=== PATIENT | male | born 1940 | race Caucasian/White ===

== ENCOUNTER → 2018-12-05 09:37 | Outpatient (CLI) | payer MEDICARE, SELFPAY ==
--- NOTE | 2018-12-05 | DI.NM.S_ITS ---
PROCEDURE: NM BONE SCAN WHOLE BODY RADIOPHARMACEUTICAL: 22.3 mCi Tc-99m MDP IV. INDICATIONS: RIGHT HIP PAIN TECHNIQUE: Delayed whole-body scintigrams were obtained approximately 3-4 hours after intravenous injection of radiotracer. Anterior and posterior views were acquired from vertex to feet. Additional left and right oblique views of the pelvis and hips were obtained. COMPARISON: Located Within [facility], CR, CHEST 1 VIEW, 04/09/2015, 21:25. [facility] Outside Film, RG, BILATERAL KNEE 3VW, 12/28/2017, 15:58. CR, SPINE LUMB 2 OR 3VW, 12/25/2015, 11:00. [facility], CR, XR KNEE ARTHRITIC SERIES BI, 08/23/2018, 15:58. [facility], [facility], XR PELVIS WITH BILATERAL LATERAL HIPS, 11/22/2018, 10:35. FINDINGS: There are bilateral hip arthroplasties. Low level increased activity on hip prosthesis is consistent with postsurgical change. There is increased activity in the left. Proximal humeral shaft. A right shoulder prosthesis is noted. No lesions are identified in skull, sternum, clavicles, scapulae, ribs, bony pelvis, and visualized shafts of the long bones. There is low level increased uptake in cervical, thoracic and lumbar spine with distribution indistinguishable from degenerative disc and facet disease. There are foci of increased periarticular activity involving knees, right greater than left, ankles and feet, compatible with degenerative/arthritic changes. IMPRESSION: 1. Bilateral hip arthroplasties. Low level increased uptake is likely secondary to postsurgical change. No scintigraphic findings to suggest prosthesis loosening or infection. 2. Increased activity in the left humeral shaft. Recommend radiographic correlation. 3. Degenerative joint disease in knees, ankles and feet. Dictated by: Servando Sanderson M.D. on 12/05/2018 at 14:49 Approved by: Servando Sanderson M.D. on 12/05/2018 at 18:23
[2018-12-05 10:41] LABS: Add Manual Diff / Slide Review NO; Basophils Absolute Auto 0 /uL (0-100); Basophils Percent Auto 0.6 % (0-2); Eosinophils Absolute Auto 100 /uL (0-450); Eosinophils Percent Auto 1.2 % (2-4); Hematocrit 32.5 % (41-53); Hemoglobin 10.7 g/dL (13.5-17.5); Lymphocytes Absolute Auto 600 /uL (1100-4500); Lymphocytes Percent Auto 12.4 % (25-40); Mean Corpuscular Hemoglobin 30.3 PG (26-34); Mean Corpuscular Volume 91.9 fL (80-100); Monocytes Absolute Auto 500 /uL (0-900); Monocytes Percent Auto 10.5 % (3-14); Neutrophils Absolute Auto 3900 /uL (1500-7000); Neutrophils Percent Auto 75.3 % (50-75); Platelet Count 570 X10^3/uL (150-400); Red Blood Cell Count 3.54 X10^6/uL (4.5-5.9); White Blood Cell Count 5.2 X10^3/uL (4.5-11.0)
[2018-12-05 10:50] LABS: Erythrocyte Sedimentation Rate 78 MM/HR (0-15)
[2018-12-05 11:07] LABS: C-Reactive Protein Quant 3.4 mg/dL (<1.0)
== END ==
PROVIDERS: PCP Family Medicine; Visit Provider Orthopaedic Surgery
DX: M25.551 Pain in right hip (principal); M25.561 Pain in right knee
CPT/HCPCS: 36415; 78306; 85025; 85651; 86140; A9503

== ENCOUNTER → 2018-12-14 11:32 | Outpatient (CLI) | payer MEDICARE, SELFPAY ==
--- NOTE | 2018-12-14 11:49 | DI.CT.S_ITS ---
PROCEDURE: CT LUMBAR SPINE WO CON INDICATIONS: Flatback syndrome, site unspecified TECHNIQUE: Noncontrast 3 mm thick sections acquired from the T12 level to the sacrum. Sagittal and coronal reformats were constructed. In this patient, 3-D reformatted images were also performed. For radiation dose reduction, the following was used: automated exposure control. COMPARISON: [facility], CR, L-SPINE 2-3 VIEWS, 04/08/2015, 9:02. [facility], NM, NM BONE SCAN WHOLE BODY, 12/05/2018, 12:59. [facility], CT, L-SPINE WITHOUT CONTRAST, 04/15/2014, 13:01. FINDINGS: Image quality: Excellent. Bones: No acute vertebral body compression fractures. No suspicious lytic or blastic bony lesions. Central spinal caliber is of normal overall caliber. No pars defects. Mild dextroconvex scoliotic curvature is seen. Minimal retrolisthesis is seen at L1-L2 and L2-L3. There is mild retrolisthesis seen at L3-L4. Mild grade 1 anterolisthesis is seen at L4-L5. Lower thoracic spine degenerative changes are seen. At the T9-T10 level, there is severe loss of disc height seen. Milder degenerative changes are seen elsewhere within the thoracic spine. Bridging endplate osteophytes are seen. Postoperative changes are seen, with bilateral pedicle screws at the L3 and L4 levels. Additional right-sided screws are seen at L2, L4, and L5. There is a transverse screw seen at the superior L4 level. There is an L3-L4 disc space are seen. The screws appear well placed. Vertical fixation rods are seen. No findings of hardware failure or hardware loosening are seen. There has been removal of portions of the posterior elements. T12-L1: Moderate to severe loss of disc height is seen. Partial bridging of the vertebral bodies can be seen. Moderate to prominent disc bulge is seen. Posteriorly projected endplate osteophytes are seen. Moderate neural foraminal narrowing is seen. At least moderate central canal narrowing is seen. When comparison is made with the prior examination, these findings are similar. L1-L2: At least moderate loss of disc height is seen. There is partial bridging of the vertebral bodies. Moderate to prominent disc bulge is seen. Endplate irregularity and sclerosis can be seen. Bridging endplate osteophytes are seen. Mild bilateral neural foraminal narrowing is seen. Mild central canal narrowing is seen. When comparison is made with the prior examination, these findings are similar. L2-L3: At least moderate loss of disc height is seen. Partial bridging of the vertebral bodies can be seen. Bridging endplate osteophytes are seen. Moderate generalized disc bulge is seen. There is at least moderate left-sided and mild right-sided neural foraminal narrowing seen. Rhbw-lr-[id number] central canal narrowing is seen. L3-L4: Vertebral body fusion is seen at this level. Prominent left-sided bridging endplate osteophytes are seen. Thoy-po-lghiqfiz bilateral neural foraminal narrowing is seen. These imaging findings have progressed compared to the prior study. L4-L5: Vertebral body fusion can be seen at this level. Prominent bridging endplate osteophytes can be seen at this level. There is likely mild left-sided neural foraminal narrowing at the right-sided neural foraminal narrowing is seen. No significant central canal can be seen. This level is improved compared to 2015. L5-S1: There is at least moderate loss of disc height is seen. Vacuum disc phenomenon is seen at this level. Bridging endplate osteophytes are seen. Moderate generalized disc bulge is seen. Moderate facet joint hypertrophy is seen. There is at least moderate bilateral neural foraminal narrowing seen. No significant central canal narrowing is seen. Soft tissues: No retroperitoneal masses or hematomas. Visualized aorta is normal in caliber. Within the medial right kidney, there is a rounded 2.7 cm lesion that measures 20 Hounsfield units, which is not significantly changed compared to 2015. IMPRESSION: Extensive postoperative hardware and fusion changes. The degrees of narrowing at L4-L5 are improved compared to 2015. Incidental note is made of: Likely right kidney hyperdense cyst. Dictated by: Logan Preston M.D. on 12/14/2018 at 12:23 Approved by: Logan Preston M.D. on 12/14/2018 at 12:35
== END ==
PROVIDERS: PCP Family Medicine; Visit Provider Orthopaedic Surgery
DX: M40.30 Flatback syndrome, site unspecified (principal); M43.16 Spondylolisthesis, lumbar region; M47.814 Spondylosis without myelopathy or radiculopathy, thoracic region; M51.26 Other intervertebral disc displacement, lumbar region; M51.27 Other intervertebral disc displacement, lumbosacral region; M48.061 Spinal stenosis, lumbar region without neurogenic claudication; M48.07 Spinal stenosis, lumbosacral region; Z98.1 Arthrodesis status
CPT/HCPCS: 72131

== ENCOUNTER 2019-04-12 06:02 | Inpatient (IN) | payer MEDICARE, SELFPAY ==
[2019-04-09 11:46] VITALS: BMI 31.3
[2019-04-12] VITALS (15 sets, daily range): BP systolic 95–126; BP diastolic 50–76; PULSE 73–111; RESP 12–20; TEMP 36.6–37.2; O2SAT 97–100; BMI 30.8
--- NOTE | 2019-04-12 | DI.RAD.S_ITS ---
PROCEDURE: XR LUMBAR SPINE 1V INDICATIONS: LAMINECTOMIES, SCREW REMOVAL TECHNIQUE: Single views of the lumbar spine were acquired. COMPARISON: [facility], , L-SPINE 2-3 VIEWS, 04/08/2015, 9:02. FINDINGS: Spot fluoroscopic image demonstrates surgical probe projecting in the posterior paraspinal soft tissues although the exact spinal level is unclear, without definitive anatomic landmarks in the [id number]. Partially visualized pedicle screws. Dictated by: Nba Pickard M.D. on 04/12/2019 at 16:39 Approved by: Nba Pickard M.D. on 04/12/2019 at 16:42
[2019-04-12] MEDS: CELECOXIB 200 MG CAPSULE 400 MG PO (06:54)
[2019-04-12] MEDS: ACETAMINOPHEN 325 MG TABLET 975 MG PO (06:54)
[2019-04-12] MEDS: GABAPENTIN 300 MG CAPSULE PO ×2 (06:55→20:02)
[2019-04-12] MEDS: LACTATED RINGERS 1,000 ML 42 ML IV (07:00)
--- NOTE | 2019-04-12 07:21 | PM.PREOP ---
Pre-operative Note Interval Note History & Physical reviewed/Exam performed by Physician: Yes Changes to H&P: No
[2019-04-12] MEDS: CEFAZOLIN 2 GM/100 ML FROZ.PIGGY IV ×3 (07:45→23:23)
--- NOTE | 2019-04-12 08:25 | SUR.OPER ---
Prone on spine table, head in foam head support, padded chest and pelvic supports, gel pad at knees, lower legs supported by pillows; nipples, genitalia and toes free of pressure, arms secured on foam padded arm boards at <90 degrees abduction. Tape over blanket at thigh secured to table.
[2019-04-12] MEDS: SODIUM CHLORIDE 0.9% 1,000 ML, GENTAMICIN 80 MG IRR (08:32)
[2019-04-12] MEDS: THROMBIN (RECOMBINANT) 5,000 UNIT VIAL 5000 UNIT TOP (08:33)
[2019-04-12] MEDS: VANCOMYCIN 1,000 MG VIAL 1000 MG TOP (08:33)
[2019-04-12] MEDS: BUPIVACAINE 0.25% (PF) VIAL 8 ML INJ (08:51)
[2019-04-12] MEDS: fentaNYL 100 MCG/2 ML INJ EPIDURAL (08:51)
[2019-04-12] MEDS: LACTATED RINGERS 1,000 ML 120 ML IV (09:19)
--- NOTE | 2019-04-12 11:02 | PM.OP.1 ---
Operative Date/Time/Diagnoses Date of procedure: 04/12/19 Time of procedure: 11:02 Pre-op diagnosis: Thoracic and lumbar stenosis with radiculopathy History of lumbar laminectomy and fusion Post-op diagnosis: same Procedure & Clinicians Procedure: T12-L1 laminectomy Revision bilateral L4-5 foraminotomies Hardware removal of screws from L2 through 5 Use of microscope Placement of epidural catheter Same procedure as scheduled: Yes Indications: [age] year old male with intractable pain from stenosis. They had failed conservative management and requested operative intervention. Risks and benefits of surgery were discussed and appropriate consents were obtained. Surgeon: Gurinder Reid Cable Television Technician: Rebekah Nowak Anesthesia Type: General Operative Notes Findings: None Closure Type: primary Specimen(s): none sent Prosthetic devices, grafts, tissues, transplants, or devices: Removed NuVasive Reline screws Applied: catheter Estimated Blood Loss (mL): 150 Blood products transfused: none Procedure in detail: Patient brought to the operating room and intubated on the stretcher. He was were rolled over to the well-padded prone position on the Keith table. Care was taken to not overstretch his shoulders and they were tucked down to the sides. The back was prepped and draped in the standard sterile fashion. Preoperative antibiotics were given. Time-out was performed. We used fluoroscopy for localization and made a 3 cm midline incision over T12-L1. Bovie was used to dissect the bilateral paraspinals. A marker was placed and x-ray confirmed position. We brought in the microscope. We used a combination of a Leksell rongeur, a bur, Kerrisons, and curettes to perform a complete laminectomy at T12-L1. We undermined part of the L1 lamina. We removed all of the facet overgrowth until the spinal canal was wide open. We could move a nerve hook cephalad, caudally, and out to the sides and everything was well decompressed. The wound was irrigated. We then took an epidural catheter and primed it with 8 mL of 0.25% Marcaine and 100 microscope fentanyl. The catheter was placed underneath the remaining lamina of T12 and slid cephalad. The fascia was closed and the epidural was injected without resistance and removed. We then used fluoroscopy to find the position of our screws at the lower levels. A 10 cm incision was made on the right-hand side. Bovie was used to split down to the fascia and through the muscle down to the screws. They were removed from L2 through 5. We then began dissecting and exposing the pars and the remaining lamina from his previous laminectomy. We came to the medial border at the junction of the previous laminectomy and the remaining bone. The microscope was brought in again. We then used a bur, curette, and Kerrison rongeurs to perform a revision right-sided laminotomy and foraminotomy at L4-5. We dug through the scar tissue until we could completely trace the nerve root off the dura and all the way out laterally past the pedicles and everything was open. The wound was irrigated. The fascia was closed. We then went to the left side. We used a 6 cm longitudinal incision over the screws. Bovie used to split the fascia. We continued dissected with Bovie until we came to the screws and removed the L3-4 screws. We dissected forth to the next level down to expose the L4-5 facet. The soft tissue was cleared to the edge of his previous laminectomy. We then again used microscope and performed a revision left-sided L4-5 laminotomy and foraminotomy with a bur and curette and Kerrison rongeurs.. In the end we could completely traced out the exiting nerve root from the dura out past the pedicles and everything was wide open. The wound was irrigated and the fascia was closed. Vancomycin powder was placed in the wounds. The superficial and skin were closed. Sterile dressing was placed. He was then rolled over, extubated, brought to recovery with no complications. Complications: none Post-operative Condition: stable Disposition: PACU Plan for aftercare: Outpatient with bed status. Anticipate 1-2 days in the hospital. Mobilize as tolerated.
[2019-04-12] MEDS: LACTATED RINGERS 1,000 ML 125 ML IV ×2 (12:41→20:05)
--- NOTE | 2019-04-12 13:56 | PT.IIE ---
Current Diagnoses Spinal stenosis, lumbar region with neurogenic claudication (04/12/19) Arthrodesis status (04/12/19) Surgery Performed Operation Date: 04/12/19 07:45 Actual Procedures p old screw removal, T12-L1 laminectomy, Bilateral revision foraminotomies at L45(Not Applicable) - Gurinder Reid MD Surgical History (Last Updated 04/09/19 @ 11:51 by Candelaria Gallegos RN) History of arthroplasty of right shoulder (Acute) History of bilateral hip arthroplasty (Acute) History of lumbar surgery (Acute 03/25/15) Hx of laminectomy (Acute) Hx of shoulder surgery (Acute) Medical History (Last Updated 04/10/19 @ 07:47 by Candelaria Gallegos RN) Acid reflux (Acute) Afib (Acute) Arthritis (Acute) Cardiomyopathy (Acute) Edema (Acute) HLD (hyperlipidemia) (Acute) HTN (hypertension) (Acute) Osteoarthritis (Acute) Physical Therapy Inpatient Evaluation/Re-Eval M1 PT/OT-IP Prior Functional Status Start: 04/12/19 15:04 Freq: NEEDED Status: Active Protocol: Document 04/12/19 13:56 AB (Rec: 04/12/19 15:25 AB [id number]) Medical Review Prior Functional Status Medical History Reviewed Yes Communication able to make need known Mobility and Gait pt stated that he is inidependent with alll mobilities and ambulation without AD indoors but uses a SPC for outdoor mobility stated that he had h/o falls and has difficulty going up/ down curbs. Last fall was ~ 6 -8 months ago Social History Household Members spouse Living Arrangements House Number of Floors (Floors) Two Floors Number of Stairs To Enter/Railing? pt stays on main level of the house has 2 steps to enter with R rail ascending from the front has 2 platform steps to enter if going from the back of the house pt prefer going from the front of the house Home Environment High Toilet,Walk in Shower Home Equipment Front Wheel Walker,Straight Cane,Hand Held Shower,Grab Bars In Shower M2 PT-IP Current Condition Start: 04/12/19 15:04 Freq: NEEDED Status: Active Protocol: Document 04/12/19 13:56 AB (Rec: 04/12/19 15:25 AB [id number]) Physical Therapy Current Condition Current Condition Evaluation Date 04/12/19 Treatment Diagnosis s/p T12-L1 lami; revision L4-5 foraminotomies; L2-5 instru; diff in walk Onset Date 04/12/2019 Precautions Lumbar Precautions Log Roll,No Twisting,Limit Bending,Lifting Restriction of 10 lbs,Gait Belt above Incisional Area M3 PT-IP Subjective Start: 04/12/19 15:04 Freq: NEEDED Status: Active Protocol: Document 04/12/19 13:56 AB (Rec: 04/12/19 15:25 [id number]) Subjective Physical Therapy Visit Type Type Initial Evaluation Visit Start Time 13:56 Visit Stop Time 14:46 Total Visit Minutes 50 Number of PYTHON ENGINEER Visits 0 Physical Therapy Visit Comments Patient Comments pt agreeable to do PT Therapy Pain Assessment Pain When Pain Assessed At Rest Pain Present Pain Present Pain Reported Location lower back Intensity 5 Scale Used Numeric (1 - 10) Pain Behaviors Guarding Pain Management Techniques Modification of Treatment,Re- positioning M4 PT-IP Mobility and Gait Start: 04/12/19 15:04 Freq: NEEDED Status: Active Protocol: Document 04/12/19 13:56 AB (Rec: 04/12/19 15:25 [id number]) PT-Bed Mobility Assessment Rolling Type of Rolling Log Rolling Level of Assist Moderate Assistance,1 Person Assistance Supine to Sit Supine to Sit Maximum Assistance,1 Person Assistance Sit to Supine Sit to Supine Maximum Assistance,1 Person Assistance PT-Transfer Assessment Sit to and From Stand Sit to and from Stand Contact Guard Assistance,1 Person Assistance,Use of Upper Extremities Equipment Transfer Assistive Device Gait Belt,Front Wheeled Walker Orthotic/Prosthetic Devices or Brace: No Gait Assessment Gait Gait Assistance Required: Minimum Assistance,1 Person Assist Distance (Feet) 40 Able to Maintain Weight Bearing Status Yes During Gait Assistive Devices Assistive Device Gait Belt,Front Wheeled Walker Orthotic/Prosthetic Devices or Brace: No Gait Deviations General Gait Pattern Antalgic,Decreased Stride Length,Decreased Feet Clearance,Flexed Trunk,Step-to Gait Factors Limiting Gait Function Factors Limiting Gait Function Decreased Activity Tolerance, Decreased Sensation,Decreased Strength,Limited Range of Motion,Pain,Poor Balance,Poor Safety Awareness Comments Gait Comments pt presents with antalgic gait with increase bilateral knee flexion during standing and trunk forward flexion, has increase genu varum on RLE, decrearse LE elevation during swing phase. PT-Balance Assessment Sitting Balance and Reactions Static Sitting Balance Ability Good Dynamic Sitting Balance Ability Good Standing Balance and Reactions Static Standing Balance Ability Fair Dynamic Standing Balance Ability Fair Device Used FWW M5 PT-IP Objective Assessments Start: 04/12/19 15:04 Freq: NEEDED Status: Active Protocol: Document 04/12/19 13:56 AB (Rec: 04/12/19 15:25 AB [id number]) Orientation Orientation/Cognition Level of Alertness Alert Orientation Name,Place,Situation Language Function Ability No Deficits Noted Safety Awareness Decreased Safety Awareness Gross Range of Motion Lower Extremity ROM Assessment Within Functional Limits Strength Lower Extremity Strength Assessment Bilaterally Impaired Comments Strength Comments LLE: 3+/5 RLE 4-/5 Coordination Assessment Gross Coordination Gross Coordination WNL Sensation Assessment Comments Sensation Comments c/o chronic decrease sensation on BLE Muscle Tone Muscle Tone WNL Yes M6 PT-IP Treatment Start: 04/12/19 15:04 Freq: NEEDED Status: Active Protocol: Document 04/12/19 13:56 AB (Rec: 04/12/19 15:25 AB [id number]) Physical Therapy Treatment Education Education Provided Precautions,Weight Bearing Status,Post-Op Packet,Safety M7 PT-IP Assessment and Plan Start: 04/12/19 15:04 Freq: NEEDED Status: Active Protocol: Document 04/12/19 13:56 AB (Rec: 04/12/19 15:25 AB [id number]) PT Summary Assessment and Plan Potential Rehabilitation Potential Good Status of Condition at Evaluation Evolving Summary Impairments Pain,ROM,Strength,Balance, Coordination,Sensation,Tone, Cognition,Bed Mobility, Transfers,Gait,Activity Tolerance Assessment Summary pt requiring max A with bed mobility and min A with ambulation. d/c plan depending on progress. will conduct caregiver training when appropriate as well as stair climbing training. If pt goes home, may benefit from homehealth PT to improve LE strength, balance and functional independence considering pt's BLE weakness and h/o falls. Goals Bed Mobility Goal Standby Assistance Transfer Goal Standby Assistance,Front Wheeled Walker Gait Goal Standby Assistance,Front Wheel Walker Gait Distance 150 Other Goals up/down 2 steps R rail SBA Days to Meet Goals 5 Frequency of Treatment Frequency Of Treatment Twice a Day Treatment Plan Physical Therapy Treatment Plan Bed Mobility Training,Transfer Training,Gait Training, Therapeutic Exercise,Balance Retraining,Post Op Education, Discharge Planning,Hot or Cold Pack,Neuromuscular Re-ed, Coordination Retraining,Manual Therapy Other Recommendations and Next Treatment ambulation, bed mobility, Focus caregiver training and stair training when appropriate Recommendations To Nursing Amount of Assist Needed 1 Person Assist Discharge Recommendations PT Discharge Recommendations Home with 24/7 Assist,Home Health Transportation Needs at Discharge Private Vehicle
[2019-04-12] MEDS: HYDROCODONE/ACET 5/325 TABLET 1 TAB PO (16:09)
--- NOTE | 2019-04-12 18:02 | PC.NURSE ---
Mi shift note: Awake, alert, and pleasant. Received on RA, O2 sat 99%, while awake, cont. pulse ox. Calf SCDs in place, IS teaching performed. Made EdgarParviz FERNANDEZ aware regarding increased sanguinous drainage to proximal end of dressing, Dr. Reid aware, ok to reinforce. IVF infusing, bed alarm active. CIWA 0. CMS intact to BLE, Edema noted to BLE from below knee to feet, 2+. Calls appropriately for staff assistance.
[2019-04-12] MEDS: HYDROCODONE/ACET 5/325 TABLET 2 TAB PO (19:55)
[2019-04-12] MEDS: DOCUSATE 100 MG CAPSULE PO (20:01)
[2019-04-12] MEDS: DIGOXIN 0.25 MG TABLET PO (20:01)
[2019-04-12] MEDS: POTASSIUM CHLORIDE 20 MEQ TAB PO (20:02)
[2019-04-12] MEDS: LOSARTAN 25 MG TABLET PO (20:02)
[2019-04-12] MEDS: SENNOSIDES 8.6 MG TABLET 17.2 MG PO (20:03)
[2019-04-13] VITALS (9 sets, daily range): BP systolic 112–123; BP diastolic 57–65; PULSE 80–98; RESP 16–18; TEMP 36.6–37.9; O2SAT 96–100
[2019-04-13] MEDS: PANTOPRAZOLE 20 MG TABLET PO (05:41)
[2019-04-13 05:46] LABS: Hematocrit 26.2 % (41-53); Hemoglobin 8.5 g/dL (13.5-17.5)
--- NOTE | 2019-04-13 08:09 | PM.PNPO.1 ---
Subjective Subjective Date Patient Seen: 04/13/19 Time Patient Seen: 08:09 Interval history: He is doing very well. Pain is about a 3. He did get up with physical therapy yesterday and moved around well with assistance Exam Vital Signs (past 8 hours): - 04/13/19 04:00 Temperature 99.4 F Pulse Rate 91 H Respiratory Rate 16 Blood Pressure 114/58 L Pulse Oximetry 98 Oxygen Delivery Method Room Air Oxygen Flow Rate 0 Const Orientation: alert and oriented x3 Back/Spine/Pelvis Other: Dressing changed yesterday. Quarter-size mild drainage currently. 5/5 motor both lower extremities Objective Labs Result Diagrams: 04/13/19 05:30 Labs: Laboratory Results - last 24 hr 04/13/19 05:30 Hgb 8.5 L Hct 26.2 L Assessment & Plan Post-op Postoperative Procedures: Procedures Operation Date: 04/12/19 07:45 Actual Procedures Side Surgeon p old screw removal, T12-L1 laminectomy, Bilateral revision foraminotomies at L45 Not Applicable Gurinder Reid MD he had some acute blood loss anemia, although he dropped from 10/33 down to a 8.5/26. I think this is going to be more dilutional as he only had about 150 mL blood loss. His vitals are stable and he is asymptomatic from this. Continue to mobilize today with physical therapy. If he is doing well he could discharge home this afternoon, but may require staying till tomorrow for stability. Quality VTE Deep Vein Thrombosis/Pulmonary Embolism Present on Admission: No
[2019-04-13] MEDS: CHOLECALCIFEROL (VITAMIN D3) 1,000 UNIT TABLET 2000 UNIT PO (08:14)
[2019-04-13] MEDS: FUROSEMIDE 40 MG TABLET PO (08:15)
[2019-04-13] MEDS: POTASSIUM CHLORIDE 20 MEQ TAB PO ×2 (08:15→20:35)
[2019-04-13] MEDS: MULTIVIT,CALC,MINS/IRON/FOLIC 1 TABLET 1 TAB PO (08:15)
[2019-04-13] MEDS: DOCUSATE 100 MG CAPSULE PO ×2 (08:15→20:35)
[2019-04-13] MEDS: METOPROLOL ER 50 MG TABLET 25 MG PO (08:15)
[2019-04-13] MEDS: HYDROCODONE/ACET 5/325 TABLET 2 TAB PO ×2 (08:17→12:38)
[2019-04-13] MEDS: SODIUM CHLORIDE 0.9% FLUSH 10 ML IV ×2 (08:58→20:37)
--- NOTE | 2019-04-13 09:35 | PT.IPTN ---
Current Diagnoses Spinal stenosis, lumbar region with neurogenic claudication (04/12/19) Arthrodesis status (04/12/19) Surgery Performed Operation Date: 04/12/19 07:45 Actual Procedures p old screw removal, T12-L1 laminectomy, Bilateral revision foraminotomies at L45(Not Applicable) - Gurinder Reid MD Physical Therapy Treatment Note M2 PT-IP Current Condition Start: 04/12/19 15:04 Freq: NEEDED Status: Active Protocol: Document 04/12/19 13:56 AB (Rec: 04/12/19 15:25 AB [id number]) Physical Therapy Current Condition Current Condition Evaluation Date 04/12/19 Treatment Diagnosis s/p T12-L1 lami; revision L4-5 foraminotomies; L2-5 instru; diff in walk Onset Date 04/12/2019 Precautions Lumbar Precautions Log Roll,No Twisting,Limit Bending,Lifting Restriction of 10 lbs,Gait Belt above Incisional Area M3 PT-IP Subjective Start: 04/12/19 15:04 Freq: NEEDED Status: Active Protocol: Document 04/13/19 09:35 AB (Rec: 04/13/19 11:59 AB [id number]) Subjective Physical Therapy Visit Type Type Treatment Note Visit Start Time 09:35 Visit Stop Time 10:13 Total Visit Minutes 38 Number of ATTRACTION ATTENDANT Visits 0 Physical Therapy Visit Comments Patient Comments pt agreeable to do PT Therapy Pain Assessment Pain When Pain Assessed At Rest Pain Present Pain Present Pain Reported Location Right Lower Leg Intensity 6 Scale Used Numeric (1 - 10) Pain Management Techniques Modification of Treatment, Timing of Activity with Medications M4 PT-IP Mobility and Gait Start: 04/12/19 15:04 Freq: NEEDED Status: Active Protocol: Document 04/13/19 09:35 AB (Rec: 04/13/19 11:59 AB [id number]) PT-Bed Mobility Assessment Rolling Type of Rolling Log Rolling Level of Assist Minimal Assistance Supine to Sit Supine to Sit Minimal Assistance,1 Person Assistance PT-Transfer Assessment Sit to and From Stand Sit to and from Stand Contact Guard Assistance, Minimal Assistance,1 Person Assistance,Use of Upper Extremities Equipment Transfer Assistive Device Gait Belt,Front Wheeled Walker Orthotic/Prosthetic Devices or Brace: No Transfers Transfer Destination Chair Transfer Technique ambulated using FWW Transfer Ability Level of Assist Contact Guard Assistance, Minimal Assistance,1 Person Assistance,Use of Upper Extremities Gait Assessment Gait Gait Assistance Required: Contact Guard Assist,Minimum Assistance,1 Person Assist Distance (Feet) 75 Able to Maintain Weight Bearing Status Yes During Gait Assistive Devices Assistive Device Gait Belt,Front Wheeled Walker Orthotic/Prosthetic Devices or Brace: No Gait Deviations General Gait Pattern Antalgic,Decreased Stride Length,Decreased Feet Clearance,Lateral Trunk Lean, Step-to Gait Factors Limiting Gait Function Factors Limiting Gait Function Decreased Activity Tolerance, Decreased Strength,Limited Range of Motion,Pain,Poor Balance,Poor Safety Awareness Stair Climbing Assessment Evaluation Level of Assist On Stairs Minimal Assistance,1 Person Assistance Devices Stair Climbing Assistive Devices Front Wheel Walker Technique/Endurance Stair Climbing Direction Ascend and Descend Stair Climbing Technique Step to Step Number of Steps Climbed 1 Stair Climbing Set # Repetitions (reps) 2 Comments Stair Climbing Comments up platform steps backwards and down platform steps forward min A and cues for techniques and safety M5 PT-IP Objective Assessments Start: 04/12/19 15:04 Freq: NEEDED Status: Active Protocol: Document 04/12/19 13:56 AB (Rec: 04/12/19 15:25 AB [id number]) Orientation Orientation/Cognition Level of Alertness Alert Orientation Name,Place,Situation Language Function Ability No Deficits Noted Safety Awareness Decreased Safety Awareness Gross Range of Motion Lower Extremity ROM Assessment Within Functional Limits Strength Lower Extremity Strength Assessment Bilaterally Impaired Comments Strength Comments LLE: 3+/5 RLE 4-/5 Coordination Assessment Gross Coordination Gross Coordination WNL Sensation Assessment Comments Sensation Comments c/o chronic decrease sensation on BLE Muscle Tone Muscle Tone WNL Yes M6 PT-IP Treatment Start: 04/12/19 15:04 Freq: NEEDED Status: Active Protocol: Document 04/13/19 09:35 AB (Rec: 04/13/19 11:59 AB [id number]) Physical Therapy Treatment Education Education Provided Precautions,Safety M7 PT-IP Assessment and Plan Start: 04/12/19 15:04 Freq: NEEDED Status: Active Protocol: Document 04/13/19 09:35 AB (Rec: 04/13/19 11:59 AB [id number]) PT Summary Assessment and Plan Potential Rehabilitation Potential Good Summary Impairments Pain,ROM,Strength,Balance, Coordination,Sensation,Tone, Cognition,Bed Mobility, Transfers,Gait,Activity Tolerance Progress Towards Goals Progressing Toward Goals Assessment Summary pt progressing with mobility and caregiver training will be conducted prior to d/c. set up caregiver training in the afternoon at 130 pm. d/c plan depending on caregiver training. pt will benefit from homehealth/outpt PT to improve strength especially on LLE, standing balance and mobility. Goals Bed Mobility Goal Standby Assistance Transfer Goal Standby Assistance,Front Wheeled Walker Gait Goal Standby Assistance,Front Wheel Walker Gait Distance 150 Other Goals up/down 2 steps R rail SBA Days to Meet Goals 5 Frequency of Treatment Frequency Of Treatment Twice a Day Treatment Plan Physical Therapy Treatment Plan Bed Mobility Training,Transfer Training,Gait Training, Therapeutic Exercise,Balance Retraining,Post Op Education, Discharge Planning,Hot or Cold Pack,Neuromuscular Re-ed, Coordination Retraining,Manual Therapy Other Recommendations and Next Treatment ambulation, bed mobility, Focus caregiver training and stair training when appropriate Recommendations To Nursing Amount of Assist Needed 1 Person Assist Discharge Recommendations PT Discharge Recommendations Home with 24/7 Assist,Home Health,Outpatient PT Transportation Needs at Discharge Private Vehicle
--- NOTE | 2019-04-13 10:51 | PC.NURSE ---
Addendum entered by Melissa Jaffe R.N. 04/13/19 14:47: Dr. Reid called via phone at 1440 for pt update. Speaking with pt, does not feel comfortable going home today after working with PT this afternoon, stated PT session went okay. Pt to stay one more night, verbal order to order H&H for Tuesday morning. Addendum entered by Melissa Jaffe R.N. 04/13/19 11:45: At 1145, pt reported he had voided in toilet when up with OT. Aware to measure in urinal with next void, urinal within reach. Pt okay with continuing to sit up in recliner chair. Original Note: Day Shift- Pt A&OX4, able to make needs known using call light. Bed alarm on. Pt is hard of hearing, he left his bilateral hearing aids at home. Pt reports 4/10 aching to lower back and right lower leg slight spasm. Pain management plan discussed. PRN Oxycodone given at 0815 with good effect. RLE spasm non distressing at this time, will monitor. Lower/mid back dressing intact, appears to be coversite overlapping dressings. Sero sang drainage noted to proximal left and distal left side of dressing. No leaking noted. Pt has chronic BLE edema to feet, ankle and lower legs up to his knees. Edema is puffy, shiny, taut in places. CIWA score is 0. Urinary catheter removed at 1035 by [place] practical nursing instructor Arin with her instructor.
--- NOTE | 2019-04-13 11:31 | OT.IP.EVAL ---
Current Diagnoses Spinal stenosis, lumbar region with neurogenic claudication (04/12/19) Arthrodesis status (04/12/19) Surgery Performed Operation Date: 04/12/19 07:45 Actual Procedures p old screw removal, T12-L1 laminectomy, Bilateral revision foraminotomies at L45(Not Applicable) - Gurinder Reid MD Past Medical History (Last Updated 04/10/19 @ 07:47 by Candelaria Gallegos RN) Acid reflux (Acute) Afib (Acute) Arthritis (Acute) Cardiomyopathy (Acute) Edema (Acute) HLD (hyperlipidemia) (Acute) HTN (hypertension) (Acute) Osteoarthritis (Acute) Surgical History (Last Updated 04/09/19 @ 11:51 by Candelaria Gallegos RN) History of arthroplasty of right shoulder (Acute) History of bilateral hip arthroplasty (Acute) History of lumbar surgery (Acute 03/25/15) Hx of laminectomy (Acute) Hx of shoulder surgery (Acute) Occupational Therapy Inpatient Evaluation/Re-Eval M1 PT/OT-IP Prior Functional Status Start: 04/12/19 15:04 Freq: NEEDED Status: Active Protocol: Document 04/13/19 11:41 CGR (Rec: 04/13/19 11:52 CGR [id number]) Medical Review Prior Functional Status Medical History Reviewed Yes Communication able to make need known Mobility and Gait pt stated that he is inidependent with alll mobilities and ambulation without AD indoors but uses a SPC for outdoor mobility stated that he had h/o falls and has difficulty going up/ down curbs. Last fall was ~ 6 -8 months ago Activities of Daily Living and IADL's Pt states he was able to do all of his dressing and bathing but states he no longer wears socks because he can't don them and the sock aide does not work for him. Social History Household Members spouse Living Arrangements House Number of Floors (Floors) Two Floors Number of Stairs To Enter/Railing? 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 M2 OT-IP Current Condition Start: 04/13/19 11:41 Freq: Status: Active Protocol: Document 04/13/19 11:41 CGR (Rec: 04/13/19 11:52 CGR [email or web address]) Occupational Therapy Current Condition Current Condition Evaluation Date 04/13/19 Treatment Diagnosis T12-L1 lami, revision of L4-5 and hardware removal L2-5 Diagnosis Onset Date 04/12/19 Post Operative Precautions Lumbar Precautions Log Roll,No Twisting,Limit Bending,Lifting Restriction of 10 lbs,Gait Belt above Incisional Area M3 OT- IP Subjective and Pain Start: 04/13/19 11:41 Freq: Status: Active Protocol: Document 04/13/19 11:41 CGR (Rec: 04/13/19 11:52 CGR [email or web address]) OT- Subjective Occupational Therapy Visit Type Type Initial Evaluation Visit Start Time 10:38 Visit Stop Time 11:31 Total Visit Minutes 53 Occupational Therapy Visit Comments Patient Comments I have gone through this before so I know a lot of what to do. OT Pain Assessment Pain When Pain Assessed At Rest Pain Present Pain Present Pain Reported Location Right Lower Leg Intensity 5 Scale Used Numeric (1 - 10) Management Techniques Modification of Treatment, Timing of Activity with Medications M4 OT- IP ADL's Start: 04/13/19 11:41 Freq: Status: Active Protocol: Document 04/13/19 11:41 CGR (Rec: 04/13/19 11:52 CGR [email or web address]) OT [id number] Comments OT Self-Feeding Comments Not meal time OT ADL-Grooming General Evaluation Grooming Ability Standby Assistance Areas Needing Assistance Face Washing Comments OT Grooming Comments Standing at sink OT ADL-Oral Care General Eval Oral Care Ability Standby Assistance Areas of Assistance Brushing Teeth,Retrieving/Set- Up of Items Comments Oral Care Comments Standing at sink OT ADL-Dressing General Eval Lower Body Dressing Ability Standby Assistance Areas Needing Assistance Underpants/Brief Assistive Devices Dressing Assistive Devices Handle Maker Comments OT Dressing Comments Pt educated on LB dressing of underwear and pants with a rn operating room. OT ADL-Toileting General Evaluation Toileting Ability Independent Devices Toileting Assistive Devices Grab Bars OT ADL-Bathing Comments OT Bathing Comments Not performed in this session. M5 OT- IP IADL's Start: 04/13/19 11:41 Freq: Status: Active Protocol: Document 04/13/19 11:41 CGR (Rec: 04/13/19 11:52 CGR [email or web address]) OT-Instrumental Activities of Daily Living Deficits IADL Deficits Identified Deficits Home Safety Awareness Awareness of Need for Assistance at Home Good Awareness Ability to Problem Solve Emergency Able to Problem Solve Situations Medication Management Medication Management Caregiver Provides Supervision Money Management Money Management No Deficits Identified Meal Preparation Meal Preparation Caregiver Provides Assist Financial Intern Financial Intern Caregiver Provides Assist Driving Driving Comments Pt understands that he should not drive till cleared by his MD. M6 OT- IP Functional Cognition Start: 04/13/19 11:41 Freq: Status: Active Protocol: Document 04/13/19 11:41 CGR (Rec: 04/13/19 11:52 CGR [email or web address]) Cognitive Factors Limiting Selfcare Function Cognitive Ability Level of Alertness Alert Patient Orientation Name,Age,Birthday,Month,Date, Year,Day of Week,Place, Situation Attention Span Ability Capable of Focused Attention, Capable of Sustained Attention Ability to Follow Commands Able to Follow Multi-Step Commands Memory Description No Deficits Noted Safety Awareness No Deficits Noted Problem Solving Ability No deficits Noted OT- Vision and Hearing OT- Hearing Assessment OT- Hearing Assessment Hearing Impaired,Use of Hearing Aids OT- Vision Assessment Vision History Cataracts Visual Acuity Glasses For Reading Visual Attentiveness WFL Occular Pursuits WFL Visual Convergence WFL Visual Carter WFL Vision Assessment Comments Hx of cateract sx M7 OT- IP Mobility and Balance Start: 04/13/19 11:41 Freq: Status: Active Protocol: Document 04/13/19 11:41 CGR (Rec: 04/13/19 11:52 CGR [email or web address]) OT- Bed Mobility Assessment Rolling Type of Rolling Log Rolling Level of Assistance Standby Assistance Supine to Sit Supine to Sit Assist Standby Assistance Sit to Supine Sit to Supine Assist Minimal Assistance Scooting Scooting to Edge of Bed Standby Assistance OT-Transfer Assessment Sit to and From Stand Sit to and from Stand Standby Assistance Transfers Transfer Ability Standby Assistance Technique Transfer Destination Bed,Chair,Toilet Transfer Technique Stand Step Pivot Devices Transfer Assistive Devices Gait Belt,Front Wheeled Walker Comments Mobility Comments Pt with good use of safety with mobility around room and bathroom. Pt needed min a for getting L foot into bed but states this is his prior level and his is use to helping him with it. OT- Gait Assessment Gait Gait Assistance Required: Standby Assistance Assistive Devices Assistive Device Gait Belt,Front Wheeled Walker OT- Balance Assessment Sitting Balance and Reactions Static Sitting Balance Ability Good Dynamic Sitting Balance Ability Fair M8 OT- IP Objective Assessments Start: 04/13/19 11:41 Freq: Status: Active Protocol: Document 04/13/19 11:41 CGR (Rec: 04/13/19 11:52 CGR [email or web address]) OT Gross Range of Motion Upper Extremity Range of Motion Assessment Within Functional Limits OT Strength Upper Extremity Strength Assessment Within Functional Limits OT- Coordination Assessment Upper Extremity Finger to Nose Test Within Functional Limits Finger Tapping Test Within Functional Limits OT-Muscle Tone Assessment Muscle Tone WNL Yes OT Sensation Assessment Edema Edema Present Edema Comments B feet, but pt states this this is his normal state. M9 OT- IP Assessment and Plan Start: 04/13/19 11:41 Freq: Status: Active Protocol: Document 04/13/19 11:41 CGR (Rec: 04/13/19 11:52 CGR [email or web address]) OT Summary Assessment and Plan Potential Rehabilitation Potential Excellent Analytic Complexity at Evaluation Low Summary OT Impairments Pain,Strength,Balance, Functional Mobility,Dressing, Toileting,Bathing,Toilet Transfers,Shower Transfers, Activity Tolerance Progress Towards Goals Progressing Toward Goals Assessment Summary Pt presents s/p back sx and is progressing well. Pt has all necessary equipment at home and would benefit from 1-2 more sessions to review back precautions and ADLs while maintaining back precautions. Pt has his to assist as needed. Recommend d/c to home with for support. Goals Self-Feeding Goal Independent Grooming Goal Independent Dressing Goal Independent Toileting Goal Independent Bathing Goal Independent Toilet Transfer Goal Independent Shower Transfer Goal Independent Days to Meet Goals 2 Frequency of Treatment Frequency Of Treatment Once a Day Treatment Plan OT Treatment Plan ADL Training,Functional Mobility,Patient/Family Education,Discharge Planning Other Treatment Recommendations and Next Shower, further LB dressing Treatment Focus Discharge Recommendations OT Discharge Recommendations Home with Assistance Home Equipment Needs None at this time. Transportation Needs at Discharge Private Vehicle
--- NOTE | 2019-04-13 12:22 | DIET.PN ---
Dietary Progress Note RD consulted for reported 40# wt loss in past year. Met with pt who had just finished 100% of lunch and reports the weight loss was intentional and done via portion control. No further nutrition f/u needed.
--- NOTE | 2019-04-13 13:56 | PT.IPTN ---
Current Diagnoses Spinal stenosis, lumbar region with neurogenic claudication (04/12/19) Arthrodesis status (04/12/19) Surgery Performed Operation Date: 04/12/19 07:45 Actual Procedures p old screw removal, T12-L1 laminectomy, Bilateral revision foraminotomies at L45(Not Applicable) - Gurinder Reid MD Physical Therapy Treatment Note M2 PT-IP Current Condition Start: 04/12/19 15:04 Freq: NEEDED Status: Active Protocol: Document 04/12/19 13:56 AB (Rec: 04/12/19 15:25 AB [id number]) Physical Therapy Current Condition Current Condition Evaluation Date 04/12/19 Treatment Diagnosis s/p T12-L1 lami; revision L4-5 foraminotomies; L2-5 instru; diff in walk Onset Date 04/12/2019 Precautions Lumbar Precautions Log Roll,No Twisting,Limit Bending,Lifting Restriction of 10 lbs,Gait Belt above Incisional Area M3 PT-IP Subjective Start: 04/12/19 15:04 Freq: NEEDED Status: Active Protocol: Document 04/13/19 13:56 AB (Rec: 04/13/19 16:19 AB [id number]) Subjective Physical Therapy Visit Type Type Treatment Note Visit Start Time 13:56 Visit Stop Time 14:43 Total Visit Minutes 47 Number of POWER HOUSE CONTROL ROOM OPERATOR Visits 0 Physical Therapy Visit Comments Patient Comments pt agreeable to do PT. spouse present for caregiver training Therapy Pain Assessment Pain When Pain Assessed At Rest Pain Present Pain Present Pain Reported Location Right Lower Leg Intensity 4 Scale Used Numeric (1 - 10) M4 PT-IP Mobility and Gait Start: 04/12/19 15:04 Freq: NEEDED Status: Active Protocol: Document 04/13/19 13:56 AB (Rec: 04/13/19 16:19 AB [id number]) PT-Bed Mobility Assessment Rolling Type of Rolling Log Rolling Level of Assist Minimal Assistance Supine to Sit Supine to Sit Minimal Assistance Sit to Supine Sit to Supine Minimal Assistance PT-Transfer Assessment Sit to and From Stand Sit to and from Stand Contact Guard Assistance, Minimal Assistance,1 Person Assistance,Use of Upper Extremities Equipment Transfer Assistive Device Gait Belt,Front Wheeled Walker Orthotic/Prosthetic Devices or Brace: No Transfers Transfer Destination Bed Transfer Technique Stand Step Pivot Transfer Ability Level of Assist Contact Guard Assistance Comments Mobility Comments caregiver training conducted. educated spouse on how to use safety belt and how to assist pt. spouse was able to put safety belt on pt. assisted pt with toilet transfers. pt ambulated using FWW towards the toilet and was able to maintain standing using fWW for support and spouse assisting. pt ambulated out towards the sink using FWW CGA and completed handwashing CGA . ambulated to the bed and completed bed mobility x 3 sets. pt ambulated ~ 100 ft using FWW CGA with spouse assisting. completed up/down platform steps using FWW and spouse was able to assist pt safely. pt requested to go back to bed after stair training. completed sit to supine min A and cues. positioned pt in bed. call light and table placed within reach. Gait Assessment Gait Gait Assistance Required: Contact Guard Assist Distance (Feet) 100 Able to Maintain Weight Bearing Status Yes During Gait Assistive Devices Assistive Device Gait Belt,Front Wheeled Walker Gait Deviations General Gait Pattern Antalgic,Decreased Stride Length,Decreased Feet Clearance,Lateral Trunk Lean, Step-to Gait Factors Limiting Gait Function Factors Limiting Gait Function Decreased Activity Tolerance, Decreased Strength,Limited Range of Motion,Pain,Poor Balance,Poor Safety Awareness Stair Climbing Assessment Evaluation Level of Assist On Stairs Minimal Assistance,1 Person Assistance Devices Stair Climbing Assistive Devices Front Wheel Walker Technique/Endurance Stair Climbing Direction Ascend and Descend Stair Climbing Technique Step to Step Number of Steps Climbed 1 Comments Stair Climbing Comments completed platform steps backwards with spouse assisting using FWW for support min A and cues. spouse was able to assist pt safely. M5 PT-IP Objective Assessments Start: 04/12/19 15:04 Freq: NEEDED Status: Active Protocol: Document 04/12/19 13:56 AB (Rec: 04/12/19 15:25 AB [id number]) Orientation Orientation/Cognition Level of Alertness Alert Orientation Name,Place,Situation Language Function Ability No Deficits Noted Safety Awareness Decreased Safety Awareness Gross Range of Motion Lower Extremity ROM Assessment Within Functional Limits Strength Lower Extremity Strength Assessment Bilaterally Impaired Comments Strength Comments LLE: 3+/5 RLE 4-/5 Coordination Assessment Gross Coordination Gross Coordination WNL Sensation Assessment Comments Sensation Comments c/o chronic decrease sensation on BLE Muscle Tone Muscle Tone WNL Yes M6 PT-IP Treatment Start: 04/12/19 15:04 Freq: NEEDED Status: Active Protocol: Document 04/13/19 13:56 AB (Rec: 04/13/19 16:19 AB [id number]) Physical Therapy Treatment Education Education Provided Precautions,Safety M7 PT-IP Assessment and Plan Start: 04/12/19 15:04 Freq: NEEDED Status: Active Protocol: Document 04/13/19 13:56 (Rec: 04/13/19 16:19 AB [id number]) PT Summary Assessment and Plan Potential Rehabilitation Potential Good Summary Impairments Pain,ROM,Strength,Balance, Coordination,Sensation,Tone, Cognition,Bed Mobility, Transfers,Gait,Activity Tolerance Progress Towards Goals Progressing Toward Goals Assessment Summary caregiver training conducted and spouse was able to assist pt safely. pt and spouse feels comfortable with pt's level of assistance but pt and spouse is still not sure if they want to go home today or not. Goals Bed Mobility Goal Standby Assistance Transfer Goal Standby Assistance,Front Wheeled Walker Gait Goal Standby Assistance,Front Wheel Walker Gait Distance 150 Other Goals up/down platform step using FWW SBA Days to Meet Goals 5 Frequency of Treatment Frequency Of Treatment Twice a Day Treatment Plan Physical Therapy Treatment Plan Bed Mobility Training,Transfer Training,Gait Training, Therapeutic Exercise,Balance Retraining,Post Op Education, Discharge Planning,Hot or Cold Pack,Neuromuscular Re-ed, Coordination Retraining,Manual Therapy Other Recommendations and Next Treatment ambulation, bed mobility, Focus caregiver training and stair training when appropriate Recommendations To Nursing Amount of Assist Needed 1 Person Assist Discharge Recommendations PT Discharge Recommendations Home with 30/08 Assist,Home Health,Outpatient PT Transportation Needs at Discharge Private Vehicle
--- NOTE | 2019-04-13 15:31 | CM.IDA ---
Initial DCP Assessment Note: Pt is a 79 yo male, resident of [place], now POD#1 from spinal surgery w/ Dr Reid PCP: Wilma Alberts Payer: DANYELLE/SUSANNA Reviewed chart, pt discussed in multidisciplinary rounds this morning. Therapy has cleared pt for return home w/family to assist and pt has planned for home, Dr Reid will hold pt in the hospital this evening and plan for return home tomorrow. PT recommending HH to strengthen LE, will need Dr Reid to sign F2F before HH referral can be made. Also need to review w/pt if PT continues to recommend. Attempted to meet w/pt and he was not in his room; likely working w/therapy team. Will attempt assessment tomorrow before pt's DC.. to r/o any needs. LEW [place]
[2019-04-13] MEDS: ACETAMINOPHEN 325 MG TABLET 650 MG PO (16:18)
[2019-04-13] MEDS: GABAPENTIN 300 MG CAPSULE PO (20:35)
[2019-04-13] MEDS: DIGOXIN 0.25 MG TABLET PO (20:36)
[2019-04-13] MEDS: LOSARTAN 25 MG TABLET PO (20:36)
[2019-04-13] MEDS: SENNOSIDES 8.6 MG TABLET 17.2 MG PO (20:36)
[2019-04-14 00:30] VITALS: BP 116/67; PULSE 92; RESP 16; TEMP 37.3; O2SAT 96
[2019-04-14] MEDS: HYDROCODONE/ACET 5/325 TABLET 1 TAB PO ×2 (01:14→08:18)
[2019-04-14 05:10] VITALS: BP 119/69; PULSE 90; RESP 16; TEMP 36.9; O2SAT 96
[2019-04-14] MEDS: PANTOPRAZOLE 20 MG TABLET PO (05:42)
[2019-04-14 06:04] LABS: Hematocrit 25.4 % (41-53); Hemoglobin 8.8 g/dL (13.5-17.5)
--- NOTE | 2019-04-14 07:26 | PM.PNPO.1 ---
Subjective Subjective Date Patient Seen: 04/14/19 Time Patient Seen: 07:26 Interval history: He is doing very well. Was mobilizing well with physical therapy and feels much stronger today. Exam Vital Signs (past 8 hours): - 04/14/19 00:30 04/14/19 05:10 Temperature 99.2 F 98.4 F Pulse Rate 92 H 90 Respiratory Rate 16 16 Blood Pressure 116/67 119/69 Pulse Oximetry 96 96 Oxygen Delivery Method Room Air Oxygen Flow Rate 0 Const Orientation: alert and oriented x3 Back/Spine/Pelvis Other: Moderate drainage on bottom of dressing. 5/5 motor both lower extremities Objective Labs Result Diagrams: 04/14/19 05:17 Labs: Laboratory Results - last 24 hr 04/14/19 05:17 Hgb 8.8 L Hct 25.4 L Assessment & Plan Post-op Postoperative Procedures: Procedures Operation Date: 04/12/19 07:45 Actual Procedures Side Surgeon p old screw removal, T12-L1 laminectomy, Bilateral revision foraminotomies at L45 Not Applicable Gurinder Reid MD his H&H remained stable, although he did have some acute blood loss anemia with this hospitalization. He is asymptomatic from this. He is mobilizing well. He is requesting discharge home today. Quality VTE Deep Vein Thrombosis/Pulmonary Embolism Present on Admission: No
--- NOTE | 2019-04-14 07:27 | P.DS_ITS ---
History of Present Illness History of Present Illness Date Patient Seen: 04/14/19 Time Patient Seen: 07:28 Chief complaint: Lami 3/5 Narrative: 79-year-old male with a history of previous lumbar surgery including a L3-4 osteotomy and fusion several years ago. He has had progressively increasing pain and weakness into both of his legs. He responded well to an epi dural injection but it was only temporary. Progressively weakening even with physical therapy. Discharge Providers Provider Date of admission: 04/12/19 06:02 Discharge Date: 04/14/19 Primary care physician: Wilma Alberts DO Consults: 04/12/19 12:06 Consult to Occupational Therapy Evaluate & Treat Comment: Physician Instructions: Evaluate and treat Consult to Physical Therapy Evaluate & Treat Comment: Physician Instructions: Evaluate and Treat 04/12/19 12:23 Consult to Dietitian, Adult Routine Comment: Reason For Exam: weight loss of 40# over the past year Discharge provider: Gurinder Reid MD Summary Hospital Course Discharge Diagnosis: Lumbar stenosis with radiculopathy Hospital Course: He was brought to the operating room on 04/12/2019 where he underwent a T12-L1 laminectomy as well as revision bilateral foraminotomies and facetectomies at L4-5. Postoperatively he did well. He was up mobilizing with physical therapy and by date of discharge felt strong and independent. He did have some acute blood loss anemia but this was stable on repeat H&H checked the next day and he was asymptomatic. Status at Discharge Cognitive/behavioral status at discharge: oriented Functional status at discharge: uses cane/walker Overall status at discharge: patient is progressing back to baseline Exam Vital Signs (past 8 hours): - 04/14/19 00:30 04/14/19 05:10 Temperature 99.2 F 98.4 F Pulse Rate 92 H 90 Respiratory Rate 16 16 Blood Pressure 116/67 119/69 Pulse Oximetry 96 96 Oxygen Delivery Method Room Air Oxygen Flow Rate 0 Const Orientation: alert and oriented x3 Back/Spine/Pelvis Other: Moderate drainage. 5/5 motor both lower extremities Objective Labs Result Diagrams: 04/14/19 05:17 Labs: Laboratory Results - last 24 hr 04/14/19 05:17 Hgb 8.8 L Hct 25.4 L Discharge Plan Discharge Plan Patient Disposition: Home Discharge comment: f/u 1.5 wks may restart Xarelto on POD#5 () Discharge orders & Medications Prescriptions: New hydrocodone-acetaminophen 5-325 mg Tablet 1 tab PO Q4HR PRN (Reason: Pain, Moderate (4-6)) Qty: 20 RF: 0 docusate sodium [DOK] 100 mg Capsule 100 mg PO BID PRN (Reason: constipation) Qty: 20 RF: 0 Continued furosemide 40 mg Tablet 40 mg PO DAILY RF: 0 metoprolol succinate 50 mg Tablet Extended Release 24 Hr 25 mg PO DAILY RF: 0 digoxin 250 mcg (0.25 mg) Tablet 250 mcg PO BEDTIME RF: 0 losartan 25 mg Tablet 25 mg PO BEDTIME RF: 0 omeprazole 20 mg Capsule,Delayed Release(Dr/Ec) 20 mg PO DAILY RF: 0 Xarelto 20 mg Tablet 20 mg PO QPM RF: 0 potassium chloride 20 mEq Tablet Extended Release 20 meq PO BID RF: 0 Multi-Vitamins with Iron Tablet,Chewable 1 tab PO DAILY RF: 0 Vitamin D3 4,000 unit Capsule 2,000 unit PO DAILY RF: 0 Follow up/Referrals: Wilma Alberts DO [Primary Care Provider] - Discharge Health Status Multidrug resistant organism: No MDRO Diet/Activity/Treatments Diet: Diet as Tolerated Activity: limited BLT 10 lbs max lift Skin/Wound/Dressing Care Report to your healthcare provider any signs of infection, such as:: chills, fever, night sweats, increased pain, unusual drainage and unusual redness Dressing: may shower with waterproof dressing. May change dressing as needed on postoperative day 5 () Visit Report/Discharge Packet Instructions: DI for Prescription Opioid Use Stand Alone Forms: Surgery Discharge Discharge Data Primary Care Provider: Wilma Alberts Quality VTE Deep Vein Thrombosis/Pulmonary Embolism Present on Admission: No
[2019-04-14 07:38] VITALS: BP 134/72; PULSE 92; RESP 16; TEMP 36.8; O2SAT 98
[2019-04-14] MEDS: METOPROLOL ER 50 MG TABLET 25 MG PO (08:18)
[2019-04-14] MEDS: DOCUSATE 100 MG CAPSULE PO (08:19)
[2019-04-14] MEDS: CHOLECALCIFEROL (VITAMIN D3) 1,000 UNIT TABLET 2000 UNIT PO (08:19)
[2019-04-14] MEDS: POTASSIUM CHLORIDE 20 MEQ TAB PO (08:19)
[2019-04-14] MEDS: FUROSEMIDE 40 MG TABLET PO (08:19)
[2019-04-14] MEDS: MULTIVIT,CALC,MINS/IRON/FOLIC 1 TABLET 1 TAB PO (08:19)
[2019-04-14] MEDS: SODIUM CHLORIDE 0.9% FLUSH 10 ML IV (08:20)
--- NOTE | 2019-04-14 10:06 | PT.IPTN ---
Current Diagnoses Spinal stenosis, lumbar region with neurogenic claudication (04/12/19) Arthrodesis status (04/12/19) Surgery Performed Operation Date: 04/12/19 07:45 Actual Procedures p old screw removal, T12-L1 laminectomy, Bilateral revision foraminotomies at L45(Not Applicable) - Gurinder Reid MD Physical Therapy Treatment Note M2 PT-IP Current Condition Start: 04/12/19 15:04 Freq: NEEDED Status: Active Protocol: Document 04/12/19 13:56 AB (Rec: 04/12/19 15:25 AB [id number]) Physical Therapy Current Condition Current Condition Evaluation Date 04/12/19 Treatment Diagnosis s/p T12-L1 lami; revision L4-5 foraminotomies; L2-5 instru; diff in walk Onset Date 04/12/2019 Precautions Lumbar Precautions Log Roll,No Twisting,Limit Bending,Lifting Restriction of 10 lbs,Gait Belt above Incisional Area M3 PT-IP Subjective Start: 04/12/19 15:04 Freq: NEEDED Status: Active Protocol: Document 04/14/19 09:53 KS (Rec: 04/14/19 13:04 KS [id number]) Subjective Physical Therapy Visit Type Type Treatment Note Visit Start Time 09:53 Visit Stop Time 10:06 Total Visit Minutes 13 Number of TOOLMAKER HELPER Visits 1 Physical Therapy Visit Comments Patient Comments Pt agreeable to work w/ therapy. M4 PT-IP Mobility and Gait Start: 04/12/19 15:04 Freq: NEEDED Status: Active Protocol: Document 04/14/19 09:53 KS (Rec: 04/14/19 13:04 KS [id number]) PT-Bed Mobility Assessment Rolling Type of Rolling Log Rolling Level of Assist Minimal Assistance Supine to Sit Supine to Sit Minimal Assistance Scooting Scooting to Edge of Bed Standby Assistance PT-Transfer Assessment Sit to and From Stand Sit to and from Stand Contact Guard Assistance,1 Person Assistance,Use of Upper Extremities Equipment Transfer Assistive Device Gait Belt,Front Wheeled Walker Orthotic/Prosthetic Devices or Brace: No Transfers Transfer Destination Chair,Toilet Transfer Technique pt ambulated w/ FWW. Transfer Ability Level of Assist Contact Guard Assistance Comments Mobility Comments Pt in bed upon arrival from therapy and able to recall 3/3 precautions. Pt able to perform logroll and sidelying to sit Min A w/ min cues. SBA for scooting to EOB. CGA for sit<>stand w/ FWW. Pt then ambulated CGA to toilet and to sink and then around room ~30 ft. Cues for upright posture and quad activation. Pt safely used FWW for ambulation and transfers, but relies on UE for weigh bearing. Pt then walked to chair, CGA for stand <>sit. Pt left in chair w/ all needs in reach. Gait Assessment Gait Gait Assistance Required: Standby Assistance,Contact Guard Assist,1 Person Assist Distance (Feet) 30 Able to Maintain Weight Bearing Status Yes During Gait Assistive Devices Assistive Device Gait Belt,Front Wheeled Walker Gait Deviations General Gait Pattern Antalgic,Decreased Stride Length,Decreased Feet Clearance,Lateral Trunk Lean, Step-to Gait Factors Limiting Gait Function Factors Limiting Gait Function Decreased Activity Tolerance, Decreased Strength,Limited Range of Motion,Pain,Poor Balance,Poor Safety Awareness Comments Gait Comments Please refer to mobility section for details. Stair Climbing Assessment Comments Stair Climbing Comments not asessed at this time. PT-Balance Assessment Sitting Balance and Reactions Static Sitting Balance Ability Good Dynamic Sitting Balance Ability Good Standing Balance and Reactions Static Standing Balance Ability Fair Dynamic Standing Balance Ability Fair Device Used FWW M5 PT-IP Objective Assessments Start: 04/12/19 15:04 Freq: NEEDED Status: Active Protocol: Document 04/12/19 13:56 AB (Rec: 04/12/19 15:25 AB [id number]) Orientation Orientation/Cognition Level of Alertness Alert Orientation Name,Place,Situation Language Function Ability No Deficits Noted Safety Awareness Decreased Safety Awareness Gross Range of Motion Lower Extremity ROM Assessment Within Functional Limits Strength Lower Extremity Strength Assessment Bilaterally Impaired Comments Strength Comments LLE: 3+/5 RLE 4-/5 Coordination Assessment Gross Coordination Gross Coordination WNL Sensation Assessment Comments Sensation Comments c/o chronic decrease sensation on BLE Muscle Tone Muscle Tone WNL Yes M6 PT-IP Treatment Start: 04/12/19 15:04 Freq: NEEDED Status: Active Protocol: Document 04/14/19 09:53 KS (Rec: 04/14/19 13:04 KS [id number]) Physical Therapy Treatment Education Education Provided Precautions,Safety M7 PT-IP Assessment and Plan Start: 04/12/19 15:04 Freq: NEEDED Status: Active Protocol: Document 04/14/19 09:53 KS (Rec: 04/14/19 13:04 KS [id number]) PT Summary Assessment and Plan Potential Rehabilitation Potential Good Summary Impairments Pain,ROM,Strength,Balance, Coordination,Sensation,Tone, Cognition,Bed Mobility, Transfers,Gait,Activity Tolerance Progress Towards Goals Progressing Toward Goals Assessment Summary Pt continues to need Min A for bed mobility, SBA to CGA for transfers and ambulation. Ambulated safely w/ FWW w/ good safety awareness and able to recall all spinal precautions. Goals Bed Mobility Goal Standby Assistance Transfer Goal Standby Assistance,Front Wheeled Walker Gait Goal Standby Assistance,Front Wheel Walker Gait Distance 150 Other Goals up/down platform step using FWW SBA Days to Meet Goals 5 Frequency of Treatment Frequency Of Treatment Twice a Day Treatment Plan Physical Therapy Treatment Plan Bed Mobility Training,Transfer Training,Gait Training, Therapeutic Exercise,Balance Retraining,Post Op Education, Discharge Planning,Hot or Cold Pack,Neuromuscular Re-ed, Coordination Retraining,Manual Therapy Other Recommendations and Next Treatment ambulation, bed mobility, Focus caregiver training and stair training when appropriate Recommendations To Nursing Amount of Assist Needed 1 Person Assist Discharge Recommendations PT Discharge Recommendations Home with 30/08 Assist,Home Health,Outpatient PT Transportation Needs at Discharge Private Vehicle
--- NOTE | 2019-04-14 10:23 | OT.IP.TRT ---
Current Diagnoses Spinal stenosis, lumbar region with neurogenic claudication (04/12/19) Arthrodesis status (04/12/19) Surgery Performed Operation Date: 04/12/19 07:45 Actual Procedures p old screw removal, T12-L1 laminectomy, Bilateral revision foraminotomies at L45(Not Applicable) - Gurinder Reid MD Occupational Therapy Treatment Note M2 OT-IP Current Condition Start: 04/13/19 11:41 Freq: Status: Active Protocol: Document 04/13/19 11:41 CGR (Rec: 04/13/19 11:52 CGR [email or web address]) Occupational Therapy Current Condition Current Condition Evaluation Date 04/13/19 Treatment Diagnosis T12-L1 lami, revision of L4-5 and hardware removal L2-5 Diagnosis Onset Date 04/12/19 Post Operative Precautions Lumbar Precautions Log Roll,No Twisting,Limit Bending,Lifting Restriction of 10 lbs,Gait Belt above Incisional Area M3 OT- IP Subjective and Pain Start: 04/13/19 11:41 Freq: Status: Active Protocol: Document 04/13/19 11:41 CGR (Rec: 04/13/19 11:52 CGR [email or web address]) OT- Subjective Occupational Therapy Visit Type Type Treatment Visit Start Time 10:15 Visit Stop Time 10:23 Total Visit Minutes 8 Occupational Therapy Visit Comments Patient Comments I have gone through this before so I know a lot of what to do. OT Pain Assessment Pain When Pain Assessed At Rest Pain Present Pain Present Pain Reported Location Right Lower Leg Intensity 5 Scale Used Numeric (1 - 10) Management Techniques Modification of Treatment, Timing of Activity with Medications M4 OT- IP ADL's Start: 04/13/19 11:41 Freq: Status: Active Protocol: Document 04/14/19 15:06 CGR (Rec: 04/14/19 15:13 CGR [email or web address]) OT [id number] Comments OT Self-Feeding Comments not meal time OT ADL-Grooming General Evaluation Grooming Ability Standby Assistance Areas Needing Assistance Retrieving/Set-up of Grooming Items,Combing/Brushing Hair, Face Washing Comments OT Grooming Comments standing at sink OT ADL-Oral Care General Eval Areas of Assistance Brushing Teeth,Retrieving/Set- Up of Items Comments Oral Care Comments Standing up M5 OT- IP IADL's Start: 04/13/19 11:41 Freq: Status: Active Protocol: Document 04/13/19 11:41 CGR (Rec: 04/13/19 11:52 CGR [email or web address]) OT-Instrumental Activities of Daily Living Deficits IADL Deficits Identified Deficits Home Safety Awareness Awareness of Need for Assistance at Home Good Awareness Ability to Problem Solve Emergency Able to Problem Solve Situations Medication Management Medication Management Caregiver Provides Supervision Money Management Money Management No Deficits Identified Meal Preparation Meal Preparation Caregiver Provides Assist Hand Bookbinder Hand Bookbinder Caregiver Provides Assist Driving Driving Comments Pt understands that he should not drive till cleared by his MD. M6 OT- IP Functional Cognition Start: 04/13/19 11:41 Freq: Status: Active Protocol: Document 04/13/19 11:41 CGR (Rec: 04/13/19 11:52 CGR [email or web address]) Cognitive Factors Limiting Selfcare Function Cognitive Ability Level of Alertness Alert Patient Orientation Name,Age,Birthday,Month,Date, Year,Day of Week,Place, Situation Attention Span Ability Capable of Focused Attention, Capable of Sustained Attention Ability to Follow Commands Able to Follow Multi-Step Commands Memory Description No Deficits Noted Safety Awareness No Deficits Noted Problem Solving Ability No deficits Noted OT- Vision and Hearing OT- Hearing Assessment OT- Hearing Assessment Hearing Impaired,Use of Hearing Aids OT- Vision Assessment Vision History Cataracts Visual Acuity Glasses For Reading Visual Attentiveness WFL Occular Pursuits WFL Visual Convergence WFL Visual Carter WFL Vision Assessment Comments Hx of cateract sx M7 OT- IP Mobility and Balance Start: 04/13/19 11:41 Freq: Status: Active Protocol: Document 04/14/19 15:06 CGR (Rec: 04/14/19 15:13 CGR [email or web address]) OT-Transfer Assessment Sit to and From Stand Sit to and from Stand Standby Assistance Transfers Transfer Ability Standby Assistance Technique Transfer Destination Chair Transfer Technique Stand Step Pivot Devices Transfer Assistive Devices Gait Belt,Front Wheeled Walker Comments Mobility Comments from chair to sink for ADLs and return to chair. OT- Balance Assessment Sitting Balance and Reactions Static Sitting Balance Ability Good Dynamic Sitting Balance Ability Fair M8 OT- IP Objective Assessments Start: 04/13/19 11:41 Freq: Status: Active Protocol: Document 04/13/19 11:41 CGR (Rec: 04/13/19 11:52 CGR [email or web address]) OT Gross Range of Motion Upper Extremity Range of Motion Assessment Within Functional Limits OT Strength Upper Extremity Strength Assessment Within Functional Limits OT- Coordination Assessment Upper Extremity Finger to Nose Test Within Functional Limits Finger Tapping Test Within Functional Limits OT-Muscle Tone Assessment Muscle Tone WNL Yes OT Sensation Assessment Edema Edema Present Edema Comments B feet, but pt states this this is his normal state. M9 OT- IP Assessment and Plan Start: 04/13/19 11:41 Freq: Status: Active Protocol: Document 04/14/19 15:06 CGR (Rec: 04/14/19 15:13 CGR [email or web address]) OT Summary Assessment and Plan Potential Rehabilitation Potential Excellent Analytic Complexity at Evaluation Low Summary OT Impairments Pain,Strength,Balance, Functional Mobility,Dressing, Toileting,Bathing,Toilet Transfers,Shower Transfers, Activity Tolerance Progress Towards Goals Progressing Toward Goals Assessment Summary Pt planned for d/c home with family support today. Pt agreeable to getting up to sink for ADLs but declined all other activity. Pt left sitting up in chair at end of session. Session from 1015- 1023. Goals Self-Feeding Goal Independent Grooming Goal Independent Dressing Goal Independent Toileting Goal Independent Bathing Goal Independent Toilet Transfer Goal Independent Shower Transfer Goal Independent Days to Meet Goals 2 Frequency of Treatment Frequency Of Treatment Once a Day Treatment Plan OT Treatment Plan ADL Training,Functional Mobility,Patient/Family Education,Discharge Planning Other Treatment Recommendations and Next Shower, further LB dressing Treatment Focus Discharge Recommendations OT Discharge Recommendations Home with Assistance Home Equipment Needs None at this time. Transportation Needs at Discharge Private Vehicle
[2019-04-14 11:39] VITALS: BP 117/57; PULSE 94; RESP 16; TEMP 36.9; O2SAT 96
--- NOTE | 2019-04-14 13:06 | PC.NURSE ---
Day Shift- Pt A&OX4, able to make needs known. States pain aching to mid and lower back is 2/10, slightly increases with movement then settles back to 2/10 with rest. PRn [place] 1 tab given at 0815 per pt request. Pt did not want additional dose prior to discharge. Back dressing removed for saturated amount of sero-sang drainage at 1200. 3 incisions well approximated with sutures intact. No S/S of infection. Area cleansed with NS, pat dry with gauze. Intact blister noted to distal end of incisions where previous dressing was, also non intact blister noted to proximal end of incisions where dressing was previously.Intact blister noted to right side of dressing area. 2 coversite dressings placed with 2 4X4 gauze under each coversite, while overlapping top coversite over bottom coversite. Pt tolerated well. Extra dressing supplies given so pt may have his change dressing on POD#5 per providers instructions. Pt's Mónica present for dressing change and for part of discharge instructions. Discharge summary packet instructions reviewed with pt at 1050 and 1245. Pt stated already having a follow up appointment made. No voiced concerns, pt stated having all belongings. Prescriptions for Docusate and [place] given to pt as they will take to pharmacy on their way home. Pt left unit in no distress via wheelchair at 1225 with [employer] INSURANCE [employer]SULTANT escort and his to drive him home.
--- NOTE | 2019-04-14 14:48 | CM.DPNOTE ---
DC Note: Met w/pt this morning, explained role. Pt has been DC home today by Dr Reid and HH recommended by therapy team- Dr Reid agreeable and has signed F2F Pt and spouse have no agency preference so this PARENT EDUCATOR placed call to Sabrina at [facility]; requested PT/OT. F/u available Tuesday. Brochure given to pt/spouse w/ DC instructions. Faxed signed and completed F2F, HH order, H+P/ DC Summary and therapy notes to [facility] P: DC home today w/spouse via pov and HH f/u through [facility]
== END 2019-04-14 12:25 | disposition home health service (06) | DRG 519 ==
PROVIDERS: Admitting Provider Orthopaedic Surgery; PCP Family Medicine; Referring Provider Orthopaedic Surgery; Visit Provider Orthopaedic Surgery
PROC: 01N80ZZ Release Thoracic Nerve, Open Approach (ICD-10-PCS; principal; 2019-04-12 07:45)
DX: M48.062 Spinal stenosis, lumbar region with neurogenic claudication (principal); I42.9 Cardiomyopathy, unspecified; I48.20 Chronic atrial fibrillation, unspecified; D62 Acute posthemorrhagic anemia; M48.04 Spinal stenosis, thoracic region; M96.1 Postlaminectomy syndrome, not elsewhere classified; Z79.01 Long term (current) use of anticoagulants; Z87.891 Personal history of nicotine dependence; Z98.1 Arthrodesis status
CPT/HCPCS: 36415; 72020; 76000; 85014; 85018; 97116; 97162; 97165; 97530; 97535; J0330; J0690; J1170; J2405; J2704; J3010

== ENCOUNTER → 2019-05-30 13:33 | Outpatient (CLI) | payer MEDICARE, SELFPAY ==
[2019-04-12 12:11] VITALS: BMI 30.8
--- NOTE | 2019-05-30 | DI.CT.S_ITS ---
PROCEDURE: CT LUMBAR SPINE WO CON INDICATIONS: radiculopathy lumbar region TECHNIQUE: Noncontrast 3 mm thick sections acquired from the T12 level to the sacrum. Sagittal and coronal reformats were constructed. For radiation dose reduction, the following was used: automated exposure control. COMPARISON: [facility], CT, L-SPINE WITHOUT CONTRAST, 04/15/2014, 13:01. [facility], CR, L-SPINE 2-3 VIEWS, 04/08/2015, 9:02. [facility], NM, NM BONE SCAN WHOLE BODY, 12/05/2018, 12:59. [facility], CR, XR LUMBAR SPINE 1V, 04/12/2019, 9:26. [facility], CT, CT LUMBAR SPINE WO CON, 12/14/2018, 11:43. FINDINGS: Image quality: Excellent. Bones: No acute vertebral body compression fractures. No suspicious lytic or blastic bony lesions. Central spinal caliber is of normal overall caliber. No pars defects. Postoperative changes are seen, with removal of the previously seen posterior pedicle screws. There remains a screw inserted from the left at the superior L4 level. There is an L3-L4 disc spacer present. There has been removal of portions of the posterior elements, including interval removal of posterior elements at T12-L1. Bone grafting material is noted. There is minimal retrolisthesis at L2-L3 with mild retrolisthesis of L4. Mild grade 1 anterolisthesis is at L4-L5. Pars defects are seen at L4. Mild to moderate dextroconvex scoliotic curvature is seen. T12-L1: Moderate to severe loss of disc height is seen. Partial bony fusion is seen, with bridging endplate osteophytes. Moderate bilateral neural foraminal narrowing is seen. The previously seen central canal narrowing has resolved. L1-L2: Moderate to severe loss of disc height is seen. Partial vertebral body bridging can be seen, with prominent bridging endplate osteophytes. There is mild right-sided and mild to moderate left-sided neural foraminal narrowing seen. Mild to moderate central canal narrowing is seen. When comparison is made with the prior examination, these findings are similar. L2-L3: Postoperative hardware has been removed. Moderate to severe loss of disc height is seen. Bridging endplate osteophytes are seen. Moderate disc bulge is seen, which is eccentric left. There is moderate left-sided and mild right-sided neural foraminal narrowing seen. Mild to moderate central canal narrowing is seen. L3-L4: Postoperative hardware has been removed. Mild loss of disc height is seen. Prominent disc bulge is seen, which is eccentric to the left, with prominent left-sided bridging endplate osteophytes. There is moderate left-sided and mild right-sided neural foraminal narrowing seen. Mild central canal narrowing is seen. L4-L5: Endplate irregularity is seen. Partial vertebral body bridging can be seen. There has been interval removal of postoperative hardware. Moderate bilateral neural foraminal narrowing is seen. The central canal is widely patent. L5-S1: Moderate to severe loss of disc height is seen. Bridging endplate osteophytes are seen. Vacuum disc phenomenon is seen at this level. At least moderate disc bulge is seen. There is moderate to severe bilateral neural foraminal narrowing seen. Mild central canal narrowing is seen. When comparison is made with the prior examination, these findings are similar. Soft tissues: No retroperitoneal masses or hematomas. Visualized aorta is normal in caliber. Atherosclerotic calcification is noted. IMPRESSION: Interval postoperative changes, with removal of the posterior hardware. Interval removal of posterior elements can be seen at T12-L1. There is resolution of the previously seen central canal stenosis at T12-L1. Otherwise, the degrees of degenerative narrowing are similar. Multiple levels of degenerative change are seen, with widespread disc space narrowing and prominent bridging endplate osteophytes. Dictated by: Logan Preston M.D. on 05/30/2019 at 13:48 Approved by: Logan Preston M.D. on 05/30/2019 at 13:59
== END ==
PROVIDERS: PCP Family Medicine; Referring Provider Orthopaedic Surgery; Visit Provider Orthopaedic Surgery
DX: M47.26 Other spondylosis with radiculopathy, lumbar region (principal); M41.86 Other forms of scoliosis, lumbar region; M48.061 Spinal stenosis, lumbar region without neurogenic claudication; M48.07 Spinal stenosis, lumbosacral region
CPT/HCPCS: 72131

== ENCOUNTER → 2020-09-15 12:52 | Outpatient (CLI) | payer MEDICARE, SELFPAY ==
[2020-08-18 11:46] VITALS: BMI 30.8
[2020-09-15 16:17] LABS: COVID19 -Nasal RAPID Negative (Negative)
== END ==
PROVIDERS: PCP Family Medicine; Visit Provider Nurse Practitioner
DX: Z01.812 Encounter for preprocedural laboratory examination (principal); Z20.822 Contact with and (suspected) exposure to COVID-19
CPT/HCPCS: 87635; C9803

== ENCOUNTER 2020-09-17 08:36 | Day surgery (SDC) | payer MEDICARE, SELFPAY ==
[2019-04-12 12:11] VITALS: BMI 30.8
[2020-08-18 11:46] VITALS: BMI 30.8
[2020-09-17] VITALS (7 sets, daily range): BP systolic 128–142; BP diastolic 66–78; PULSE 59–84; RESP 12–22; TEMP 36.4–36.8; O2SAT 92–100; BMI 29.9
--- NOTE | 2020-09-17 | PATH_ITS ---
[facility] Accession Number: [id number] . 01 Material submitted: . PART A: duodenum - DUODENAL PART B: gastrointestinal site - GASTRIC . 01 Clinical history: . A: R/O CELIAC DISEASE . 02 Diagnosis: A. Duodenum, Biopsy: Duodenal mucosa with no diagnostic abnormality. Negative for active inflammation, features of sprue, dysplasia, or malignancy. . B. Stomach, Biopsies: Antral and body-type mucosa with no diagnostic abnormality. Negative for Helicobacter by immunohistochemistry. Negative for intestinal metaplasia. Negative for dysplasia and malignancy. MRV 09/22/2020 1500 Local . 02 Electronically signed: . Delilah Whitney MD, Pathologist NPI- [id number] . 01 Gross description: . Part A: DUODENAL: Received in formalin are 2 fragment(s) of ernandez, soft tissue measuring 0.3 x 0.3 x 0.2 cm to 0.2 x 0.2 x 0.1 cm submitted entirely in 1 cassette(s) Part B: GASTRIC: Received in formalin are 2 fragment(s) of ernandez, soft tissue measuring 0.3 x 0.2 x 0.1 cm to 0.2 x 0.2 x 0.2 cm submitted entirely in 1 cassette(s) /NAOMIE 09/18/2020 0431 Local . 02 Microscopic: . B. An immunohistochemical stain was performed to evaluate for Helicobacter organisms and is negative. The control stain showed appropriate reactivity. . * This test was developed and its performance characteristics determined by [facility]. It has not been cleared or approved by the U.S. Food and Drug Administration. The FDA has determined that such clearance or approval is not necessary. This test is used for clinical purposes. It should not be regarded as investigational or for research. . 02 Pathologist provided ICD-10: R10.9 . 02 CPT . 241299, 124704, D73271 Performed at: 01 [facility] [address] [address], [place], [place] [id number] MD Wesley Briggs MD Phone: [phone] Performed at: [address] [facility] [id number] [place], [place] [id number] MD Delilah Whitney MD Phone: [phone]
[2020-09-17] MEDS: SODIUM CHLORIDE 0.9% 1,000 ML 84 ML IV (09:17)
[2020-09-17] MEDS: fentaNYL 250 MCG/5 ML INJ IV (09:40)
--- NOTE | 2020-09-17 09:40 | PM.HP.1 ---
History of Present Illness History of Present Illness Date Patient Seen: 09/17/20 Chief complaint: SDC Narrative: Anemia on anticoagulation. Currently off Xarelto for 4 days Patient History Medical History (Updated 09/17/20 @ 08:54 by Concha Wilcox RN) Acid reflux Afib Arthritis Cardiomyopathy CHF (congestive heart failure) COPD (chronic obstructive pulmonary disease) Edema HLD (hyperlipidemia) HTN (hypertension) Myelofibrosis Neuropathy Osteoarthritis Surgical History (Updated 09/17/20 @ 08:55 by Concha Wilcox RN) History of arthroplasty of left shoulder History of arthroplasty of right shoulder History of bilateral hip arthroplasty History of lumbar surgery (03/25/15) Hx of laminectomy Hx of shoulder surgery Hx of tonsillectomy Family & Social History Social History: household members spouse Tobacco & Substance use: Tobacco type cigarettes Smoking Status Former smoker alcohol intake current alcohol intake frequency 3 or more drinks per day Substance Use Type does not use Meds Home Medications and Allergies Home Medications Medication Instructions Recorded Confirmed Type digoxin 250 mcg (0.25 mg) tablet 250 mcg PO BEDTIME 04/09/19 09/17/20 History furosemide 40 mg tablet 40 mg PO DAILY 04/09/19 09/17/20 History losartan 25 mg tablet 25 mg PO BEDTIME 04/09/19 09/17/20 History metoprolol succinate 50 mg 25 mg PO DAILY 04/09/19 09/17/20 History tablet,extended release 24 hr omeprazole 20 mg capsule,delayed 20 mg PO DAILY 04/09/19 09/17/20 History release potassium chloride 20 mEq 20 meq PO BID 04/09/19 09/17/20 History tablet,extended release rivaroxaban 20 mg tablet (Xarelto) 20 mg PO QPM 04/09/19 09/17/20 History cholecalciferol (vitamin D3) 100 2,000 unit PO DAILY 04/12/19 09/17/20 History mcg (4,000 unit) capsule (Vitamin D3) pediatric [id number]-[id number] 1 tab PO DAILY 04/12/19 09/17/20 History (Multi-Vitamins with Iron) duloxetine 30 mg capsule,delayed 30 mg PO BEDTIME 09/17/20 09/17/20 History release gabapentin 300 mg capsule 300 mg PO BID 09/17/20 09/17/20 History ruxolitinib 10 mg tablet (Jakafi) 10 mg PO BID 09/17/20 09/17/20 History vitamin B12 0.5 mg-folic acid 1 mg 1 tab PO DAILY 09/17/20 09/17/20 History tablet Allergies Allergy/AdvReac Type Severity Reaction Status Date / Time No Known Drug Allergies Allergy Verified 04/12/19 06:49 Exam Vital Signs (past 8 hours): - 09/17/20 09:02 Temperature 97.6 F Pulse Rate 61 Respiratory Rate 16 Blood Pressure 139/74 Pulse Oximetry 100 Oxygen Delivery Method Room Air Oxygen Flow Rate 0 Narrative Exam Narrative: Oropharynx free of lesions Chest clear to auscultation percussion Cardiac exam reveals no S3 or murmur Assessment & Plan Assessment & Plan narrative: Anemia in a complex patient. Rule out peptic disease or esophagitis or colonic neoplasia. EGD and colonoscopy to be performed. Risks, benefits, alternatives have been explained.
[2020-09-17] MEDS: MIDAZOLAM 5 MG/5 ML VIAL IV (09:41)
--- NOTE | 2020-09-17 09:42 | PM.OP.ENDO ---
Operative Date/Time/Diagnoses Date of procedure: 09/17/20 Pre-op diagnosis: See indication and findings Procedure & Clinicians Study performed: EGD and colonoscopy Indications: Anemia Surgeon: Dayday Miranda Procedure Notes Procedure in detail: After informed consent was obtained the patient was placed in left lateral decubitus position. The video upper scope was placed into the oropharynx and with the patient's help swallowed into the esophagus. The esophagus stomach and duodenum were carefully examined. On withdrawal, retroflexed view the GE junction was performed. The scope was removed. The patient tolerated procedure well. The patient was then turned and the colonoscope substituted which was introduced in the rectum and slowly advanced to the cecum. Preparation was good. On slow withdrawal mucosa was carefully examined. The scope was removed. The patient tolerated procedure well. Blood loss none Complications none Sedation Total sedation time 25 minutes Versed 4 mg fentanyl 100 mg IV titration Findings EGD 1. Normal esophagus 2. Patchy and striped gastric erythema particularly in the antrum biopsies taken to rule out Helicobacter 3. Normal duodenal bulb and sweep biopsies taken to rule out celiac. Colonoscopy 1. Sigmoid diverticulosis 2. Internal hemorrhoids 3. Otherwise negative colonoscopy to cecum I will leave it up to Dr. Peña whether he needs further workup to include a pill camera. At this point I do not think so. He may restart his Xarelto today.
--- NOTE | 2020-09-17 11:17 | SUR.PHASEII ---
Patient drinking coffee. Ready for discharge. Waiting for ride home.
== END 2020-09-17 11:45 | disposition home or self-care (01) ==
PROVIDERS: PCP Family Medicine; Referring Provider Internal Medicine Gastroenterology; Visit Provider Internal Medicine Gastroenterology
PROC: 0DJD8ZZ Inspection of Lower Intestinal Tract, Via Natural or Artificial Opening Endoscopic (ICD-10-PCS; CPT 45378; 2020-09-17 10:00)
PROC: 0DJ08ZZ Inspection of Upper Intestinal Tract, Via Natural or Artificial Opening Endoscopic (ICD-10-PCS; CPT 43235; 2020-09-17 10:00)
DX: D50.9 Iron deficiency anemia, unspecified (principal); D75.81 Myelofibrosis; I48.91 Unspecified atrial fibrillation; I50.9 Heart failure, unspecified; E11.9 Type 2 diabetes mellitus without complications; E78.5 Hyperlipidemia, unspecified; J44.9 Chronic obstructive pulmonary disease, unspecified; Z79.01 Long term (current) use of anticoagulants; K57.30 Diverticulosis of large intestine without perforation or abscess without bleeding; K64.8 Other hemorrhoids; K21.9 Gastro-esophageal reflux disease without esophagitis
CPT/HCPCS: 43239; 45378; J2250; J3010

== ENCOUNTER → 2021-05-06 12:54 | Outpatient (CLI) | payer MEDICARE, SELFPAY ==
[2020-08-18 11:46] VITALS: BMI 30.8
--- NOTE | 2021-05-06 | DI.RAD.S_ITS ---
PROCEDURE: XR CHEST 2V INDICATIONS: Shortness of breath TECHNIQUE: 2 views of the chest were acquired. COMPARISON: [facility], , CHEST 1 VIEW, 04/09/2015, 21:25. FINDINGS: Surgical changes and devices: Bilateral shoulder arthroplasties incompletely visualized. Lungs and pleura: Moderate right basal pleural effusion and right basilar airspace opacity. There is mild scar-like opacity involving the left lung base. No pneumothorax. Mediastinum: Mediastinal contours are normal. Heart size is normal. Bones and chest wall: No suspicious bony abnormalities. Soft tissues appear unremarkable. IMPRESSION: 1. Moderate right basilar pleural effusion and airspace opacity consistent with compressive atelectasis versus consolidation or neoplasm. Continued radiographic surveillance to resolution is recommended. Dictated by: Bola Valerio [facility] Interpreted: Eleni Francis MD on 05/06/2021 at 13:17 Transcribed by: ANTON on 05/06/2021 at 13:18 Approved by: Eleni Francis M.D. on 05/06/2021 at 13:52
== END ==
PROVIDERS: PCP Family Medicine; Referring Provider Nurse Practitioner; Visit Provider Nurse Practitioner
DX: I42.8 Other cardiomyopathies (principal); R06.02 Shortness of breath; J90 Pleural effusion, not elsewhere classified
CPT/HCPCS: 71046

== ENCOUNTER 2021-07-28 14:32 | Emergency (ER) | payer MEDICARE, SELFPAY ==
[2020-08-18 11:46] VITALS: BMI 30.8
--- NOTE | 2021-07-28 14:33 | DI.CT.S_ITS ---
PROCEDURE: CT CERVICAL SPINE WO CON INDICATIONS: mod trauma fall on thinners hit head TECHNIQUE: Noncontrast 3 mm thick sections acquired from the skull base to the T4 level. Sagittal and coronal reformats were then constructed. For radiation dose reduction, the following was used: automated exposure control, adjustment of mA and/or kV according to patient size. COMPARISON: None. FINDINGS: No fracture, dislocation, or subluxation. No asymmetric facet joint widening. Intervertebral disc spaces are congruent. Multilevel disc height loss with degenerative endplate changes. Degenerative anterolisthesis of C3 on C4 measuring 2 millimeters. No significant listhesis otherwise. Vertebral body heights maintained. No suspicious lytic or blastic osseous lesion. Bulky facet and uncovertebral spurring at multiple levels. Prevertebral and paraspinous soft tissues are grossly unremarkable in the absence of IV contrast. IMPRESSION: No CT evidence of acute traumatic cervical spine injury. Dictated by: Les Keane M.D. on 07/28/2021 at 14:53 Approved by: Les Keane M.D. on 07/28/2021 at 14:55
--- NOTE | 2021-07-28 14:40 | DI.CT.S_ITS ---
PROCEDURE: CT HEAD/BRAIN WO CON INDICATIONS: mod trauma fall on thinners hit head TECHNIQUE: Noncontrast 4.5 mm thick angled axial sections acquired from the foramen magnum to the vertex, with coronal and sagittal reformats. For radiation dose reduction, the following was used: automated exposure control, adjustment of mA and/or kV according to patient size. COMPARISON: None. FINDINGS: Image quality: Excellent. CSF spaces: Basal cisterns are patent. No extra-axial fluid collections. The ventricles are symmetric in size and shape. Brain: No intracranial bleeds or masses. There is cerebral volume loss for age, with resultant ventricular and sulcal prominence. There are periventricular and deep white matter chronic small vessel ischemic changes. There is intracranial internal carotid artery atherosclerosis. Skull and face: Calvarium and visualized facial bones appear intact, without suspicious lesions. Sinuses: Visualized sinuses and mastoids are clear. IMPRESSION: No acute intracranial finding. Dictated by: Les Keane M.D. on 07/28/2021 at 14:51 Approved by: Les Keane M.D. on 07/28/2021 at 14:53
[2021-07-28 14:41] VITALS: BP 154/74; PULSE 76; O2SAT 97
[2021-07-28 14:44] VITALS: BP 154/74; PULSE 70; RESP 16; TEMP 36.9; O2SAT 99; BMI 25.7
--- NOTE | 2021-07-28 14:49 | DI.RAD.S_ITS ---
PROCEDURE: XR LUMBAR SPINE 2-3V INDICATIONS: fall, pain TECHNIQUE: 3 views of the lumbar spine were acquired. COMPARISON: [facility], CT, CT LUMBAR SPINE WO CON, 05/30/2019, 13:32. [facility], CR, XR LUMBAR SPINE 2 OR 3 VIEWS, 12/07/2018, 14:53. [facility], CR, XR LUMBAR SPINE 1V, 04/12/2019, 9:26. FINDINGS: This is a markedly limited study. Bones: There is loss of the expected lumbar lordosis. As before, there is anterolisthesis of L4 on L5. Patient is status post L4-5 discectomy and the single vertebral body screw is unchanged when compared with the study dated May 30, 2019. No new compression deformities appreciated. Extensive postoperative change and partial fusion of the lumbar spine is redemonstrated. Visualized portions of the pelvis appear grossly intact. Soft tissues: Overlying bowel gas pattern is normal. No suspicious soft tissue calcifications. IMPRESSION: Markedly limited study and extensive degenerative and postoperative change. No definite acute fracture visualized; however if there is high clinical suspicion for fracture, CT of the lumbar spine is recommended to further characterize findings. Dictated by: Mindy Turcios M.D. on 07/28/2021 at 15:40 Approved by: Mindy Turcios M.D. on 07/28/2021 at 15:42
--- NOTE | 2021-07-28 14:50 | DI.RAD.S_ITS ---
PROCEDURE: XR HAND LT MIN 3V INDICATIONS: fall, pain TECHNIQUE: 3 views of the hand(s) acquired. COMPARISON: None. FINDINGS: Bones: No acute fracture or dislocation. There is osteoarthritis of the interphalangeal joints and the 1st CMC joint. No suspicious bony lesions. Soft tissues: No suspicious soft tissue calcifications. IMPRESSION: Osteoarthritis. No acute radiographic findings. If pain persists, followup imaging in 5-7 days is recommended to exclude occult fracture. Dictated by: Mindy Turcios M.D. on 07/28/2021 at 15:43 Approved by: Mindy Turcios M.D. on 07/28/2021 at 15:43
[2021-07-28 15:00] VITALS: PULSE 75; RESP 21; O2SAT 99
--- NOTE | 2021-07-28 15:26 | ED_ITS ---
HPI - General Adult General Chief complaint: Trauma Stated complaint: fall on thinners Time Seen by Provider: 07/28/21 14:38 History of Present Illness HPI narrative: 81-year-old gentleman with a history of atrial fibrillation, anticoagulated on Xarelto, congestive heart failure, hypertension, hyperlipidemia, myelofibrosis with peripheral neuropathy presents after falling. He had just walked down a couple of stairs stumbled at the base of the stairs and had a ground level fall landing on his forehead. Feels that the majority of his fall was to the left side and complaining of some hand pain on the left side. Notes that he has had multiple back surgeries in his low back is slightly tender. He is able to move all extremities and able to describe the incident without difficulty. He describes no recent fevers, cough, cold, chills, chest pain, dyspnea, exertional dyspnea, orthopnea, lower extremity edema, palpitations, vomiting or diarrhea. Related Data Home Medications Medication Instructions Recorded Confirmed digoxin 250 mcg (0.25 mg) tablet 250 mcg PO BEDTIME 04/09/19 09/17/20 furosemide 40 mg tablet 40 mg PO DAILY 04/09/19 09/17/20 losartan 25 mg tablet 25 mg PO BEDTIME 04/09/19 09/17/20 metoprolol succinate 50 mg 25 mg PO DAILY 04/09/19 09/17/20 tablet,extended release 24 hr omeprazole 20 mg capsule,delayed 20 mg PO DAILY 04/09/19 09/17/20 release potassium chloride 20 mEq 20 meq PO BID 04/09/19 09/17/20 tablet,extended release rivaroxaban 20 mg tablet (Xarelto) 20 mg PO QPM 04/09/19 09/17/20 cholecalciferol (vitamin D3) 100 2,000 unit PO DAILY 04/12/19 09/17/20 mcg (4,000 unit) capsule (Vitamin D3) pediatric [id number]-fjdi-ukn 1 tab PO DAILY 04/12/19 09/17/20 (Multi-Vitamins with Iron chewable tablet) duloxetine 30 mg capsule,delayed 30 mg PO BEDTIME 09/17/20 09/17/20 release gabapentin 300 mg capsule 300 mg PO BID 09/17/20 09/17/20 ruxolitinib 10 mg tablet (Jakafi) 10 mg PO BID 09/17/20 09/17/20 vitamin B12 0.5 mg-folic acid 1 mg 1 tab PO DAILY 09/17/20 09/17/20 tablet Allergies Allergy/AdvReac Type Severity Reaction Status Date / Time No Known Drug Allergies Allergy Verified 04/12/19 06:49 Review of Systems Review of Systems Narrative: Remainder of complete review of systems is otherwise unremarkable except for that included in the HPI. Patient History Medical History Acid reflux Afib Arthritis Cardiomyopathy CHF (congestive heart failure) COPD (chronic obstructive pulmonary disease) Edema HLD (hyperlipidemia) HTN (hypertension) Myelofibrosis Neuropathy Osteoarthritis Surgical History History of arthroplasty of left shoulder History of arthroplasty of right shoulder History of bilateral hip arthroplasty History of lumbar surgery (03/25/15) Hx of laminectomy Hx of shoulder surgery Hx of tonsillectomy Social History household members: spouse Smoking Status: Former smoker alcohol intake: current Smoking Status: Former smoker alcohol intake frequency: 3 or more drinks per day Substance Use Type: does not use Exam Initial Vital Signs Initial Vital Signs: Vital Signs Pulse Rate 76 07/28/21 14:41 Blood Pressure 154/74 H 07/28/21 14:41 Pulse Oximetry 97 07/28/21 14:41 General: Healthy appearing, in no acute distress. C-collar in place. Able to give a complete and coherent history. Well-nourished well-developed HEENT: Moist mucous membranes, normal sclera with reactive pupils, abrasion with partial-thickness laceration to the left upper portion of the forehead with hematoma developing. Neck: No JVD, supple, midline tenderness C2-C5 Respiratory: Lungs are clear to auscultation, no wheezing no rales no rhonchi. Full and symmetrical air movement Cardiac: Regular rate and rhythm no murmurs no bruits Chest: No tenderness to palpation of the ribs, no shoulder or clavicle abnormalities. No subcutaneous air is appreciated Abdomen: Soft, nontender, good bowel tones, no flank pain Spine/pelvis: Mild tenderness to palpation L3-4 5. No thoracic spine abnormalities. No tenderness with manipulation of pelvic ring. Skin: Warm and dry, minor abrasion to the forehead Neurologic: Grossly neurologically intact with no obvious asymmetries or abnormalities Extremities: Left pointer finger is tender with some minor swelling but no gross deformity, well perfused Psych: Cooperative, appropriate insight and affect Procedures Laceration Repair Forehead abrasion: Size (cm): 15 Description: other (Abrasion with partial thickness laceration central) Depth: simple, single layer Skin layer closed with: dermabond Course Orders Ordered: ED Orders 07/28/21 14:33 CT cervical spine wo con Stat 07/28/21 14:40 CT head/brain wo con Stat 07/28/21 14:49 XR lumbar spine 2-3V Stat 07/28/21 14:50 XR hand LT min 3V Stat Vital Signs Vital signs: Vital Signs - 8 hr 07/28/21 14:44 07/28/21 14:41 07/28/21 14:41 Temperature 98.4 F Pulse Rate 70 76 Respiratory Rate 16 Blood Pressure 154/74 H 154/74 H Pulse Oximetry 99 97 Oxygen Delivery Method Room Air Medical Decision Making Imaging Data CT scan - head: Radiologist's Impression: FINDINGS:? Image quality:? Excellent.? ? CSF spaces:? Basal cisterns are patent.? No extra-axial fluid collections.? The ventricles are symmetric in size and shape.? ? Brain:? No intracranial bleeds or masses.? There is cerebral volume loss for age, with resultant ventricular and sulcal prominence.? There are periventricular and deep white matter chronic small vessel ischemic changes.? There is intracranial internal carotid artery atherosclerosis.? ? Skull and face:? Calvarium and visualized facial bones appear intact, without suspicious lesions.? ? Sinuses:? Visualized sinuses and mastoids are clear.? ? IMPRESSION:? No acute intracranial finding. ? ? Dictated by: Les Keane M.D. on 07/28/2021 at 14:51? ?? CT - cervical spine: Radiologist's Impression: FINDINGS:? ? No fracture, dislocation, or subluxation.? No asymmetric facet joint widening.? Intervertebral disc spaces are congruent.? Multilevel disc height loss with degenerative endplate changes.? Degenerative anterolisthesis of C3 on C4 measuring 2 millimeters.? No significant listhesis otherwise.? Vertebral body heights maintained.? No suspicious lytic or blastic osseous lesion.? Bulky facet and uncovertebral spurring at multiple levels.? Prevertebral and paraspinous soft tissues are grossly unremarkable in the absence of IV contrast. ? IMPRESSION:? No CT evidence of acute traumatic cervical spine injury. ? ? Dictated by: Les Keane M.D. on 07/28/2021 at 14:53? ?? X-ray hand: Radiologist's Impression: FINDINGS:? ? Bones:? No acute fracture or dislocation.? There is osteoarthritis of the interphalangeal joints and the 1st CMC joint.? No suspicious bony lesions. ? Soft tissues:? No suspicious soft tissue calcifications.? ? ? IMPRESSION:? Osteoarthritis.? No acute radiographic findings. If pain persists, followup imaging in 5-7 days is recommended to exclude occult fracture. ? Dictated by: Mindy Turcios M.D. on 07/28/2021 at 15:43? ?? X-ray lumbar spine: Radiologist's Impression: FINDINGS:? This is a markedly limited study. ? Bones:? There is loss of the expected lumbar lordosis.? As before, there is anterolisthesis of L4 on L5.? Patient is status post L4-5 discectomy and the single vertebral body screw is unchanged when compared with the study dated May 30, 2019. No new compression deformities appreciated.? Extensive postoperative change and partial fusion of the lumbar spine is redemonstrated.? Visualized portions of the pelvis appear grossly intact.? ? Soft tissues:? Overlying bowel gas pattern is normal.? No suspicious soft tissue calcifications.? ? ? IMPRESSION:? Markedly limited study and extensive degenerative and postoperative change.? No definite acute fracture visualized; however if there is high clinical suspicion for fracture, CT of the lumbar spine is recommended to further characterize findings. ? ? Dictated by: Mindy Turcios M.D. on 07/28/2021 at 15:40? ?? ECG Data Interpretation: Atrial fibrillation at a rate of 64 Incomplete right bundle-branch block No acute ischemic changes MDM Narrative Medical decision making narrative: 81-year-old gentleman with a mechanical fall landing on the left side of his forehead complaining of neck pain and low back pain and anticoagulated. CT scans of the head and neck are unremarkable. X-ray of the left hand shows no acute injury to the point her finger. Some minor swelling and sprain only. X- ray of the lumbar spine have not show any acute fractures or specific depression fractures. He is able to ambulate. He has minimal pain is not even requested Tylenol. The partial-thickness laceration in the middle of his forehead bruise in is reapproximated with Dermabond and he tolerated this nicely. At this point there is no evidence of medical reason for fall and no further medical workup is indicated. Reassurance is given and he is safe for home discharge Discharge Plan Departure Patient Disposition: Home Clinical Impression: Fall from ground level, Acute neck pain Abrasion of forehead Qualifiers: Encounter type: initial encounter Qualified Code(s): S00.81XA - Abrasion of other part of head, initial encounter Finger sprain Qualifiers: Encounter type: initial encounter Finger: index finger Sprain of finger site: metacarpophalangeal joint Laterality: left Qualified Code(s): S63.651A - Sprain of metacarpophalangeal joint of left index finger, initial encounter Low back pain Qualifiers: Chronicity: acute Back pain laterality: unspecified Sciatica presence: without sciatica Qualified Code(s): M54.50 - Low back pain, unspecified Instructions: DI for Laceration Repair-Skin Glue Activity Restrictions/Additional Instructions: Thank you for coming in today I am sorry that you stumbled and fell. You have an abrasion to your forehead and I did use some glue to hold the skin edges together centrally. The glue should peel off in 4-5 days and this should heal nicely. With CT scans of your head neck there is no evidence of bleeding into your head or acute injury to your neck. With x-rays of your left hand in your lower back there is no indication of broken bones or compression fractures in your spine. You got very valdemar with your fall today It is okay to use Tylenol with your having increasing pain and I would not be surprised at all if you find parts and pieces that are more tender tomorrow after a fall such as this. If you find that you are getting worse or develop any new symptoms, please feel free to return to the emergency department for further evaluation. Prescriptions: No Action furosemide 40 mg Tablet 40 mg PO DAILY metoprolol succinate 50 mg Tablet Extended Release 24 Hr 25 mg PO DAILY digoxin 250 mcg (0.25 mg) Tablet 250 mcg PO BEDTIME losartan 25 mg Tablet 25 mg PO BEDTIME omeprazole 20 mg Capsule,Delayed Release(Dr/Ec) 20 mg PO DAILY Xarelto 20 mg Tablet 20 mg PO QPM potassium chloride 20 mEq Tablet Extended Release 20 meq PO BID Multi-Vitamins with Iron Tablet,Chewable 1 tab PO DAILY Vitamin D3 4,000 unit Capsule 2,000 unit PO DAILY gabapentin 300 mg capsule 300 mg PO BID duloxetine 30 mg capsule,delayed release(DR/EC) 30 mg PO BEDTIME Jakafi 10 mg tablet 10 mg PO BID Label Comments: TAKE 1 TABLET BY MOUTH TWICE A DAY vitamin R21-fbrah acid 0.5-1 mg Tablet 1 tab PO DAILY Referrals: Wilma Alberts DO [Primary Care Provider] -
[2021-07-28 16:30] VITALS: PULSE 84
== END 2021-07-28 17:54 | disposition home or self-care (01) ==
PROVIDERS: Emergency Provider Emergency Medicine; PCP Family Medicine
DX: S00.81XA Abrasion of other part of head, initial encounter (principal); S63.651A Sprain of metacarpophalangeal joint of left index finger, initial encounter; M54.2 Cervicalgia; M54.50 Low back pain, unspecified; M79.642 Pain in left hand; W18.30XA Fall on same level, unspecified, initial encounter; Z79.01 Long term (current) use of anticoagulants
CPT/HCPCS: 70450; 72100; 72125; 73130; 93005; 99284

== ENCOUNTER 2023-01-18 14:41 | Inpatient (IN) | payer MEDICARE, SELFPAY ==
[2020-08-18 11:46] VITALS: BMI 30.8
[2023-01-18] VITALS (19 sets, daily range): BP systolic 109–131; BP diastolic 56–78; PULSE 79–95; RESP 16–29; TEMP 36.4–36.8; O2SAT 93–99; BMI 32.7
--- NOTE | 2023-01-18 14:56 | DI.RAD.S_ITS ---
PROCEDURE: XR TOE LT MIN 2V INDICATIONS: wound on left big toe TECHNIQUE: 3 views of the left 1st toe(s) acquired. COMPARISON: None. FINDINGS: Bones: There is a healing fracture of the 2nd metacarpal neck. Suboptimal evaluation of the 1st digit secondary to overlying digits. Soft tissues: No suspicious soft tissue densities. IMPRESSION: 1. Limited examination . 2. Healing 2nd metatarsal neck fracture. 3. Limited evaluation of the 1st digit. Dictated by: Hillary Love M.D. on 01/18/2023 at 16:16 Approved by: Hillary Love M.D. on 01/18/2023 at 16:17
[2023-01-18 16:05] LABS: Add Manual Diff / Slide Review NO; Basophils Absolute Auto 100 /uL (0-100); Basophils Percent Auto 1.1 % (0-2); Eosinophils Absolute Auto 100 /uL (0-450); Eosinophils Percent Auto 1.2 % (2-4); Hematocrit 24.3 % (41-53); Hemoglobin 7.8 g/dL (13.5-17.5); Lymphocytes Absolute Auto 500 /uL (1100-4500); Lymphocytes Percent Auto 6.6 % (25-40); Mean Corpuscular HGB Conc 32.1 % (30-36); Mean Corpuscular Hemoglobin 32.9 PG (26-34); Mean Corpuscular Volume 102.7 fL (80-100); Monocytes Absolute Auto 900 /uL (0-900); Neutrophils Absolute Auto 6200 /uL (1500-7000); Neutrophils Percent Auto 79.1 % (50-75); Platelet Count 356 X10^3/uL (150-400); Red Blood Cell Count 2.37 X10^6/uL (4.5-5.9); Red Cell Distribution Width 22.5 % (11.6-14.8); White Blood Cell Count 7.9 X10^3/uL (4.5-11.0)
[2023-01-18 16:15] LABS: Anisocytosis 2+; Poikilocytosis 1+
[2023-01-18 16:23] LABS: Alanine Aminotransferase 12 IU/L (<50); Albumin 3.6 g/dL (3.5-5.0); Albumin Globulin Ratio 1.2 (1.0-2.8); Alkaline Phosphatase 122 U/L (38-126); Aspartate Aminotransferase 28 IU/L (17-59); BUN Creatinine Ratio 31.5 (6-22); Blood Urea Nitrogen 35 mg/dL (9-20); C-Reactive Protein Quant 3.8 mg/dL (<1.0); Calcium 9.1 mg/dL (8.4-10.2); Carbon Dioxide 33 mmol/L (22-32); Chloride 92 mmol/L (98-107); Estimated Glomerular Filt Rate > 60 mL/min (>60); Glucose 93 mg/dL (80-110); HEMOLYSIS < 15 (0-50); Potassium 3.7 mmol/L (3.4-5.1); Sodium 132 mmol/L (137-145); Total Protein 6.6 g/dL (6.3-8.2)
--- NOTE | 2023-01-18 16:38 | ED.WOUNDLAC ---
HPI - Wound/Laceration <Ivelisse Zaman DO - Last Filed: 01/28/23 07:32> General Chief Complaint: Wound/Laceration Stated Complaint: per pt needs operation L big toe, sent by provider Time Seen by Provider: 01/18/23 14:59 Source: patient Mode of arrival: Wheelchair Limitations: no limitations History of Present Illness HPI narrative: 82-year-old male history of atrial fibrillation on Xarelto, CHF, hypertension, hyperlipidemia, myelofibrosis with peripheral neuropathy who presents with a wound on his great toe on his left foot. Patient states it started as a black spot 3 weeks ago. He states still gotten quite large. They went to an urgent care who started him on doxycycline today and told him to come be evaluated. Patient denies fevers. He states he has no sensation in his feet. He states he checks his feet every day but his states that they do not. He denies any chest pain or shortness of breath. No nausea or vomiting. No GI or urinary symptoms. There is some redness over the foot and tracking up the leg. There has been increasing swelling of the toe and foot. Patient states no known drug allergies. Has had prior blood transfusions secondary to his myelofibrosis. Patient denies any tobacco, alcohol or illicit. Dr. Cabello is his primary care. Related Data Home Medications Medication Instructions Recorded Confirmed digoxin 250 mcg (0.25 mg) tablet 250 mcg PO BEDTIME 04/09/19 01/18/23 rivaroxaban 20 mg tablet (Xarelto) 20 mg PO QPM 04/09/19 01/18/23 cholecalciferol (vitamin D3) 100 2,000 unit PO DAILY 04/12/19 01/18/23 mcg (4,000 unit) capsule (Vitamin D3) pediatric [id number] 1 tab PO DAILY 04/12/19 01/18/23 (Multi-Vitamins with Iron chewable tablet) duloxetine 30 mg capsule,delayed 30 mg PO BEDTIME 09/17/20 01/18/23 release gabapentin 300 mg capsule 300 mg PO BID 09/17/20 01/18/23 vitamin B12 0.5 mg-folic acid 1 mg 1 tab PO DAILY 09/17/20 01/18/23 tablet Previous Rx's Medication Instructions Recorded carvedilol 6.25 mg tablet 6.25 mg PO BID 30 days #60 tabs 01/25/23 levofloxacin 750 mg tablet 750 mg PO 0700 7 days #7 tabs 01/25/23 metolazone 2.5 mg tablet 2.5 mg PO 3XW 30 days #13 tabs 01/25/23 torsemide 20 mg tablet 40 mg (2 x 20 mg) PO DAILY 30 days 01/25/23 #60 tabs Allergies Allergy/AdvReac Type Severity Reaction Status Date / Time No Known Drug Allergies Allergy Verified 01/26/23 19:37 Review of Systems <Ivelisse Zaman DO - Last Filed: 01/28/23 07:32> Review of Systems ROS Unobtainable: All systems reviewed & are unremarkable except as noted in HPI and below Patient History <DO Wilda Mcmillan Last Filed: 01/28/23 07:32> Medical History Neuropathy COPD (chronic obstructive pulmonary disease) Myelofibrosis CHF (congestive heart failure) Edema Acid reflux HTN (hypertension) Osteoarthritis Arthritis HLD (hyperlipidemia) Cardiomyopathy Afib Surgical History Hx of tonsillectomy History of arthroplasty of left shoulder History of bilateral hip arthroplasty History of arthroplasty of right shoulder Hx of shoulder surgery Hx of laminectomy History of lumbar surgery (03/25/15) Social History household members: spouse Smoking Status: Former smoker alcohol intake: current Smoking Status: Former smoker alcohol intake frequency: 3 or more drinks per day Substance Use Type: does not use Exam <DO Wilda Mcmillan Last Filed: 01/28/23 07:32> Narrative Exam Narrative: GENERAL: Alert and oriented x three, obese male in mild distress. HEENT: Head normocephalic, atraumatic, EOMI, pupils reactive, face symmetric, moist mucous membranes NECK: Supple, full range of motion CARDIOVASCULAR: Regular rate and rhythm without murmurs, rubs or gallops. RESPIRATORY: Breath sounds equal bilaterally, no wheezes rales or rhonchi. No tachypnea accessory muscle use. ABDOMEN: Soft, nontender. Normoactive bowel sounds all 4 quadrants. No guarding or rebound, rigidity, no mass : No CVA tenderness EXTREMITIES: Normal range of motion, patient does not have sensation to touch. 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 There is purulent drainage some foul odor. Patient has some swelling and redness of the toe and swelling of the foot of the leg with some mild redness. Patient's left leg is warmer than the right. As well as over the dorsum of the foot in the toe. Patient does have 2+ edema bilateral lower extremities. Left leg appears more swollen than the right. Neurovascularly intact NEUROLOGICAL: Cranial nerves II through XII grossly intact. Moving all extremities SKIN: Warm, dry, no petechiae. Initial Vital Signs Initial Vital Signs: Vital Signs Temperature 98.3 F 01/18/23 14:50 Pulse Rate 91 H 01/18/23 14:50 Respiratory Rate 18 01/18/23 14:50 Blood Pressure 116/65 01/18/23 14:50 Pulse Oximetry 96 01/18/23 14:50 Oxygen Delivery Method Room Air 01/18/23 14:50 <Juan Alberto Francois, DO - Last Filed: 01/18/23 20:14> Initial Vital Signs Initial Vital Signs: Vital Signs Temperature 98.3 F 01/18/23 14:50 Pulse Rate 91 H 01/18/23 14:50 Respiratory Rate 18 01/18/23 14:50 Blood Pressure 116/65 01/18/23 14:50 Pulse Oximetry 96 01/18/23 14:50 Oxygen Delivery Method Room Air 01/18/23 14:50 Course <Ivelisse Zaman, DO - Last Filed: 01/28/23 07:32> Orders Ordered: Discontinued Medications Acetaminophen (Acetaminophen 325 Mg Tablet) 650 mg PO Q6H PRN PRN Reason: Fever/Mild Pain (1-3) Last Admin: 01/20/23 10:51 Dose: 650 mg Documented By: Admin: 01/19/23 21:29 Dose: 650 mg Documented By: Admin: 01/19/23 07:46 Dose: 650 mg Documented By: KRISTEN Acetaminophen (Acetaminophen 325 Mg Tablet) 650 mg PO Q6H [facility] Last Admin: 01/25/23 07:53 Dose: Not Given Documented By: Admin: 01/25/23 02:39 Dose: Not Given Documented By: JANY(2) Admin: 01/24/23 18:44 Dose: 650 mg Documented By: Admin: 01/24/23 15:33 Dose: Not Given Documented By: Admin: 01/24/23 09:45 Dose: Not Given Documented By: Admin: 01/24/23 02:59 Dose: Not Given Documented By: CM(2) Admin: 01/23/23 20:51 Dose: Not Given Documented By: CM(2) Admin: 01/23/23 15:40 Dose: 650 mg Documented By: Admin: 01/23/23 10:00 Dose: Not Given Documented By: Admin: 01/23/23 03:47 Dose: 650 mg Documented By: Admin: 01/22/23 18:06 Dose: 650 mg Documented By: Admin: 01/22/23 16:09 Dose: Not Given Documented By: Admin: 01/22/23 09:15 Dose: Not Given Documented By: Admin: 01/22/23 03:57 Dose: 650 mg Documented By: Admin: 01/22/23 03:29 Dose: Not Given Documented By: Admin: 01/21/23 22:09 Dose: 650 mg Documented By: Admin: 01/21/23 17:15 Dose: 650 mg Documented By: Admin: 01/21/23 10:08 Dose: 650 mg Documented By: Admin: 01/21/23 03:06 Dose: 650 mg Documented By: CM(2) Admin: 01/20/23 19:34 Dose: 650 mg Documented By: CM(2) Admin: 01/20/23 16:21 Dose: Not Given Documented By: NESSA Hydrocodone Bitart/Acetaminophen (Hydrocodone/Acet 5/325 Tablet) 1 tab PO PACUNOW PRN PRN Reason: Mild or moderate pain Albuterol (Albuterol 2.5 Mg/3 Ml Neb (Adult)) 2.5 mg INH [id number] PRN PRN Reason: Dyspnea Benzocaine (Benzocaine/Menthol 1 Paz Pkt) 1 each PO PRN PRN PRN Reason: Sore Throat Stop: 01/21/23 00:00 Bisacodyl (Bisacodyl 10 Mg Supp) 10 mg [place] PRN PRN PRN Reason: Constipation Bupivacaine HCl (Bupivacaine 0.5% (Pf) 30 Ml Vial) 30 ml INJ NOW ONE Stop: 01/20/23 13:38 Last Admin: 01/20/23 13:39 Dose: 10 ml Documented By: CRORY Calcium Carbonate (Calcium Carbonate 500 Mg Tab) 1,000 mg PO Q4HR PRN PRN Reason: Dyspepsia Carvedilol (Carvedilol 12.5 Mg Tablet) 12.5 mg PO BID [facility] Last Admin: 01/19/23 09:19 Dose: 12.5 mg Documented By: KRISTEN Carvedilol (Carvedilol 3.125 Mg Tablet) 6.25 mg PO BID [facility] Last Admin: 01/25/23 08:42 Dose: 6.25 mg Documented By: Admin: 01/24/23 20:24 Dose: 6.25 mg Documented By: JANY(2) Admin: 01/24/23 08:17 Dose: 6.25 mg Documented By: Admin: 01/23/23 20:47 Dose: 6.25 mg Documented By: JANY(2) Admin: 01/23/23 10:00 Dose: 6.25 mg Documented By: Admin: 01/22/23 20:24 Dose: 6.25 mg Documented By: Admin: 01/22/23 10:47 Dose: 6.25 mg Documented By: Admin: 01/21/23 20:32 Dose: 6.25 mg Documented By: Admin: 01/21/23 12:26 Dose: 6.25 mg Documented By: NESSA Digoxin (Digoxin 0.125 Mg Tablet) 0.25 mg PO BEDTIME [facility] Last Admin: 01/24/23 20:23 Dose: 0.25 mg Documented By: JANY(2) Admin: 01/23/23 20:46 Dose: 0.25 mg Documented By: JANY(2) Admin: 01/22/23 20:25 Dose: 0.25 mg Documented By: Admin: 01/21/23 20:31 Dose: 0.25 mg Documented By: Admin: 01/20/23 21:01 Dose: 0.25 mg Documented By: JANY(2) Admin: 01/19/23 21:30 Dose: 0.25 mg Documented By: Diphenhydramine HCl (Diphenhydramine 25 Mg Tablet) 50 mg PO Q6H PRN PRN Reason: mod to severe erythema, urticaria, or pruritis Diphenhydramine HCl (Diphenhydramine 50 Mg/Ml Vial) 50 mg IV Q6HR PRN PRN Reason: mild to moderate erythema, urticaria, or pruritis Docusate Sodium (Docusate 100 Mg Capsule) 100 mg PO BID [facility] Last Admin: 01/25/23 08:41 Dose: 100 mg Documented By: Admin: 01/24/23 20:25 Dose: 100 mg Documented By: CM(2) Admin: 01/24/23 08:16 Dose: 100 mg Documented By: Admin: 01/23/23 20:47 Dose: 100 mg Documented By: CM(2) Admin: 01/23/23 10:00 Dose: 100 mg Documented By: Admin: 01/22/23 20:25 Dose: 100 mg Documented By: Admin: 01/22/23 10:46 Dose: 100 mg Documented By: Admin: 01/21/23 20:32 Dose: Not Given Documented By: Admin: 01/21/23 10:07 Dose: Not Given Documented By: Admin: 01/20/23 21:03 Dose: 100 mg Documented By: CM(2) Duloxetine HCl (Duloxetine 30 Mg Capsule) 30 mg PO BEDTIME [facility] Last Admin: 01/24/23 20:24 Dose: 30 mg Documented By: JANY(2) Admin: 01/23/23 20:47 Dose: 30 mg Documented By: CM(2) Admin: 01/22/23 20:25 Dose: 30 mg Documented By: Admin: 01/21/23 20:32 Dose: 30 mg Documented By: Admin: 01/20/23 21:03 Dose: 30 mg Documented By: JANY(2) Admin: 01/19/23 21:30 Dose: 30 mg Documented By: Epoetin Matthew (Epoetin Matthew-Epbx 20,000 Unit/2 Ml Vial) 40,000 unit SUBCUT NOW ONE Stop: 01/21/23 09:01 Last Admin: 01/21/23 11:49 Dose: Not Given Documented By: NSESA Fentanyl (Fentanyl 100 Mcg/2 Ml Inj) 0 mcg IV Q5MIN PRN PRN Reason: Pain, Severe (7-10) Fentanyl (Fentanyl 100 Mcg/2 Ml Inj) 0 mcg IV Q5M PRN PRN Reason: Pain, Moderate (4-6) Gabapentin (Gabapentin 300 Mg Capsule) 300 mg PO BID [facility] Last Admin: 01/25/23 08:42 Dose: 300 mg Documented By: Admin: 01/24/23 20:25 Dose: 300 mg Documented By: JANY(2) Admin: 01/24/23 08:16 Dose: 300 mg Documented By: Admin: 01/23/23 20:47 Dose: 300 mg Documented By: JANY(2) Admin: 01/23/23 10:00 Dose: 300 mg Documented By: Admin: 01/22/23 20:25 Dose: 300 mg Documented By: Admin: 01/22/23 10:47 Dose: 300 mg Documented By: Admin: 01/21/23 20:32 Dose: 300 mg Documented By: Admin: 01/21/23 10:08 Dose: 300 mg Documented By: Admin: 01/20/23 21:02 Dose: 300 mg Documented By: JANY(2) Admin: 01/20/23 09:15 Dose: 300 mg Documented By: Admin: 01/19/23 21:30 Dose: 300 mg Documented By: Admin: 01/19/23 07:46 Dose: 300 mg Documented By: Admin: 01/18/23 22:17 Dose: 300 mg Documented By: Hydromorphone HCl (Hydromorphone 0.5 Mg Inj) 0.5 mg IV Q2H PRN PRN Reason: Pain, Severe (7-10) Hydromorphone HCl (Hydromorphone 1 Mg Inj) 0 mg IV Q5MIN PRN PRN Reason: Pain, Mild (1-3) Hydromorphone HCl (Hydromorphone 1 Mg Inj) 0 mg IV Q5MIN PRN PRN Reason: Pain, Moderate (4-6) Vancomycin HCl (Vancomycin) 1,250 mg in 250 mls @ 250 mls/hr IV NOW ONE Stop: 01/18/23 18:17 Last Infusion: 01/18/23 19:34 Dose: Infused Documented By: Admin: 01/18/23 18:34 Dose: 250 mls/hr Documented By: AMRIT Cefepime HCl 2 gm/ Sodium (Chloride) 100 mls @ 200 mls/hr IV NOW ONE Stop: 01/18/23 17:18 Last Infusion: 01/18/23 18:29 Dose: Infused Documented By: Admin: 01/18/23 17:55 Dose: 200 mls/hr Documented By: GAYLE Sodium Chloride (Normal Saline 0.9%) 1,000 mls @ 125 mls/hr IV CONT [facility] Last Admin: 01/18/23 21:03 Dose: 100 mls/hr Documented By: MICHELLE Piperacillin Sod/Tazobactam (Sod 3.375 gm/ Sodium Chloride) 100 mls @ 25 mls/hr IV Q8H [facility] Last Admin: 01/20/23 12:45 Dose: Not Given Documented By: Infusion: 01/20/23 08:45 Dose: Infused Documented By: Admin: 01/20/23 04:45 Dose: 25 mls/hr Documented By: Infusion: 01/20/23 01:28 Dose: Infused Documented By: Admin: 01/19/23 21:28 Dose: 25 mls/hr Documented By: Infusion: 01/19/23 16:26 Dose: Infused Documented By: Admin: 01/19/23 12:26 Dose: 25 mls/hr Documented By: Infusion: 01/19/23 08:49 Dose: Infused Documented By: Admin: 01/19/23 04:49 Dose: 25 mls/hr Documented By: Infusion: 01/19/23 01:04 Dose: Infused Documented By: Admin: 01/18/23 21:04 Dose: 25 mls/hr Documented By: MICHELLE Vancomycin HCl 2,000 mg/ (Sodium Chloride) 500 mls @ 250 mls/hr IV Q24H [facility] Vancomycin HCl/Dextrose (Vancomycin) 1,500 mg in 300 mls @ 200 mls/hr IV Q24H [facility] Last Infusion: 01/19/23 18:18 Dose: Infused Documented By: Admin: 01/19/23 16:48 Dose: 200 mls/hr Documented By: KRISTEN Sodium Chloride (Normal Saline 0.9%) 500 mls @ 500 mls/hr IV BOLUS ONE Stop: 01/19/23 10:38 Last Admin: 01/19/23 11:15 Dose: 500 mls/hr Documented By: KRISTEN Lactated Ringer's (Lactated Ringers) 1,000 mls @ 42 mls/hr IV CONT [facility] Last Admin: 01/20/23 12:38 Dose: 42 mls/hr Documented By: ERIC Lactated Ringer's (Lactated Ringers) 1,000 mls @ 120 mls/hr IV CONT [facility] Last Admin: 01/20/23 16:16 Dose: 120 mls/hr Documented By: NESSA Iron Dextran 1,000 mg/ Sodium (Chloride) 270 mls @ 270 mls/hr IV NOW ONE Stop: 01/21/23 09:59 Last Admin: 01/21/23 11:50 Dose: Not Given Documented By: NESSA Piperacillin Sod/Tazobactam (Sod 3.375 gm/ Sodium Chloride) 100 mls @ 25 mls/hr IV Q8H [facility] Last Admin: 01/23/23 11:43 Dose: Not Given Documented By: Infusion: 01/23/23 03:30 Dose: Infused Documented By: Admin: 01/22/23 23:30 Dose: 25 mls/hr Documented By: Infusion: 01/22/23 20:30 Dose: Infused Documented By: Admin: 01/22/23 16:30 Dose: 25 mls/hr Documented By: Infusion: 01/22/23 12:30 Dose: Infused Documented By: Admin: 01/22/23 08:20 Dose: 25 mls/hr Documented By: Infusion: 01/22/23 03:59 Dose: Infused Documented By: Admin: 01/21/23 23:52 Dose: 25 mls/hr Documented By: Infusion: 01/21/23 21:16 Dose: Infused Documented By: Admin: 01/21/23 17:16 Dose: 25 mls/hr Documented By: Infusion: 01/21/23 12:03 Dose: Infused Documented By: Admin: 01/21/23 08:03 Dose: 25 mls/hr Documented By: Infusion: 01/21/23 03:01 Dose: Infused Documented By: CM(2) Admin: 01/20/23 23:01 Dose: 25 mls/hr Documented By: CM(2) Infusion: 01/20/23 20:33 Dose: Infused Documented By: JANY(2) Admin: 01/20/23 16:33 Dose: 25 mls/hr Documented By: NESSA Sodium Chloride (Normal Saline 0.9%) 250 mls @ 21 mls/hr IV Q24H PRN PRN Reason: Flush Furosemide 60 mg/ Sodium (Chloride) 56 mls @ 112 mls/hr IV NOW ONE Stop: 01/22/23 15:48 Last Admin: 01/22/23 16:08 Dose: 112 mls/hr Documented By: JUAREZ Furosemide 60 mg/ Sodium (Chloride) 56 mls @ 112 mls/hr IV NOW ONE Stop: 01/23/23 09:35 Last Admin: 01/23/23 11:02 Dose: 112 mls/hr Documented By: JERRY Furosemide 60 mg/ Sodium (Chloride) 56 mls @ 112 mls/hr IV Q12H [facility] Last Admin: 01/25/23 08:42 Dose: 112 mls/hr Documented By: Infusion: 01/24/23 20:53 Dose: Infused Documented By: CM(2) Admin: 01/24/23 20:23 Dose: 112 mls/hr Documented By: CM(2) Infusion: 01/24/23 09:48 Dose: Infused Documented By: Admin: 01/24/23 08:20 Dose: 112 mls/hr Documented By: Infusion: 01/23/23 21:11 Dose: Infused Documented By: CM(2) Admin: 01/23/23 20:41 Dose: 112 mls/hr Documented By: CM(2) Levofloxacin (Levofloxacin 250 Mg Tablet) 750 mg PO 0700 [facility] Stop: 02/01/23 07:01 Last Admin: 01/25/23 06:01 Dose: 750 mg Documented By: CM(2) Admin: 01/24/23 06:02 Dose: 750 mg Documented By: CM(2) Admin: 01/23/23 11:03 Dose: 750 mg Documented By: JERRY Losartan Potassium (Losartan 25 Mg Tablet) 25 mg PO BEDTIME [facility] Last Admin: 01/18/23 22:07 Dose: Not Given Documented By: Metolazone (Metolazone 2.5 Mg Tablet) 2.5 mg PO Mo@0800 [facility] Last Admin: 01/24/23 08:21 Dose: 2.5 mg Documented By: BRAYDON Metolazone (Metolazone 2.5 Mg Tablet) 2.5 mg PO NOW ONE Stop: 01/21/23 12:03 Last Admin: 01/21/23 12:27 Dose: 2.5 mg Documented By: KL Metoprolol Succinate (Metoprolol Er 50 Mg Tablet) 25 mg PO DAILY [facility] Last Admin: 01/19/23 09:20 Dose: 25 mg Documented By: KRISTEN Multivitamins (Multivitamin 1 Tablet) 1 tab PO DAILY [facility] Last Admin: 01/25/23 08:42 Dose: 1 tab Documented By: Admin: 01/24/23 08:18 Dose: 1 tab Documented By: Admin: 01/23/23 10:00 Dose: 1 tab Documented By: Admin: 01/22/23 10:47 Dose: 1 tab Documented By: Admin: 01/21/23 10:07 Dose: 1 tab Documented By: NESSA Naloxone HCl (Naloxone 0.4 Mg/Ml Vial) 0.2 mg IV Q2MIN PRN PRN Reason: Opiate Reversal Non-Formulary Medication (Ruxolitinib [Jakafi]) 10 mg PO BID [facility] Last Admin: 01/18/23 22:18 Dose: Not Given Documented By: Non-Formulary Medication (Vitamin H05-Tvdeb Acid) 1 tab PO DAILY [facility] Ondansetron HCl (Ondansetron 4 Mg/2 Ml Inj) 4 mg IV NOW PRN PRN Reason: Nausea And Vomiting Ondansetron HCl (Ondansetron 4 Mg Odt) 4 mg PO Q4HR PRN PRN Reason: Nausea And Vomiting Ondansetron HCl (Ondansetron 4 Mg/2 Ml Inj) 4 mg IV Q4HR PRN PRN Reason: Nausea And Vomiting Oxycodone HCl (Oxycodone Ir 5 Mg Tablet) 5 mg PO Q3H PRN PRN Reason: Pain, Moderate (4-6) Oxycodone HCl (Oxycodone Ir 5 Mg Tablet) 5 mg PO PACUNOW PRN PRN Reason: Mild or moderate pain Oxycodone HCl (Oxycodone Ir 5 Mg Tablet) 5 mg PO Q3H PRN PRN Reason: Pain, Moderate (4-6) Pantoprazole Sodium (Pantoprazole Dr 20 Mg Tablet) 20 mg PO 0600 [facility] Last Admin: 01/25/23 06:01 Dose: 20 mg Documented By: JANY(2) Admin: 01/24/23 06:02 Dose: 20 mg Documented By: JANY(2) Admin: 01/23/23 05:19 Dose: 20 mg Documented By: Admin: 01/22/23 05:55 Dose: 20 mg Documented By: Admin: 01/21/23 06:16 Dose: 20 mg Documented By: JANY(2) Admin: 01/20/23 06:12 Dose: 20 mg Documented By: Admin: 01/19/23 06:22 Dose: 20 mg Documented By: Polyethylene Glycol (Polyethylene Glycol 3350 17 Gm Powd.Pack) 17 gm PO DAILY [facility] Last Admin: 01/25/23 07:52 Dose: Not Given Documented By: Admin: 01/24/23 08:18 Dose: Not Given Documented By: Admin: 01/23/23 10:00 Dose: 17 gm Documented By: Admin: 01/22/23 09:33 Dose: Not Given Documented By: Admin: 01/21/23 10:07 Dose: Not Given Documented By: NESSA Potassium Chloride (Potassium Chloride 20 Meq Tab) 40 meq PO NOW ONE Stop: 01/19/23 11:31 Last Admin: 01/19/23 12:05 Dose: 40 meq Documented By: KRISTEN Potassium Chloride (Potassium Chloride 20 Meq/15 Ml Udc) 40 meq PO NOW ONE Stop: 01/23/23 06:50 Last Admin: 01/23/23 07:06 Dose: 40 meq Documented By: EDUARDO Potassium Chloride (Potassium Chloride 20 Meq/15 Ml Udc) 40 meq PO 1300 ONE Stop: 01/23/23 13:01 Last Admin: 01/23/23 14:10 Dose: 40 meq Documented By: JERRY Potassium Chloride (Potassium Chloride 20 Meq Tab) 40 meq PO Q6H [facility] Stop: 01/24/23 16:46 Last Admin: 01/24/23 16:25 Dose: 40 meq Documented By: Admin: 01/24/23 10:56 Dose: 40 meq Documented By: BRAYDON Potassium Chloride (Potassium Chloride 20 Meq Tab) 40 meq PO NOW ONE Stop: 01/25/23 09:25 Last Admin: 01/25/23 10:12 Dose: 40 meq Documented By: JANY Rivaroxaban (Rivaroxaban 10 Mg Tablet) 20 mg PO QPM [facility] Last Admin: 01/23/23 18:01 Dose: 20 mg Documented By: Admin: 01/23/23 17:59 Dose: 20 mg Documented By: Admin: 01/22/23 16:00 Dose: 20 mg Documented By: Admin: 01/21/23 17:15 Dose: 20 mg Documented By: NESSA Rivaroxaban (Rivaroxaban 10 Mg Tablet) 20 mg PO QPM [facility] Last Admin: 01/24/23 18:13 Dose: 20 mg Documented By: BRAYDON Sennosides (Sennosides 8.6 Mg Tablet) 17.2 mg PO BEDTIME [facility] Last Admin: 01/24/23 20:24 Dose: 17.2 mg Documented By: JANY(2) Admin: 01/23/23 20:47 Dose: 17.2 mg Documented By: CM(2) Admin: 01/22/23 20:25 Dose: 17.2 mg Documented By: Admin: 01/21/23 20:32 Dose: Not Given Documented By: Admin: 01/20/23 21:02 Dose: 17.2 mg Documented By: JANY(2) Sodium Biphosphate/Sodium Phosphate (Fleets Enema) 1 each [place] PRN PRN PRN Reason: Constipation Sodium Chloride (Sodium Chloride 0.9% Flush) 10 ml IV PRN PRN PRN Reason: Flush Last Admin: 01/22/23 03:58 Dose: 10 ml Documented By: Admin: 01/21/23 22:53 Dose: 10 ml Documented By: LUIS Sodium Chloride (Sodium Chloride 0.9% Flush) 10 ml IV BID [facility] Last Admin: 01/25/23 08:43 Dose: 10 ml Documented By: Admin: 01/24/23 20:26 Dose: 10 ml Documented By: CM(2) Admin: 01/24/23 08:21 Dose: 10 ml Documented By: Admin: 01/23/23 20:52 Dose: 10 ml Documented By: CM(2) Admin: 01/23/23 10:00 Dose: 10 ml Documented By: Admin: 01/22/23 20:25 Dose: 10 ml Documented By: Admin: 01/22/23 12:33 Dose: Not Given Documented By: JUAREZ Torsemide (Torsemide 10 Mg Tablet) 20 mg PO DAILY [facility] Last Admin: 01/22/23 12:38 Dose: 20 mg Documented By: Admin: 01/21/23 10:07 Dose: 20 mg Documented By: NESSA Vitamin D (Cholecalciferol (Vitamin D3) 1,000 Unit Tablet) 2,000 unit PO DAILY [facility] Last Admin: 01/25/23 08:42 Dose: 2,000 unit Documented By: Admin: 01/24/23 08:17 Dose: 2,000 unit Documented By: Admin: 01/23/23 10:00 Dose: 2,000 unit Documented By: Admin: 01/22/23 10:46 Dose: 2,000 unit Documented By: Admin: 01/21/23 10:07 Dose: 2,000 unit Documented By: NESSA Vital Signs Vital signs: Vital Signs - 8 hr 01/18/23 14:50 01/18/23 15:23 01/18/23 15:30 Temperature 98.3 F Pulse Rate 91 H 83 Pulse Rate [Left Dorsalis Pedis] 80 Respiratory Rate 18 25 H Blood Pressure 116/65 123/58 L Pulse Oximetry 96 96 Oxygen Delivery Method Room Air Room Air 01/18/23 15:50 01/18/23 16:10 01/18/23 16:15 Temperature Pulse Rate 88 86 83 Pulse Rate [Left Dorsalis Pedis] Respiratory Rate 18 18 24 Blood Pressure 122/78 118/59 L 113/56 L Pulse Oximetry 98 98 99 Oxygen Delivery Method Room Air Room Air 01/18/23 16:15 01/18/23 16:16 01/18/23 16:16 Temperature Pulse Rate 83 80 Pulse Rate [Left Dorsalis Pedis] Respiratory Rate 24 28 H Blood Pressure 122/59 L 122/59 L Pulse Oximetry 99 99 Oxygen Delivery Method Room Air 01/18/23 16:30 01/18/23 16:30 01/18/23 16:30 Temperature Pulse Rate 85 85 Pulse Rate [Left Dorsalis Pedis] Respiratory Rate 29 H 29 H Blood Pressure 131/61 131/61 Pulse Oximetry 95 95 Oxygen Delivery Method Room Air 01/18/23 16:45 01/18/23 17:00 01/18/23 17:15 Temperature Pulse Rate 81 83 86 Pulse Rate [Left Dorsalis Pedis] Respiratory Rate 26 H 25 H 23 Blood Pressure 120/59 L 115/58 L 120/58 L Pulse Oximetry 96 95 94 Oxygen Delivery Method Room Air Room Air Room Air 01/18/23 17:30 01/18/23 17:45 01/18/23 17:56 Temperature Pulse Rate 83 82 95 H Pulse Rate [Left Dorsalis Pedis] Respiratory Rate 25 H 27 H 18 Blood Pressure 112/56 L 109/58 L 112/59 L Pulse Oximetry 94 94 98 Oxygen Delivery Method Room Air Room Air Room Air 01/18/23 18:38 01/18/23 19:02 01/18/23 19:27 Temperature Pulse Rate 88 79 Pulse Rate [Left Dorsalis Pedis] 80 Respiratory Rate 18 23 Blood Pressure 116/57 L 119/57 L Pulse Oximetry 97 93 Oxygen Delivery Method Room Air Room Air 01/18/23 20:02 Temperature Pulse Rate 83 Pulse Rate [Left Dorsalis Pedis] Respiratory Rate 23 Blood Pressure 115/57 L Pulse Oximetry 94 Oxygen Delivery Method <Juan Alberto Francois, DO - Last Filed: 01/18/23 20:14> Orders Ordered: Discontinued Medications Acetaminophen (Acetaminophen 325 Mg Tablet) 650 mg PO Q6H PRN PRN Reason: Fever/Mild Pain (1-3) Last Admin: 01/20/23 10:51 Dose: 650 mg Documented By: Admin: 01/19/23 21:29 Dose: 650 mg Documented By: Admin: 01/19/23 07:46 Dose: 650 mg Documented By: KRISTEN Acetaminophen (Acetaminophen 325 Mg Tablet) 650 mg PO Q6H [facility] Last Admin: 01/25/23 07:53 Dose: Not Given Documented By: Admin: 01/25/23 02:39 Dose: Not Given Documented By: JANY(2) Admin: 01/24/23 18:44 Dose: 650 mg Documented By: Admin: 01/24/23 15:33 Dose: Not Given Documented By: Admin: 01/24/23 09:45 Dose: Not Given Documented By: Admin: 01/24/23 02:59 Dose: Not Given Documented By: CM(2) Admin: 01/23/23 20:51 Dose: Not Given Documented By: CM(2) Admin: 01/23/23 15:40 Dose: 650 mg Documented By: Admin: 01/23/23 10:00 Dose: Not Given Documented By: Admin: 01/23/23 03:47 Dose: 650 mg Documented By: Admin: 01/22/23 18:06 Dose: 650 mg Documented By: Admin: 01/22/23 16:09 Dose: Not Given Documented By: Admin: 01/22/23 09:15 Dose: Not Given Documented By: Admin: 01/22/23 03:57 Dose: 650 mg Documented By: Admin: 01/22/23 03:29 Dose: Not Given Documented By: Admin: 01/21/23 22:09 Dose: 650 mg Documented By: Admin: 01/21/23 17:15 Dose: 650 mg Documented By: Admin: 01/21/23 10:08 Dose: 650 mg Documented By: Admin: 01/21/23 03:06 Dose: 650 mg Documented By: JANY(2) Admin: 01/20/23 19:34 Dose: 650 mg Documented By: JANY(2) Admin: 01/20/23 16:21 Dose: Not Given Documented By: NESSA Hydrocodone Bitart/Acetaminophen (Hydrocodone/Acet 5/325 Tablet) 1 tab PO PACUNOW PRN PRN Reason: Mild or moderate pain Albuterol (Albuterol 2.5 Mg/3 Ml Neb (Adult)) 2.5 mg INH [id number] PRN PRN Reason: Dyspnea Benzocaine (Benzocaine/Menthol 1 Paz Pkt) 1 each PO PRN PRN PRN Reason: Sore Throat Stop: 01/21/23 00:00 Bisacodyl (Bisacodyl 10 Mg Supp) 10 mg [place] PRN PRN PRN Reason: Constipation Bupivacaine HCl (Bupivacaine 0.5% (Pf) 30 Ml Vial) 30 ml INJ NOW ONE Stop: 01/20/23 13:38 Last Admin: 01/20/23 13:39 Dose: 10 ml Documented By: CORRY Calcium Carbonate (Calcium Carbonate 500 Mg Tab) 1,000 mg PO Q4HR PRN PRN Reason: Dyspepsia Carvedilol (Carvedilol 12.5 Mg Tablet) 12.5 mg PO BID [facility] Last Admin: 01/19/23 09:19 Dose: 12.5 mg Documented By: KRISTEN Carvedilol (Carvedilol 3.125 Mg Tablet) 6.25 mg PO BID [facility] Last Admin: 01/25/23 08:42 Dose: 6.25 mg Documented By: Admin: 01/24/23 20:24 Dose: 6.25 mg Documented By: JANY(2) Admin: 01/24/23 08:17 Dose: 6.25 mg Documented By: Admin: 01/23/23 20:47 Dose: 6.25 mg Documented By: JANY(2) Admin: 01/23/23 10:00 Dose: 6.25 mg Documented By: Admin: 01/22/23 20:24 Dose: 6.25 mg Documented By: Admin: 01/22/23 10:47 Dose: 6.25 mg Documented By: Admin: 01/21/23 20:32 Dose: 6.25 mg Documented By: Admin: 01/21/23 12:26 Dose: 6.25 mg Documented By: NESSA Digoxin (Digoxin 0.125 Mg Tablet) 0.25 mg PO BEDTIME [facility] Last Admin: 01/24/23 20:23 Dose: 0.25 mg Documented By: JANY(2) Admin: 01/23/23 20:46 Dose: 0.25 mg Documented By: JANY(2) Admin: 01/22/23 20:25 Dose: 0.25 mg Documented By: Admin: 01/21/23 20:31 Dose: 0.25 mg Documented By: Admin: 01/20/23 21:01 Dose: 0.25 mg Documented By: JANY(2) Admin: 01/19/23 21:30 Dose: 0.25 mg Documented By: Diphenhydramine HCl (Diphenhydramine 25 Mg Tablet) 50 mg PO Q6H PRN PRN Reason: mod to severe erythema, urticaria, or pruritis Diphenhydramine HCl (Diphenhydramine 50 Mg/Ml Vial) 50 mg IV Q6HR PRN PRN Reason: mild to moderate erythema, urticaria, or pruritis Docusate Sodium (Docusate 100 Mg Capsule) 100 mg PO BID [facility] Last Admin: 01/25/23 08:41 Dose: 100 mg Documented By: Admin: 01/24/23 20:25 Dose: 100 mg Documented By: JANY(2) Admin: 01/24/23 08:16 Dose: 100 mg Documented By: Admin: 01/23/23 20:47 Dose: 100 mg Documented By: JANY(2) Admin: 01/23/23 10:00 Dose: 100 mg Documented By: Admin: 01/22/23 20:25 Dose: 100 mg Documented By: Admin: 01/22/23 10:46 Dose: 100 mg Documented By: Admin: 01/21/23 20:32 Dose: Not Given Documented By: Admin: 01/21/23 10:07 Dose: Not Given Documented By: Admin: 01/20/23 21:03 Dose: 100 mg Documented By: JANY(2) Duloxetine HCl (Duloxetine 30 Mg Capsule) 30 mg PO BEDTIME [facility] Last Admin: 01/24/23 20:24 Dose: 30 mg Documented By: JANY(2) Admin: 01/23/23 20:47 Dose: 30 mg Documented By: JANY(2) Admin: 01/22/23 20:25 Dose: 30 mg Documented By: Admin: 01/21/23 20:32 Dose: 30 mg Documented By: Admin: 01/20/23 21:03 Dose: 30 mg Documented By: JANY(2) Admin: 01/19/23 21:30 Dose: 30 mg Documented By: Epoetin Matthew (Epoetin Matthew-Epbx 20,000 Unit/2 Ml Vial) 40,000 unit SUBCUT NOW ONE Stop: 01/21/23 09:01 Last Admin: 01/21/23 11:49 Dose: Not Given Documented By: NESSA Fentanyl (Fentanyl 100 Mcg/2 Ml Inj) 0 mcg IV Q5MIN PRN PRN Reason: Pain, Severe (7-10) Fentanyl (Fentanyl 100 Mcg/2 Ml Inj) 0 mcg IV Q5M PRN PRN Reason: Pain, Moderate (4-6) Gabapentin (Gabapentin 300 Mg Capsule) 300 mg PO BID [facility] Last Admin: 01/25/23 08:42 Dose: 300 mg Documented By: Admin: 01/24/23 20:25 Dose: 300 mg Documented By: JANY(2) Admin: 01/24/23 08:16 Dose: 300 mg Documented By: Admin: 01/23/23 20:47 Dose: 300 mg Documented By: JANY(2) Admin: 01/23/23 10:00 Dose: 300 mg Documented By: Admin: 01/22/23 20:25 Dose: 300 mg Documented By: Admin: 01/22/23 10:47 Dose: 300 mg Documented By: Admin: 01/21/23 20:32 Dose: 300 mg Documented By: Admin: 01/21/23 10:08 Dose: 300 mg Documented By: Admin: 01/20/23 21:02 Dose: 300 mg Documented By: JANY(2) Admin: 01/20/23 09:15 Dose: 300 mg Documented By: Admin: 01/19/23 21:30 Dose: 300 mg Documented By: Admin: 01/19/23 07:46 Dose: 300 mg Documented By: Admin: 01/18/23 22:17 Dose: 300 mg Documented By: Hydromorphone HCl (Hydromorphone 0.5 Mg Inj) 0.5 mg IV Q2H PRN PRN Reason: Pain, Severe (7-10) Hydromorphone HCl (Hydromorphone 1 Mg Inj) 0 mg IV Q5MIN PRN PRN Reason: Pain, Mild (1-3) Hydromorphone HCl (Hydromorphone 1 Mg Inj) 0 mg IV Q5MIN PRN PRN Reason: Pain, Moderate (4-6) Vancomycin HCl (Vancomycin) 1,250 mg in 250 mls @ 250 mls/hr IV NOW ONE Stop: 01/18/23 18:17 Last Infusion: 01/18/23 19:34 Dose: Infused Documented By: Admin: 01/18/23 18:34 Dose: 250 mls/hr Documented By: AMRIT Cefepime HCl 2 gm/ Sodium (Chloride) 100 mls @ 200 mls/hr IV NOW ONE Stop: 01/18/23 17:18 Last Infusion: 01/18/23 18:29 Dose: Infused Documented By: Admin: 01/18/23 17:55 Dose: 200 mls/hr Documented By: GAYLE Sodium Chloride (Normal Saline 0.9%) 1,000 mls @ 125 mls/hr IV CONT AMANDA Last Admin: 01/18/23 21:03 Dose: 100 mls/hr Documented By: MICHELLE Piperacillin Sod/Tazobactam (Sod 3.375 gm/ Sodium Chloride) 100 mls @ 25 mls/hr IV Q8H AMANDA Last Admin: 01/20/23 12:45 Dose: Not Given Documented By: Infusion: 01/20/23 08:45 Dose: Infused Documented By: Admin: 01/20/23 04:45 Dose: 25 mls/hr Documented By: Infusion: 01/20/23 01:28 Dose: Infused Documented By: Admin: 01/19/23 21:28 Dose: 25 mls/hr Documented By: Infusion: 01/19/23 16:26 Dose: Infused Documented By: Admin: 01/19/23 12:26 Dose: 25 mls/hr Documented By: Infusion: 01/19/23 08:49 Dose: Infused Documented By: Admin: 01/19/23 04:49 Dose: 25 mls/hr Documented By: Infusion: 01/19/23 01:04 Dose: Infused Documented By: Admin: 01/18/23 21:04 Dose: 25 mls/hr Documented By: MICHELLE Vancomycin HCl 2,000 mg/ (Sodium Chloride) 500 mls @ 250 mls/hr IV Q24H AMANDA Vancomycin HCl/Dextrose (Vancomycin) 1,500 mg in 300 mls @ 200 mls/hr IV Q24H AMANDA Last Infusion: 01/19/23 18:18 Dose: Infused Documented By: Admin: 01/19/23 16:48 Dose: 200 mls/hr Documented By: KRISTEN Sodium Chloride (Normal Saline 0.9%) 500 mls @ 500 mls/hr IV BOLUS ONE Stop: 01/19/23 10:38 Last Admin: 01/19/23 11:15 Dose: 500 mls/hr Documented By: KRISTEN Lactated Ringer's (Lactated Ringers) 1,000 mls @ 42 mls/hr IV CONT AMANDA Last Admin: 01/20/23 12:38 Dose: 42 mls/hr Documented By: ERIC Lactated Ringer's (Lactated Ringers) 1,000 mls @ 120 mls/hr IV CONT AMANDA Last Admin: 01/20/23 16:16 Dose: 120 mls/hr Documented By: NESSA Iron Dextran 1,000 mg/ Sodium (Chloride) 270 mls @ 270 mls/hr IV NOW ONE Stop: 01/21/23 09:59 Last Admin: 01/21/23 11:50 Dose: Not Given Documented By: NESSA Piperacillin Sod/Tazobactam (Sod 3.375 gm/ Sodium Chloride) 100 mls @ 25 mls/hr IV Q8H AMANDA Last Admin: 01/23/23 11:43 Dose: Not Given Documented By: Infusion: 01/23/23 03:30 Dose: Infused Documented By: Admin: 01/22/23 23:30 Dose: 25 mls/hr Documented By: Infusion: 01/22/23 20:30 Dose: Infused Documented By: Admin: 01/22/23 16:30 Dose: 25 mls/hr Documented By: Infusion: 01/22/23 12:30 Dose: Infused Documented By: Admin: 01/22/23 08:20 Dose: 25 mls/hr Documented By: Infusion: 01/22/23 03:59 Dose: Infused Documented By: Admin: 01/21/23 23:52 Dose: 25 mls/hr Documented By: Infusion: 01/21/23 21:16 Dose: Infused Documented By: Admin: 01/21/23 17:16 Dose: 25 mls/hr Documented By: Infusion: 01/21/23 12:03 Dose: Infused Documented By: Admin: 01/21/23 08:03 Dose: 25 mls/hr Documented By: Infusion: 01/21/23 03:01 Dose: Infused Documented By: JANY(2) Admin: 01/20/23 23:01 Dose: 25 mls/hr Documented By: JANY(2) Infusion: 01/20/23 20:33 Dose: Infused Documented By: JANY(2) Admin: 01/20/23 16:33 Dose: 25 mls/hr Documented By: NESSA Sodium Chloride (Normal Saline 0.9%) 250 mls @ 21 mls/hr IV Q24H PRN PRN Reason: Flush Furosemide 60 mg/ Sodium (Chloride) 56 mls @ 112 mls/hr IV NOW ONE Stop: 01/22/23 15:48 Last Admin: 01/22/23 16:08 Dose: 112 mls/hr Documented By: JUAREZ Furosemide 60 mg/ Sodium (Chloride) 56 mls @ 112 mls/hr IV NOW ONE Stop: 01/23/23 09:35 Last Admin: 01/23/23 11:02 Dose: 112 mls/hr Documented By: CLL Furosemide 60 mg/ Sodium (Chloride) 56 mls @ 112 mls/hr IV Q12H [facility] Last Admin: 01/25/23 08:42 Dose: 112 mls/hr Documented By: Infusion: 01/24/23 20:53 Dose: Infused Documented By: JANY(2) Admin: 01/24/23 20:23 Dose: 112 mls/hr Documented By: JANY(2) Infusion: 01/24/23 09:48 Dose: Infused Documented By: Admin: 01/24/23 08:20 Dose: 112 mls/hr Documented By: Infusion: 01/23/23 21:11 Dose: Infused Documented By: JANY(2) Admin: 01/23/23 20:41 Dose: 112 mls/hr Documented By: JANY(2) Levofloxacin (Levofloxacin 250 Mg Tablet) 750 mg PO 0700 [facility] Stop: 02/01/23 07:01 Last Admin: 01/25/23 06:01 Dose: 750 mg Documented By: JANY(2) Admin: 01/24/23 06:02 Dose: 750 mg Documented By: JANY(2) Admin: 01/23/23 11:03 Dose: 750 mg Documented By: JERRY Losartan Potassium (Losartan 25 Mg Tablet) 25 mg PO BEDTIME [facility] Last Admin: 01/18/23 22:07 Dose: Not Given Documented By: Metolazone (Metolazone 2.5 Mg Tablet) 2.5 mg PO Mo@0800 [facility] Last Admin: 01/24/23 08:21 Dose: 2.5 mg Documented By: BRAYDON Metolazone (Metolazone 2.5 Mg Tablet) 2.5 mg PO NOW ONE Stop: 01/21/23 12:03 Last Admin: 01/21/23 12:27 Dose: 2.5 mg Documented By: NESSA Metoprolol Succinate (Metoprolol Er 50 Mg Tablet) 25 mg PO DAILY [facility] Last Admin: 01/19/23 09:20 Dose: 25 mg Documented By: KRISTEN Multivitamins (Multivitamin 1 Tablet) 1 tab PO DAILY [facility] Last Admin: 01/25/23 08:42 Dose: 1 tab Documented By: Admin: 01/24/23 08:18 Dose: 1 tab Documented By: Admin: 01/23/23 10:00 Dose: 1 tab Documented By: Admin: 01/22/23 10:47 Dose: 1 tab Documented By: Admin: 01/21/23 10:07 Dose: 1 tab Documented By: NESSA Naloxone HCl (Naloxone 0.4 Mg/Ml Vial) 0.2 mg IV Q2MIN PRN PRN Reason: Opiate Reversal Non-Formulary Medication (Ruxolitinib [Jakafi]) 10 mg PO BID [facility] Last Admin: 01/18/23 22:18 Dose: Not Given Documented By: Non-Formulary Medication (Vitamin X51-Rohiz Acid) 1 tab PO DAILY [facility] Ondansetron HCl (Ondansetron 4 Mg/2 Ml Inj) 4 mg IV NOW PRN PRN Reason: Nausea And Vomiting Ondansetron HCl (Ondansetron 4 Mg Odt) 4 mg PO Q4HR PRN PRN Reason: Nausea And Vomiting Ondansetron HCl (Ondansetron 4 Mg/2 Ml Inj) 4 mg IV Q4HR PRN PRN Reason: Nausea And Vomiting Oxycodone HCl (Oxycodone Ir 5 Mg Tablet) 5 mg PO Q3H PRN PRN Reason: Pain, Moderate (4-6) Oxycodone HCl (Oxycodone Ir 5 Mg Tablet) 5 mg PO PACUNOW PRN PRN Reason: Mild or moderate pain Oxycodone HCl (Oxycodone Ir 5 Mg Tablet) 5 mg PO Q3H PRN PRN Reason: Pain, Moderate (4-6) Pantoprazole Sodium (Pantoprazole Dr 20 Mg Tablet) 20 mg PO 0600 [facility] Last Admin: 01/25/23 06:01 Dose: 20 mg Documented By: JANY(2) Admin: 01/24/23 06:02 Dose: 20 mg Documented By: JANY(2) Admin: 01/23/23 05:19 Dose: 20 mg Documented By: Admin: 01/22/23 05:55 Dose: 20 mg Documented By: Admin: 01/21/23 06:16 Dose: 20 mg Documented By: JANY(2) Admin: 01/20/23 06:12 Dose: 20 mg Documented By: Admin: 01/19/23 06:22 Dose: 20 mg Documented By: Polyethylene Glycol (Polyethylene Glycol 3350 17 Gm Powd.Pack) 17 gm PO DAILY [facility] Last Admin: 01/25/23 07:52 Dose: Not Given Documented By: Admin: 01/24/23 08:18 Dose: Not Given Documented By: Admin: 01/23/23 10:00 Dose: 17 gm Documented By: Admin: 01/22/23 09:33 Dose: Not Given Documented By: Admin: 01/21/23 10:07 Dose: Not Given Documented By: NESSA Potassium Chloride (Potassium Chloride 20 Meq Tab) 40 meq PO NOW ONE Stop: 01/19/23 11:31 Last Admin: 01/19/23 12:05 Dose: 40 meq Documented By: KRISTEN Potassium Chloride (Potassium Chloride 20 Meq/15 Ml Udc) 40 meq PO NOW ONE Stop: 01/23/23 06:50 Last Admin: 01/23/23 07:06 Dose: 40 meq Documented By: EDUARDO Potassium Chloride (Potassium Chloride 20 Meq/15 Ml Udc) 40 meq PO 1300 ONE Stop: 01/23/23 13:01 Last Admin: 01/23/23 14:10 Dose: 40 meq Documented By: JERRY Potassium Chloride (Potassium Chloride 20 Meq Tab) 40 meq PO Q6H [facility]ANDA Stop: 01/24/23 16:46 Last Admin: 01/24/23 16:25 Dose: 40 meq Documented By: Admin: 01/24/23 10:56 Dose: 40 meq Documented By: BRAYDON Potassium Chloride (Potassium Chloride 20 Meq Tab) 40 meq PO NOW ONE Stop: 01/25/23 09:25 Last Admin: 01/25/23 10:12 Dose: 40 meq Documented By: JANY Rivaroxaban (Rivaroxaban 10 Mg Tablet) 20 mg PO QPM [facility] Last Admin: 01/23/23 18:01 Dose: 20 mg Documented By: Admin: 01/23/23 17:59 Dose: 20 mg Documented By: Admin: 01/22/23 16:00 Dose: 20 mg Documented By: Admin: 01/21/23 17:15 Dose: 20 mg Documented By: NESSA Rivaroxaban (Rivaroxaban 10 Mg Tablet) 20 mg PO QPM [facility] Last Admin: 01/24/23 18:13 Dose: 20 mg Documented By: BRAYDON Sennosides (Sennosides 8.6 Mg Tablet) 17.2 mg PO BEDTIME [facility] Last Admin: 01/24/23 20:24 Dose: 17.2 mg Documented By: JANY(2) Admin: 01/23/23 20:47 Dose: 17.2 mg Documented By: JANY(2) Admin: 01/22/23 20:25 Dose: 17.2 mg Documented By: Admin: 01/21/23 20:32 Dose: Not Given Documented By: Admin: 01/20/23 21:02 Dose: 17.2 mg Documented By: JANY(2) Sodium Biphosphate/Sodium Phosphate (Fleets Enema) 1 each [place] PRN PRN PRN Reason: Constipation Sodium Chloride (Sodium Chloride 0.9% Flush) 10 ml IV PRN PRN PRN Reason: Flush Last Admin: 01/22/23 03:58 Dose: 10 ml Documented By: Admin: 01/21/23 22:53 Dose: 10 ml Documented By: LUIS Sodium Chloride (Sodium Chloride 0.9% Flush) 10 ml IV BID [facility] Last Admin: 01/25/23 08:43 Dose: 10 ml Documented By: Admin: 01/24/23 20:26 Dose: 10 ml Documented By: JANY(2) Admin: 01/24/23 08:21 Dose: 10 ml Documented By: Admin: 01/23/23 20:52 Dose: 10 ml Documented By: JANY(2) Admin: 01/23/23 10:00 Dose: 10 ml Documented By: Admin: 01/22/23 20:25 Dose: 10 ml Documented By: Admin: 01/22/23 12:33 Dose: Not Given Documented By: JUAREZ Torsemide (Torsemide 10 Mg Tablet) 20 mg PO DAILY [facility] Last Admin: 01/22/23 12:38 Dose: 20 mg Documented By: Admin: 01/21/23 10:07 Dose: 20 mg Documented By: NESSA Vitamin D (Cholecalciferol (Vitamin D3) 1,000 Unit Tablet) 2,000 unit PO DAILY [facility] Last Admin: 01/25/23 08:42 Dose: 2,000 unit Documented By: Admin: 01/24/23 08:17 Dose: 2,000 unit Documented By: Admin: 01/23/23 10:00 Dose: 2,000 unit Documented By: Admin: 01/22/23 10:46 Dose: 2,000 unit Documented By: Admin: 01/21/23 10:07 Dose: 2,000 unit Documented By: NESSA Vital Signs Vital signs: Vital Signs - 8 hr 01/18/23 14:50 01/18/23 15:23 01/18/23 15:30 Temperature 98.3 F Pulse Rate 91 H 83 Pulse Rate [Left Dorsalis Pedis] 80 Respiratory Rate 18 25 H Blood Pressure 116/65 123/58 L Pulse Oximetry 96 96 Oxygen Delivery Method Room Air Room Air 01/18/23 15:50 01/18/23 16:10 01/18/23 16:15 Temperature Pulse Rate 88 86 83 Pulse Rate [Left Dorsalis Pedis] Respiratory Rate 18 18 24 Blood Pressure 122/78 118/59 L 113/56 L Pulse Oximetry 98 98 99 Oxygen Delivery Method Room Air Room Air 01/18/23 16:15 01/18/23 16:16 01/18/23 16:16 Temperature Pulse Rate 83 80 Pulse Rate [Left Dorsalis Pedis] Respiratory Rate 24 28 H Blood Pressure 122/59 L 122/59 L Pulse Oximetry 99 99 Oxygen Delivery Method Room Air 01/18/23 16:30 01/18/23 16:30 01/18/23 16:30 Temperature Pulse Rate 85 85 Pulse Rate [Left Dorsalis Pedis] Respiratory Rate 29 H 29 H Blood Pressure 131/61 131/61 Pulse Oximetry 95 95 Oxygen Delivery Method Room Air 01/18/23 16:45 01/18/23 17:00 01/18/23 17:15 Temperature Pulse Rate 81 83 86 Pulse Rate [Left Dorsalis Pedis] Respiratory Rate 26 H 25 H 23 Blood Pressure 120/59 L 115/58 L 120/58 L Pulse Oximetry 96 95 94 Oxygen Delivery Method Room Air Room Air Room Air 01/18/23 17:30 01/18/23 17:45 01/18/23 17:56 Temperature Pulse Rate 83 82 95 H Pulse Rate [Left Dorsalis Pedis] Respiratory Rate 25 H 27 H 18 Blood Pressure 112/56 L 109/58 L 112/59 L Pulse Oximetry 94 94 98 Oxygen Delivery Method Room Air Room Air Room Air 01/18/23 18:38 01/18/23 19:02 01/18/23 19:27 Temperature Pulse Rate 88 79 Pulse Rate [Left Dorsalis Pedis] 80 Respiratory Rate 18 23 Blood Pressure 116/57 L 119/57 L Pulse Oximetry 97 93 Oxygen Delivery Method Room Air Room Air 01/18/23 20:02 Temperature Pulse Rate 83 Pulse Rate [Left Dorsalis Pedis] Respiratory Rate 23 Blood Pressure 115/57 L Pulse Oximetry 94 Oxygen Delivery Method MDM - Wound/Laceration <Ivelisse Zaman, - Last Filed: 01/28/23 07:32> Lab Data 01/25/23 05:25 01/25/23 05:25 Labs: Lab Results 01/18/23 Range/Units 15:18 WBC 7.9 (4.5-11.0) X10^3/uL RBC 2.37 L (4.5-5.9) X10^6/uL Hgb 7.8 L (13.5-17.5) g/dL Hct 24.3 L (41-53) % MCV 102.7 H (80-100) fL MCH 32.9 (26-34) PG MCHC 32.1 (30-36) % RDW 22.5 H (11.6-14.8) % Plt Count 356 (150-400) X10^3/uL Neut % (Auto) 79.1 H (50-75) % Lymph % (Auto) 6.6 L (25-40) % [place] % (Auto) 12.0 (3-14) % Eos % (Auto) 1.2 L (2-4) % Baso % (Auto) 1.1 (0-2) % Neut # (Auto) 6200 (1297-3187) /uL Lymph # (Auto) 500 L (5222-6016) /uL [place] # (Auto) 900 (0-900) /uL Eos # (Auto) 100 (0-450) /uL Baso # (Auto) 100 (0-100) /uL RBC Morphology Not Reportable Poikilocytosis 1+ H Anisocytosis 2+ H ESR 68 H (0-15) MM/HR Sodium 132 L (137-145) mmol/L Potassium 3.7 (3.4-5.1) mmol/L Chloride 92 L (98-107) mmol/L Carbon Dioxide 33 H (22-32) mmol/L BUN 35 H (9-20) mg/dL Creatinine 1.11 (0.66-1.25) mg/dL Estimated GFR > 60 (>60) mL/min BUN/Creatinine Ratio 31.5 H (6-22) Glucose 93 (80-110) mg/dL Calcium 9.1 (8.4-10.2) mg/dL Total Bilirubin 1.0 (0.2-1.3) mg/dL AST 28 (17-59) IU/L ALT 12 (<50) IU/L Alkaline Phosphatase 122 (38-126) U/L C-Reactive Protein 3.8 H (<1.0) mg/dL Total Protein 6.6 (6.3-8.2) g/dL Albumin 3.6 (3.5-5.0) g/dL Globulin 3.0 (1.7-4.1) g/dL Albumin/Globulin Ratio 1.2 (1.0-2.8) Imaging Data Extremity x-ray #1: Radiologist's Impression: [address] [address] XRay Report Signed Patient: Octavio Hess MR#: [id number] : 1940 Acct:[id number] Age/Sex: 82 / M Date of Service: 01/18/23 Loc: ED Accession Number: [id number] Procedure: XR toe LT min 2V Ordering Provider: Ivelisse Zaman D.O. PROCEDURE: XR TOE LT MIN 2V INDICATIONS: wound on left big toe TECHNIQUE: 3 views of the left 1st toe(s) acquired. COMPARISON: None. FINDINGS: Bones: There is a healing fracture of the 2nd metacarpal neck. Suboptimal evaluation of the 1st digit secondary to overlying digits. Soft tissues: No suspicious soft tissue densities. IMPRESSION: 1. Limited examination . 2. Healing 2nd metatarsal neck fracture. 3. Limited evaluation of the 1st digit. Dictated by: Hillary Love M.D. on 01/18/2023 at 16:16 Approved by: Hillary Love M.D. on 01/18/2023 at 16:17 MDM Narrative Medical decision making narrative: 82-year-old male with known atrial fibrillation anticoagulated on Xarelto, myelodysplastic syndrome who has neuropathy in his feet and no sensation noted a black spot 3 weeks ago and now has necrosis of the distal end of his toe. It is draining purulent fluid there is foul odor there is warmth of the foot up the calf with some mild redness. Patient does not appear to be septic by vitals. White count 7.9, hemoglobin 7.8 he was 8.8 in April of 2019. Platelets are 356. He does have a leftward shift. ESR is 68 although elevated on prior visits as well. Sodium is 132 potassium 3 7 with a chloride 92 CO2 of 33 and a BUN of 35 with a creatinine of 1.11. Glucose is 93 with a CRP of 3.8 and otherwise normal LFTs. Blood cultures were obtained. Patient also has a wound culture obtained which is pending. X-ray of the toe is inconclusive for change. Patient was covered with a dose of vancomycin and cefepime for broad-spectrum coverage. Spoke with Dr. Medina Ireland, she will see patient in the department. Currently in the OR. Discussed patient does not appear to be septic currently. Patient signed out to Dr. Francois while awaiting evaluation by Orthopedic surgery for final decision versus inpatient versus outpatient treatment. <Juan Alberto Francois, DO - Last Filed: 01/18/23 20:14> Lab Data Labs: Lab Results 01/18/23 Range/Units 15:18 WBC 7.9 (4.5-11.0) X10^3/uL RBC 2.37 L (4.5-5.9) X10^6/uL Hgb 7.8 L (13.5-17.5) g/dL Hct 24.3 L (41-53) % MCV 102.7 H (80-100) fL MCH 32.9 (26-34) PG MCHC 32.1 (30-36) % RDW 22.5 H (11.6-14.8) % Plt Count 356 (150-400) X10^3/uL Neut % (Auto) 79.1 H (50-75) % Lymph % (Auto) 6.6 L (25-40) % [place] % (Auto) 12.0 (3-14) % Eos % (Auto) 1.2 L (2-4) % Baso % (Auto) 1.1 (0-2) % Neut # (Auto) 6200 (7407-6595) /uL Lymph # (Auto) 500 L (6003-7282) /uL [place] # (Auto) 900 (0-900) /uL Eos # (Auto) 100 (0-450) /uL Baso # (Auto) 100 (0-100) /uL RBC Morphology Not Reportable Poikilocytosis 1+ H Anisocytosis 2+ H ESR 68 H (0-15) MM/HR Sodium 132 L (137-145) mmol/L Potassium 3.7 (3.4-5.1) mmol/L Chloride 92 L (98-107) mmol/L Carbon Dioxide 33 H (22-32) mmol/L BUN 35 H (9-20) mg/dL Creatinine 1.11 (0.66-1.25) mg/dL Estimated GFR > 60 (>60) mL/min BUN/Creatinine Ratio 31.5 H (6-22) Glucose 93 (80-110) mg/dL Calcium 9.1 (8.4-10.2) mg/dL Total Bilirubin 1.0 (0.2-1.3) mg/dL AST 28 (17-59) IU/L ALT 12 (<50) IU/L Alkaline Phosphatase 122 (38-126) U/L C-Reactive Protein 3.8 H (<1.0) mg/dL Total Protein 6.6 (6.3-8.2) g/dL Albumin 3.6 (3.5-5.0) g/dL Globulin 3.0 (1.7-4.1) g/dL Albumin/Globulin Ratio 1.2 (1.0-2.8) MDM Narrative Medical decision making narrative: 82-year-old male with known atrial fibrillation anticoagulated on Xarelto, myelodysplastic syndrome who has neuropathy in his feet and no sensation noted a black spot 3 weeks ago and now has necrosis of the distal end of his toe. It is draining purulent fluid there is foul odor there is warmth of the foot up the calf with some mild redness. Patient does not appear to be septic by vitals. White count 7.9, hemoglobin 7.8 he was 8.8 in April of 2019. Platelets are 356. He does have a leftward shift. ESR is 68 although elevated on prior visits as well. Sodium is 132 potassium 3 7 with a chloride 92 CO2 of 33 and a BUN of 35 with a creatinine of 1.11. Glucose is 93 with a CRP of 3.8 and otherwise normal LFTs. Blood cultures were obtained. Patient also has a wound culture obtained which is pending. X-ray of the toe is inconclusive for change. Patient was covered with a dose of vancomycin and cefepime for broad-spectrum coverage. Spoke with Dr. Medina Ireland, she will see patient in the department. Currently in the OR. Discussed patient does not appear to be septic currently. Patient signed out to Dr. Francois while awaiting evaluation by Orthopedic surgery for final decision versus inpatient versus outpatient treatment. Dr francois: Received turned over. Review patient's history and physical and labs. Has received antibiotics. Was evaluated by Dr. Ireland (orthopedic surgery) here in the emergency department. Patient was debrided at bedside. Plan will be is to admit to the hospital for further evaluation. She stated most likely will not go to the operating room tomorrow but his Xarelto should be held for potential surgery in the next couple days. Patient is aware of the need for admission to the hospital. Discussed the case with Dr. Landa hospitalist on-call who will admit for further evaluation and treatment. Discharge Plan Departure Patient Disposition: Admitted As Inpatient Clinical Impression: Osteomyelitis Admit Date/Time: 01/18/23 20:10 Admit Provider: Toñito Landa
[2023-01-18 16:54] LABS: Erythrocyte Sedimentation Rate 68 MM/HR (0-15)
[2023-01-18] MEDS: CEFEPIME 2 GM in SODIUM CHLORIDE 0.9% 100 ML IV (17:55)
[2023-01-18] MEDS: VANCOMYCIN 1,250 MG/250 ML PIGGYBACK 250 MG IV (18:34)
--- NOTE | 2023-01-18 20:26 | PM.HP.1 ---
History of Present Illness History of Present Illness Date Patient Seen: 01/18/23 Time Patient Seen: 16:30 Date of Onset of Symptoms: 01/15/23 Chief complaint: per pt needs operation L big toe, sent by provider Narrative: He comes to the emergency room for evaluation. He has multiple medical problems. He is followed by a sewage disposal engineer oncologist for very low red blood cell counts. He reportedly does not have leukemia at this point but they are giving him Procrit on a every 2 week basis. He has a known longstanding history of peripheral neuropathy. He lives with a supportive . He has been recently referred from a palliative nurse to wound care because of a new black spot at the tip of his left foot. He has an appointment upcoming with the wound clinic. His brought him to the emergency room because they were concerned that his toe was getting progressively david and he had some slight increased swelling in his legs. He notes he is got chronic problems with swelling in his legs. He is not a diabetic. He does have chronic cardiac problems and has an upcoming appointment scheduled with his coordinator cardiopulmonary services. He is not had fever or chills and does not have good sensation in his foot but has noted some increased discomfort into his foot as well as a black tip of his great toe on the left. [facility] Medical History Neuropathy COPD (chronic obstructive pulmonary disease) Myelofibrosis CHF (congestive heart failure) Edema Acid reflux HTN (hypertension) Osteoarthritis Arthritis HLD (hyperlipidemia) Cardiomyopathy Afib Surgical History Hx of tonsillectomy History of arthroplasty of left shoulder History of bilateral hip arthroplasty History of arthroplasty of right shoulder Hx of shoulder surgery Hx of laminectomy History of lumbar surgery (03/25/15) Social History household members: spouse Smoking Status: Former smoker alcohol intake: current Meds Home Medications and Allergies Home Medications Medication Instructions Recorded Confirmed Type digoxin 250 mcg (0.25 mg) tablet 250 mcg PO BEDTIME 04/09/19 09/17/20 History furosemide 40 mg tablet 40 mg PO DAILY 04/09/19 09/17/20 History losartan 25 mg tablet 25 mg PO BEDTIME 04/09/19 09/17/20 History metoprolol succinate 50 mg 25 mg PO DAILY 04/09/19 09/17/20 History tablet,extended release 24 hr omeprazole 20 mg capsule,delayed 20 mg PO DAILY 04/09/19 09/17/20 History release potassium chloride 20 mEq 20 meq PO BID 04/09/19 09/17/20 History tablet,extended release rivaroxaban 20 mg tablet (Xarelto) 20 mg PO QPM 04/09/19 09/17/20 History cholecalciferol (vitamin D3) 100 2,000 unit PO DAILY 04/12/19 09/17/20 History mcg (4,000 unit) capsule (Vitamin D3) pediatric ubocxhfb-bsvf-vaq 1 tab PO DAILY 04/12/19 09/17/20 History (Multi-Vitamins with Iron chewable tablet) duloxetine 30 mg capsule,delayed 30 mg PO BEDTIME 09/17/20 09/17/20 History release gabapentin 300 mg capsule 300 mg PO BID 09/17/20 09/17/20 History ruxolitinib 10 mg tablet (Jakafi) 10 mg PO BID 09/17/20 09/17/20 History vitamin B12 0.5 mg-folic acid 1 mg 1 tab PO DAILY 09/17/20 09/17/20 History tablet Allergies Allergy/AdvReac Type Severity Reaction Status Date / Time No Known Drug Allergies Allergy Verified 04/12/19 06:49 Review of Systems Review of Systems Narrative: No recent new fever chills, chronic lower extremity swelling bilaterally, chronic AFib, no recent change in his cardiac symptoms Exam Vital Signs (past 8 hours): - 01/18/23 14:50 01/18/23 15:23 01/18/23 15:30 Temperature 98.3 F Pulse Rate 91 H 83 Pulse Rate [Left Dorsalis Pedis] 80 Respiratory Rate 18 25 H Blood Pressure 116/65 123/58 L Pulse Oximetry 96 96 Oxygen Delivery Method Room Air Room Air 01/18/23 15:50 01/18/23 16:10 01/18/23 16:15 Temperature Pulse Rate 88 86 83 Pulse Rate [Left Dorsalis Pedis] Respiratory Rate 18 18 24 Blood Pressure 122/78 118/59 L 113/56 L Pulse Oximetry 98 98 99 Oxygen Delivery Method Room Air Room Air 01/18/23 16:15 01/18/23 16:16 01/18/23 16:16 Temperature Pulse Rate 83 80 Pulse Rate [Left Dorsalis Pedis] Respiratory Rate 24 28 H Blood Pressure 122/59 L 122/59 L Pulse Oximetry 99 99 Oxygen Delivery Method Room Air 01/18/23 16:30 01/18/23 16:30 01/18/23 16:30 Temperature Pulse Rate 85 85 Pulse Rate [Left Dorsalis Pedis] Respiratory Rate 29 H 29 H Blood Pressure 131/61 131/61 Pulse Oximetry 95 95 Oxygen Delivery Method Room Air 01/18/23 16:45 01/18/23 17:00 01/18/23 17:15 Temperature Pulse Rate 81 83 86 Pulse Rate [Left Dorsalis Pedis] Respiratory Rate 26 H 25 H 23 Blood Pressure 120/59 L 115/58 L 120/58 L Pulse Oximetry 96 95 94 Oxygen Delivery Method Room Air Room Air Room Air 01/18/23 17:30 01/18/23 17:45 01/18/23 17:56 Temperature Pulse Rate 83 82 95 H Pulse Rate [Left Dorsalis Pedis] Respiratory Rate 25 H 27 H 18 Blood Pressure 112/56 L 109/58 L 112/59 L Pulse Oximetry 94 94 98 Oxygen Delivery Method Room Air Room Air Room Air 01/18/23 18:38 01/18/23 19:02 01/18/23 19:27 Temperature Pulse Rate 88 79 Pulse Rate [Left Dorsalis Pedis] 80 Respiratory Rate 18 23 Blood Pressure 116/57 L 119/57 L Pulse Oximetry 97 93 Oxygen Delivery Method Room Air Room Air 01/18/23 20:02 Temperature Pulse Rate 83 Pulse Rate [Left Dorsalis Pedis] Respiratory Rate 23 Blood Pressure 115/57 L Pulse Oximetry 94 Oxygen Delivery Method Oxygen Delivery Method Room Air Narrative Exam Narrative: Resting comfortably in bed, slight decreased breath sounds bilaterally, cor regular, abdomen obese, left lower extremity necrotic tip of the distal phalanx of the great toe black with active purulent drainage, slight erythema in the foot both on the plantar and dorsal aspect, bilateral lower extremity lymphedema but no specific focal calf tenderness, no significant erythema in the leg, decreased sensation substantial in bilateral lower extremities, no significant pain with range of motion in the left great toe or other toes Objective Labs 01/18/23 15:18 01/18/23 15:18 Labs: Laboratory Results - last 24 hr 01/18/23 15:18 WBC 7.9 RBC 2.37 L Hgb 7.8 L Hct 24.3 L MCV 102.7 H MCH 32.9 MCHC 32.1 RDW 22.5 H Plt Count 356 Neut % (Auto) 79.1 H Lymph % (Auto) 6.6 L [place] % (Auto) 12.0 Eos % (Auto) 1.2 L Baso % (Auto) 1.1 Neut # (Auto) 6200 Lymph # (Auto) 500 L [place] # (Auto) 900 Eos # (Auto) 100 Baso # (Auto) 100 RBC Morphology Not Reportable Poikilocytosis 1+ H Anisocytosis 2+ H ESR 68 H Sodium 132 L Potassium 3.7 Chloride 92 L Carbon Dioxide 33 H BUN 35 H Creatinine 1.11 Estimated GFR > 60 BUN/Creatinine Ratio 31.5 H Glucose 93 Calcium 9.1 Total Bilirubin 1.0 AST 28 ALT 12 Alkaline Phosphatase 122 C-Reactive Protein 3.8 H Total Protein 6.6 Albumin 3.6 Globulin 3.0 Albumin/Globulin Ratio 1.2 x-rays show soft tissue defect at the tip of the great toe on the left, there is also findings consisted of a metatarsal stress fracture on the 2nd toe with callus formation, some generalized osteoarthritic change in the foot, no specific gas her severe soft tissue swelling Assessment & Plan Assessment and plan (1) Osteomyelitis: Status: Acute (2) CHF (congestive heart failure): Status: Acute (3) Chronic atrial fibrillation: Status: Acute (4) Hypertension: Status: Acute (5) 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 There is some active purulent drainage with odor. He has fairly significant neuropathy. I have recommended unroofing his ulcer in the emergency room and local opening of the wound in order to allow drainage. He needs IV antibiotics. He is on Xarelto chronically. I have recommended that we hold his Xarelto. Think he will require a more formal debridement of his left great toe in the operating room which we likely will do on as he took his Xarelto today. He has chronic anemia in his scheduled for a Procrit shot on the this week with his sewage disposal engineer. He also has scheduled follow-up with his coordinator cardiopulmonary services. He requires IV antibiotics. I did a local procedure in the emergency room using a scalpel for sharp dissection and unroofed and gently debrided skin and some subcutaneous tissue down to the distal phalanx of his great toe where there was obvious necrotic exposed bone. I told him that that likely will slightly improve his drainage while he is getting wet-to-dry dressing changes and antibiotics.
[2023-01-18] MEDS: SODIUM CHLORIDE 0.9% 1,000 ML 100 ML IV (21:03)
[2023-01-18] MEDS: PIPERACILLIN/TAZO 3.375 GM in SODIUM CHLORIDE 0.9% 100 ML IV (21:04)
[2023-01-18] MEDS: GABAPENTIN 300 MG CAPSULE PO (22:17)
--- NOTE | 2023-01-18 22:57 | PM.HP.1 ---
History of Present Illness History of Present Illness Chief complaint: per pt needs operation L big toe, sent by provider Narrative: 82 years old male with history of COPD, CHF, hypertension, hyperlipidemia, atrial fibrillation on Eliquis, GERD, peripheral neuropathy, cardiomyopathy presented to the ER with wound infection on the left great toe. The infection started as black spots at the tip of the left foot and progressed to his toe with increased swelling up to his leg. The patient has not had any sensation of his legs due to peripheral neuropathy. Denies any fever, chills, shortness of breath, cough, nausea, vomiting, abdominal pain, diarrhea or dysuria. He has been recently referred from a palliative nurse to wound care. Recently seen by his PCP and started on doxycycline for the toe infection and he took only 1 dose of the antibiotic. In the ER he was evaluated by orthopedic surgeon and was decided to be admitted for antibiotic and possible surgical intervention. He was given vancomycin 1.25 g and cefepime 2 g in the ED. Initial vital signs shows temperature 97.5, pulse 66, blood pressure 128/58, oxygen saturation 90% on room air. Laboratory shows WBC 7.9, H&H 7.8?24.3, platelets 356, sodium 132, potassium 3.7, creatinine 1.1, glucose 93, C-reactive protein 3.8,. X-ray of the left big toe shows healed second metatarsal neck fracture, limited evaluation of the first digit. [facility] Medical History (Updated 01/19/23 @ 00:01 by Toñito Landa MD) Neuropathy COPD (chronic obstructive pulmonary disease) Myelofibrosis CHF (congestive heart failure) Edema Acid reflux HTN (hypertension) Osteoarthritis Arthritis HLD (hyperlipidemia) Cardiomyopathy Afib Surgical History Hx of tonsillectomy History of arthroplasty of left shoulder History of bilateral hip arthroplasty History of arthroplasty of right shoulder Hx of shoulder surgery Hx of laminectomy History of lumbar surgery (03/25/15) Social History household members: spouse Smoking Status: Former smoker alcohol intake: current Meds Home Medications and Allergies Home Medications Medication Instructions Recorded Confirmed Type digoxin 250 mcg (0.25 mg) tablet 250 mcg PO BEDTIME 04/09/19 01/18/23 History rivaroxaban 20 mg tablet (Xarelto) 20 mg PO QPM 04/09/19 01/18/23 History cholecalciferol (vitamin D3) 100 2,000 unit PO DAILY 04/12/19 01/18/23 History mcg (4,000 unit) capsule (Vitamin D3) pediatric omapowvj-sxvz-usy 1 tab PO DAILY 04/12/19 01/18/23 History (Multi-Vitamins with Iron chewable tablet) duloxetine 30 mg capsule,delayed 30 mg PO BEDTIME 09/17/20 01/18/23 History release gabapentin 300 mg capsule 300 mg PO BID 09/17/20 01/18/23 History vitamin B12 0.5 mg-folic acid 1 mg 1 tab PO DAILY 09/17/20 01/18/23 History tablet carvedilol 12.5 mg tablet 12.5 mg PO BID 01/18/23 01/18/23 History metolazone 2.5 mg tablet 2.5 mg PO QWEEK 01/18/23 01/18/23 History torsemide 20 mg tablet 20 mg PO DAILY 01/18/23 01/18/23 History Allergies Allergy/AdvReac Type Severity Reaction Status Date / Time No Known Drug Allergies Allergy Verified 04/12/19 06:49 Review of Systems Review of Systems ROS: Yes All systems reviewed with the patient and are negative except as otherwise documented Constitutional Constitutional: Reports as per HPI and Reports system reviewed and no additional complaints, except as documented Eyes Eyes: Reports as per HPI and Reports system reviewed and no additional complaints, except as documented ENT Ears, Nose, Mouth, and Throat: Yes as per HPI and Yes system reviewed and no additional complaints, except as documented Cardiovascular Cardiovascular: Reports system reviewed and no additional complaints, except as documented Respiratory Respiratory: Reports system reviewed and no additional complaints, except as documented Gastrointestinal Gastrointestinal: Reports system reviewed and no additional complaints, except as documented Genitourinary Genitourinary: Reports system reviewed and no additional complaints, except as documented Musculoskeletal Musculoskeletal: Reports system reviewed and no additional complaints, except as documented, Reports abnormal gait and Reports numbness Neurologic Neurologic: Reports system reviewed and no additional complaints, except as documented, Reports abnormal gait, Reports confusion and Reports numbness Psychiatric Psychiatric: Reports system reviewed and no additional complaints, except as documented and Reports confusion Exam Vital Signs (past 8 hours): - 01/18/23 15:23 01/18/23 15:30 01/18/23 15:50 Temperature Pulse Rate 83 88 Pulse Rate [Left Dorsalis Pedis] 80 Respiratory Rate 25 H 18 Blood Pressure 123/58 L 122/78 Pulse Oximetry 96 98 Oxygen Delivery Method Room Air Room Air Oxygen Flow Rate 01/18/23 16:10 01/18/23 16:15 01/18/23 16:15 Temperature Pulse Rate 86 83 83 Pulse Rate [Left Dorsalis Pedis] Respiratory Rate 18 24 24 Blood Pressure 118/59 L 113/56 L 122/59 L Pulse Oximetry 98 99 99 Oxygen Delivery Method Room Air Room Air Oxygen Flow Rate 01/18/23 16:16 01/18/23 16:16 01/18/23 16:30 Temperature Pulse Rate 80 85 Pulse Rate [Left Dorsalis Pedis] Respiratory Rate 28 H 29 H Blood Pressure 122/59 L Pulse Oximetry 99 95 Oxygen Delivery Method Oxygen Flow Rate 01/18/23 16:30 01/18/23 16:30 01/18/23 16:45 Temperature Pulse Rate 85 81 Pulse Rate [Left Dorsalis Pedis] Respiratory Rate 29 H 26 H Blood Pressure 131/61 131/61 120/59 L Pulse Oximetry 95 96 Oxygen Delivery Method Room Air Room Air Oxygen Flow Rate 01/18/23 17:00 01/18/23 17:15 01/18/23 17:30 Temperature Pulse Rate 83 86 83 Pulse Rate [Left Dorsalis Pedis] Respiratory Rate 25 H 23 25 H Blood Pressure 115/58 L 120/58 L 112/56 L Pulse Oximetry 95 94 94 Oxygen Delivery Method Room Air Room Air Room Air Oxygen Flow Rate 01/18/23 17:45 01/18/23 17:56 01/18/23 18:38 Temperature Pulse Rate 82 95 H 88 Pulse Rate [Left Dorsalis Pedis] Respiratory Rate 27 H 18 18 Blood Pressure 109/58 L 112/59 L 116/57 L Pulse Oximetry 94 98 97 Oxygen Delivery Method Room Air Room Air Room Air Oxygen Flow Rate 01/18/23 19:02 01/18/23 19:27 01/18/23 20:02 Temperature Pulse Rate 79 83 Pulse Rate [Left Dorsalis Pedis] 80 Respiratory Rate 23 23 Blood Pressure 119/57 L 115/57 L Pulse Oximetry 93 94 Oxygen Delivery Method Room Air Oxygen Flow Rate 01/18/23 20:35 Temperature 97.5 F L Pulse Rate 88 Pulse Rate [Left Dorsalis Pedis] Respiratory Rate 16 Blood Pressure 128/58 L Pulse Oximetry 98 Oxygen Delivery Method Oxygen Flow Rate 0 Oxygen Delivery Method Room Air Oxygen Flow Rate 0 Const General: cooperative, comfortable and well developed Orientation: alert and oriented x3 HENMT Head: normal to inspection, normocephalic and atraumatic Face and sinus: normal facial exam Mouth: oral mucosae normal and moist mucous membranes Throat: posterior oropharynx normal Eyes General: appearance normal, both eyes and all related structures Pupils: PERRL EOM: EOM intact bilaterally Neck Neck: normal visual inspection and full ROM Chest Chest: normal inspection of the chest Resp Effort & Inspection: normal respiratory effort and able to speak in complete sentences Auscultation: clear to auscultation bilaterally Cardio Palpation: normal PMI Rate: regular rate Rhythm: regular rhythm Heart Sounds: S1 normal and S2 normal GI Inspection: normal to inspection Palpation: soft and no hepatosplenomegaly Auscultation: normal bowel sounds Skin General: no rashes or lesions noted Lesions: no lesions Rashes: no rashes Trauma: no lacerations or abrasions Neuro General: patient alert, patient awake, patient oriented x3 and no focal motor deficits Cranial Nerves: CN's II-XI intact bilaterally Cognition: normal cognition Speech: speech normal Gait: normal gait Motor: muscle tone normal throughout Sensory Exam: no sensory deficits noted Extrem General: full ROM and no calf tenderness Psych Appearance: grossly normal Mental Status: mental status grossly normal Speech and Movement: speech and movement normal Objective Labs 01/18/23 15:18 01/18/23 15:18 Labs: Laboratory Results - last 24 hr 01/18/23 15:18 WBC 7.9 RBC 2.37 L Hgb 7.8 L Hct 24.3 L MCV 102.7 H MCH 32.9 MCHC 32.1 RDW 22.5 H Plt Count 356 Neut % (Auto) 79.1 H Lymph % (Auto) 6.6 L [place] % (Auto) 12.0 Eos % (Auto) 1.2 L Baso % (Auto) 1.1 Neut # (Auto) 6200 Lymph # (Auto) 500 L [place] # (Auto) 900 Eos # (Auto) 100 Baso # (Auto) 100 RBC Morphology Not Reportable Poikilocytosis 1+ H Anisocytosis 2+ H ESR 68 H Sodium 132 L Potassium 3.7 Chloride 92 L Carbon Dioxide 33 H BUN 35 H Creatinine 1.11 Estimated GFR > 60 BUN/Creatinine Ratio 31.5 H Glucose 93 Calcium 9.1 Total Bilirubin 1.0 AST 28 ALT 12 Alkaline Phosphatase 122 C-Reactive Protein 3.8 H Total Protein 6.6 Albumin 3.6 Globulin 3.0 Albumin/Globulin Ratio 1.2 Assessment & Plan Assessment and plan (1) 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: Status: Acute Plan: Continue vancomycin and Zosyn Wound care nurse consult Orthopedic surgery follow-up Pain medications as needed IV fluids Hold Xarelto for now (2) Hypertension: Status: Acute Plan: Restart carvedilol (3) Chronic atrial fibrillation: Status: Acute Plan: Restart carvedilol and hold Xarelto for now (4) CHF (congestive heart failure): Status: Acute Plan: Restart carvedilol and hold diuretics for now (5) HLD (hyperlipidemia): Status: Acute Plan: Defer to PCP (6) Acid reflux: Status: Acute Plan: PPI prn (7) COPD (chronic obstructive pulmonary disease): Problem details: stable Status: Acute Plan: Albuterol as needed Time Spent With Patient Time with patient: 50 to 69 minutes with 50% spent counseling/coordinating care Quality VTE Deep Vein Thrombosis/Pulmonary Embolism Present on Admission: No MIPS - Admit I confirm the patient?s Advance Care Plan is present, Code status is documented, Surrogate decision maker is in patient?s record [If Yes, STOP here]: Yes MIPS - Meds 'Current medications' to include all prescriptions, [id number] products, herbals, cannabis/cannabidiol products, and vitamin/mineral/dietary (nutritional) supplements. I have utilized all available resources to obtain, update, or review the patient?s current medications. [If Yes, STOP here]: Yes
[2023-01-19 03:00] VITALS: BP 133/70; PULSE 86; RESP 16; TEMP 36.4; O2SAT 97
[2023-01-19] MEDS: PIPERACILLIN/TAZO 3.375 GM in SODIUM CHLORIDE 0.9% 100 ML IV ×3 (04:49→21:28)
[2023-01-19] MEDS: PANTOPRAZOLE DR 20 MG TABLET PO (06:22)
[2023-01-19] MEDS: GABAPENTIN 300 MG CAPSULE PO ×2 (07:46→21:30)
[2023-01-19] MEDS: ACETAMINOPHEN 325 MG TABLET 650 MG PO ×2 (07:46→21:29)
[2023-01-19 08:47] LABS: Hematocrit 22.7 % (41-53); Hemoglobin 7.5 g/dL (13.5-17.5); Mean Corpuscular HGB Conc 33.1 % (30-36); Mean Corpuscular Hemoglobin 34.3 PG (26-34); Mean Corpuscular Volume 103.5 fL (80-100); Platelet Count 342 X10^3/uL (150-400); Red Blood Cell Count 2.19 X10^6/uL (4.5-5.9); Red Cell Distribution Width 22.3 % (11.6-14.8); White Blood Cell Count 7.7 X10^3/uL (4.5-11.0)
[2023-01-19 08:52] LABS: Add Manual Diff / Slide Review YES
[2023-01-19 08:58] LABS: Alanine Aminotransferase 11 IU/L (<50); Albumin 3.4 g/dL (3.5-5.0); Albumin Globulin Ratio 1.3 (1.0-2.8); Alkaline Phosphatase 109 U/L (38-126); Aspartate Aminotransferase 24 IU/L (17-59); BUN Creatinine Ratio 28.7 (6-22); Bilirubin Total 1.1 mg/dL (0.2-1.3); Blood Urea Nitrogen 31 mg/dL (9-20); Calcium 8.8 mg/dL (8.4-10.2); Carbon Dioxide 30 mmol/L (22-32); Chloride 94 mmol/L (98-107); Estimated Glomerular Filt Rate > 60 mL/min (>60); Globulin 2.7 g/dL (1.7-4.1); Glucose 103 mg/dL (80-110); HEMOLYSIS < 15 (0-50); Magnesium 2.2 mg/dL (1.6-2.3); Potassium 3.5 mmol/L (3.4-5.1); Sodium 132 mmol/L (137-145); Total Protein 6.1 g/dL (6.3-8.2)
[2023-01-19] MEDS: carvediloL 12.5 MG TABLET PO (09:19)
[2023-01-19] MEDS: METOPROLOL ER 50 MG TABLET 25 MG PO (09:20)
[2023-01-19 09:25] LABS: Neutrophils Absolute Manual 6314 /uL (3000-5900); Total Cells Counted 100
[2023-01-19 09:26] LABS: Platelet Estimate Adequate on smear
--- NOTE | 2023-01-19 09:26 | DI.MRI.S_ITS ---
PROCEDURE: MR FOOT LT WO/W CON INDICATIONS: great toe wound, r/o osteo TECHNIQUE: Noncontrast sagittal T1 spin echo and T2 fast spin echo with fat saturation, long-axis T1 spin echo and T2 fast spin echo with fat saturation; short-axis T1 spin echo, proton density fast spin echo, and T2 fast spin echo with fat saturation through the forefoot. Post-contrast short axis, long axis, and sagittal T1 spin echo with fat saturation through the forefoot. COMPARISON: [facility], CR, XR TOE LT MIN 2V, 01/18/2023, 14:52. FINDINGS: Image quality: Degraded by motion artifact. Bones and joints: There is a mildly displaced fracture of the 2nd metatarsal neck, as before. There is moderate ill-defined T2 signal elevation and enhancement, as well as low precontrast T1 signal intensity within the distal phalanx of the 1st digit. Soft tissues: There is moderate ill-defined T2 signal elevation within the soft tissues surrounding the distal phalanx of the 1st digit. No focal fluid collection to indicate abscess. Moderate diffuse subcutaneous ill-defined T2 signal elevation is present dorsally within the midfoot and forefoot, consistent with edema versus cellulitis. IMPRESSION: 1. 1st digit osteomyelitis. 2. Subcutaneous edema versus cellulitis. 3. 2nd metatarsal neck fracture. Dictated by: Hillary Love M.D. on 01/19/2023 at 11:03 Approved by: Hillary Love M.D. on 01/19/2023 at 11:06
[2023-01-19 09:27] LABS: Anisocytosis 1+; Basophilic Stippling 2+; Microcytosis 1+
[2023-01-19 09:28] VITALS: BP 97/47; PULSE 90; RESP 18; TEMP 37.6; O2SAT 98
[2023-01-19 09:28] LABS: Stomatocytes 1+
[2023-01-19] MEDS: SODIUM CHLORIDE 0.9% 500 ML IV (11:15)
[2023-01-19] MEDS: POTASSIUM CHLORIDE 20 MEQ TAB 40 MEQ PO (12:05)
[2023-01-19 14:08] VITALS: BP 105/51; PULSE 95; RESP 18; TEMP 37.2; O2SAT 92
--- NOTE | 2023-01-19 15:31 | CM.DANOTE ---
Initial DCP Assessment Note Reviewed EMR and team rounds for pt's medical status. Pt found to be sleeping at time of this assessment, further assessment will be needed following his surgery and evolving d/c needs. Payor: Medicare PCP: Dr. Cabello Attending: Dr. Medina Ireland Pt is a 82 year-old M who presented to the ED on 01/18/23 with a non-healing wound on his left-sided great toe. He states it started as a small black dot 3-weeks ago, and now the whole foot is swollen, red, and redness is creeping up his leg. His toe is reportedly black. Ortho was consulted and Dr. Ireland evaluated pt in the ED, followed by an initial lancing and draining of the wound. He was then admitted for further IV ABO's and tx. Plan is for him to return to the ED on 01/20 for further debridement in the OR w/Dr. Ireland. DCP will follow and assist with any d/c resources/SNF vs. HH or home with OP woundcare recommendations. Discharge Planning/Care Management CM Discharge Assessment Start: 01/19/23 14:56 Freq: Status: Active Protocol: Document 01/19/23 15:27 DPL (Rec: 01/19/23 15:30 DPL [id number]) Discharge Planning Assessment Assigned Crank [employer] [employer] Advance Directives? Yes: At home - requested from spouse Advance Directives on File No History Provided By Medical Record Expected Length of Stay 4 Has Patient been admitted in last 30 No days? Prior Living Arrangements House Household Members spouse Type of transporation used prior to Drives own vehicle admit Independent with ADL's Yes Is patient alert and oriented? Yes Needs Assistance With Home Chores / Shopping Community Services used prior to Wound Care admission: Comment Pending PT/OT eval and recommendations, as well as plan for ABO's. Barriers to Discharge No Transportation Arrangement Referrals Initiated None needed Additional Comment None needed at time of this assessment. If patient plan is home with home health No : Has signed face to face form been completed? If patient plan is SNF: Has PASSR been No completed? Whiteboard Updated in Patient Room with No name and ext. # of Cr[employer] Comment Pt was sleeping, did not want to disturb him. Review Status In Process Please Provide Date Initial DC 01/19/23 Assessment Was Performed Next Review Type Continued Stay Review
[2023-01-19] MEDS: VANCOMYCIN 1,500 MG/300 ML PIGGYBACK 200 MG IV (16:48)
--- NOTE | 2023-01-19 17:32 | P.PN_ITS ---
Subjective Subjective Interval history: Patient has no real complaints. Left toe wrapped in gauze. MRI ordered and shows L 1st toe osteomyelitis, no abscess. Ortho aware and waiting until xafranto out of his system. He last took it on Tuesday. He is asking if we can give him Procrit and iron infusion that he is due for on tuesday. Exam Vital Signs (past 8 hours): - 01/19/23 14:08 Temperature 98.9 F Pulse Rate 95 H Respiratory Rate 18 Blood Pressure 105/51 L Pulse Oximetry 92 Oxygen Delivery Method Room Air Oxygen Flow Rate 0 Narrative Exam Narrative: GEN: no acute distress, pleasant male HEENT: moist mucous membranes, PERRL NECK: trachea midline, no JVD CV: regular rate and rhythm, no murmurs PULM: clear bilaterally ABD: soft, nontender, nondistended, no organomegaly EXT: L great toe wrapped in guaze, 2+ edema to knees bilaterally NEURO: awake, alert, oriented, no focal deficits Objective Labs 01/19/23 08:34 01/19/23 08:03 Labs: Laboratory Results - last 24 hr 01/19/23 01/19/23 08:03 08:34 WBC 7.7 RBC 2.19 L Hgb 7.5 L Hct 22.7 L MCV 103.5 H MCH 34.3 H MCHC 33.1 RDW 22.3 H Plt Count 342 Neut % (Auto) Not Reportable Lymph % (Auto) Not Reportable [place] % (Auto) Not Reportable Eos % (Auto) Not Reportable Baso % (Auto) Not Reportable Lymph # (Auto) Not Reportable [place] # (Auto) Not Reportable Baso # (Auto) Not Reportable Total Counted 100 Seg Neutrophils % 49.0 Band Neutrophils % 33.0 H Lymphocytes % (Manual) 7.0 L Monocytes % (Manual) 9.0 Basophils % (Manual) 2.0 H Neutrophils # (Manual) 6314 H Platelet Estimate Adequate on smear RBC Morphology See below Basophilic Stippling 2+ H Anisocytosis 1+ H Microcytosis 1+ H Stomatocytes 1+ H Sodium 132 L Potassium 3.5 Chloride 94 L Carbon Dioxide 30 BUN 31 H Creatinine 1.08 Estimated GFR > 60 BUN/Creatinine Ratio 28.7 H Glucose 103 Calcium 8.8 Magnesium 2.2 Total Bilirubin 1.1 AST 24 ALT 11 Alkaline Phosphatase 109 Total Protein 6.1 L Albumin 3.4 L Globulin 2.7 Albumin/Globulin Ratio 1.3 [facility] Medical History (Updated 01/19/23 @ 00:01 by Toñito Landa MD) Neuropathy COPD (chronic obstructive pulmonary disease) Myelofibrosis CHF (congestive heart failure) Edema Acid reflux HTN (hypertension) Osteoarthritis Arthritis HLD (hyperlipidemia) Cardiomyopathy Afib Surgical History Hx of tonsillectomy History of arthroplasty of left shoulder History of bilateral hip arthroplasty History of arthroplasty of right shoulder Hx of shoulder surgery Hx of laminectomy History of lumbar surgery (03/25/15) Social History household members: spouse Smoking Status: Former smoker alcohol intake: current Assessment & Plan Assessment and plan (1) 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: Status: Acute Plan: Continue vancomycin and Zosyn Wound care nurse consult MRI L foot with 1st toe osteo Orthopedic surgery follow-up, will take to OR on 01/20 likely Pain medications as needed IV fluids Will need PICC for IV abx once blood cultures neg at 48 hours Hold Xarelto for now (2) Hypertension: Status: Acute Plan: holding carvedilol due to soft BP (3) Chronic atrial fibrillation: Status: Acute Plan: Restart carvedilol and hold Xarelto for now (4) CHF (congestive heart failure): Status: Acute Plan: 2+ edema in LE's, BP too soft for lasix currently No prior echo available (5) HLD (hyperlipidemia): Status: Acute Plan: Defer to PCP (6) Acid reflux: Status: Acute Plan: PPI prn (7) COPD (chronic obstructive pulmonary disease): Problem details: stable Status: Acute Plan: Albuterol as needed Plan Dispo: Pending OR debridement and wound culture margin results. Will need up to 6 weeks IV abx for osteo. Time Spent With Patient Time with patient: 50 to 69 minutes with 50% spent counseling/coordinating care Quality VTE Deep Vein Thrombosis/Pulmonary Embolism Present on Admission: No
[2023-01-19 18:00] VITALS: BP 108/55; PULSE 92; RESP 18; TEMP 37.2; O2SAT 96
[2023-01-19 21:30] VITALS: BP 114/57; PULSE 92
[2023-01-19] MEDS: DULOXETINE 30 MG CAPSULE PO (21:30)
[2023-01-19] MEDS: DIGOXIN 0.125 MG TABLET 0.25 MG PO (21:30)
[2023-01-19 22:00] VITALS: BP 144/86; PULSE 72; RESP 17; TEMP 36.7; O2SAT 99
[2023-01-20] VITALS (12 sets, daily range): BP systolic 94–123; BP diastolic 52–74; PULSE 81–92; RESP 13–20; TEMP 36.2–36.7; O2SAT 92–100; BMI 32.7
--- NOTE | 2023-01-20 | PATH_ITS ---
[facility] Accession Number: [id number] No. of containers..01 Tissue . 01 Material submitted: . toe - LEFT GREAT TOE TIP . 01 Diagnosis: Left Great Toe Tip, Amputation: Necrosis and suppurative inflammation (abscess formation) of skin and soft tissue, focally identified at margin of resection. Acute osteomyelitis. MRV 01/28/2023 1843 Local . 01 Electronically signed: . Mónica Ledesma MD, Pathologist NPI- [id number] . 01 Gross description: . The specimen is received in formalin labeled with the patient's name, , and L great toe tip, consists of a disarticulated digit measuring 4.0 cm in length by 2.7 cm in diameter. The cutaneous surface is significant for a langford-black ulcerated lesion on the distal tip measuring 2.3 x 1.5 cm, and grossly approaches the soft tissue margin. No skin is present on the dorsal aspect of the digit. The ulcerated area has a full-thickness defect located centrally. The nail bed is ernandez, thickened, and deformed by the ulceration. The articular surface is inked orange while the soft tissue margin is inked blue. Sectioning reveals langford-ernandez soft tissue and ernandez to brown trabecular osseous tissue that is relatively easy to section with a scalpel. Driver Supervisor sections are submitted as follows: . A1: Soft tissue margin. A2: Articular surface. A3: Longitudinal section with lesion and underlying bone. Submitted for decalcification. ([id number]) /MRV 01/21/2023 1834 Local . 01 Pathologist provided ICD-10: I96 . 01 CPT . 298885, [id number], [id number] Specimen Comment: A courtesy copy of this report has been sent to [phone] Performed at: 01 [facility] [address] [facility], [place], [place] [id number] MD Wesley Briggs MD Phone: [phone]
[2023-01-20] MEDS: PIPERACILLIN/TAZO 3.375 GM in SODIUM CHLORIDE 0.9% 100 ML IV ×3 (04:45→23:01)
[2023-01-20] MEDS: PANTOPRAZOLE DR 20 MG TABLET PO (06:12)
[2023-01-20 06:20] LABS: BUN Creatinine Ratio 25.9 (6-22); Blood Urea Nitrogen 30 mg/dL (9-20); Calcium 8.6 mg/dL (8.4-10.2); Carbon Dioxide 30 mmol/L (22-32); Chloride 96 mmol/L (98-107); Estimated Glomerular Filt Rate > 60 mL/min (>60); Glucose 102 mg/dL (80-110); HEMOLYSIS < 15 (0-50); Sodium 134 mmol/L (137-145)
[2023-01-20 06:21] LABS: Add Manual Diff / Slide Review NO; Basophils Absolute Auto 100 /uL (0-100); Eosinophils Absolute Auto 100 /uL (0-450); Eosinophils Percent Auto 1.5 % (2-4); Hematocrit 23.5 % (41-53); Hemoglobin 7.8 g/dL (13.5-17.5); Lymphocytes Absolute Auto 800 /uL (1100-4500); Lymphocytes Percent Auto 11.1 % (25-40); Mean Corpuscular HGB Conc 32.9 % (30-36); Mean Corpuscular Volume 103.3 fL (80-100); Monocytes Absolute Auto 700 /uL (0-900); Monocytes Percent Auto 10.4 % (3-14); Neutrophils Absolute Auto 5200 /uL (1500-7000); Platelet Count 348 X10^3/uL (150-400); Red Blood Cell Count 2.28 X10^6/uL (4.5-5.9); Red Cell Distribution Width 22.3 % (11.6-14.8); White Blood Cell Count 6.9 X10^3/uL (4.5-11.0)
--- NOTE | 2023-01-20 06:28 | PC.NURSE ---
Patient A&Ox4, forgetful, denies any pain, Drsg to left foot C/D/I. Patient NPO except meds since midnight for surgery today.
[2023-01-20 08:39] LABS: Magnesium 2.2 mg/dL (1.6-2.3)
[2023-01-20 08:56] LABS: Anisocytosis 1+; Macrocytosis 1+; Microcytosis 1+; Platelet Estimate Adequate on smear
[2023-01-20] MEDS: GABAPENTIN 300 MG CAPSULE PO ×2 (09:15→21:02)
[2023-01-20] MEDS: ACETAMINOPHEN 325 MG TABLET 650 MG PO ×2 (10:51→19:34)
[2023-01-20] MEDS: LACTATED RINGERS 1,000 ML 42 ML IV (12:38)
--- NOTE | 2023-01-20 13:07 | P.OP_ITS ---
Operative Date/Time/Diagnoses Date of procedure: 01/20/23 Time of procedure: 13:20 Pre-op diagnosis: left great toe infection with a necrotic toe and osteomyelitis of the distal phalanx Post-op diagnosis: same Procedure & Clinicians Procedure: Left great toe distal phalanx amputation and loose closure Same procedure as scheduled: Yes Indications: This is an 82-year-old gentleman with a necrotic infected left great toe with evidence of osteomyelitis on his exam and MRI scan of his distal phalanx of his great toe and necrotic tip. He is brought to the operating room for amputation with a plan for loose closure. 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 He is not a diabetic. The infection does not appear to extend proximally and he has obvious gross osteomyelitis with pus draining from the tip of his toe and exposed distal phalanx with no coverage. It is felt that this treatment is amputation. Procedure options risks benefits and complications discussed. Surgeon: Medina Ireland Microsoft Architect: Lissa Francis Anesthesia Type: General Operative Notes Findings: Necrotic distal phalanx with obvious gross softening an infected bone, adequate blood supply at the amputation level, IP joint disarticulated Closure Type: non-primary (Loose closure, drain) Specimen(s): other (Bone culture) Applied: drain(s) (Vessel loop) Estimated Blood Loss (mL): 10 Tourniquet time (min): 0 Procedure in detail: Brought the operating room and underwent induction of general anesthesia. Left lower extremities prepped draped standard sterile fashion. A tourniquet was placed but not elevated. A time-out was performed. He was on preoperative antibiotics with a plan to continue his preoperative antibiotics. A time-out was performed. His left leg was prepped and draped sterilely. A fishmouth style incision was made along the distal phalanx. Sharp incision was made resecting the necrotic skin from the distal tip. Amputation through the IP joint. The neurovascular bundles were coagulated and shortened. The wound was meticulously irrigated with normal saline. The skin and subcutaneous tissues were shortened slightly leaving adequate dog-ears for good coverage and adequate circulation. The distal skin and subcutaneous tissue appeared viable. The skin was reapproximated with interrupted nylon. The entire nail at base was meticulo usly removed. A vessel loop drain was placed into the wound in order to allow continued drainage. A dense digital block was performed. The wound was dressed sterilely. Complications: none Post-operative Condition: stable Disposition: Acute Care Plan for aftercare: Okay to transition to oral antibiotics. Infected bone has been surgically amputated. Does need oral antibiotics for at least 10 days. Wound check in approximately a week. Leave stitches in for several weeks. Postop shoe.
--- NOTE | 2023-01-20 13:07 | PM.PREOP ---
Pre-operative Note Interval Note History & Physical reviewed/Exam performed by Physician: Yes Changes to H&P: No
--- NOTE | 2023-01-20 13:31 | SUR.OPER ---
Supine on padded OR bed, head on pillow, arms secured on padded arm boards at <90 degrees abduction, legs uncrossed, safety belt at thigh, tape over blanket over right lower leg. left leg under control of surgeon.
[2023-01-20] MEDS: BUPIVACAINE 0.5% (PF) 30 ML VIAL INJ (13:39)
--- NOTE | 2023-01-20 14:57 | CM.DPC ---
DCP Cont: Per MD, pt to go to the OR today for I&D vs amputation and pt might need IV-Abx 4-6 weeks pending Ortho recommendations after surgery today. Pt off floor in surg and SW met bedside with spouse and explained role. She confirms they live in [place] and spouse has been his caregiver for the past 3 years and pt has long hx of two shoulder surgeries, two hip surgeries, cardiac issues, etc... Pt has been to SNF a few years ago to [facility] when it was a SNF still and pt hated it, pt has no other hx of SNF. Spouse states they used HH after one hospitalization and they felt HH was very helpful. SW discussed potential for IV-Abx at d/c pending Ortho recommendations post surgery today and she confirms pt has a hx of outpt infusion for IV-Abx for a week at [facility] once a day infusion. SW explained that pt's straight Medicare would not cover home infusion and therefore if IV-Abx needed it would be outpt infusion clinic if only needed once a day or if more than once a day the other option would be SNF. Spouse strongly wants pt to go home at d/c if at all possible. SW explained that with some amputations then IV-Abx not needed and PT would work with pt to confirm his mobility and that he would be safe for home. Pt uses a FWW at home for ambulation at baseline. Spouse states they have one adult son in [place], [place] and one Dtr in [place] who plans to visit in a few months. Spouse states family comes over on some weekends to assist and they have local friends who help as well but spouse states she is beginning to feel some CG burnout. SW strongly encouraged her to call/go to [employer] to see if they qualify for any other in-home assist etc.. Spouse states they also have a hired real estate consultant once every two weeks. Plan: SW follow closely for Ortho recommendations to determine IV-Abx vs PO at discharge and then eventual PT eval to determine if home with spouse and HH a safe option. LEW Lewis
--- NOTE | 2023-01-20 15:08 | PC.NURSE ---
Pt returned from PACU at 1450, VSS on 1L NC. A&Ox4, no c/o pain or nausea. Dressing to LLE intact with small amount of red drainage. Border marked. Pt requesting water and a snack. Resting comfortably in bed with spouse at bedside. Bed in low position, call light within reach, SCD to RLE.
--- NOTE | 2023-01-20 15:38 | PT-IP ANOTE ---
PT order received and pt undergoing toe amputation today and will initiate PT assessment next date.
[2023-01-20] MEDS: LACTATED RINGERS 1,000 ML 120 ML IV (16:16)
--- NOTE | 2023-01-20 18:17 | P.PN_ITS ---
Subjective Subjective Interval history: Patient has no complaints. Left toe wrapped in gauze. He went to surgery today with orthopedics, though awaiting if full extent of infection was removed and if he will need oral antibiotics or IV antibiotics for 6 weeks. Exam Vital Signs (past 8 hours): - 01/20/23 12:43 01/20/23 14:04 01/20/23 14:09 Temperature 97.2 F L 97.7 F Pulse Rate 89 92 H 92 H Respiratory Rate 16 13 16 Blood Pressure 123/74 94/55 L 101/56 L Pulse Oximetry 95 97 98 Oxygen Delivery Method Room Air Nasal Cannula Nasal Cannula Oxygen Flow Rate 6 6 01/20/23 14:12 01/20/23 14:17 01/20/23 14:27 Temperature Pulse Rate 88 90 90 Respiratory Rate 16 16 16 Blood Pressure 102/52 L 102/60 102/60 Pulse Oximetry 99 98 98 Oxygen Delivery Method Room Air Nasal Cannula Nasal Cannula Oxygen Flow Rate 6 6 01/20/23 14:37 01/20/23 15:04 Temperature 97.2 F L 97.2 F L Pulse Rate 92 H 81 Respiratory Rate 16 16 Blood Pressure 99/59 L 116/65 Pulse Oximetry 100 98 Oxygen Delivery Method Room Air Oxygen Flow Rate 1 Oxygen Delivery Method Room Air Oxygen Flow Rate 1 Narrative Exam Narrative: GEN: no acute distress, pleasant male HEENT: moist mucous membranes, PERRL NECK: trachea midline, no JVD CV: regular rate and rhythm, no murmurs PULM: clear bilaterally ABD: soft, nontender, nondistended, no organomegaly EXT: L great toe wrapped in guaze, 2+ edema to knees bilaterally NEURO: awake, alert, oriented, no focal deficits Objective Labs 01/20/23 05:05 01/20/23 05:05 Labs: Laboratory Results - last 24 hr 01/20/23 05:05 WBC 6.9 RBC 2.28 L Hgb 7.8 L Hct 23.5 L MCV 103.3 H MCH 34.0 MCHC 32.9 RDW 22.3 H Plt Count 348 Neut % (Auto) 75.0 Lymph % (Auto) 11.1 L [place] % (Auto) 10.4 Eos % (Auto) 1.5 L Baso % (Auto) 2.0 Neut # (Auto) 5200 Lymph # (Auto) 800 L [place] # (Auto) 700 Eos # (Auto) 100 Baso # (Auto) 100 Platelet Estimate Adequate on smear RBC Morphology See below Anisocytosis 1+ H Microcytosis 1+ H Macrocytosis 1+ H Sodium 134 L Potassium 4.0 Chloride 96 L Carbon Dioxide 30 BUN 30 H Creatinine 1.16 Estimated GFR > 60 BUN/Creatinine Ratio 25.9 H Glucose 102 Calcium 8.6 Magnesium 2.2 PFSH Medical History (Updated 01/19/23 @ 00:01 by Toñito Landa MD) Neuropathy COPD (chronic obstructive pulmonary disease) Myelofibrosis CHF (congestive heart failure) Edema Acid reflux HTN (hypertension) Osteoarthritis Arthritis HLD (hyperlipidemia) Cardiomyopathy Afib Surgical History Hx of tonsillectomy History of arthroplasty of left shoulder History of bilateral hip arthroplasty History of arthroplasty of right shoulder Hx of shoulder surgery Hx of laminectomy History of lumbar surgery (03/25/15) Social History household members: spouse Smoking Status: Former smoker alcohol intake: current Assessment & Plan Assessment and plan (1) 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 Pain medications as needed IV fluids Will need PICC for IV abx once blood cultures neg at 48 hours if bone not fully resected, will need to decide depending on operative findings. Hold Xarelto for now, can resume after surgery. (2) Hypertension: Status: Acute Plan: holding carvedilol due to soft BP (3) Chronic atrial fibrillation: Status: Acute Plan: Restart carvedilol and hold Xarelto for now (4) CHF (congestive heart failure): Status: Acute Plan: 2+ edema in LE's, BP too soft for lasix currently No prior echo available (5) HLD (hyperlipidemia): Status: Acute Plan: Defer to PCP, not currently on statin medications (6) Acid reflux: Status: Acute Plan: continue ppi (7) COPD (chronic obstructive pulmonary disease): Problem details: stable Status: Acute Plan: Albuterol as needed Plan Dispo: Pending OR debridement and wound culture margin results. Will need up to 6 weeks IV abx for osteo. Assessment & Plan narrative: Dispo: likely home, pending PT/OT evaluations after surgery. If 6 weeks of therapy patient refusing SNF so will go home with infusions but hopeful for oral antibiotics only. Discussed with case management, spouse, bedside staff to formulate above assessment and plan. Time Spent With Patient Time with patient: 50 to 69 minutes with 50% spent counseling/coordinating care Quality VTE Deep Vein Thrombosis/Pulmonary Embolism Present on Admission: No
[2023-01-20] MEDS: DIGOXIN 0.125 MG TABLET 0.25 MG PO (21:01)
[2023-01-20] MEDS: SENNOSIDES 8.6 MG TABLET 17.2 MG PO (21:02)
[2023-01-20] MEDS: DOCUSATE 100 MG CAPSULE PO (21:03)
[2023-01-20] MEDS: DULOXETINE 30 MG CAPSULE PO (21:03)
[2023-01-21] VITALS (7 sets, daily range): BP systolic 108–123; BP diastolic 60–63; PULSE 68–98; RESP 20; TEMP 36.3–36.8; O2SAT 91–97
[2023-01-21] MEDS: ACETAMINOPHEN 325 MG TABLET 650 MG PO ×4 (03:06→22:09)
[2023-01-21 06:07] LABS: Basophils Absolute Auto 100 /uL (0-100); Basophils Percent Auto 1.6 % (0-2); Eosinophils Absolute Auto 100 /uL (0-450); Eosinophils Percent Auto 1.6 % (2-4); Hematocrit 22.4 % (41-53); Hemoglobin 7.3 g/dL (13.5-17.5); Lymphocytes Absolute Auto 500 /uL (1100-4500); Lymphocytes Percent Auto 7.8 % (25-40); Mean Corpuscular HGB Conc 32.8 % (30-36); Mean Corpuscular Volume 103.5 fL (80-100); Monocytes Absolute Auto 700 /uL (0-900); Monocytes Percent Auto 10.7 % (3-14); Neutrophils Absolute Auto 5300 /uL (1500-7000); Neutrophils Percent Auto 78.3 % (50-75); Platelet Count 343 X10^3/uL (150-400); Red Blood Cell Count 2.16 X10^6/uL (4.5-5.9); Red Cell Distribution Width 22.4 % (11.6-14.8); White Blood Cell Count 6.8 X10^3/uL (4.5-11.0)
[2023-01-21 06:08] LABS: BUN Creatinine Ratio 20.4 (6-22); Blood Urea Nitrogen 30 mg/dL (9-20); Calcium 8.5 mg/dL (8.4-10.2); Carbon Dioxide 29 mmol/L (22-32); Chloride 96 mmol/L (98-107); Estimated Glomerular Filt Rate 47 mL/min (>60); Glucose 104 mg/dL (80-110); HEMOLYSIS < 15 (0-50); Potassium 4.2 mmol/L (3.4-5.1); Sodium 132 mmol/L (137-145)
[2023-01-21 06:09] LABS: Add Manual Diff / Slide Review SLIDE REVIEW
[2023-01-21] MEDS: PANTOPRAZOLE DR 20 MG TABLET PO (06:16)
[2023-01-21 06:26] LABS: Anisocytosis 2+; Microcytosis 1+; Platelet Estimate Adequate on smear
[2023-01-21 06:27] LABS: Basophilic Stippling 1+; Hypochromasia 1+; Macrocytosis 2+; Ovalocytes 2+; Polychromasia 1+
--- NOTE | 2023-01-21 06:51 | P.PN_ITS ---
Subjective Subjective Date Patient Seen: 01/21/23 Time Patient Seen: 06:51 Interval history: Patient is found awake. He is not having any pain at the surgical site, just some lower back pain. He is hoping to go home today. Exam Vital Signs (past 8 hours): Oxygen Delivery Method Nasal Cannula Oxygen Flow Rate 1 Narrative Exam Narrative: Dressing has been bled through. Wound site is well maintained with no signs of acute discharge. Able to flex and extend at the MTP joint of the 1st digit. Decrease sensation over the reminant toe, gross sensation over 1st MTP joint space. Resp Effort & Inspection: normal respiratory effort and able to speak in complete sentences Objective Labs 01/21/23 05:21 01/21/23 05:21 Labs: Laboratory Results - last 24 hr 01/20/23 01/21/23 05:05 05:21 WBC 6.8 RBC 2.16 L Hgb 7.3 L Hct 22.4 L MCV 103.5 H MCH 34.0 MCHC 32.8 RDW 22.4 H Plt Count 343 Neut % (Auto) 78.3 H Lymph % (Auto) 7.8 L [place] % (Auto) 10.7 Eos % (Auto) 1.6 L Baso % (Auto) 1.6 Neut # (Auto) 5300 Lymph # (Auto) 500 L [place] # (Auto) 700 Eos # (Auto) 100 Baso # (Auto) 100 Platelet Estimate Adequate on smear Adequate on smear RBC Morphology See below See below Polychromasia 1+ H Hypochromasia 1+ H Basophilic Stippling 1+ H Anisocytosis 1+ H 2+ H Microcytosis 1+ H 1+ H Macrocytosis 1+ H 2+ H Ovalocytes 2+ H Sodium 132 L Potassium 4.2 Chloride 96 L Carbon Dioxide 29 BUN 30 H Creatinine 1.47 H Estimated GFR 47 L BUN/Creatinine Ratio 20.4 Glucose 104 Calcium 8.5 Magnesium 2.2 PFSH Medical History (Updated 01/19/23 @ 00:01 by Toñito Landa MD) Neuropathy COPD (chronic obstructive pulmonary disease) Myelofibrosis CHF (congestive heart failure) Edema Acid reflux HTN (hypertension) Osteoarthritis Arthritis HLD (hyperlipidemia) Cardiomyopathy Afib Surgical History Hx of tonsillectomy History of arthroplasty of left shoulder History of bilateral hip arthroplasty History of arthroplasty of right shoulder Hx of shoulder surgery Hx of laminectomy History of lumbar surgery (03/25/15) Social History household members: spouse Smoking Status: Former smoker alcohol intake: current Assessment & Plan Post-op Postoperative Procedures: Procedures Operation Date: 01/20/23 13:45 Actual Procedure Side Surgeon p Great Toe Amputation Left Medina Ireland MD Postoperative day: 1 Postoperative status narrative: Status post great toe amputation. Postoperative plan narrative: Change dressing today. Continue with IV antibiotics. Plan to discharge with oral antibiotics. Time Spent With Patient Time with patient: less than 15 minutes Quality VTE Deep Vein Thrombosis/Pulmonary Embolism Present on Admission: No
[2023-01-21] MEDS: PIPERACILLIN/TAZO 3.375 GM in SODIUM CHLORIDE 0.9% 100 ML IV ×3 (08:03→23:52)
[2023-01-21] MEDS: MULTIVITAMIN 1 TABLET 1 TAB PO (10:07)
[2023-01-21] MEDS: TORSEMIDE 10 MG TABLET 20 MG PO (10:07)
[2023-01-21] MEDS: CHOLECALCIFEROL (VITAMIN D3) 1,000 UNIT TABLET 2000 UNIT PO (10:07)
[2023-01-21] MEDS: GABAPENTIN 300 MG CAPSULE PO ×2 (10:08→20:32)
--- NOTE | 2023-01-21 10:26 | PT.IIE ---
Current Diagnoses Hyperlipidemia, unspecified (01/18/23) Essential (primary) hypertension (01/18/23) Chronic atrial fibrillation (01/18/23) Chronic obstructive pulmonary disease, unspecified (01/18/23) Gastro-esophageal reflux disease without esophagitis (01/18/23) Non-pressure chronic ulcer of other part of left foot with necrosis of bone (01/18/23) Osteomyelitis, unspecified (01/18/23) Surgery Performed Operation Date: 01/20/23 13:45 Actual Procedures p Great Toe Amputation(Left) - Medina Santos MD Surgical History (Last Reviewed 01/18/23 @ 20:32 by Medina Santos MD) History of arthroplasty of left shoulder History of arthroplasty of right shoulder History of bilateral hip arthroplasty History of lumbar surgery (03/25/15) Hx of laminectomy Hx of shoulder surgery Hx of tonsillectomy Medical History (Last Updated 01/18/23 @ 23:57 by Toñito Landa MD) Acid reflux Afib Arthritis Cardiomyopathy CHF (congestive heart failure) COPD (chronic obstructive pulmonary disease) Edema HLD (hyperlipidemia) HTN (hypertension) Myelofibrosis Neuropathy Osteoarthritis Physical Therapy Inpatient Evaluation/Re-Eval M1 PT/OT-IP Prior Functional Status Start: 01/21/23 12:20 Freq: NEEDED Status: Active Protocol: Document 01/21/23 10:26 AB (Rec: 01/21/23 12:46 AB [id number]) Medical Review Prior Functional Status Medical History Reviewed Yes Communication able to make needs known; WASHOE Mobility and Gait pt stated that he was modified independent with all mobilities and ambulation using 4WW. pt stated that he does not walk much prior to admission but able to walk around the house mod I. pt has h/o falls. Social History Household Members spouse Living Arrangements House Number of Floors (Floors) Two Floors Number of Stairs To Enter/Railing? pt stays on main level of the house has 2 platform steps to enter the house Home Environment Standard Height Toilet,Walk in Shower Home Equipment Four Wheel Walker,Raised Toilet Seat w/Armrests,Shower Seat without Backrest,Hand Held Shower,Lift Recliner,Grab Bars Near Toilet,Grab Bars In Shower Additional Social History Comment pt has an adjustable bed M2 PT-IP Current Condition Start: 01/21/23 12:20 Freq: NEEDED Status: Active Protocol: Document 01/21/23 10:26 AB (Rec: 01/21/23 12:46 AB [id number]) Physical Therapy Current Condition Current Condition Evaluation Date 01/21/23 Treatment Diagnosis s/p L great toe amputation; difficulty in walking Onset Date 01/18/23 M3 PT-IP Subjective Start: 01/21/23 12:20 Freq: NEEDED Status: Active Protocol: Document 01/21/23 10:26 AB (Rec: 01/21/23 12:46 AB [id number]) Subjective Physical Therapy Visit Type Type Initial Evaluation Visit Start Time 10:26 Visit Stop Time 11:15 Total Visit Minutes 49 Number of PROFESSOR OF PUBLIC ADMINISTRATION Visits 0 Physical Therapy Visit Comments Patient Comments agreeable to do PT Therapy Pain Assessment Pain Present Pain Present Denied Pain M4 PT-IP Mobility and Gait Start: 01/21/23 12:20 Freq: NEEDED Status: Active Protocol: Document 01/21/23 10:26 AB (Rec: 01/21/23 12:46 AB [id number]) PT-Bed Mobility Assessment Supine to Sit Supine to Sit Maximum Assistance,Head of Bed Elevated,Bedrails Scooting Scooting to Edge of Bed Maximum Assistance PT-Transfer Assessment Sit to and From Stand Sit to and from Stand Maximum Assistance,1 Person Assistance,2 Person Assistance ,Use of Upper Extremities Equipment Transfer Assistive Device Gait Belt,Front Wheeled Walker Orthotic/Prosthetic Devices or Brace: No Transfers Transfer Destination Chair Transfer Technique ambulated Transfer Ability Level of Assist Maximum Assistance,1 Person Assistance,2 Person Assistance ,Use of Upper Extremities Comments Mobility Comments received PT eval order. Called orthom MD santos for clarifications with weight bearing and post-op shoe. verbal order received for WBAT on LLE and post-op front offloading on LLE. Fitted and provided pt with L front offloading post-op shoe. pt signed papers for post-op shoe . obtained PLOF and home setup. educated pt on how to ambulate with offloadiing post -op shoe. BP: 112/66. O2 sat with 1L/ min O2: 95%. assessed O2 sat without O2 and dropped to 88% at RA. pt provided with O2 again at 1L/min and o2 sat increased to 95-96%. pt completed supine to sit max a and max cues with HOB elevated to ~ 45 deg. pt required max A x 1-2 for scooting ot EOB. no c/o dizziness/lightheadedness. pt needing to be cleaned up and brief change. completed sit to stand max Ax 1-2 and max cues and able to maintain standing max A using FWW for support while nurse assisted pt with hygiene care and brief management. pt ambulated ~ 3 ft to chair using FWW max A x 1-2 and max cues. presents with very unsteady shuffling gait with heavy UE use on fWW and pt presents with increase forward trunk flexed posture. max A 1-2 for controlled descent to the chair. informed pt regarding SNF recommendation but pt refuse. informed rn case management regarding recommendation. vocational rehabilitation technician came in to do chest x-ray. Left pt with nurse and tech. Gait Assessment Gait Gait Assistance Required: Maximum Assistance,1 Person Assist,2 Person Assist Distance (Feet) 3 Able to Maintain Weight Bearing Status Yes During Gait Assistive Devices Assistive Device Gait Belt,Front Wheeled Walker Gait Deviations General Gait Pattern Antalgic,Ataxic,Decreased Stride Length,Decreased Feet Clearance,Flexed Trunk,Step-to Gait Factors Limiting Gait Function Factors Limiting Gait Function Decreased Activity Tolerance, Decreased Strength,Limited Range of Motion,Poor Balance, Poor Safety Awareness PT-Balance Assessment Sitting Balance and Reactions Static Sitting Balance Ability Fair Dynamic Sitting Balance Ability Fair Standing Balance and Reactions Static Standing Balance Ability Poor Dynamic Standing Balance Ability Poor Device Used FWW M5 PT-IP Objective Assessments Start: 01/21/23 12:20 Freq: NEEDED Status: Active Protocol: Document 01/21/23 10:26 AB (Rec: 01/21/23 12:46 AB [id number]) Orientation Orientation/Cognition Level of Alertness Alert Orientation Name,Place,Situation Language Function Ability Hard of Hearing Safety Awareness Decreased Safety Awareness Memory Description No Deficits Noted Gross Range of Motion Lower Extremity ROM Assessment Within Functional Limits Strength Lower Extremity Strength Assessment Bilaterally Impaired Comments Strength Comments RLE: 3+/5 LLE 4-/5 Sensation Assessment Sensation Gross Sensation Right LE Impaired,Left LE Impaired Sensation Description Numbness Comments Sensation Comments pt has bilateral LE neuropathies Muscle Tone Muscle Tone WNL Yes M6 PT-IP Treatment Start: 01/21/23 12:20 Freq: NEEDED Status: Active Protocol: Document 01/21/23 10:26 AB (Rec: 01/21/23 12:46 AB [email or web address]) Physical Therapy Treatment Education Education Provided Precautions,Weight Bearing Status,Post-Op Packet,Safety Equipment Issued Equipment Type and Company front off loading post op shoe : [employer] M7 PT-IP Assessment and Plan Start: 01/21/23 12:20 Freq: NEEDED Status: Active Protocol: Document 01/21/23 10:26 AB (Rec: 01/21/23 12:46 AB [email or web address]) PT Summary Assessment and Plan Potential Rehabilitation Potential Fair Status of Condition at Evaluation Evolving Summary Impairments Pain,ROM,Strength,Balance, Coordination,Sensation,Tone, Cognition,Bed Mobility, Transfers,Gait,Activity Tolerance Assessment Summary pt is an 82 y/o male who presented to the ED due to L great toe wound. pt s/p L great toe amputation and is WBAT with front off loading post-op shoe on LLE. pt requiring max A for bed mobility, transfers using FWW and was only able to do 3 ft of ambulation using FWW max A x1-2 and max cues. pt was very unsteady standing and walking and recommending 2 person assist transfers only with nursing staff. Recommending SNF rehab but pt is refusing SNF at this time. will continue to assess for safe d/c plan. will conduct caregiver training when appropriate. Goals Bed Mobility Goal Minimal Assistance Transfer Goal Minimal Assistance,Front Wheeled Walker Gait Goal Minimal Assistance,Front Wheel Walker Gait Distance 25 Other Goals improve bed mobility, transfers and ambulation using LRAD ~ 100 ft SBA up/down 2 platform steps using FWW SBA Days to Meet Goals 10 Frequency of Treatment Frequency Of Treatment Once a Day Treatment Plan Physical Therapy Treatment Plan Bed Mobility Training,Transfer Training,Gait Training, Therapeutic Exercise,Balance Retraining,Post Op Education, Discharge Planning,Hot or Cold Pack,Neuromuscular Re-ed, Coordination Retraining,Manual Therapy Precautions Brace LLE: front off loading post-op shoe Other Precautions falls Weight Bearing Status Weight Bearing Status Weight Bear as Tolerated Allowed Weight Bearing Amount (enter % WBAT on LLE with post-op shoe or #) (%) Recommendations To Nursing Amount of Assist Needed 2 Person Assist Discharge Recommendations PT Discharge Recommendations SNF Rehab Equipment Needed for Home Before FWW Discharge Transportation Needs at Discharge Wheelchair/Cabulance
--- NOTE | 2023-01-21 10:40 | DI.RAD.S_ITS ---
PROCEDURE: XR CHEST 1V INDICATIONS: hypoxia TECHNIQUE: One view of the chest was acquired. COMPARISON: [facility], , XR CHEST 2V, 05/06/2021, 12:50. [facility], , CHEST 1 VIEW, 04/09/2015, 21:25. FINDINGS: Surgical changes and devices: Bilateral shoulder arthroplasties. Lungs and pleura: Mild opacity at the left lower lobe. Possible small left pleural effusion. No pneumothorax. Mediastinum: Mediastinal contours appear unchanged. Heart size is enlarged. Bones and chest wall: No suspicious bony lesions. Overlying soft tissues appear unremarkable. IMPRESSION: Cardiomegaly. Mild opacity at the left lower lobe. This could represent atelectasis, pneumonia, or pulmonary edema. Possible small left pleural effusion. Dictated by: Riley Solano M.D. on 01/21/2023 at 11:43 Approved by: Riley Solano M.D. on 01/21/2023 at 11:46
[2023-01-21] MEDS: carvediloL 3.125 MG TABLET 6.25 MG PO ×2 (12:26→20:32)
[2023-01-21] MEDS: metOLazone 2.5 MG TABLET PO (12:27)
--- NOTE | 2023-01-21 12:44 | PM.PN.1 ---
Subjective Subjective Interval history: Patient has no complaints. Left toe wrapped in gauze. He did have complete resection of infected bone per orthopedic provider yesterday. Okay for oral antibiotics on discharge for 10-14 days after surgery. Hg a bit lower at 7.3 but he is asymptomatic. He was still on 2L O2 this morning, I turned off oxygen and he dropped to the mid 70s, he improved with only 1L to low 90s. Cr also slightly bumped up today. CXR shows mild congestion. Ordered for an extra dose of metolazone today for diuresis. Exam Vital Signs (past 8 hours): - 01/21/23 06:52 01/21/23 08:15 01/21/23 09:07 Temperature 97.7 F Pulse Rate 98 H 96 H Respiratory Rate 20 Blood Pressure 121/60 123/63 Pulse Oximetry 95 97 Oxygen Delivery Method Nasal Cannula Oxygen Flow Rate 2 2 01/21/23 12:26 01/21/23 12:26 Temperature 97.6 F Pulse Rate 94 H 94 H Respiratory Rate 20 Blood Pressure 123/60 123/60 Pulse Oximetry 92 Oxygen Delivery Method Oxygen Flow Rate 2 Oxygen Delivery Method Nasal Cannula Oxygen Flow Rate 2 Narrative Exam Narrative: GEN: no acute distress, pleasant male HEENT: moist mucous membranes, PERRL NECK: trachea midline, no JVD CV: regular rate and rhythm, no murmurs PULM: clear bilaterally ABD: soft, nontender, nondistended, no organomegaly EXT: L great toe wrapped in guaze, 1-2+ edema to knees bilaterally NEURO: awake, alert, oriented, no focal deficits Objective Labs 01/21/23 05:21 01/21/23 05:21 Labs: Laboratory Results - last 24 hr 01/21/23 05:21 WBC 6.8 RBC 2.16 L Hgb 7.3 L Hct 22.4 L MCV 103.5 H MCH 34.0 MCHC 32.8 RDW 22.4 H Plt Count 343 Neut % (Auto) 78.3 H Lymph % (Auto) 7.8 L [place] % (Auto) 10.7 Eos % (Auto) 1.6 L Baso % (Auto) 1.6 Neut # (Auto) 5300 Lymph # (Auto) 500 L [place] # (Auto) 700 Eos # (Auto) 100 Baso # (Auto) 100 Platelet Estimate Adequate on smear RBC Morphology See below Polychromasia 1+ H Hypochromasia 1+ H Basophilic Stippling 1+ H Anisocytosis 2+ H Microcytosis 1+ H Macrocytosis 2+ H Ovalocytes 2+ H Sodium 132 L Potassium 4.2 Chloride 96 L Carbon Dioxide 29 BUN 30 H Creatinine 1.47 H Estimated GFR 47 L BUN/Creatinine Ratio 20.4 Glucose 104 Calcium 8.5 PFSH Medical History (Updated 01/19/23 @ 00:01 by Toñito Landa MD) Neuropathy COPD (chronic obstructive pulmonary disease) Myelofibrosis CHF (congestive heart failure) Edema Acid reflux HTN (hypertension) Osteoarthritis Arthritis HLD (hyperlipidemia) Cardiomyopathy Afib Surgical History Hx of tonsillectomy History of arthroplasty of left shoulder History of bilateral hip arthroplasty History of arthroplasty of right shoulder Hx of shoulder surgery Hx of laminectomy History of lumbar surgery (03/25/15) Social History household members: spouse Smoking Status: Former smoker alcohol intake: current Assessment & Plan Assessment & Plan narrative: (1) 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 Can discharge on ciprofloxacin or levofloxacin at discharge, continue zosyn until discharge. (2) Hypertension: held corge initially but now resumed. (3) Chronic atrial fibrillation: - now restarted on corge and xarelto. (4) Acute on chronic HF (congestive heart failure), not present on admission with acute respiratory failure with hypoxia. - unknown EF, but echo not likely to exchange trouble shooter at this time - gave 1 extra dose of metolazone as patient hypoxic after surgery today, CXR with some vascular congestion and pleural effusion. will assess response in hopes of improvement in oxygenation so that he may discharge home. (5) HLD (hyperlipidemia): not currently on medication (6) Acid reflux: continue ppi (7) COPD (chronic obstructive pulmonary disease): Albuterol as needed Plan Dispo: Discharge home, probably tomorrow if resolution of hypoxia with diuresis, on oral antibiotics. pending PT/OT evaluations after surgery. Discussed with case management, bedside staff to formulate above assessment and plan Quality VTE Deep Vein Thrombosis/Pulmonary Embolism Present on Admission: No
--- NOTE | 2023-01-21 17:05 | PC.NURSE ---
Dressing changed this am: stitches to top of toe intact with red rubber drainage tube to medial side of great toe. Xeroform placed over stitches, covered with gauze 4x4s, conforming gauze wrap, gauze bandage wrap and goreg wrap to hold it all in place. Small amount of sanguineous drainage noted during the dressing change. Patient tolerated well, no pain d/t neuropathy.
[2023-01-21] MEDS: RIVAROXABAN 10 MG TABLET 20 MG PO (17:15)
[2023-01-21] MEDS: DIGOXIN 0.125 MG TABLET 0.25 MG PO (20:31)
[2023-01-21] MEDS: DULOXETINE 30 MG CAPSULE PO (20:32)
[2023-01-21] MEDS: SODIUM CHLORIDE 0.9% FLUSH 10 ML IV (22:53)
[2023-01-22] MEDS: ACETAMINOPHEN 325 MG TABLET 650 MG PO ×2 (03:57→18:06)
[2023-01-22] MEDS: SODIUM CHLORIDE 0.9% FLUSH 10 ML IV ×2 (03:58→20:25)
[2023-01-22] MEDS: PANTOPRAZOLE DR 20 MG TABLET PO (05:55)
[2023-01-22 06:15] LABS: Add Manual Diff / Slide Review NO; Basophils Absolute Auto 0 /uL (0-100); Basophils Percent Auto 0.5 % (0-2); Eosinophils Absolute Auto 100 /uL (0-450); Eosinophils Percent Auto 1.2 % (2-4); Hemoglobin 7.4 g/dL (13.5-17.5); Lymphocytes Absolute Auto 700 /uL (1100-4500); Mean Corpuscular HGB Conc 32.4 % (30-36); Mean Corpuscular Hemoglobin 33.4 PG (26-34); Mean Corpuscular Volume 103.3 fL (80-100); Monocytes Absolute Auto 800 /uL (0-900); Neutrophils Absolute Auto 5800 /uL (1500-7000); Neutrophils Percent Auto 77.3 % (50-75); Platelet Count 351 X10^3/uL (150-400); Red Blood Cell Count 2.22 X10^6/uL (4.5-5.9); Red Cell Distribution Width 22.5 % (11.6-14.8); White Blood Cell Count 7.5 X10^3/uL (4.5-11.0)
[2023-01-22 06:19] LABS: BUN Creatinine Ratio 22.9 (6-22); Blood Urea Nitrogen 32 mg/dL (9-20); Calcium 8.4 mg/dL (8.4-10.2); Carbon Dioxide 30 mmol/L (22-32); Chloride 96 mmol/L (98-107); Estimated Glomerular Filt Rate 50 mL/min (>60); Glucose 137 mg/dL (80-110); HEMOLYSIS < 15 (0-50); Potassium 3.9 mmol/L (3.4-5.1); Sodium 133 mmol/L (137-145)
[2023-01-22 06:33] LABS: Platelet Estimate Adequate on smear
[2023-01-22 06:34] LABS: Anisocytosis 2+; Macrocytosis 2+; Microcytosis 1+; Ovalocytes 1+; Tear Drop Cells 1+
[2023-01-22] MEDS: PIPERACILLIN/TAZO 3.375 GM in SODIUM CHLORIDE 0.9% 100 ML IV ×3 (08:20→23:30)
[2023-01-22 09:21] VITALS: BP 112/57; PULSE 68; TEMP 36.4; O2SAT 94
--- NOTE | 2023-01-22 09:26 | PM.PNPO.1 ---
Subjective Subjective Date Patient Seen: 01/22/23 Time Patient Seen: 09:26 Interval history: Patient denies pain. No fever or chills. No nausea or vomiting. Exam Vital Signs (past 8 hours): - 01/22/23 09:21 Temperature 97.5 F L Pulse Rate 68 Blood Pressure 112/57 L Pulse Oximetry 94 Oxygen Flow Rate 0 Oxygen Delivery Method Nasal Cannula Oxygen Flow Rate 0 Narrative Exam Narrative: 82-year-old male resting comfortably in bed in no apparent distress. Dressing is clean, dry and intact. Const General: cooperative and comfortable Nutritional Appearance: obese (32.7) Orientation: alert Resp Effort & Inspection: normal respiratory effort and able to speak in complete sentences Objective Labs 01/22/23 05:48 01/22/23 05:48 Labs: Laboratory Results - last 24 hr 01/22/23 05:48 WBC 7.5 RBC 2.22 L Hgb 7.4 L Hct 23.0 L MCV 103.3 H MCH 33.4 MCHC 32.4 RDW 22.5 H Plt Count 351 Neut % (Auto) 77.3 H Lymph % (Auto) 10.0 L [place] % (Auto) 11.0 Eos % (Auto) 1.2 L Baso % (Auto) 0.5 Neut # (Auto) 5800 Lymph # (Auto) 700 L [place] # (Auto) 800 Eos # (Auto) 100 Baso # (Auto) 0 Platelet Estimate Adequate on smear RBC Morphology See below Anisocytosis 2+ H Microcytosis 1+ H Macrocytosis 2+ H Tear Drop Cells 1+ H Ovalocytes 1+ H Sodium 133 L Potassium 3.9 Chloride 96 L Carbon Dioxide 30 BUN 32 H Creatinine 1.40 H Estimated GFR 50 L BUN/Creatinine Ratio 22.9 H Glucose 137 H Calcium 8.4 SPEC #: [id number] EMILY: 01/18/23 STATUS: COMP REQ #: [id number] SPDESC: Wound RECD: 01/18/[address]: Medina Ireland MD SOURCE: TOE ENTR: 01/18/[address]: Wilma Alberts D.O. FAX TO: ORDERED: WOUND Cx and GS COMMENTS: Comment deep wound culture Procedure Result Verified Site Gram Stain Final 01/18/23 White blood cells Few WBCs Gram Negative Rods 2+ Aerobic Culture for wounds Final 01/22/23 Group F Strep pos Skin Gee Scant growth - Mixed skin gee Organism 1 Streptococcus Group F Growth MODERATE Action to follow No Further Workup Organism 2 Pseudomonas aeruginosa Growth SCANT Action to follow No Further Workup Organism 3 Staphylococcus aureus Growth SCANT Action to follow No Further Workup GROUP F STREPTOCOCCUS: All Beta-hemolytic Streptococcus organisms are considered sensitive to penicillins and cephalosporins. STAPHYLOCOCCUS AUREUS: Based on resistance to penicillin and susceptibility to oxacillin this isolate would be susceptible to penicillin-stable penicillins, such as dicloxacillin and nafcillin; beta-lactamase inhibitor combinations, such as amoxicillin-clavulanate, ampicillin-sulbactam, and piperacillin-tazobactam; anti-staphylococcal cephalosporins, such as cefazolin, cephalexin, cefdinir, and cefuroxime; and anti-staphylococcal carbapenems, such as ertapenem and meropenem. 2. Pseudomonas aeruginosa M.I.C. RX --------- --- * Amikacin 4 S * Cefepime <=1 S * Ceftazidime 2 S * Ciprofloxacin <=0.25 S * Imipenem 2 S * Levofloxacin 0.5 S * Meropenem 1 S * Piperacillin <=4 S * Tobramycin <=1 S * Piperacillin/Tazobactam 8 S 3. Staphylococcus aureus M.I.C. RX --------- --- * Daptomycin 0.5 S * Vancomycin <=0.5 S * Ciprofloxacin <=0.5 S * Clindamycin 0.25 S * Doxycycline <=0.5 S * Erythromycin <=0.25 S * Gentamicin <=0.5 S * Levofloxacin 0.25 S * Linezolid 2 S * Moxifloxacin <=0.25 S * Oxacillin Philipp <=0.25 S * Rifampin <=0.5 S * Tetracycline <=1 S * Trimethoprim/Sulfamethoxazole <=10 S Pseudomonas aeruginosa Staphylococcus aureus M.I.C. RX M.I.C. RX --------- --- --------- --- * Amikacin 4 S * Daptomycin 0.5 S * Cefepime <=1 S * Vancomycin <=0.5 S * Ceftazidime 2 S * Ciprofloxacin <=0.25 S <=0.5 S * Clindamycin 0.25 S * Doxycycline <=0.5 S * Erythromycin <=0.25 S * Gentamicin <=0.5 S * Imipenem 2 S * Levofloxacin 0.5 S 0.25 S * Linezolid 2 S * Meropenem 1 S * Moxifloxacin <=0.25 S * Oxacillin Philipp <=0.25 S * Piperacillin <=4 S * Rifampin <=0.5 S * Tetracycline <=1 S * Tobramycin <=1 S * Trimethoprim/Sulfamethoxazole <=10 S * Piperacillin/Tazobactam 8 S Anaerobic Culture Final 01/19/23-0751 Test not performed [facility] Medical History Neuropathy COPD (chronic obstructive pulmonary disease) Myelofibrosis CHF (congestive heart failure) Edema Acid reflux HTN (hypertension) Osteoarthritis Arthritis HLD (hyperlipidemia) Cardiomyopathy Afib Surgical History Hx of tonsillectomy History of arthroplasty of left shoulder History of bilateral hip arthroplasty History of arthroplasty of right shoulder Hx of shoulder surgery Hx of laminectomy History of lumbar surgery (03/25/15) Social History household members: spouse Smoking Status: Former smoker alcohol intake: current Assessment & Plan Post-op Postoperative Procedures: Procedures Operation Date: 01/20/23 13:45 Actual Procedure Side Surgeon p Great Toe Amputation Left Medina Jacqueline Ireland MD Postoperative day: 2 Postoperative status narrative: Stable Postoperative plan narrative: Okay to transition to oral antibiotics. Infected bone has been surgically amputated. Does need oral antibiotics for at least 10 days. Wound check in approximately a week. Leave stitches in for several weeks. Postop shoe. Quality VTE Deep Vein Thrombosis/Pulmonary Embolism Present on Admission: No
[2023-01-22] MEDS: DOCUSATE 100 MG CAPSULE PO ×2 (10:46→20:25)
[2023-01-22] MEDS: CHOLECALCIFEROL (VITAMIN D3) 1,000 UNIT TABLET 2000 UNIT PO (10:46)
[2023-01-22] MEDS: GABAPENTIN 300 MG CAPSULE PO ×2 (10:47→20:25)
[2023-01-22] MEDS: MULTIVITAMIN 1 TABLET 1 TAB PO (10:47)
[2023-01-22] MEDS: carvediloL 3.125 MG TABLET 6.25 MG PO ×2 (10:47→20:24)
--- NOTE | 2023-01-22 11:25 | PT.IPTN ---
Current Diagnoses Hyperlipidemia, unspecified (01/18/23) Essential (primary) hypertension (01/18/23) Chronic atrial fibrillation (01/18/23) Chronic obstructive pulmonary disease, unspecified (01/18/23) Gastro-esophageal reflux disease without esophagitis (01/18/23) Non-pressure chronic ulcer of other part of left foot with necrosis of bone (01/18/23) Osteomyelitis, unspecified (01/18/23) Surgery Performed Operation Date: 01/20/23 13:45 Actual Procedures p Great Toe Amputation(Left) - Medina Ireland MD Physical Therapy Treatment Note M2 PT-IP Current Condition Start: 01/21/23 12:20 Freq: NEEDED Status: Active Protocol: Document 01/21/23 10:26 AB (Rec: 01/21/23 12:46 AB [id number]) Physical Therapy Current Condition Current Condition Evaluation Date 01/21/23 Treatment Diagnosis s/p L great toe amputation; difficulty in walking Onset Date 01/18/23 M3 PT-IP Subjective Start: 01/21/23 12:20 Freq: NEEDED Status: Active Protocol: Document 01/22/23 12:05 TS (Rec: 01/22/23 12:16 TS [id number]) Subjective Physical Therapy Visit Type Type Treatment Note Visit Start Time 11:25 Visit Stop Time 11:48 Total Visit Minutes 23 Number of [employer] Visits 1 Physical Therapy Visit Comments Patient Comments Pt found resting in bed, reports he has been in be too much the last 4 days and feels weak, is agreeable to PT. M4 PT-IP Mobility and Gait Start: 01/21/23 12:20 Freq: NEEDED Status: Active Protocol: Document 01/22/23 12:05 TS (Rec: 01/22/23 12:16 TS [id number]) PT-Bed Mobility Assessment Supine to Sit Supine to Sit Moderate Assistance,Head of Bed Elevated,Bedrails Sit to Supine Sit to Supine Moderate Assistance Scooting Scooting to Edge of Bed Contact Guard Assistance PT-Transfer Assessment Sit to and From Stand Sit to and from Stand Moderate Assistance,Maximum Assistance,1 Person Assistance ,Use of Upper Extremities Equipment Transfer Assistive Device Gait Belt,Front Wheeled Walker Orthotic/Prosthetic Devices or Brace: No Comments Mobility Comments Supine to sit ModA with handheld assist to upright trunk and HOB elevated. He scooted to EOB CGA with use of BUE support and handrails. Pt sat EOB, post-op shoe donned prior to standing. Sit to stand x1 MaxA with use of FWW, Pt had buckling on RLE, could not come into full ext. Pt ambulated ~5' ModA with use of FWW, pt has poor posture and soft knees with gait. Pt attempted to try steps on platform step but is not safe to do so at this time. Pt sat back EOB, performed sit to stand ModA with sidesteps to HOB. Sit to supine ModA for LEs into bed. Pt was left in bed, all needs met. Gait Assessment Gait Gait Assistance Required: Moderate Assistance,1 Person Assist Distance (Feet) 5 Able to Maintain Weight Bearing Status Yes During Gait Assistive Devices Assistive Device Gait Belt,Front Wheeled Walker Orthotic/Prosthetic Devices or Brace: No Gait Deviations General Gait Pattern Antalgic,Ataxic,Decreased Stride Length,Decreased Feet Clearance,Flexed Trunk,Step-to Gait Factors Limiting Gait Function Factors Limiting Gait Function Decreased Activity Tolerance, Decreased Strength,Limited Range of Motion,Poor Balance, Poor Safety Awareness Comments Gait Comments See mobility comments Stair Climbing Assessment Comments Stair Climbing Comments Unsafe at this time PT-Balance Assessment Sitting Balance and Reactions Static Sitting Balance Ability Fair Dynamic Sitting Balance Ability Fair Standing Balance and Reactions Static Standing Balance Ability Poor Dynamic Standing Balance Ability Poor Device Used FWW M5 PT-IP Objective Assessments Start: 01/21/23 12:20 Freq: NEEDED Status: Active Protocol: Document 01/21/23 10:26 AB (Rec: 01/21/23 12:46 AB [id number]) Orientation Orientation/Cognition Level of Alertness Alert Orientation Name,Place,Situation Language Function Ability Hard of Hearing Safety Awareness Decreased Safety Awareness Memory Description No Deficits Noted Gross Range of Motion Lower Extremity ROM Assessment Within Functional Limits Strength Lower Extremity Strength Assessment Bilaterally Impaired Comments Strength Comments RLE: 3+/5 LLE 4-/5 Sensation Assessment Sensation Gross Sensation Right LE Impaired,Left LE Impaired Sensation Description Numbness Comments Sensation Comments pt has bilateral LE neuropathies Muscle Tone Muscle Tone WNL Yes M6 PT-IP Treatment Start: 01/21/23 12:20 Freq: NEEDED Status: Active Protocol: Document 01/22/23 12:05 TS (Rec: 01/22/23 12:16 TS [id number]) Physical Therapy Treatment Education Education Provided Precautions,Weight Bearing Status,Post-Op Packet,Safety Equipment Issued Equipment Type and Company front off loading post op shoe : jennifer Buck PT-IP Assessment and Plan Start: 01/21/23 12:20 Freq: NEEDED Status: Active Protocol: Document 01/22/23 12:05 TS (Rec: 01/22/23 12:16 TS [id number]) PT Summary Assessment and Plan Potential Rehabilitation Potential Fair Summary Impairments Pain,ROM,Strength,Balance, Coordination,Sensation,Tone, Cognition,Bed Mobility, Transfers,Gait,Activity Tolerance Progress Towards Goals Slow Progress due to Medical Issues,Slow Progress due to Activity Tolerance Assessment Summary Octavio is making slow progress with his mobility. He performed bed mobility with ModA and cues for use of handrails. He performed sit to stand x1 MaxA, x1 ModA with FWW from bed. Pt has poor standing balance and gait with a buckling RLE. Pt attempted to perform stairs but is unsafe to do so at this time. PT is recommending SNF rehab at this time. Pt reports he wants to go home and will have help to get into house. Goals Bed Mobility Goal Minimal Assistance Transfer Goal Minimal Assistance,Front Wheeled Walker Gait Goal Minimal Assistance,Front Wheel Walker Gait Distance 25 Other Goals improve bed mobility, transfers and ambulation using LRAD ~ 100 ft SBA up/down 2 platform steps using FWW SBA Days to Meet Goals 10 Frequency of Treatment Frequency Of Treatment Once a Day Treatment Plan Physical Therapy Treatment Plan Bed Mobility Training,Transfer Training,Gait Training, Therapeutic Exercise,Balance Retraining,Post Op Education, Discharge Planning,Hot or Cold Pack,Neuromuscular Re-ed, Coordination Retraining,Manual Therapy Other Recommendations and Next Treatment ambulation, bed mobility, Focus caregiver training and stair training when appropriate Precautions Brace LLE: front off loading post-op shoe Other Precautions falls Weight Bearing Status Weight Bearing Status Weight Bear as Tolerated Allowed Weight Bearing Amount (enter % WBAT on LLE with post-op shoe or #) (%) Recommendations To Nursing Amount of Assist Needed 2 Person Assist Discharge Recommendations PT Discharge Recommendations SNF Rehab Equipment Needed for Home Before FWW Discharge Transportation Needs at Discharge Wheelchair/Cabulance
[2023-01-22] MEDS: TORSEMIDE 10 MG TABLET 20 MG PO (12:38)
--- NOTE | 2023-01-22 15:46 | CM.DPC ---
DCP Cont: Called Myla Porsha at [facility], for a referral was placed. Completed face to face and orders. Received a message from Myla indicated, they can't accept patient until they know what the actual dressing changes entail. Spoke to nurse, Cyndi, was unable to see any wound orders, she indicated that they are doing daily dressing changes with gauze. Spoke to JIM Daigle in ortho, indicated that dressing changes can be every other day, or three times a week with telfa and Kerlix. Asked if they could place this in the DC Summar, patient could DC tomorrow. P: DCP to continue to follow. Referral placed at [facility], pending referral upon dressing change orders, will need to be placed in the DC Summary, have face to face and orders completed. Lavonne Adams RN/Canvas Cutter
[2023-01-22] MEDS: RIVAROXABAN 10 MG TABLET 20 MG PO (16:00)
--- NOTE | 2023-01-22 16:04 | PC.NURSE ---
Pt A/O, denies discomfoprt/ Right foot dsg CDI. Pt states he has no feeling in foot. SL intact/patent. Recieved IV Lasix as per orders. for 1-2+ edema on feet. Condom cath intact/patent. Resting at intervals. Call light w/in reach, bed alarm on for pt safety. Continue w/plan of care.
[2023-01-22] MEDS: FUROSEMIDE 60 MG in SODIUM CHLORIDE 0.9% 50 ML 112 MG IV (16:08)
--- NOTE | 2023-01-22 17:47 | PM.PN.1 ---
Subjective Subjective Date Patient Seen: 01/22/23 Time Patient Seen: 08:00 Interval history: He denies any shortness of breath. However when watching him he does have increased work of breathing and has difficulty completing full sentences. Exam Vital Signs (past 8 hours): Oxygen Delivery Method Nasal Cannula Oxygen Flow Rate 0 Narrative Exam Narrative: GEN: no acute distress, pleasant male CV: regular rate and rhythm, no murmurs PULM: decreased breath sounds ABD: soft, nontender, nondistended, no organomegaly EXT: L great toe wrapped in guaze, 2+ edema to knees bilaterally NEURO: awake, alert, oriented, no focal deficits Objective Labs 01/22/23 05:48 01/22/23 05:48 Labs: Laboratory Results - last 24 hr 01/22/23 05:48 WBC 7.5 RBC 2.22 L Hgb 7.4 L Hct 23.0 L MCV 103.3 H MCH 33.4 MCHC 32.4 RDW 22.5 H Plt Count 351 Neut % (Auto) 77.3 H Lymph % (Auto) 10.0 L [place] % (Auto) 11.0 Eos % (Auto) 1.2 L Baso % (Auto) 0.5 Neut # (Auto) 5800 Lymph # (Auto) 700 L [place] # (Auto) 800 Eos # (Auto) 100 Baso # (Auto) 0 Platelet Estimate Adequate on smear RBC Morphology See below Anisocytosis 2+ H Microcytosis 1+ H Macrocytosis 2+ H Tear Drop Cells 1+ H Ovalocytes 1+ H Sodium 133 L Potassium 3.9 Chloride 96 L Carbon Dioxide 30 BUN 32 H Creatinine 1.40 H Estimated GFR 50 L BUN/Creatinine Ratio 22.9 H Glucose 137 H Calcium 8.4 PFSH Medical History Neuropathy COPD (chronic obstructive pulmonary disease) Myelofibrosis CHF (congestive heart failure) Edema Acid reflux HTN (hypertension) Osteoarthritis Arthritis HLD (hyperlipidemia) Cardiomyopathy Afib Surgical History Hx of tonsillectomy History of arthroplasty of left shoulder History of bilateral hip arthroplasty History of arthroplasty of right shoulder Hx of shoulder surgery Hx of laminectomy History of lumbar surgery (03/25/15) Social History household members: spouse Smoking Status: Former smoker alcohol intake: current Assessment & Plan Assessment & Plan narrative: (1) 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 Can discharge on ciprofloxacin or levofloxacin at discharge, continue zosyn until discharge. (2) Hypertension: held coreg initially but now resumed. (3) Chronic atrial fibrillation: - now restarted on corge and xarelto. (4) Acute on chronic HF (congestive heart failure), with acute respiratory failure with hypoxia. - unknown EF, ordered echo - has continued on torsemide at home dose - on 01/21 got extra dose of metolazone which did not improve his oxygen requirement -ordered 60 IV lasix on 01/22 remove more fluid - CXR with some vascular congestion and pleural effusion. will assess response in hopes of improvement in oxygenation so that he may discharge home. (5) HLD (hyperlipidemia): (6) Acid reflux: continue ppi (7) COPD (chronic obstructive pulmonary disease): Albuterol as needed Quality VTE Deep Vein Thrombosis/Pulmonary Embolism Present on Admission: No
--- NOTE | 2023-01-22 17:49 | DI.ECHO.S_ITS ---
[place] [facility]---------+ [facility] +---------+ : : [address] : : : : [id number] : : : : Phone: [phone] Echocardiogram Report + + :Name: SAMIR SAL Study Date: 01/23/2023 Height: 70 in : :[facility] ReadingLocation: Weight: 228 lb : : Gender: Male BSA: 2.2 m2 : :: 1940 Age: 82 yrs BP: 126/63 mmHg: :Reason For Study: CONGESTIVE HEART FAILURE : :Ordering Physician: ZACHARY, : :ARTHUR Performed By: Debbie Adamson : :Referring: ARTHUR SHARMA : + + Interpretation Summary There is mild concentric left ventricular hypertrophy. The ejection fraction is estimated to be 55-60%. The interventricular septum is flattened, consistent with a right ventricular pressure/volume condition. Diastolic function could not be accurately assessed due to atrial fibrillation. The right ventricle is severely dilated. Right ventricular systolic function is moderately reduced. The left atrium is severely dilated. There is moderate mitral regurgitation. There is trace aortic regurgitation. There is severe tricuspid regurgitation. The right ventricular systolic pressure is estimated to be at least 63 mmHg based on an estimated right atrial pressure of 15 mm Hg. Procedure: A two-dimensional transthoracic echocardiogram with color flow and Doppler was performed. The study quality was technically adequate. There is no prior echocardiogram noted for this patient. The patient was in atrial fibrillation with heart rates between 72-92 bpm during the exam. Left Ventricle: The left ventricle is normal in size. There is mild concentric left ventricular hypertrophy. The ejection fraction is estimated to be 55-60%. The interventricular septum is flattened, consistent with a right ventricular pressure/volume condition. Diastolic function could not be accurately assessed due to atrial fibrillation. Right Ventricle: The right ventricle is severely dilated. Right ventricular systolic function is moderately reduced. Atria: The left atrium is severely dilated. There is no Doppler evidence for an interatrial shunt. Mitral Valve: The mitral valve leaflets appear mildly thickened, but open well. There is mild mitral annular calcification. There is moderate mitral regurgitation. Aortic Valve: The aortic valve opens well. There is no aortic valve stenosis. There is trace aortic regurgitation. Tricuspid Valve: The tricuspid valve leaflets are thin and pliable. There is severe tricuspid regurgitation. The right ventricular systolic pressure is estimated to be at least 63 mmHg based on an estimated right atrial pressure of 15 mm Hg. Pulmonic Valve: The pulmonic valve leaflets are thin and pliable; valve motion is normal. There is mild pulmonic regurgitation. Great Vessels: The aortic root is normal size. The ascending aorta is at the upper limits of normal in size. The IVC is dilated (diameter is greater than 2.1 cm) and it collapses less than 50% with a sniff. This suggests a high right atrial pressure of 15 mm Hg. There is hepatic vein flow reversal. Pericardium/ Pleura There is no pericardial effusion. There is no pleural effusion. MMode/2D Measurements & Calculations LVIDd: 5.2 cm LVOT diam: 2.2 cm LVIDs: 3.8 cm Ao root diam: 3.7 cm FS: 26.7 % asc Aorta Diam: 3.9 cm EPSS: 0.92 cm IVSd: 1.2 cm LVPWd: 1.1 cm LV mayes. diameter/BSA (cm/m^2): 2.4 LV sys. diameter/BSA (cm/m^2): 1.7 LA A2 area: 33.7 cm2 RA long axis: 8.5 cm LA A4 area: 36.9 cm2 RA area: 37.8 cm2 LA length (vol): 8.6 cm RA vol: 142.7 ml LA vol: 122.2 ml RA : 64.7 ml/m2 LA vol index: 55.4 ml/m2 IVC diam: 2.6 cm RVD1 (basal): 5.5 cm RV Mid_phl: 5.0 cm TAPSE: 1.7 cm Doppler Measurements & Calculations Ao V2 max: 129.5 cm/sec LVOT Max Willi: 85.0 cm/sec Ao V2 mean: 86.2 cm/sec LV V1 max P.9 mmHg Ao max P.7 mmHg LV V1 VTI: 15.3 cm Ao mean P.4 mmHg NAOMIE(I,D): 2.5 cm2 Ao V2 VTI: 23.1 cm NAOMIE(V,D): 2.5 cm2 sev ratio: 0.66 NAOMIE indexed to BSA (cm^2/m^2): 1.1 MV E max willi: 142.1 cm/sec TR max willi: 344.5 cm/sec MV A max willi: 1.8 cm/sec TR max P.5 mmHg MV E/A: 77.5 PA V2 max: 87.0 cm/sec Med Peak E' Willi: 10.0 cm/sec PA V2 mean: 59.6 cm/sec E/E' med: 14.2 PA mean P.6 mmHg Lat Peak E' Willi: 14.9 cm/sec PA pr(Accel): 43.0 mmHg E/E' lat: 9.6 E/e' average: 11.9 MV dec time: 0.21 sec SV(LVOT): 57.3 ml Reading Physician:12:08 PM
[2023-01-22 20:09] VITALS: BP 118/64; PULSE 97; RESP 18; TEMP 36.7; O2SAT 92
[2023-01-22] MEDS: DIGOXIN 0.125 MG TABLET 0.25 MG PO (20:25)
[2023-01-22] MEDS: SENNOSIDES 8.6 MG TABLET 17.2 MG PO (20:25)
[2023-01-22] MEDS: DULOXETINE 30 MG CAPSULE PO (20:25)
[2023-01-23] MEDS: ACETAMINOPHEN 325 MG TABLET 650 MG PO ×2 (03:47→15:40)
[2023-01-23] MEDS: PANTOPRAZOLE DR 20 MG TABLET PO (05:19)
[2023-01-23 06:35] LABS: BUN Creatinine Ratio 26.9 (6-22); Blood Urea Nitrogen 32 mg/dL (9-20); Calcium 8.7 mg/dL (8.4-10.2); Carbon Dioxide 33 mmol/L (22-32); Chloride 96 mmol/L (98-107); Estimated Glomerular Filt Rate > 60 mL/min (>60); Glucose 114 mg/dL (80-110); HEMOLYSIS < 15 (0-50); Potassium 3.1 mmol/L (3.4-5.1); Sodium 133 mmol/L (137-145)
[2023-01-23 06:45] LABS: Add Manual Diff / Slide Review NO; Basophils Absolute Auto 100 /uL (0-100); Basophils Percent Auto 0.9 % (0-2); Eosinophils Absolute Auto 100 /uL (0-450); Eosinophils Percent Auto 1.8 % (2-4); Hematocrit 22.1 % (41-53); Hemoglobin 7.2 g/dL (13.5-17.5); Lymphocytes Absolute Auto 600 /uL (1100-4500); Lymphocytes Percent Auto 8.1 % (25-40); Mean Corpuscular HGB Conc 32.7 % (30-36); Mean Corpuscular Volume 104.1 fL (80-100); Monocytes Absolute Auto 800 /uL (0-900); Neutrophils Absolute Auto 5700 /uL (1500-7000); Neutrophils Percent Auto 78.2 % (50-75); Platelet Count 357 X10^3/uL (150-400); Red Blood Cell Count 2.13 X10^6/uL (4.5-5.9); Red Cell Distribution Width 21.8 % (11.6-14.8); White Blood Cell Count 7.4 X10^3/uL (4.5-11.0)
[2023-01-23 07:00] LABS: Anisocytosis 2+; Macrocytosis 2+; Microcytosis 1+; Ovalocytes 1+; Polychromasia 1+
[2023-01-23] MEDS: POTASSIUM CHLORIDE 20 MEQ/15 ML UDC 40 MEQ PO ×2 (07:06→14:10)
[2023-01-23 08:15] VITALS: BP 126/63; PULSE 77; RESP 20; TEMP 36.3; O2SAT 96
[2023-01-23 08:47] VITALS: O2SAT 96
[2023-01-23] MEDS: SODIUM CHLORIDE 0.9% FLUSH 10 ML IV ×2 (10:00→20:52)
[2023-01-23] MEDS: polyethylene glycoL 3350 17 GM POWD.PACK PO (10:00)
[2023-01-23] MEDS: CHOLECALCIFEROL (VITAMIN D3) 1,000 UNIT TABLET 2000 UNIT PO (10:00)
[2023-01-23] MEDS: DOCUSATE 100 MG CAPSULE PO ×2 (10:00→20:47)
[2023-01-23] MEDS: carvediloL 3.125 MG TABLET 6.25 MG PO ×2 (10:00→20:47)
[2023-01-23] MEDS: MULTIVITAMIN 1 TABLET 1 TAB PO (10:00)
[2023-01-23] MEDS: GABAPENTIN 300 MG CAPSULE PO ×2 (10:00→20:47)
--- NOTE | 2023-01-23 10:28 | PM.PN.1 ---
Exam Vital Signs (past 8 hours): - 01/23/23 08:15 01/23/23 08:47 Temperature 97.3 F L Pulse Rate 77 Respiratory Rate 20 Blood Pressure 126/63 Pulse Oximetry 96 96 Oxygen Delivery Method Nasal Cannula Oxygen Flow Rate 3 3 Oxygen Delivery Method Nasal Cannula Oxygen Flow Rate 3 Objective Labs 01/23/23 05:56 01/23/23 05:56 Labs: Laboratory Results - last 24 hr 01/23/23 05:56 WBC 7.4 RBC 2.13 L Hgb 7.2 L Hct 22.1 L MCV 104.1 H MCH 34.0 MCHC 32.7 RDW 21.8 H Plt Count 357 Neut % (Auto) 78.2 H Lymph % (Auto) 8.1 L [place] % (Auto) 11.0 Eos % (Auto) 1.8 L Baso % (Auto) 0.9 Neut # (Auto) 5700 Lymph # (Auto) 600 L [place] # (Auto) 800 Eos # (Auto) 100 Baso # (Auto) 100 RBC Morphology See below Polychromasia 1+ H Anisocytosis 2+ H Microcytosis 1+ H Macrocytosis 2+ H Ovalocytes 1+ H Sodium 133 L Potassium 3.1 L Chloride 96 L Carbon Dioxide 33 H BUN 32 H Creatinine 1.19 Estimated GFR > 60 BUN/Creatinine Ratio 26.9 H Glucose 114 H Calcium 8.7 PFSH Medical History Neuropathy COPD (chronic obstructive pulmonary disease) Myelofibrosis CHF (congestive heart failure) Edema Acid reflux HTN (hypertension) Osteoarthritis Arthritis HLD (hyperlipidemia) Cardiomyopathy Afib Surgical History Hx of tonsillectomy History of arthroplasty of left shoulder History of bilateral hip arthroplasty History of arthroplasty of right shoulder Hx of shoulder surgery Hx of laminectomy History of lumbar surgery (03/25/15) Social History household members: spouse Smoking Status: Former smoker alcohol intake: current Assessment & Plan Assessment & Plan narrative: Patient is admitted after surgery. Patient has been stable and progressing with physical therapy. POD#3 s/p left great toe amputation. Patient is neurovascularly intact on exam. Patient has no signs or symptoms of DVT. Patient's dressing is clean dry and intact. May discharge when medically optimized per medicine team. Post op shoe to LLE when ambulating. Quality VTE Deep Vein Thrombosis/Pulmonary Embolism Present on Admission: No
[2023-01-23] MEDS: FUROSEMIDE 60 MG in SODIUM CHLORIDE 0.9% 50 ML 112 MG IV ×2 (11:02→20:41)
[2023-01-23] MEDS: levoFLOXacin 250 MG TABLET 750 MG PO (11:03)
--- NOTE | 2023-01-23 12:03 | PT.IPTN ---
Current Diagnoses Hyperlipidemia, unspecified (01/18/23) Essential (primary) hypertension (01/18/23) Chronic atrial fibrillation (01/18/23) Chronic obstructive pulmonary disease, unspecified (01/18/23) Gastro-esophageal reflux disease without esophagitis (01/18/23) Non-pressure chronic ulcer of other part of left foot with necrosis of bone (01/18/23) Osteomyelitis, unspecified (01/18/23) Surgery Performed Operation Date: 01/20/23 13:45 Actual Procedures p Great Toe Amputation(Left) - Medina Ireland MD Physical Therapy Treatment Note M2 PT-IP Current Condition Start: 01/21/23 12:20 Freq: NEEDED Status: Active Protocol: Document 01/21/23 10:26 AB (Rec: 01/21/23 12:46 AB [id number]) Physical Therapy Current Condition Current Condition Evaluation Date 01/21/23 Treatment Diagnosis s/p L great toe amputation; difficulty in walking Onset Date 01/18/23 M3 PT-IP Subjective Start: 01/21/23 12:20 Freq: NEEDED Status: Active Protocol: Document 01/23/23 11:35 KS (Rec: 01/23/23 12:35 KS [id number]) Subjective Physical Therapy Visit Type Type Treatment Note Visit Start Time 11:35 Visit Stop Time 12:03 Total Visit Minutes 28 Number of SLATE WORKER Visits 2 Physical Therapy Visit Comments Patient Comments Pt found resting in bed, is agreeable to PT. M4 PT-IP Mobility and Gait Start: 01/21/23 12:20 Freq: NEEDED Status: Active Protocol: Document 01/23/23 11:35 KS (Rec: 01/23/23 12:35 KS [id number]) PT-Bed Mobility Assessment Supine to Sit Supine to Sit Maximum Assistance,1 Person Assistance Sit to Supine Sit to Supine Maximum Assistance,1 Person Assistance Scooting Scooting to Edge of Bed Contact Guard Assistance PT-Transfer Assessment Sit to and From Stand Sit to and from Stand Moderate Assistance,Maximum Assistance,1 Person Assistance ,Use of Upper Extremities Equipment Transfer Assistive Device Gait Belt,Front Wheeled Walker Orthotic/Prosthetic Devices or Brace: No Transfers Transfer Destination Bed Transfer Technique side steps Transfer Ability Level of Assist Moderate Assistance,Maximum Assistance,1 Person Assistance ,Use of Upper Extremities Comments Mobility Comments Pt in bed upon arrival, agreeable to work w/ PT. Max A for sup<>Sit w/ HOB slightly elevated. Pt able to use bed rail to scoot EOB CGA. Mod to Max A for sit<>stand using FWW . Pt stood a total of three times and required the same level of assistance each time. On first stand he practiced upright posture and quad activation. On the second stand, he was able to take 4 small side steps towards the HOB w/ Min A and on the last stand he practiced marching in place. He was unable to elevate his RLE high enough to clear a step and with each stance pt had very quick approach to fatigue and required a few minutes rest sitting EOB before standing again. Max A for LE elevation into bed. Pt left in bed w/ all needs in reach. Gait Assessment Gait Gait Assistance Required: Minimum Assistance,Moderate Assistance,1 Person Assist Distance (Feet) 4 Able to Maintain Weight Bearing Status Yes During Gait Assistive Devices Assistive Device Gait Belt,Front Wheeled Walker Orthotic/Prosthetic Devices or Brace: No Gait Deviations General Gait Pattern Antalgic,Ataxic,Decreased Stride Length,Decreased Feet Clearance,Flexed Trunk,Step-to Gait Factors Limiting Gait Function Factors Limiting Gait Function Decreased Activity Tolerance, Decreased Strength,Limited Range of Motion,Poor Balance, Poor Safety Awareness Comments Gait Comments See mobility comments, difficulty w/ knee extension and quick approach to fatigue. Stair Climbing Assessment Comments Stair Climbing Comments Unsafe at this time PT-Balance Assessment Sitting Balance and Reactions Static Sitting Balance Ability Fair Dynamic Sitting Balance Ability Fair Standing Balance and Reactions Static Standing Balance Ability Poor Dynamic Standing Balance Ability Poor Device Used FWW M5 PT-IP Objective Assessments Start: 01/21/23 12:20 Freq: NEEDED Status: Active Protocol: Document 01/21/23 10:26 AB (Rec: 01/21/23 12:46 AB [id number]) Orientation Orientation/Cognition Level of Alertness Alert Orientation Name,Place,Situation Language Function Ability Hard of Hearing Safety Awareness Decreased Safety Awareness Memory Description No Deficits Noted Gross Range of Motion Lower Extremity ROM Assessment Within Functional Limits Strength Lower Extremity Strength Assessment Bilaterally Impaired Comments Strength Comments RLE: 3+/5 LLE 4-/5 Sensation Assessment Sensation Gross Sensation Right LE Impaired,Left LE Impaired Sensation Description Numbness Comments Sensation Comments pt has bilateral LE neuropathies Muscle Tone Muscle Tone WNL Yes M6 PT-IP Treatment Start: 01/21/23 12:20 Freq: NEEDED Status: Active Protocol: Document 01/23/23 11:35 KS (Rec: 01/23/23 12:35 KS [id number]) Physical Therapy Treatment Education Education Provided Precautions,Weight Bearing Status,Safety Equipment Issued Equipment Type and Company front off loading post op shoe : [employer] - [employer] M7 PT-IP Assessment and Plan Start: 01/21/23 12:20 Freq: NEEDED Status: Active Protocol: Document 01/23/23 11:35 KS (Rec: 01/23/23 12:35 KS [id number]) PT Summary Assessment and Plan Potential Rehabilitation Potential Fair Summary Impairments Pain,ROM,Strength,Balance, Coordination,Sensation,Tone, Cognition,Bed Mobility, Transfers,Gait,Activity Tolerance Progress Towards Goals Slow Progress due to Medical Issues,Slow Progress due to Activity Tolerance Assessment Summary Pt remains limited by weakness , poor balance, and low tolerance for activity. He performed sit<>Stand x3 with Mod to Max A for each, and short bout of marching in place and side steps however requires seated rest breaks in between, had poor balance, and was unable to elevate LE high enough for step. Recommend SNF but pt and refusing at this time. Pt is high fall risk and uses a SPC. Goals Bed Mobility Goal Minimal Assistance Transfer Goal Minimal Assistance,Front Wheeled Walker Gait Goal Minimal Assistance,Front Wheel Walker Gait Distance 25 Other Goals improve bed mobility, transfers and ambulation using LRAD ~ 100 ft SBA up/down 2 platform steps using FWW SBA Days to Meet Goals 10 Frequency of Treatment Frequency Of Treatment Once a Day Treatment Plan Physical Therapy Treatment Plan Bed Mobility Training,Transfer Training,Gait Training, Therapeutic Exercise,Balance Retraining,Post Op Education, Discharge Planning,Hot or Cold Pack,Neuromuscular Re-ed, Coordination Retraining,Manual Therapy Other Recommendations and Next Treatment ambulation, bed mobility, Focus caregiver training and stair training when appropriate Precautions Brace LLE: front off loading post-op shoe Other Precautions falls Weight Bearing Status Weight Bearing Status Weight Bear as Tolerated Allowed Weight Bearing Amount (enter % WBAT on LLE with post-op shoe or #) (%) Recommendations To Nursing Amount of Assist Needed 2 Person Assist Discharge Recommendations PT Discharge Recommendations SNF Rehab Equipment Needed for Home Before FWW Discharge Transportation Needs at Discharge Wheelchair/Cabulance
--- NOTE | 2023-01-23 13:35 | CM.DPC ---
DCP Home with HH planning Per Ortho, pt doing well post toe amputation and can d/c when Hospitalists determines pt medically stable to d/c. Per MD, pt still fluid overload and getting further diuresis today and not yet medically stable to d/c but able to switch to PO abx today, likely d/c tomorrow Mon. Per PT and RN, pt has improved some today with requiring less assist with sit to stand and able to use FWW for mobility and most assist needed with transfers and bed mobility. SW met bedside with pt and spouse and explained role and updated that [facility] left msg confirming they can accept pt's referral and pt and spouse very appreciative. SW confirmed that they still refuse SNF and want to discharge tomorrow 01/24/23 around 1215 in order to make it to pt's scheduled [facility] in [place] for his regular iron infusion and shot at 1330. Spouse states she has placed calls to their local supportive neighbors to set up assist to get pt into the home after his Infusion appointment tomorrow and spouse plans to contact [facility] and [facility] CG agencies after pt discharges to set up more consistent in-home assist so that she can get to her own outpt appointments and have breaks as she is nearing some CG burnout. Plan: SW to follow closely in AM that pt medically stable to d/c and that discharge orders are placed with Ortho PA putting in d/c summary the wound care dressing needs to send to [facility] towards plan of d/c via spouse POV around 1215 to get to pt's outpt infusion appointment. LEW eLwis
--- NOTE | 2023-01-23 14:25 | P.PN_ITS ---
Subjective Subjective Date Patient Seen: 01/23/23 Interval history: Pt was admitted with lt great toe ulceration and osteo (polymicrobial), s/p amputation. He has 4+ LE edema. Denies dyspnea. getting diuresed. Currently on 3 L O2. Exam Vital Signs (past 8 hours): - 01/23/23 08:15 01/23/23 08:47 Temperature 97.3 F L Pulse Rate 77 Respiratory Rate 20 Blood Pressure 126/63 Pulse Oximetry 96 96 Oxygen Delivery Method Nasal Cannula Oxygen Flow Rate 3 3 Oxygen Delivery Method Nasal Cannula Oxygen Flow Rate 3 Narrative Exam Narrative: Gen: alert, NAD Lungs: clear Ext: 4+ edema LEs Objective Labs 01/23/23 05:56 01/23/23 05:56 Labs: Laboratory Results - last 24 hr 01/23/23 05:56 WBC 7.4 RBC 2.13 L Hgb 7.2 L Hct 22.1 L MCV 104.1 H MCH 34.0 MCHC 32.7 RDW 21.8 H Plt Count 357 Neut % (Auto) 78.2 H Lymph % (Auto) 8.1 L [place] % (Auto) 11.0 Eos % (Auto) 1.8 L Baso % (Auto) 0.9 Neut # (Auto) 5700 Lymph # (Auto) 600 L [place] # (Auto) 800 Eos # (Auto) 100 Baso # (Auto) 100 RBC Morphology See below Polychromasia 1+ H Anisocytosis 2+ H Microcytosis 1+ H Macrocytosis 2+ H Ovalocytes 1+ H Sodium 133 L Potassium 3.1 L Chloride 96 L Carbon Dioxide 33 H BUN 32 H Creatinine 1.19 Estimated GFR > 60 BUN/Creatinine Ratio 26.9 H Glucose 114 H Calcium 8.7 PFSH Medical History Neuropathy COPD (chronic obstructive pulmonary disease) Myelofibrosis CHF (congestive heart failure) Edema Acid reflux HTN (hypertension) Osteoarthritis Arthritis HLD (hyperlipidemia) Cardiomyopathy Afib Surgical History Hx of tonsillectomy History of arthroplasty of left shoulder History of bilateral hip arthroplasty History of arthroplasty of right shoulder Hx of shoulder surgery Hx of laminectomy History of lumbar surgery (03/25/15) Social History household members: spouse Smoking Status: Former smoker alcohol intake: current Assessment & Plan Assessment & Plan narrative: (1) 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 Can discharge on ciprofloxacin or levofloxacin at discharge, continue zosyn until discharge. Stopped Zosyn on 01/23 and started Levaquin 750 mg po daily (10 - 14 day course) (2) Hypertension: held coreg initially but now resumed with good control (3) Chronic atrial fibrillation: - now restarted on corge and xarelto. (4) Acute on chronic diastolic HF (congestive heart failure), with acute respiratory failure with hypoxia. - ECHO: EF 55-60%, flattened interventricular septum c/w volume overload - has continued on torsemide at home dose - on 01/21 got extra dose of metolazone which did not improve his oxygen requirement -ordered 60 IV lasix on 01/22 remove more fluid - CXR with some vascular congestion and pleural effusion. will assess response in hopes of improvement in oxygenation so that he may discharge home. - cont Lasix 60 mg IV bid + metolazone 2.5 mg qd (5) HLD (hyperlipidemia): (6) Acid reflux: continue ppi (7) COPD (chronic obstructive pulmonary disease): Albuterol as needed DISP: PT is recommending SNF rehab but pt has been insistent on going home. Poss disch Tuesday depending on leg edema and resp status. Quality VTE Deep Vein Thrombosis/Pulmonary Embolism Present on Admission: No
[2023-01-23] MEDS: RIVAROXABAN 10 MG TABLET 20 MG PO ×2 (17:59→18:01)
[2023-01-23 20:46] VITALS: BP 131/59; PULSE 83
[2023-01-23] MEDS: DIGOXIN 0.125 MG TABLET 0.25 MG PO (20:46)
[2023-01-23 20:47] VITALS: BP 131/59; PULSE 83
[2023-01-23] MEDS: DULOXETINE 30 MG CAPSULE PO (20:47)
[2023-01-23] MEDS: SENNOSIDES 8.6 MG TABLET 17.2 MG PO (20:47)
[2023-01-23 20:48] VITALS: BP 131/59; PULSE 84; RESP 18; TEMP 36.6; O2SAT 95
[2023-01-24] VITALS (11 sets, daily range): BP systolic 109–133; BP diastolic 46–68; PULSE 68–90; RESP 16–19; TEMP 36.1–36.8; O2SAT 95–98
[2023-01-24 05:11] LABS: Add Manual Diff / Slide Review NO; BUN Creatinine Ratio 30.1 (6-22); Basophils Absolute Auto 100 /uL (0-100); Basophils Percent Auto 1.8 % (0-2); Blood Urea Nitrogen 31 mg/dL (9-20); Calcium 8.8 mg/dL (8.4-10.2); Carbon Dioxide 36 mmol/L (22-32); Chloride 95 mmol/L (98-107); Eosinophils Absolute Auto 100 /uL (0-450); Eosinophils Percent Auto 1.8 % (2-4); Estimated Glomerular Filt Rate > 60 mL/min (>60); Glucose 121 mg/dL (80-110); HEMOLYSIS < 15 (0-50); Hematocrit 21.8 % (41-53); Lymphocytes Absolute Auto 400 /uL (1100-4500); Lymphocytes Percent Auto 7.1 % (25-40); Mean Corpuscular HGB Conc 32.2 % (30-36); Mean Corpuscular Hemoglobin 33.6 PG (26-34); Mean Corpuscular Volume 104.1 fL (80-100); Monocytes Absolute Auto 800 /uL (0-900); Monocytes Percent Auto 12.4 % (3-14); Neutrophils Absolute Auto 4700 /uL (1500-7000); Neutrophils Percent Auto 76.9 % (50-75); Platelet Count 332 X10^3/uL (150-400); Potassium 3.3 mmol/L (3.4-5.1); Red Cell Distribution Width 21.8 % (11.6-14.8); Sodium 134 mmol/L (137-145)
[2023-01-24 05:31] LABS: Anisocytosis 2+; Macrocytosis 2+; Microcytosis 1+; Ovalocytes 1+; Tear Drop Cells 1+
[2023-01-24] MEDS: PANTOPRAZOLE DR 20 MG TABLET PO (06:02)
[2023-01-24] MEDS: levoFLOXacin 250 MG TABLET 750 MG PO (06:02)
[2023-01-24] MEDS: GABAPENTIN 300 MG CAPSULE PO ×2 (08:16→20:25)
[2023-01-24] MEDS: DOCUSATE 100 MG CAPSULE PO ×2 (08:16→20:25)
[2023-01-24] MEDS: carvediloL 3.125 MG TABLET 6.25 MG PO ×2 (08:17→20:24)
[2023-01-24] MEDS: CHOLECALCIFEROL (VITAMIN D3) 1,000 UNIT TABLET 2000 UNIT PO (08:17)
[2023-01-24] MEDS: MULTIVITAMIN 1 TABLET 1 TAB PO (08:18)
[2023-01-24] MEDS: FUROSEMIDE 60 MG in SODIUM CHLORIDE 0.9% 50 ML 112 MG IV ×2 (08:20→20:23)
[2023-01-24] MEDS: metOLazone 2.5 MG TABLET PO (08:21)
[2023-01-24] MEDS: SODIUM CHLORIDE 0.9% FLUSH 10 ML IV ×2 (08:21→20:26)
[2023-01-24] MEDS: POTASSIUM CHLORIDE 20 MEQ TAB 40 MEQ PO ×2 (10:56→16:25)
--- NOTE | 2023-01-24 13:46 | CM.DPNOTE ---
DCP Note PIPELINE INSPECTOR reviewed EMR. Per provider, patient not medically stable to dc today due to oxygen needs. Per previous CM note, ortho reports dressing should be changed 3x per week and the discharging provider will need to add that in pt's discharge summary to send to [facility] . Per previous CM note, pt has spouse and neighbors to help with needs at discharge. Spoke with Myla from [facility] . Reported that patient is still here. RUSH Sellers kindly agreed to email face to face and order at this time to [facility] for their review. [facility] needs signed dc summary at discharge with the specific dressing instructions in discharge summary. Plan: home with spouse when medically stable. [facility] to follow CM team will continue to follow closely. LEW Virgen
--- NOTE | 2023-01-24 14:30 | P.PN_ITS ---
Subjective Subjective Date Patient Seen: 01/24/23 Time Patient Seen: 14:30 Interval history: Mr Hess is a pleasant 82 yo male who was sitting up comfortably in a chair today with his at his side. They were hopeful he would discharge today, but he has a number of medical issues that still need to be addressed prior to discharge. It sounds like they are anxious to speak to the hospitalist today. Exam Vital Signs (past 8 hours): - 01/24/23 07:58 01/24/23 08:00 01/24/23 08:17 Temperature 97.1 F L Pulse Rate 75 75 Respiratory Rate 16 Blood Pressure 133/61 133/60 Pulse Oximetry 97 98 Oxygen Delivery Method Nasal Cannula Oxygen Flow Rate 1.5 1 Fraction of Inspired Oxygen 26 01/24/23 12:50 01/24/23 13:10 Temperature 97.6 F 96.9 F L Pulse Rate 84 70 Respiratory Rate 18 18 Blood Pressure 109/55 L 111/46 L Pulse Oximetry Oxygen Delivery Method Oxygen Flow Rate Fraction of Inspired Oxygen Fraction of Inspired Oxygen 26 SaO2/FiO2 Ratio 373 Oxygen Delivery Method Nasal Cannula Oxygen Flow Rate 1 Narrative Exam Narrative: Pt able to move left foot at the ankle without problem, current dressing is loose but CDI. Ortho shoe in place. Sensation to light touch intact throughout foot. Objective Labs 01/24/23 04:41 01/24/23 04:41 Labs: Laboratory Results - last 24 hr 01/24/23 01/24/23 04:41 11:10 WBC 6.0 RBC 2.10 L Hgb 7.0 L Hct 21.8 L MCV 104.1 H MCH 33.6 MCHC 32.2 RDW 21.8 H Plt Count 332 Neut % (Auto) 76.9 H Lymph % (Auto) 7.1 L [place] % (Auto) 12.4 Eos % (Auto) 1.8 L Baso % (Auto) 1.8 Neut # (Auto) 4700 Lymph # (Auto) 400 L [place] # (Auto) 800 Eos # (Auto) 100 Baso # (Auto) 100 RBC Morphology See below Anisocytosis 2+ H Microcytosis 1+ H Macrocytosis 2+ H Tear Drop Cells 1+ H Ovalocytes 1+ H Sodium 134 L Potassium 3.3 L Chloride 95 L Carbon Dioxide 36 H BUN 31 H Creatinine 1.03 Estimated GFR > 60 BUN/Creatinine Ratio 30.1 H Glucose 121 H Calcium 8.8 Blood Type O Positive Antibody Screen Negative Crossmatch See Detail PFSH Medical History Neuropathy COPD (chronic obstructive pulmonary disease) Myelofibrosis CHF (congestive heart failure) Edema Acid reflux HTN (hypertension) Osteoarthritis Arthritis HLD (hyperlipidemia) Cardiomyopathy Afib Surgical History Hx of tonsillectomy History of arthroplasty of left shoulder History of bilateral hip arthroplasty History of arthroplasty of right shoulder Hx of shoulder surgery Hx of laminectomy History of lumbar surgery (03/25/15) Social History household members: spouse Smoking Status: Former smoker alcohol intake: current Assessment & Plan Post-op Assessment and plan (1) 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 Post op shoe should remain on while ambulatory to protect the surgical site until wound is completely healed. In review of CM note, it sounds like the plan is for pt to go home w/ HH who will perform dressing changes 3 times/week. Sutures should remain in place at least 3 weeks and can be removed by HHRN, PCP, or cryptologic support specialist; pt does not necessarily need to f/u with orthopedic surgery for suture removal but he may if desired. Oral antibiotics for at least 10 days. Discharge, disposition, and medication management per hospitalist service. Will sign off at this time; please reconsult orthopedic surgery as necessary. Postoperative Procedures: Procedures Operation Date: 01/20/23 13:45 Actual Procedure Side Surgeon p Great Toe Amputation Left Medina Ireland MD Postoperative day: 4 Quality VTE Deep Vein Thrombosis/Pulmonary Embolism Present on Admission: No
--- NOTE | 2023-01-24 15:39 | PT-IP ANOTE ---
Pt currently in recliner, B UEs edematous and receiving blood. Will hold PT.
--- NOTE | 2023-01-24 16:46 | PM.PN.1 ---
Subjective Subjective Date Patient Seen: 01/23/23 Interval history: Pt was admitted with lt great toe ulceration and osteo (polymicrobial), s/p amputation. LE edema. Denies dyspnea. getting diuresed. Currently on 1L O2. Hg was 7.0 today, ordered 1U PRBC transfusion in hopes that his oxygenation would improve. He would very much like to home. He is interested in continuing diuresis at home with outpatient oxygen. Ordered home O2 eval today. He did desaturate to 86% at rest, with improvement on 1L. Exam Vital Signs (past 8 hours): - 01/24/23 12:50 01/24/23 13:10 01/24/23 15:52 Temperature 97.6 F 96.9 F L 97.9 F Pulse Rate 84 70 68 Respiratory Rate 18 18 18 Blood Pressure 109/55 L 111/46 L 125/52 L Fraction of Inspired Oxygen 26 SaO2/FiO2 Ratio 373 Oxygen Delivery Method Nasal Cannula Oxygen Flow Rate 1 Narrative Exam Narrative: GEN: no acute distress, pleasant male HEENT: moist mucous membranes, PERRL NECK: trachea midline, no JVD CV: regular rate and rhythm, no murmurs PULM: clear bilaterally ABD: soft, nontender, nondistended, no organomegaly EXT: L great toe wrapped in guaze, 2-3+ edema to knees bilaterally NEURO: awake, alert, oriented, no focal deficits Objective Labs 01/24/23 04:41 01/24/23 04:41 Labs: Laboratory Results - last 24 hr 01/24/23 01/24/23 04:41 11:10 WBC 6.0 RBC 2.10 L Hgb 7.0 L Hct 21.8 L MCV 104.1 H MCH 33.6 MCHC 32.2 RDW 21.8 H Plt Count 332 Neut % (Auto) 76.9 H Lymph % (Auto) 7.1 L [place] % (Auto) 12.4 Eos % (Auto) 1.8 L Baso % (Auto) 1.8 Neut # (Auto) 4700 Lymph # (Auto) 400 L [place] # (Auto) 800 Eos # (Auto) 100 Baso # (Auto) 100 RBC Morphology See below Anisocytosis 2+ H Microcytosis 1+ H Macrocytosis 2+ H Tear Drop Cells 1+ H Ovalocytes 1+ H Sodium 134 L Potassium 3.3 L Chloride 95 L Carbon Dioxide 36 H BUN 31 H Creatinine 1.03 Estimated GFR > 60 BUN/Creatinine Ratio 30.1 H Glucose 121 H Calcium 8.8 Blood Type O Positive Antibody Screen Negative Crossmatch See Detail PFSH Medical History Neuropathy COPD (chronic obstructive pulmonary disease) Myelofibrosis CHF (congestive heart failure) Edema Acid reflux HTN (hypertension) Osteoarthritis Arthritis HLD (hyperlipidemia) Cardiomyopathy Afib Surgical History Hx of tonsillectomy History of arthroplasty of left shoulder History of bilateral hip arthroplasty History of arthroplasty of right shoulder Hx of shoulder surgery Hx of laminectomy History of lumbar surgery (03/25/15) Social History household members: spouse Smoking Status: Former smoker alcohol intake: current Assessment & Plan Assessment & Plan narrative: (1) 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 Now transitioned to Levaquin PO. (2) Hypertension: held coreg initially but now resumed with good control (3) Chronic atrial fibrillation: - now restarted on corge and xarelto. (4) Acute on chronic diastolic HF (congestive heart failure), with acute respiratory failure with hypoxia. - ECHO: EF 55-60%, flattened interventricular septum c/w volume overload - has continued on torsemide at home dose - on 01/21 got extra dose of metolazone which did not improve his oxygen requirement -ordered 60 IV lasix on 01/22 remove more fluid. - cont Lasix 60 mg IV bid + metolazone 2.5 mg qd - ordered 1U PRBC transfusion today with Hg of 7.0. Will see if improvement. (5) HLD (hyperlipidemia): (6) Acid reflux: continue ppi (7) COPD (chronic obstructive pulmonary disease): Albuterol as needed 8. Acute on chronic anemia -Hg fell to 7.0. Had been getting procrit and iron infusions as outpatient. Ordered 1U PRBC today with Hg of 7.0 and continued hypoxia. DISP: PT is recommending SNF rehab but pt has been insistent on going home. Possible discharge home tomorrow with home O2. Quality VTE Deep Vein Thrombosis/Pulmonary Embolism Present on Admission: No
[2023-01-24] MEDS: RIVAROXABAN 10 MG TABLET 20 MG PO (18:13)
[2023-01-24] MEDS: ACETAMINOPHEN 325 MG TABLET 650 MG PO (18:44)
[2023-01-24] MEDS: DIGOXIN 0.125 MG TABLET 0.25 MG PO (20:23)
[2023-01-24] MEDS: SENNOSIDES 8.6 MG TABLET 17.2 MG PO (20:24)
[2023-01-24] MEDS: DULOXETINE 30 MG CAPSULE PO (20:24)
[2023-01-25] MEDS: levoFLOXacin 250 MG TABLET 750 MG PO (06:01)
[2023-01-25] MEDS: PANTOPRAZOLE DR 20 MG TABLET PO (06:01)
[2023-01-25 06:12] LABS: Add Manual Diff / Slide Review NO; Basophils Absolute Auto 100 /uL (0-100); Basophils Percent Auto 1.7 % (0-2); Eosinophils Absolute Auto 100 /uL (0-450); Eosinophils Percent Auto 2.6 % (2-4); HEMOLYSIS < 15 (0-50); Hematocrit 24.5 % (41-53); Lymphocytes Absolute Auto 500 /uL (1100-4500); Lymphocytes Percent Auto 10.7 % (25-40); Mean Corpuscular HGB Conc 32.8 % (30-36); Mean Corpuscular Volume 100.7 fL (80-100); Monocytes Absolute Auto 600 /uL (0-900); Monocytes Percent Auto 12.4 % (3-14); Neutrophils Absolute Auto 3500 /uL (1500-7000); Neutrophils Percent Auto 72.6 % (50-75); Platelet Count 310 X10^3/uL (150-400); Potassium 3.5 mmol/L (3.4-5.1); Red Blood Cell Count 2.44 X10^6/uL (4.5-5.9); Red Cell Distribution Width 23.3 % (11.6-14.8); White Blood Cell Count 4.8 X10^3/uL (4.5-11.0)
[2023-01-25 06:13] LABS: BUN Creatinine Ratio 34.9 (6-22); Blood Urea Nitrogen 30 mg/dL (9-20); Calcium 8.8 mg/dL (8.4-10.2); Carbon Dioxide 37 mmol/L (22-32); Chloride 92 mmol/L (98-107); Estimated Glomerular Filt Rate > 60 mL/min (>60); Glucose 99 mg/dL (80-110); Magnesium 1.7 mg/dL (1.6-2.3); Sodium 134 mmol/L (137-145)
[2023-01-25 06:39] LABS: Anisocytosis 2+; Macrocytosis 2+; Microcytosis 1+; Ovalocytes 1+; Polychromasia 1+
--- NOTE | 2023-01-25 07:18 | PM.PNPO.1 ---
Subjective Subjective Date Patient Seen: 01/25/23 Time Patient Seen: 07:18 Interval history: Octavio is found lying in his bed. He has no complaints with regards to his toe. He working with physical therapy and trying to adjust to his new walking shoe. Denies any discharge coming from the foot. Says he has pre-existing swelling of his lower extremities before admission to the hospital. Since he does have some tenderness along the left calf. Exam Vital Signs (past 8 hours): Fraction of Inspired Oxygen 26 SaO2/FiO2 Ratio 373 Oxygen Delivery Method Nasal Cannula Oxygen Flow Rate 1 Narrative Exam Narrative: Dressing appears to be well-maintained no discharge coming through the bandaging. Able to dorsi and plantar flex against resistance. He has 3+ pitting pedal edema and 3+ pitting edema over the anterior tibial shaft. Tenderness to when palpating the anterior tibial shaft. Skin is cool no pain along the posterior calf. Compression device have for a wrapped around his knee. Resp Effort & Inspection: normal respiratory effort and able to speak in complete sentences Objective Labs 01/25/23 05:25 01/25/23 05:25 Labs: Laboratory Results - last 24 hr 01/24/23 01/25/23 11:10 05:25 WBC 4.8 RBC 2.44 L Hgb 8.0 L Hct 24.5 L MCV 100.7 H D MCH 33.0 MCHC 32.8 RDW 23.3 H Plt Count 310 Neut % (Auto) 72.6 Lymph % (Auto) 10.7 L [place] % (Auto) 12.4 Eos % (Auto) 2.6 Baso % (Auto) 1.7 Neut # (Auto) 3500 Lymph # (Auto) 500 L [place] # (Auto) 600 Eos # (Auto) 100 Baso # (Auto) 100 RBC Morphology See below Polychromasia 1+ H Anisocytosis 2+ H Microcytosis 1+ H Macrocytosis 2+ H Ovalocytes 1+ H Sodium 134 L Potassium 3.5 Chloride 92 L Carbon Dioxide 37 H BUN 30 H Creatinine 0.86 Estimated GFR > 60 BUN/Creatinine Ratio 34.9 H Glucose 99 Calcium 8.8 Magnesium 1.7 Blood Type O Positive Antibody Screen Negative Crossmatch See Detail [facility] Medical History Neuropathy COPD (chronic obstructive pulmonary disease) Myelofibrosis CHF (congestive heart failure) Edema Acid reflux HTN (hypertension) Osteoarthritis Arthritis HLD (hyperlipidemia) Cardiomyopathy Afib Surgical History Hx of tonsillectomy History of arthroplasty of left shoulder History of bilateral hip arthroplasty History of arthroplasty of right shoulder Hx of shoulder surgery Hx of laminectomy History of lumbar surgery (03/25/15) Social History household members: spouse Smoking Status: Former smoker alcohol intake: current Assessment & Plan Post-op Postoperative Procedures: Procedures Operation Date: 01/20/23 13:45 Actual Procedure Side Surgeon p Great Toe Amputation Left Medina Jacqueline Ireland MD Postoperative day: 5 Postoperative status: doing well Postoperative plan: routine post-op care Time Spent With Patient Time with patient: less than 15 minutes Quality VTE Deep Vein Thrombosis/Pulmonary Embolism Present on Admission: No
[2023-01-25 08:00] VITALS: O2SAT 91
[2023-01-25 08:12] VITALS: PULSE 85; O2SAT 88
[2023-01-25] MEDS: DOCUSATE 100 MG CAPSULE PO (08:41)
[2023-01-25 08:42] VITALS: BP 120/60
[2023-01-25] MEDS: GABAPENTIN 300 MG CAPSULE PO (08:42)
[2023-01-25] MEDS: MULTIVITAMIN 1 TABLET 1 TAB PO (08:42)
[2023-01-25] MEDS: carvediloL 3.125 MG TABLET 6.25 MG PO (08:42)
[2023-01-25] MEDS: CHOLECALCIFEROL (VITAMIN D3) 1,000 UNIT TABLET 2000 UNIT PO (08:42)
[2023-01-25] MEDS: FUROSEMIDE 60 MG in SODIUM CHLORIDE 0.9% 50 ML 112 MG IV (08:42)
[2023-01-25] MEDS: SODIUM CHLORIDE 0.9% FLUSH 10 ML IV (08:43)
[2023-01-25] MEDS: POTASSIUM CHLORIDE 20 MEQ TAB 40 MEQ PO (10:12)
--- NOTE | 2023-01-25 10:41 | PM.DS.1 ---
History of Present Illness History of Present Illness Date Patient Seen: 01/25/23 Chief complaint: per pt needs operation L big toe, sent by provider Narrative: Per admitting provider, 82 years old male with history of COPD, CHF, hypertension, hyperlipidemia, atrial fibrillation on Eliquis, GERD, peripheral neuropathy, cardiomyopathy presented to the ER with wound infection on the left great toe. The infection started as black spots at the tip of the left foot and progressed to his toe with increased swelling up to his leg. The patient has not had any sensation of his legs due to peripheral neuropathy. Denies any fever, chills, shortness of breath, cough, nausea, vomiting, abdominal pain, diarrhea or dysuria. He has been recently referred from a palliative nurse to wound care. Recently seen by his PCP and started on doxycycline for the toe infection and he took only 1 dose of the antibiotic. In the ER he was evaluated by orthopedic surgeon and was decided to be admitted for antibiotic and possible surgical intervention. He was given vancomycin 1.25 g and cefepime 2 g in the ED. Initial vital signs shows temperature 97.5, pulse 66, blood pressure 128/58, oxygen saturation 90% on room air. Laboratory shows WBC 7.9, H&H 7.8?24.3, platelets 356, sodium 132, potassium 3.7, creatinine 1.1, glucose 93, C-reactive protein 3.8,. X-ray of the left big toe shows healed second metatarsal neck fracture, limited evaluation of the first digit. Discharge Providers Provider Date of admission: 01/18/23 20:10 Discharge Date: 01/25/23 Primary care physician: Wilma Alberts DO Consults: 01/19/23 08:35 Consult to Orthopedic Surgery Routine Comment: Consulting Provider: Medina Ireland Reason for consultation: L great toe wound 01/20/23 15:04 Consult to Discharge Planning Routine Comment: Consult to Physical Therapy Evaluate & Treat Comment: Physician Instructions: Evaluate and Treat 01/22/23 13:01 Consult to Home Health Routine Comment: Reason For Exam: Home Health RN, P.T, O.T. 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 (5) HLD (hyperlipidemia): (6) Acid reflux: (7) COPD (chronic obstructive pulmonary disease): 8. Acute on chronic anemia Hospital Course: 82 years old male with history of COPD, CHF, hypertension, hyperlipidemia, atrial fibrillation on Eliquis, GERD, peripheral neuropathy, cardiomyopathy presented to the ER with wound infection on the left great toe. 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 These were all sensitive to levofloxacin. Orthopedic surgery performed a left 1st to partial amputation with removal of the infected bone. He was recommended for 10-14 days of antibiotics, and will discharge on another 7 days of therapy given his prolonged stay. His discharge home was complicated by post operative respiratory failure with hypoxia. The etiology of this is likely due to a diastolic heart failure exacerbation. TTE showed EF 55-60% with flattened interventricular septum consistent with volume overload. He had been dealing with worsening leg edema prior to surgery, working with cardiology on fluid removal. He was able to be weaned to only needing 0.5 - 1 L of oxygen. His chronic anemia worsened slightly with Hg falling to Hg 7.0. He was given 1U PRBC transfusion with appropriate response to 8.0 without much improvement in oxygenation. Therapies did recommend SNF placement but patient refused. We discussed on the day of discharge continued admission for diuresis, or discharge home with supplemental oxygen. He elected for discharge home with supplemental oxygen as I could not definitively tell him when he would be able to completely come off oxygen. On discharge his home torsemide was doubled to 40 mg daily, and metolazone was increased to 3x weekly from once per week. Further follow up with cardiology is recommended, along with primary care provider. He should continue to weigh himself daily. The expectatation is that he will be able to wean from supplemental oxygen, though the timing of this is unclear. For his L toe amputation, dressing changes can be every other day, or three times a week with Noris per orthopedic provider. Time Spent with Patient Time spent: Greater than 30 minutes Exam Vital Signs (past 8 hours): - 01/25/23 08:00 01/25/23 08:12 01/25/23 08:42 Pulse Rate 85 Blood Pressure 120/60 Pulse Oximetry 91 88 L Oxygen Delivery Method Room Air Room Air Oxygen Flow Rate 0 0 Fraction of Inspired Oxygen 21 Fraction of Inspired Oxygen 21 SaO2/FiO2 Ratio 419 Oxygen Delivery Method Room Air Oxygen Flow Rate 0 Narrative Exam Narrative: GEN: no acute distress, pleasant male HEENT: moist mucous membranes, PERRL NECK: trachea midline, no JVD CV: regular rate and rhythm, no murmurs PULM: clear bilaterally ABD: soft, nontender, nondistended, no organomegaly EXT: L great toe wrapped in guaze, 2-3+ edema to knees bilaterally NEURO: awake, alert, oriented, no focal deficits Objective Labs 01/25/23 05:25 01/25/23 05:25 Labs: Laboratory Results - last 24 hr 01/24/23 01/25/23 11:10 05:25 WBC 4.8 RBC 2.44 L Hgb 8.0 L Hct 24.5 L MCV 100.7 H D MCH 33.0 MCHC 32.8 RDW 23.3 H Plt Count 310 Neut % (Auto) 72.6 Lymph % (Auto) 10.7 L [place] % (Auto) 12.4 Eos % (Auto) 2.6 Baso % (Auto) 1.7 Neut # (Auto) 3500 Lymph # (Auto) 500 L [place] # (Auto) 600 Eos # (Auto) 100 Baso # (Auto) 100 RBC Morphology See below Polychromasia 1+ H Anisocytosis 2+ H Microcytosis 1+ H Macrocytosis 2+ H Ovalocytes 1+ H Sodium 134 L Potassium 3.5 Chloride 92 L Carbon Dioxide 37 H BUN 30 H Creatinine 0.86 Estimated GFR > 60 BUN/Creatinine Ratio 34.9 H Glucose 99 Calcium 8.8 Magnesium 1.7 Blood Type O Positive Antibody Screen Negative Crossmatch See Detail [facility] Medical History Neuropathy COPD (chronic obstructive pulmonary disease) Myelofibrosis CHF (congestive heart failure) Edema Acid reflux HTN (hypertension) Osteoarthritis Arthritis HLD (hyperlipidemia) Cardiomyopathy Afib Surgical History Hx of tonsillectomy History of arthroplasty of left shoulder History of bilateral hip arthroplasty History of arthroplasty of right shoulder Hx of shoulder surgery Hx of laminectomy History of lumbar surgery (03/25/15) Social History household members: spouse Smoking Status: Former smoker alcohol intake: current Discharge Plan Discharge Plan Patient Disposition: Home Health Service Provider Discharge Comment: You were admitted to the hospital with a foot infection that made it into the bone. This bone was removed by orthopedic surgery. Continue antibiotics at home for another few days. Follow up with orthopedic surgery as an outpatient. With regards to your need for continued oxygen, this is likely due to fluid overload. Some of your diuretics were increased to help continue to remove fluid. Continue to work with cardiology and PCP on medication adjustments with continued femoval of fluid. Discharge orders & Medications Prescriptions: New carvedilol 6.25 mg tablet 6.25 mg PO BID 30 Days Qty: 60 0RF levofloxacin 750 mg tablet 750 mg PO 0700 7 Days Qty: 7 0RF metolazone 2.5 mg Tablet 2.5 mg PO 3XW 30 Days Qty: 13 0RF torsemide 20 mg tablet 40 mg PO DAILY 30 Days Qty: 60 0RF Continued digoxin 250 mcg (0.25 mg) Tablet 250 mcg PO BEDTIME Xarelto 20 mg Tablet 20 mg PO QPM Multi-Vitamins with Iron Tablet,Chewable 1 tab PO DAILY Vitamin D3 4,000 unit Capsule 2,000 unit PO DAILY gabapentin 300 mg capsule 300 mg PO BID duloxetine 30 mg capsule,delayed release(DR/EC) 30 mg PO BEDTIME vitamin R76-slslu acid 0.5-1 mg Tablet 1 tab PO DAILY Discontinued metolazone 2.5 mg tablet 2.5 mg PO QWEEK carvedilol 12.5 mg tablet 12.5 mg PO BID torsemide 20 mg tablet 20 mg PO DAILY Follow up/Referrals: Wilma Alberts DO [Primary Care Provider] - 01/27/23 9:30 am (Appt:01/27 @ 9:30 with Hernando elizabeth please arrive 15 min prior to scheduled appointment time ) Medina Ireland MD [Physician] - 1 Week (F/u w/ wound care in 1-2 weeks for wound check. Sutures should stay in for several weeks. Does not need to f/u w/ orthopedic surgery if having regular wound care checks.) Diet/Activity/Treatments Diet: Diet as Tolerated and Low-sodium Diet comment: As tolerated no restrictions Activity: WBAT to left foot with post-op shoe in place. Skin/Wound/Dressing Care Dressing: dressing changes can be every other day, or three times a week with telfa and Kerlix. Visit Report/Discharge Packet Instructions: How to Care for a Surgical Wound, DI for Toe Amputation, DI for Heart Failure, Torsemide, Metolazone, Levofloxacin, Carvedilol Stand Alone Forms: Congestive Heart Failure, Patient Portal/API, Stroke Signs & Symptoms Discharge Data Primary Care Provider: Wilma Alberts VTE Deep Vein Thrombosis/Pulmonary Embolism Present on Admission: No
--- NOTE | 2023-01-25 10:52 | CM.DPC ---
DCP Cont. Reviewed EMR and team rounds for status updates. Pt has improved and is not requiring as much O2, the plan is for him to d/c later this morning. Pt's will transport. Called [facility] and confirmed that he is d/c'ing today, they will call his to coordinate the intake visit. No further DCP needs indicated at this time.
--- NOTE | 2023-01-25 13:40 | PC.NURSE ---
Pt is dressed and ready for discharge home with Spouse. IV has been removed. Went over d/c instructions with Pt and Spouse-discussed d/c meds, time of last dose, reviewed stroke education and CHF guidelines sheet, Home Health, and wound care. Pt to follow up as scheduled and denied further questions. Reminded Pt to take his full course of abx as ordered and to wear ortho shoe whenever he is up walking. Pt and Spouse denied further questions and Pt was taken out via w/c by [employer] to POV with Spouse and all belongings.
== END 2023-01-25 13:43 | disposition home health service (06) | DRG 503 ==
LOC: ED 20:10 → AC 20:10
PROVIDERS: Emergency Medicine; Internal Medicine; Orthopaedic Surgery; Student in an Organized Health Care Education/Training Program; Admitting Provider Internal Medicine; Emergency Provider Emergency Medicine; PCP Family Medicine; Referring Provider Emergency Medicine; Visit Provider Internal Medicine
PROC: 0Y6Q0Z3 Detachment at Left 1st Toe, Low, Open Approach (ICD-10-PCS; CPT 26951; principal; 2023-01-20 13:45)
DX: M86.172 Other acute osteomyelitis, left ankle and foot (principal); I50.33 Acute on chronic diastolic (congestive) heart failure; J96.01 Acute respiratory failure with hypoxia; I48.20 Chronic atrial fibrillation, unspecified; I42.9 Cardiomyopathy, unspecified; D75.81 Myelofibrosis; I96 Gangrene, not elsewhere classified; G63 Polyneuropathy in diseases classified elsewhere; I11.0 Hypertensive heart disease with heart failure; L97.529 Non-pressure chronic ulcer of other part of left foot with unspecified severity; J44.9 Chronic obstructive pulmonary disease, unspecified; K21.9 Gastro-esophageal reflux disease without esophagitis; M19.90 Unspecified osteoarthritis, unspecified site; E78.5 Hyperlipidemia, unspecified; Z79.01 Long term (current) use of anticoagulants; Z87.891 Personal history of nicotine dependence; D64.9 Anemia, unspecified; B95.61 Methicillin susceptible Staphylococcus aureus infection as the cause of diseases classified elsewhere; B95.4 Other streptococcus as the cause of diseases classified elsewhere; B96.5 Pseudomonas (aeruginosa) (mallei) (pseudomallei) as the cause of diseases classified elsewhere
CPT/HCPCS: 36415; 36430; 71045; 73660; 73720; 80048; 80053; 81003; 83735; 85007; 85025; 85651; 86140; 86850; 86900; 86901; 87040; 87070; 87075; 87077; 87147; 87186; 87205; 93005; 93010; 93306; 94618; 94760; 96365; 96367; 97116; 97162; 97530; 99284; P9016; J0692; J1100; J1940; J2405; J2543; J2704; J3010

== ENCOUNTER 2023-01-26 19:20 | Emergency (ER) | payer MEDICARE, SELFPAY ==
[2023-01-18 20:44] VITALS: BMI 32.7
[2023-01-26 19:24] VITALS: BP 142/69; PULSE 79
[2023-01-26 19:28] VITALS: BP 142/67; PULSE 83; RESP 18; TEMP 36.6; O2SAT 98; BMI 32.7
[2023-01-26 19:30] VITALS: BP 141/74; PULSE 80; O2SAT 96
--- NOTE | 2023-01-26 19:49 | ED.WOUNDLAC ---
HPI - Wound/Laceration General Chief Complaint: Wound/Laceration Stated Complaint: wound Time Seen by Provider: 01/26/23 19:25 Source: patient and EMS Mode of arrival: EMS History of Present Illness HPI narrative: 82-year-old male presents by EMS from home for accidental laceration to his right lower extremity. Patient was just discharged from the hospital after getting his left great toe amputated from a diabetic infection. His was addressing the lymphedema on his legs when her thumb accidentally pierced his skin. Uncertain if UTD on tetanus Related Data Home Medications Medication Instructions Recorded Confirmed digoxin 250 mcg (0.25 mg) tablet 250 mcg PO BEDTIME 04/09/19 01/18/23 rivaroxaban 20 mg tablet (Xarelto) 20 mg PO QPM 04/09/19 01/18/23 cholecalciferol (vitamin D3) 100 2,000 unit PO DAILY 04/12/19 01/18/23 mcg (4,000 unit) capsule (Vitamin D3) pediatric ajimrqer-nola-xvy 1 tab PO DAILY 04/12/19 01/18/23 (Multi-Vitamins with Iron chewable tablet) duloxetine 30 mg capsule,delayed 30 mg PO BEDTIME 09/17/20 01/18/23 release gabapentin 300 mg capsule 300 mg PO BID 09/17/20 01/18/23 vitamin B12 0.5 mg-folic acid 1 mg 1 tab PO DAILY 09/17/20 01/18/23 tablet Previous Rx's Medication Instructions Recorded carvedilol 6.25 mg tablet 6.25 mg PO BID 30 days #60 tabs 01/25/23 levofloxacin 750 mg tablet 750 mg PO 0700 7 days #7 tabs 01/25/23 metolazone 2.5 mg tablet 2.5 mg PO 3XW 30 days #13 tabs 01/25/23 torsemide 20 mg tablet 40 mg (2 x 20 mg) PO DAILY 30 days 01/25/23 #60 tabs Allergies Allergy/AdvReac Type Severity Reaction Status Date / Time No Known Drug Allergies Allergy Verified 01/26/23 19:37 Review of Systems Review of Systems Narrative: Negative except as noted above Patient History Medical History Neuropathy COPD (chronic obstructive pulmonary disease) Myelofibrosis CHF (congestive heart failure) Edema Acid reflux HTN (hypertension) Osteoarthritis Arthritis HLD (hyperlipidemia) Cardiomyopathy Afib Surgical History Hx of tonsillectomy History of arthroplasty of left shoulder History of bilateral hip arthroplasty History of arthroplasty of right shoulder Hx of shoulder surgery Hx of laminectomy History of lumbar surgery (03/25/15) Social History household members: spouse Smoking Status: Former smoker alcohol intake: current Smoking Status: Former smoker alcohol intake frequency: a few times a week Substance Use Type: does not use Exam Initial Vital Signs Initial Vital Signs: Vital Signs Pulse Rate 79 01/26/23 19:24 Blood Pressure 142/69 H 01/26/23 19:24 Const: Awake, alert, no acute distress, debilitated, frail MSK: Atraumatic, full range of motion, pulses equal Skin: Warm, Dry, 4cm V-shaped laceration anterior R peres, oozing serous fluid Neuro: AO x3, CN II-XII grossly intact, moves all extremities Procedures Laceration Repair Laceration 1: Site: lower extremity Side (If applicable): right Size (cm): 4 Description: flap Depth: simple, single layer Local Anesthetic: lidocaine 2% and with epi Amount of anesthesia used (mL): 3 Pre-repair: wound explored and irrigated extensively Skin layer closed with: nylon Skin layer suture size: 3-0 Number of sutures: 5 Technique: simple, interrupted Course Course Course Narrative: Accidental laceration to anterior right leg. Tetanus shot was updated. Due to patient's chronic lymphedema there is oozing of serous fluid from the wound. I was uncertain if I would be able to close this laceration due to the fragility of patient's skin, however the wound was able to be approximated with sutures per procedure note. There was still residual drainage of serous fluid from the leg, however bleeding well controlled. Tetanus shot updated. states that they have home health care coming for patient's post surgical care in 2 days. Patient was instructed on how to care for the wound at bedside, sent home with additional supplies for wound care until home health care nurses arrived. Orders Ordered: Discontinued Medications Diphtheria/Tetanus/Acell Pertussis (Tet,Diph,Pertuss(Acell),Vac/Pf 0.5 Ml Syringe) 0.5 ml IM .ONCE ONE Stop: 01/26/23 20:07 Last Admin: 01/26/23 20:13 Dose: 0.5 ml Documented By: HUGO Vital Signs Vital signs: Vital Signs - 8 hr 01/26/23 19:24 01/26/23 19:24 01/26/23 19:28 Temperature 97.9 F Pulse Rate 79 83 Respiratory Rate 18 Blood Pressure 142/69 H 142/67 H Pulse Oximetry 98 Oxygen Delivery Method Room Air 01/26/23 19:30 01/26/23 19:30 01/26/23 20:00 Temperature Pulse Rate 80 76 Respiratory Rate Blood Pressure 141/74 H Pulse Oximetry 96 95 Oxygen Delivery Method 01/26/23 20:00 01/26/23 21:37 Temperature Pulse Rate 79 Respiratory Rate 12 Blood Pressure 136/64 136/64 Pulse Oximetry 94 Oxygen Delivery Method Room Air Discharge Plan Departure Patient Disposition: Home Clinical Impression: Laceration of right lower extremity Qualifiers: Encounter type: initial encounter Qualified Code(s): S81.811A - Laceration without foreign body, right lower leg, initial encounter Instructions: DI for Laceration Repair Activity Restrictions/Additional Instructions: Because of his lymphedema of the wound we will continue to weep, this is expected. Change out the dressings as frequently as you can in apply compression to help try and keep the leg is dry as possible. Sutures should be removed in about 2 weeks. If you notice redness, cloudy drainage, or worsening pain I recommend coming back for repeat evaluation, however the constant drainage should actually help to keep the wound from becoming infected. Prescriptions: No Action carvedilol 6.25 mg tablet 6.25 mg PO BID 30 Days Qty: 60 0RF levofloxacin 750 mg tablet 750 mg PO 0700 7 Days Qty: 7 0RF metolazone 2.5 mg Tablet 2.5 mg PO 3XW 30 Days Qty: 13 0RF torsemide 20 mg tablet 40 mg PO DAILY 30 Days Qty: 60 0RF digoxin 250 mcg (0.25 mg) Tablet 250 mcg PO BEDTIME Xarelto 20 mg Tablet 20 mg PO QPM Multi-Vitamins with Iron Tablet,Chewable 1 tab PO DAILY Vitamin D3 4,000 unit Capsule 2,000 unit PO DAILY gabapentin 300 mg capsule 300 mg PO BID duloxetine 30 mg capsule,delayed release(DR/EC) 30 mg PO BEDTIME vitamin L42-wfdxm acid 0.5-1 mg Tablet 1 tab PO DAILY Referrals: Wilma Alberts DO [Primary Care Provider] - Stand Alone Forms: Patient Portal/API
[2023-01-26 20:00] VITALS: BP 136/64; PULSE 76; O2SAT 95
--- NOTE | 2023-01-26 20:07 | PC.NURSE ---
patient's stuck her thumb through her husbands dermis into the subcutaneous layer. The wound is weeping fluid but free from purulent exudate.
[2023-01-26] MEDS: TET,DIPH,PERTUSS(ACELL),VAC/PF 0.5 ML SYRINGE IM (20:13)
[2023-01-26 21:37] VITALS: BP 136/64; PULSE 79; RESP 12; O2SAT 94
== END 2023-01-26 21:38 | disposition home or self-care (01) ==
PROVIDERS: Emergency Provider Emergency Medicine; PCP Family Medicine
DX: S81.811A Laceration without foreign body, right lower leg, initial encounter (principal); X58.XXXA Exposure to other specified factors, initial encounter; Z79.899 Other long term (current) drug therapy; Z23 Encounter for immunization
CPT/HCPCS: 12002; 90471; 99283; 90715

== ENCOUNTER 2023-05-14 10:35 | Inpatient (IN) | payer MEDICARE, SELFPAY ==
[2023-01-18 20:44] VITALS: BMI 32.7
[2023-05-14] VITALS (26 sets, daily range): BP systolic 112–132; BP diastolic 51–68; PULSE 64–84; RESP 16–27; TEMP 36.2–36.5; O2SAT 93–100; BMI 33.4; BMI 33.5
--- NOTE | 2023-05-14 10:45 | ED_ITS ---
HPI - Fall General Chief Complaint: Fall Stated Complaint: GLF Time Seen by Provider: 05/14/23 10:36 Source: patient and EMS Mode of arrival: EMS History of Present Illness HPI Narrative: Patient is a 83-year-old male history of atrial fibrillation on Xarelto, congestive heart failure, hypertension hyperlipidemia myelofibrosis peripheral neuropathy presents today with ground level fall. He has had ongoing left toe and foot issues mid appears that he was admitted back in January 2023 for left foot ulcer and necrosis of phone the toe was ultimately amputated 1 of his other toes continues to have some issues. Today he has not sure what happened he just slipped he is having some low back pain worse in the left lumbar area in the right. He is extremely weak can not lift his legs up off the gurney. He has a chronic indwelling Montoya catheter. He is afebrile he reports that he has not been feeling ill. Patient reports that he shuffles around the house he does not actually walk very well. now at bedside stating that she wants his toe amputated. They were seen evaluated it would be yesterday he started on Keflex yesterday. He stopped his Xarelto yesterday morning so that he could have his toe amputated. They do not have any sort of surgery or DrMarivel Set up for toe amputation. The plan was to come to the emergency department. He has previously had a toe amputated and had assuming osteomyelitis and they do not want that to happen again. They have plans for a 58 is wedding anniversary and constitution party in a couple of days. She also reports that he received a blood transfusion a couple weeks ago Related Data Home Medications Medication Instructions Recorded Confirmed digoxin 250 mcg (0.25 mg) tablet 250 mcg PO BEDTIME 04/09/19 05/14/23 rivaroxaban 20 mg tablet (Xarelto) 20 mg PO QPM 04/09/19 05/14/23 cholecalciferol (vitamin D3) 100 2,000 unit PO DAILY 04/12/19 05/14/23 mcg (4,000 unit) capsule (Vitamin D3) duloxetine 30 mg capsule,delayed 60 mg PO BEDTIME 09/17/20 05/14/23 release gabapentin 300 mg capsule 300 mg PO BID 09/17/20 05/14/23 vitamin B12 0.5 mg-folic acid 1 mg 1 tab PO DAILY 09/17/20 05/14/23 tablet carvedilol 6.25 mg tablet 6.25 mg PO BID 05/14/23 05/14/23 metolazone 2.5 mg tablet 2.5 mg PO PRN PRN Edema 05/14/23 05/14/23 torsemide 20 mg tablet 20 mg PO BID 05/14/23 05/14/23 Allergies Allergy/AdvReac Type Severity Reaction Status Date / Time No Known Drug Allergies Allergy Verified 01/26/23 19:37 Patient History Medical History Neuropathy COPD (chronic obstructive pulmonary disease) Myelofibrosis CHF (congestive heart failure) Edema Acid reflux HTN (hypertension) Osteoarthritis Arthritis HLD (hyperlipidemia) Cardiomyopathy Afib Surgical History Hx of tonsillectomy History of arthroplasty of left shoulder History of bilateral hip arthroplasty History of arthroplasty of right shoulder Hx of shoulder surgery Hx of laminectomy History of lumbar surgery (03/25/15) Social History household members: spouse Smoking Status: Former smoker alcohol intake: current Smoking Status: Former smoker alcohol intake frequency: a few times a week Substance Use Type: does not use Exam Initial Vital Signs Initial Vital Signs: Vital Signs Pulse Rate 73 05/14/23 10:36 Respiratory Rate 19 05/14/23 10:36 Pulse Oximetry 96 05/14/23 10:36 Oxygen Delivery Method Room Air 05/14/23 10:36 GENERAL: Alert pleasant week 83-year-old male and in no acute distress. HEENT: Head atraumatic,EOMI, pupils reactive, face symmetric, moist mucous membranes CARDIOVASCULAR: Regular rate and rhythm without murmurs, rubs or gallops. RESPIRATORY: Breath sounds equal bilaterally, no wheezes rales or rhonchi. Speaks in full sentences without respiratory distress ABDOMEN: Soft, nontender. Normoactive bowel sounds all 4 quadrants. No guarding or rebound. : Chronic indwelling Montoya catheter clear urine EXTREMITIES: Normal range of motion, bilateral pitting edema. Neurovascularly intact NEUROLOGICAL: Alert and oriented x3. Lower extremities bilaterally week unable to lift up against gurney SKIN: Warm, dry, no laceration, no petechiae, no rashes or lesions. Left foot dressing in place over toes no gross erythema blackening or drainage Course Orders Ordered: ED Orders 05/14/23 10:47 CT head/brain wo con Stat XR chest 1V Stat EKG-12 Lead Stat 05/14/23 10:53 Complete Blood Count AUTO DIFF Stat Comprehensive Metabolic Panel Stat DIG [Digoxin] Stat Lipase Stat NT-proBNP (BNP-Adult 18+) Stat PT [Prothrombin Time INR] Stat PTT [PTT Partial Thromboplastin Ang] Stat Troponin & CK Cardiac Panel Stat 05/14/23 11:15 PRBC [Packed Cells] Stat Type and Screen Stat 05/14/23 12:48 UA Complete [Urinalysis and Microscopic] Stat Urine Culture Stat 05/14/23 14:05 XR lumbar spine 2-3V Stat Sodium Chloride (Normal Saline 0.9%) 1,000 mls @ 150 mls/hr IV CONT AMANDA Last Infusion: 05/14/23 11:52 Dose: 0 mls/hr Documented By: Admin: 05/14/23 11:40 Dose: 150 mls/hr Documented By: LAY Discontinued Medications Acetaminophen (Acetaminophen 325 Mg Tablet) 650 mg PO NOW ONE Stop: 05/14/23 13:13 Last Admin: 05/14/23 13:20 Dose: 650 mg Documented By: LAY Hydrocodone Bitart/Acetaminophen (Hydrocodone/Acet 5/325 Tablet) 1 tab PO NOW ONE Stop: 05/14/23 14:07 Last Admin: 05/14/23 14:27 Dose: 1 tab Documented By: LAY Potassium Chloride (Potassium Chloride 20 Meq Tab) 40 meq PO NOW ONE Stop: 05/14/23 13:13 Last Admin: 05/14/23 13:20 Dose: 40 meq Documented By: LAY Vital Signs Vital signs: Vital Signs - 8 hr 05/14/23 10:36 05/14/23 10:44 05/14/23 11:05 Temperature Pulse Rate 73 77 69 Respiratory Rate 19 21 27 H Blood Pressure Pulse Oximetry 96 95 94 Oxygen Delivery Method Room Air 05/14/23 11:30 05/14/23 12:00 05/14/23 12:14 Temperature Pulse Rate 64 66 Respiratory Rate 26 H 24 Blood Pressure 112/68 Pulse Oximetry 96 98 Oxygen Delivery Method Room Air 05/14/23 12:14 05/14/23 12:30 05/14/23 12:30 Temperature Pulse Rate 71 65 Respiratory Rate 22 16 Blood Pressure 132/60 Pulse Oximetry 96 100 Oxygen Delivery Method Room Air 05/14/23 13:00 05/14/23 13:00 05/14/23 13:30 Temperature Pulse Rate 68 Respiratory Rate 21 Blood Pressure 123/58 L 128/60 Pulse Oximetry 99 Oxygen Delivery Method 05/14/23 13:30 05/14/23 13:51 05/14/23 13:51 Temperature 97.5 F L Pulse Rate 69 66 Respiratory Rate 22 21 Blood Pressure 124/56 L 124/56 L Pulse Oximetry 99 Oxygen Delivery Method 05/14/23 13:51 05/14/23 14:05 05/14/23 14:11 Temperature 97.7 F Pulse Rate 69 69 73 Respiratory Rate 22 16 Blood Pressure 130/58 L Pulse Oximetry 96 99 Oxygen Delivery Method Room Air 05/14/23 14:12 05/14/23 14:12 05/14/23 14:27 Temperature 97.5 F L Pulse Rate 70 66 Respiratory Rate 23 23 Blood Pressure 130/58 L 113/55 L Pulse Oximetry 96 Oxygen Delivery Method Room Air 05/14/23 14:30 05/14/23 14:31 05/14/23 14:31 Temperature Pulse Rate 65 69 Respiratory Rate 23 23 Blood Pressure 113/55 L Pulse Oximetry 95 94 Oxygen Delivery Method Room Air 05/14/23 15:11 05/14/23 15:12 05/14/23 15:12 Temperature Pulse Rate 73 71 Respiratory Rate 18 19 Blood Pressure 124/56 L Pulse Oximetry 95 Oxygen Delivery Method 05/14/23 15:30 05/14/23 15:30 05/14/23 16:00 Temperature Pulse Rate 72 Respiratory Rate 22 Blood Pressure 114/56 L 122/59 L Pulse Oximetry 93 Oxygen Delivery Method Room Air 05/14/23 16:00 Temperature Pulse Rate 73 Respiratory Rate 23 Blood Pressure Pulse Oximetry 96 Oxygen Delivery Method Room Air MDM - Fall Lab Data 05/14/23 10:53 05/14/23 10:53 Labs: Lab Results 05/14/23 05/14/23 05/14/23 Range/Units 10:53 11:15 12:48 WBC 12.1 H (4.5-11.0) X10^3/uL RBC 1.97 L (4.5-5.9) X10^6/uL Hgb 6.8 L* (13.5-17.5) g/dL Hct 21.2 L (41-53) % MCV 107.6 H (80-100) fL MCH 34.5 H (26-34) PG MCHC 32.1 (30-36) % RDW 21.5 H (11.6-14.8) % Plt Count 319 (150-400) X10^3/uL Neut % (Auto) Not Reportable Lymph % (Auto) Not Reportable [place] % (Auto) Not Reportable Eos % (Auto) Not Reportable Baso % (Auto) Not Reportable Lymph # (Auto) Not Reportable [place] # (Auto) Not Reportable Baso # (Auto) Not Reportable Total Counted 100 Seg Neutrophils % 66.0 (38-70) % Band Neutrophils % 5.0 (3-7) % Lymphocytes % (Manual) 12.0 L (25-45) % Atypical Lymphs % 2.0 H ( - 0) % Monocytes % (Manual) 12.0 H (2-11) % Eosinophils % (Manual) 1.0 L (2-4) % Basophils % (Manual) 2.0 H (0-1) % Neutrophils # (Manual) 8591 H (8604-7436) /uL RBC Morphology Not Reportable Anisocytosis 2+ H PT 22.2 H (9.4-12.5) SECONDS INR 1.9 H (0.9-1.3) APTT 50 H (25.1-36.5) SECONDS Sodium 132 L (137-145) mmol/L Potassium 2.9 L (3.4-5.1) mmol/L Chloride 91 L (98-107) mmol/L Carbon Dioxide 37 H (22-32) mmol/L BUN 33 H (9-20) mg/dL Creatinine 1.17 (0.66-1.25) mg/dL Estimated GFR > 60 (>60) mL/min BUN/Creatinine Ratio 28.2 H (6-22) Glucose 118 H (80-110) mg/dL Calcium 8.4 (8.4-10.2) mg/dL Total Bilirubin 0.9 (0.2-1.3) mg/dL AST 26 (17-59) IU/L ALT 9 (<50) IU/L Alkaline Phosphatase 108 (38-126) U/L Total Creatine Kinase 23 L (55-170) U/L Troponin I < 0.012 (0.01-0.034) ng/mL NT-Pro-B Natriuret Pep 7670 H (<450) pg/mL Total Protein 6.8 (6.3-8.2) g/dL Albumin 3.4 L (3.5-5.0) g/dL Globulin 3.4 (1.7-4.1) g/dL Albumin/Globulin Ratio 1.0 (1.0-2.8) Lipase 37 (23-300) U/L Urine Color Yellow Urine Appearance Clear Urine pH 6.5 (4.5-8.0) Ur Specific [place] 1.010 (1.000-1.035) Urine Protein 1+ H (Negative) Urine Glucose (UA) Negative (Negative) g/dL Urine Ketones Negative (NEGATIVE) Urine Occult Blood 1+ H (Negative) Urine Nitrate Negative (Negative) Urine Bilirubin Negative (NEGATIVE) Urine Urobilinogen 0.2 (0.2) E.U./dL Ur Leukocyte Esterase 3+ H (NEGATIVE) Urine RBC 1-5/hpf (0-5/HPF) Urine WBC 10-30/hpf H (0-5/HPF) Ur Squamous Epith Cells None seen (0-5/HPF) Urine Bacteria Moderate (10-30) H (None) Ur Culture Indicated? Specimen cultured Vol Urine Centrifuged 10ml (spun) Digoxin 0.8 (0.8-2.0) ng/mL Blood Type O Positive Antibody Screen Negative Crossmatch See Detail Imaging Data CT scan - head: Radiologist's Impression: PROCEDURE: CT HEAD/BRAIN WO CON INDICATIONS: fall TECHNIQUE: Noncontrast 4.5 mm thick angled axial sections acquired from the foramen magnum to the vertex, with coronal and sagittal reformats. For radiation dose reduction, the following was used: automated exposure control, adjustment of mA and/or kV according to patient size. COMPARISON: [facility], CT, CT HEAD/BRAIN WO CON, 07/28/2021, 14:35. FINDINGS: Image quality: Diagnostic. CSF spaces: Basal cisterns are patent. No extra-axial fluid collections. Ventricles are normal in size and shape. Brain: No midline shift. No intracranial masses or hemorrhage. Burgess-white matter interface is normal. Moderate cerebral and cerebellar volume loss with multifocal white matter chronic ischemic change noted. Atherosclerotic calcification noted associated with cavernous segments of both internal carotid arteries. Skull and face: Calvarium and visualized facial bones are intact, without suspicious lesions. Sinuses: Visualized sinuses and mastoids are clear. IMPRESSION: Atrophy and chronic ischemic change without acute hemorrhage or mass effect Approved by: Dennis Mcneill M.D. on 05/14/2023 at 10:22 Chest x-ray: Radiologist's Impression: PROCEDURE: XR CHEST 1V INDICATIONS: chest pain TECHNIQUE: One view of the chest was acquired. COMPARISON: [facility], , XR CHEST 1V, 01/21/2023, 11:03. FINDINGS: Lungs and pleura: Lungs are clear. No pleural effusions or pneumothorax. Mediastinum: Heart size is enlarged. Mild vascular congestion noted. Partially imaged bilateral shoulder arthroplasty. Atherosclerotic vascular calcification noted in the aortic arch. Bones and chest wall: No suspicious bony lesions. Overlying soft tissues appear unremarkable. IMPRESSION: Cardiomegaly and mild vascular congestion accentuated by low lung volumes Approved by: Dennis Mcneill M.D. on 05/14/2023 at 10:26 Extremity x-ray #1: Radiologist's Impression: PROCEDURE: XR LUMBAR SPINE 2-3V INDICATIONS: pain fall TECHNIQUE: 3 views of the lumbar spine were acquired. COMPARISON: [facility], XR LUMBAR SPINE 2-3V, 07/28/2021, 15:00. FINDINGS: Bones: Convex right thoracolumbar scoliosis. Lower lumbar spine fusion and decompression. Generalized decreased osseous mineralization noted. Soft tissues: Overlying bowel gas pattern is normal. No suspicious soft tissue calcifications. IMPRESSION: Osteopenia without fracture or traumatic malalignment. Degenerative disc disease, arthropathy. Lower lumbar spine fusion and decompression ECG Data Attestation: I personally reviewed and interpreted this ECG as follows: Interpretation: Atrial fibrillation rate 60 no ischemia similar to previous EKGs MDM Narrative Medical decision making narrative: MDM CC: Fall Complicating co-morbidities: Atrial fibrillation, congestive heart failure, osteomyelitis Corroborating data: [ ] Data collected from: and records Medical records reviewed: yes Differential considered: [ ] Exam documented above, pertinent findings include: Generally weak chronic indwelling Montoya catheter edema in both lower extremities and arm Lab Test results independently reviewed as above. Pertinent findings: WBC 12.1, Hemoglobin 6.8, hematocrit 21.2, INR 1.9, PTT 50, sodium 132, potassium 2.9, chloride 91, carbon dioxide 37, BUN 33, creatinine 1.1 previously 0.8, glucose 118, BNP 7600, troponin negative Independently reviewed EKG as above: Atrial fibrillation no ischemia Imaging studies independently reviewed: Head CT no intracranial abnormality and chest x-ray cardiomegaly with congestion Consultations: Dr. Underwood accepts patient to observation Treatments: [place], Tylenol, 1 unit packed red blood cells, potassium chloride 40 mEq Re-evaluations: Continues to have pain continues to be weak Discussion: Patient 83-year-old male presenting today with weakness and fall. He is having quite a bit of back pain but is really unable to stand up he was given pain medication. He is mildly anemic but chronically anemic hemoglobin today 6.8 baseline is around 7 or 8. He is mildly hypokalemic with a potassium of 2.9. X-ray of lumbar spine is negative for any sort of fracture. He is really kind of tender laterally so I do suspect a muscle spasm Family is very concerned about his left toe it does look like it has the beginnings of an ulcer and mildly erythematous but not gangrenous in any way. He is currently taking Keflex as an outpatient that he started yesterday. BNP is elevated at 7600 he is edematous but he has absolutely no sort of respiratory symptoms, unsure of his baseline. He does not feel like he is more edematous than normal chest x-ray does show some cardiomegaly with vascular congestion. May need Lasix with packed red blood cell Discharge Plan Departure Patient Disposition: Admitted as Observation Clinical Impression: Anemia, Back muscle spasm, Acute hypokalemia Admit Date/Time: 05/14/23 16:27 Admit Provider: John Underwood
[2023-05-14 11:02] LABS: Hematocrit 21.2 % (41-53); Mean Corpuscular HGB Conc 32.1 % (30-36); Mean Corpuscular Hemoglobin 34.5 PG (26-34); Mean Corpuscular Volume 107.6 fL (80-100); Platelet Count 319 X10^3/uL (150-400); Red Blood Cell Count 1.97 X10^6/uL (4.5-5.9); Red Cell Distribution Width 21.5 % (11.6-14.8); White Blood Cell Count 12.1 X10^3/uL (4.5-11.0)
[2023-05-14 11:04] LABS: Add Manual Diff / Slide Review YES; Hemoglobin 6.8 g/dL (13.5-17.5); INR 1.9 (0.9-1.3); Prothrombin Time 22.2 SECONDS (9.4-12.5)
[2023-05-14 11:07] LABS: PTT Partial Thromboplastin Tim 50 SECONDS (25.1-36.5)
[2023-05-14 11:08] LABS: Alanine Aminotransferase 9 IU/L (<50); Albumin 3.4 g/dL (3.5-5.0); Alkaline Phosphatase 108 U/L (38-126); Aspartate Aminotransferase 26 IU/L (17-59); BUN Creatinine Ratio 28.2 (6-22); Bilirubin Total 0.9 mg/dL (0.2-1.3); Blood Urea Nitrogen 33 mg/dL (9-20); Calcium 8.4 mg/dL (8.4-10.2); Carbon Dioxide 37 mmol/L (22-32); Chloride 91 mmol/L (98-107); Creatine Kinase 23 U/L (55-170); Estimated Glomerular Filt Rate > 60 mL/min (>60); Globulin 3.4 g/dL (1.7-4.1); Glucose 118 mg/dL (80-110); HEMOLYSIS < 15 (0-50); Lipase 37 U/L (23-300); Potassium 2.9 mmol/L (3.4-5.1); Sodium 132 mmol/L (137-145); Total Protein 6.8 g/dL (6.3-8.2)
[2023-05-14 11:20] LABS: NT-proBNP (BNP-Adult 18+) 7670 pg/mL (<450); Troponin I < 0.012 ng/mL (0.01-0.034)
[2023-05-14 11:23] LABS: Anisocytosis 2+; Neutrophils Absolute Manual 8591 /uL (3000-5900); Total Cells Counted 100
[2023-05-14] MEDS: SODIUM CHLORIDE 0.9% 1,000 ML 150 ML IV (11:40)
--- NOTE | 2023-05-14 12:05 | PC.NURSE ---
PT was in the bathroom walking with his walker and reports losing my balance and falling against the wall, sliding down to floor. He reports left back pain. Denies LOC or hitting his head. He denied dizziness, lightheaded, or SOB at time of fall. History of afib, on xaralto. Pt was seen yesterday at [facility] for his left 3rd toe, states needs to be amputated. History of left greater toe partial amputation.
[2023-05-14 12:56] LABS: Appearance Urine UA CLEAR; Bilirubin Urine UA NEGATIVE (NEGATIVE); Color Urine UA YELLOW; Glucose Urine UA NEGATIVE (Negative); Ketones Urine UA NEGATIVE (NEGATIVE); Leukocyte Esterase Urine UA 3+ (NEGATIVE); Nitrite Urine UA NEGATIVE (Negative); Occult Blood Urine UA 1+ (Negative); Protein Urine UA 1+ (Negative); Urobilinogen Urine UA 0.2 E.U./dL (0.2); pH Urine UA 6.5 (4.5-8.0)
[2023-05-14 13:05] LABS: Bacteria Urine Moderate (10-30); Culture Indicated Urine Specimen Cultured; RBC Urine 1-5/HPF (0-5/HPF); Squamous Epithelial Cell Urine None Seen (0-5/HPF); Urine Volume 10mL (spun); WBC Urine 10-30/HPF (0-5/HPF)
[2023-05-14] MEDS: ACETAMINOPHEN 325 MG TABLET 650 MG PO ×2 (13:20→19:55)
[2023-05-14] MEDS: POTASSIUM CHLORIDE 20 MEQ TAB 40 MEQ PO (13:20)
[2023-05-14 13:25] LABS: Digoxin 0.8 ng/mL (0.8-2.0)
--- NOTE | 2023-05-14 14:05 | DI.RAD.S_ITS ---
PROCEDURE: XR LUMBAR SPINE 2-3V INDICATIONS: pain fall TECHNIQUE: 3 views of the lumbar spine were acquired. COMPARISON: [facility], CR, XR LUMBAR SPINE 2-3V, 07/28/2021, 15:00. FINDINGS: Bones: Convex right thoracolumbar scoliosis. Lower lumbar spine fusion and decompression. Generalized decreased osseous mineralization noted. Soft tissues: Overlying bowel gas pattern is normal. No suspicious soft tissue calcifications. IMPRESSION: Osteopenia without fracture or traumatic malalignment. Degenerative disc disease, arthropathy. Lower lumbar spine fusion and decompression Approved by: Dennis Mcneill M.D. on 05/14/2023 at 14:41
[2023-05-14] MEDS: HYDROCODONE/ACET 5/325 TABLET 1 TAB PO (14:27)
--- NOTE | 2023-05-14 17:14 | PM.HP.1 ---
History of Present Illness History of Present Illness Date Patient Seen: 05/14/23 Time Patient Seen: 17:14 Chief complaint: GLF Narrative: The patient is an 83-year-old male with history of atrial fibrillation on Xarelto, CHF, hypertension, hyperlipidemia, myelofibrosis, and peripheral neuropathy who presented with a ground level fall. The patient was found to be anemic and is chronically anemic. The patient was unable to ambulate due to back pain which was refractory to pain medication. The patient also has a chronic indwelling Montoya. The patient notes he has a toe what he wants amputated, arrangements have not been made for this in the outpatient basis. The patient has last blood transfusion 2 weeks ago. He fell while in the bathroom trying to empty his Montoya catheter bag. He has had a Montoya in for diuresis of his heart failure for about 1 week. He notes he received a blood transfusion 2 weeks ago and that his doctor is mostly providing supportive care for myelofibrosis. The patient has noticed his left foot 3rd toe is red and there is a question of infection and possibly osteomyelitis that was raised at would be general recently. 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 Ireland in the past. He is hoping to address this while in the hospital. In terms of heart failure, he is breathing relatively well. He has 1+ edema both legs which is relatively good for him. He denies any chest pain or palpitations. His lower back pain improved with a pain pill however when he was transferred to the 2nd floor he had increased pain with movement. He is having some muscle spasms. His pain is lumbar without radiation to the legs or buttock. Imaging is included here and was unremarkable. [facility] Medical History Neuropathy COPD (chronic obstructive pulmonary disease) Myelofibrosis CHF (congestive heart failure) Edema Acid reflux HTN (hypertension) Osteoarthritis Arthritis HLD (hyperlipidemia) Cardiomyopathy Afib Surgical History Hx of tonsillectomy History of arthroplasty of left shoulder History of bilateral hip arthroplasty History of arthroplasty of right shoulder Hx of shoulder surgery Hx of laminectomy History of lumbar surgery (03/25/15) Social History household members: spouse Smoking Status: Former smoker alcohol intake: current Meds Home Medications and Allergies Home Medications Medication Instructions Recorded Confirmed Type digoxin 250 mcg (0.25 mg) tablet 250 mcg PO BEDTIME 04/09/19 05/14/23 History rivaroxaban 20 mg tablet (Xarelto) 20 mg PO QPM 04/09/19 05/14/23 History cholecalciferol (vitamin D3) 100 2,000 unit PO DAILY 04/12/19 05/14/23 History mcg (4,000 unit) capsule (Vitamin D3) duloxetine 30 mg capsule,delayed 60 mg PO BEDTIME 09/17/20 05/14/23 History release gabapentin 300 mg capsule 300 mg PO BID 09/17/20 05/14/23 History vitamin B12 0.5 mg-folic acid 1 mg 1 tab PO DAILY 09/17/20 05/14/23 History tablet carvedilol 6.25 mg tablet 6.25 mg PO BID 05/14/23 05/14/23 History cephalexin 500 mg capsule 500 mg PO 4XD 05/14/23 History metolazone 2.5 mg tablet 2.5 mg PO PRN PRN Edema 05/14/23 05/14/23 History torsemide 20 mg tablet 20 mg PO BID 05/14/23 05/14/23 History Allergies Allergy/AdvReac Type Severity Reaction Status Date / Time No Known Drug Allergies Allergy Verified 01/26/23 19:37 Review of Systems Review of Systems Narrative: All else reviewed and otherwise unremarkable except as noted in the history and physical. Exam Vital Signs (past 8 hours): - 05/14/23 10:36 05/14/23 10:44 05/14/23 11:05 Temperature Pulse Rate 73 77 69 Respiratory Rate 19 21 27 H Blood Pressure Pulse Oximetry 96 95 94 Oxygen Delivery Method Room Air 05/14/23 11:30 05/14/23 12:00 05/14/23 12:14 Temperature Pulse Rate 64 66 Respiratory Rate 26 H 24 Blood Pressure 112/68 Pulse Oximetry 96 98 Oxygen Delivery Method Room Air 05/14/23 12:14 05/14/23 12:30 05/14/23 12:30 Temperature Pulse Rate 71 65 Respiratory Rate 22 16 Blood Pressure 132/60 Pulse Oximetry 96 100 Oxygen Delivery Method Room Air 05/14/23 13:00 05/14/23 13:00 05/14/23 13:30 Temperature Pulse Rate 68 Respiratory Rate 21 Blood Pressure 123/58 L 128/60 Pulse Oximetry 99 Oxygen Delivery Method 05/14/23 13:30 05/14/23 13:51 05/14/23 13:51 Temperature 97.5 F L Pulse Rate 69 66 Respiratory Rate 22 21 Blood Pressure 124/56 L 124/56 L Pulse Oximetry 99 Oxygen Delivery Method 05/14/23 13:51 05/14/23 14:05 05/14/23 14:11 Temperature 97.7 F Pulse Rate 69 69 73 Respiratory Rate 22 16 Blood Pressure 130/58 L Pulse Oximetry 96 99 Oxygen Delivery Method Room Air 05/14/23 14:12 05/14/23 14:12 05/14/23 14:27 Temperature 97.5 F L Pulse Rate 70 66 Respiratory Rate 23 23 Blood Pressure 130/58 L 113/55 L Pulse Oximetry 96 Oxygen Delivery Method Room Air 05/14/23 14:30 05/14/23 14:31 05/14/23 14:31 Temperature Pulse Rate 65 69 Respiratory Rate 23 23 Blood Pressure 113/55 L Pulse Oximetry 95 94 Oxygen Delivery Method Room Air 05/14/23 15:11 05/14/23 15:12 05/14/23 15:12 Temperature Pulse Rate 73 71 Respiratory Rate 18 19 Blood Pressure 124/56 L Pulse Oximetry 95 Oxygen Delivery Method 05/14/23 15:30 05/14/23 15:30 05/14/23 16:00 Temperature Pulse Rate 72 Respiratory Rate 22 Blood Pressure 114/56 L 122/59 L Pulse Oximetry 93 Oxygen Delivery Method Room Air 05/14/23 16:00 05/14/23 16:30 05/14/23 16:30 Temperature Pulse Rate 73 74 Respiratory Rate 23 23 Blood Pressure 128/60 Pulse Oximetry 96 95 Oxygen Delivery Method Room Air Room Air Oxygen Delivery Method Room Air Narrative Exam Narrative: NAD, alert and oriented, fluent speech, calm. Normocephalic skull, EOMI, anicteric sclera, symmetric pupils. Oropharynx unremarkable, no droop. Neck supple, midline trachea, no adenopathy. Lungs clear, normal rate and effort. Heart irregular, no murmur gallop or rub. Abdomen is soft, non distended and non tender. Extremities are with 1+ bilateral of edema. Skin is free of rash or lesions. He does some have some areas of ecchymosis. Joints are not swollen or deformed. Judgment appears to be normal. Objective Imaging Thoracic XRay: Radiologist's impression: Osteopenia without fracture or traumatic malalignment. Degenerative disc disease, arthropathy. Lower lumbar spine fusion and decompression CT scan - head: Radiologist's impression: Atrophy and chronic ischemic change without acute hemorrhage or mass effect Chest x-ray: Radiologist's impression: Cardiomegaly and mild vascular congestion accentuated by low lung volumes Labs 05/14/23 10:53 05/14/23 10:53 Labs: Laboratory Results - last 24 hr 05/14/23 05/14/23 05/14/23 10:53 11:15 12:48 WBC 12.1 H RBC 1.97 L Hgb 6.8 L* Hct 21.2 L MCV 107.6 H MCH 34.5 H MCHC 32.1 RDW 21.5 H Plt Count 319 Neut % (Auto) Not Reportable Lymph % (Auto) Not Reportable [place] % (Auto) Not Reportable Eos % (Auto) Not Reportable Baso % (Auto) Not Reportable Lymph # (Auto) Not Reportable [place] # (Auto) Not Reportable Baso # (Auto) Not Reportable Total Counted 100 Seg Neutrophils % 66.0 Band Neutrophils % 5.0 Lymphocytes % (Manual) 12.0 L Atypical Lymphs % 2.0 H Monocytes % (Manual) 12.0 H Eosinophils % (Manual) 1.0 L Basophils % (Manual) 2.0 H Neutrophils # (Manual) 8591 H RBC Morphology Not Reportable Anisocytosis 2+ H PT 22.2 H INR 1.9 H APTT 50 H Sodium 132 L Potassium 2.9 L Chloride 91 L Carbon Dioxide 37 H BUN 33 H Creatinine 1.17 Estimated GFR > 60 BUN/Creatinine Ratio 28.2 H Glucose 118 H Calcium 8.4 Total Bilirubin 0.9 AST 26 ALT 9 Alkaline Phosphatase 108 Total Creatine Kinase 23 L Troponin I < 0.012 NT-Pro-B Natriuret Pep 7670 H Total Protein 6.8 Albumin 3.4 L Globulin 3.4 Albumin/Globulin Ratio 1.0 Lipase 37 Urine Color Yellow Urine Appearance Clear Urine pH 6.5 Ur Specific [place] 1.010 Urine Protein 1+ H Urine Glucose (UA) Negative Urine Ketones Negative Urine Occult Blood 1+ H Urine Nitrate Negative Urine Bilirubin Negative Urine Urobilinogen 0.2 Ur Leukocyte Esterase 3+ H Urine RBC 1-5/hpf Urine WBC 10-30/hpf H Ur Squamous Epith Cells None seen Urine Bacteria Moderate (10-30) H Ur Culture Indicated? Specimen cultured Vol Urine Centrifuged 10ml (spun) Digoxin 0.8 Blood Type O Positive Antibody Screen Negative Crossmatch See Detail Assessment & Plan Assessment & Plan narrative: 1. Mechanical fall with back pain, 2. Acute on chronic anemia, 3. Hypokalemia, 4. Acute on chronic systolic heart failure, 5. Myelofibrosis, 6. Hypertension, 7. Hyperlipidemia, 8. Atrial fibrillation on chronic Xarelto, 9. COPD, PLAN: -replace potassium -monitor renal function -pain medication for back pain, and physical therapy assessment for discharge planning. -blood transfusion and follow hemoglobin, follow for clinical evidence of GI bleeding. -monitor blood pressure, resume cardiac and blood pressure medications as able. -hold Xarelto tonight pending clinical course and hemoglobin. -we will discuss his total findings with Orthopedics while he is in the hospital. He is full code, confirmed tonight. His proxy decision maker is his . They live together on [address]. Time Spent With Patient Time with patient: 30 to 49 minutes with 50% spent counseling/coordinating care Quality VTE Deep Vein Thrombosis/Pulmonary Embolism Present on Admission: No MIPS - Admit I confirm the patient?s Advance Care Plan is present, Code status is documented, Surrogate decision maker is in patient?s record [If Yes, STOP here]: Yes MIPS - Meds 'Current medications' to include all prescriptions, [id number] products, herbals, cannabis/cannabidiol products, and vitamin/mineral/dietary (nutritional) supplements. I have utilized all available resources to obtain, update, or review the patient?s current medications. [If Yes, STOP here]: Yes
[2023-05-14] MEDS: OXYCODONE IR 5 MG TABLET PO (19:55)
[2023-05-14] MEDS: carvediloL 3.125 MG TABLET 6.25 MG PO (20:16)
[2023-05-14] MEDS: DULOXETINE 30 MG CAPSULE 60 MG PO (20:17)
[2023-05-14] MEDS: TORSEMIDE 10 MG TABLET 20 MG PO (20:17)
[2023-05-14] MEDS: GABAPENTIN 300 MG CAPSULE PO (20:17)
[2023-05-14] MEDS: SENNOSIDES 8.6 MG TABLET 17.2 MG PO (20:17)
[2023-05-14] MEDS: DIGOXIN 0.125 MG TABLET 0.25 MG PO (22:05)
[2023-05-14] MEDS: HYDROMORPHONE 0.5 MG INJ IV ×2 (22:11→23:58)
[2023-05-15] VITALS (7 sets, daily range): BP systolic 112–127; BP diastolic 52–66; PULSE 76–87; RESP 16–18; TEMP 35.9–36.9; O2SAT 92–96
[2023-05-15 05:18] LABS: Add Manual Diff / Slide Review NO; Basophils Absolute Auto 200 /uL (0-100); Basophils Percent Auto 1.5 % (0-2); Eosinophils Absolute Auto 300 /uL (0-450); Eosinophils Percent Auto 1.9 % (2-4); Hematocrit 23.2 % (41-53); Hemoglobin 7.7 g/dL (13.5-17.5); Lymphocytes Absolute Auto 1000 /uL (1100-4500); Lymphocytes Percent Auto 6.4 % (25-40); Mean Corpuscular Hemoglobin 34.8 PG (26-34); Mean Corpuscular Volume 105.6 fL (80-100); Monocytes Absolute Auto 1800 /uL (0-900); Monocytes Percent Auto 12.2 % (3-14); Neutrophils Absolute Auto 11900 /uL (1500-7000); Platelet Count 324 X10^3/uL (150-400); Red Cell Distribution Width 22.7 % (11.6-14.8); White Blood Cell Count 15.2 X10^3/uL (4.5-11.0)
[2023-05-15 05:29] LABS: BUN Creatinine Ratio 27.7 (6-22); Blood Urea Nitrogen 33 mg/dL (9-20); Calcium 8.1 mg/dL (8.4-10.2); Carbon Dioxide 35 mmol/L (22-32); Chloride 94 mmol/L (98-107); Estimated Glomerular Filt Rate 60 mL/min (>60); Glucose 116 mg/dL (80-110); HEMOLYSIS < 15 (0-50); Potassium 3.3 mmol/L (3.4-5.1); Sodium 131 mmol/L (137-145)
[2023-05-15 06:00] LABS: Anisocytosis 2+; Macrocytosis 1+; Ovalocytes 2+; Platelet Estimate Adequate on smear
[2023-05-15] MEDS: CHOLECALCIFEROL (VITAMIN D3) 1,000 UNIT TABLET 2000 UNIT PO (08:39)
[2023-05-15] MEDS: TORSEMIDE 10 MG TABLET 20 MG PO ×2 (08:39→21:33)
[2023-05-15] MEDS: POTASSIUM CHLORIDE 20 MEQ TAB 40 MEQ PO (08:39)
[2023-05-15] MEDS: carvediloL 3.125 MG TABLET 6.25 MG PO ×2 (08:39→21:29)
[2023-05-15] MEDS: GABAPENTIN 300 MG CAPSULE PO ×2 (08:39→21:31)
[2023-05-15] MEDS: OXYCODONE IR 5 MG TABLET PO ×2 (08:40→17:11)
[2023-05-15] MEDS: ACETAMINOPHEN 325 MG TABLET 650 MG PO ×3 (08:40→21:28)
--- NOTE | 2023-05-15 10:12 | P.PN_ITS ---
Subjective Subjective Interval history: He is back to still painful but a little bit better than yesterday. His toe does not hurt. He denies any shortness a breath. He was given 1 unit of blood on May 13 and has history of heart failure. Exam Vital Signs (past 8 hours): - 05/15/23 05:54 05/15/23 08:00 05/15/23 08:39 Temperature 96.7 F L 97.2 F L Pulse Rate 76 87 87 Respiratory Rate 18 16 Blood Pressure 125/52 L 126/53 L 126/53 L Pulse Oximetry 92 95 Oxygen Flow Rate 0 Oxygen Delivery Method Room Air Oxygen Flow Rate 0 Narrative Exam Narrative: NAD, alert and oriented. Fluent speech. Lungs are clear, normal rate and effort. Heart is regular, no murmur gallop or rub. Abdomen is soft, non distended. Extremities are free of edema. His left foot 3rd toe has an area of redness but is not cold. There was no obvious fluctuance or discharge. Objective Labs 05/15/23 04:54 05/15/23 04:54 Labs: Laboratory Results - last 24 hr 05/14/23 05/14/23 05/14/23 10:53 11:15 12:48 WBC 12.1 H RBC 1.97 L Hgb 6.8 L* Hct 21.2 L MCV 107.6 H MCH 34.5 H MCHC 32.1 RDW 21.5 H Plt Count 319 Neut % (Auto) Not Reportable Lymph % (Auto) Not Reportable [place] % (Auto) Not Reportable Eos % (Auto) Not Reportable Baso % (Auto) Not Reportable Neut # (Auto) Lymph # (Auto) Not Reportable [place] # (Auto) Not Reportable Eos # (Auto) Baso # (Auto) Not Reportable Total Counted 100 Seg Neutrophils % 66.0 Band Neutrophils % 5.0 Lymphocytes % (Manual) 12.0 L Atypical Lymphs % 2.0 H Monocytes % (Manual) 12.0 H Eosinophils % (Manual) 1.0 L Basophils % (Manual) 2.0 H Neutrophils # (Manual) 8591 H Platelet Estimate RBC Morphology Not Reportable Anisocytosis 2+ H Macrocytosis Ovalocytes PT 22.2 H INR 1.9 H APTT 50 H Sodium 132 L Potassium 2.9 L Chloride 91 L Carbon Dioxide 37 H BUN 33 H Creatinine 1.17 Estimated GFR > 60 BUN/Creatinine Ratio 28.2 H Glucose 118 H Calcium 8.4 Total Bilirubin 0.9 AST 26 ALT 9 Alkaline Phosphatase 108 Total Creatine Kinase 23 L Troponin I < 0.012 NT-Pro-B Natriuret Pep 7670 H Total Protein 6.8 Albumin 3.4 L Globulin 3.4 Albumin/Globulin Ratio 1.0 Lipase 37 Urine Color Yellow Urine Appearance Clear Urine pH 6.5 Ur Specific [place] 1.010 Urine Protein 1+ H Urine Glucose (UA) Negative Urine Ketones Negative Urine Occult Blood 1+ H Urine Nitrate Negative Urine Bilirubin Negative Urine Urobilinogen 0.2 Ur Leukocyte Esterase 3+ H Urine RBC 1-5/hpf Urine WBC 10-30/hpf H Ur Squamous Epith Cells None seen Urine Bacteria Moderate (10-30) H Ur Culture Indicated? Specimen cultured Vol Urine Centrifuged 10ml (spun) Digoxin 0.8 Blood Type O Positive Antibody Screen Negative Crossmatch See Detail 05/15/23 04:54 WBC 15.2 H RBC 2.20 L Hgb 7.7 L Hct 23.2 L MCV 105.6 H MCH 34.8 H MCHC 33.0 RDW 22.7 H Plt Count 324 Neut % (Auto) 78.0 H Lymph % (Auto) 6.4 L [place] % (Auto) 12.2 Eos % (Auto) 1.9 L Baso % (Auto) 1.5 Neut # (Auto) 59132 H Lymph # (Auto) 1000 L [place] # (Auto) 1800 H Eos # (Auto) 300 Baso # (Auto) 200 H Total Counted Seg Neutrophils % Band Neutrophils % Lymphocytes % (Manual) Atypical Lymphs % Monocytes % (Manual) Eosinophils % (Manual) Basophils % (Manual) Neutrophils # (Manual) Platelet Estimate Adequate on smear RBC Morphology See below Anisocytosis 2+ H Macrocytosis 1+ H Ovalocytes 2+ H PT INR APTT Sodium 131 L Potassium 3.3 L Chloride 94 L Carbon Dioxide 35 H BUN 33 H Creatinine 1.19 Estimated GFR 60 BUN/Creatinine Ratio 27.7 H Glucose 116 H Calcium 8.1 L Total Bilirubin AST ALT Alkaline Phosphatase Total Creatine Kinase Troponin I NT-Pro-B Natriuret Pep Total Protein Albumin Globulin Albumin/Globulin Ratio Lipase Urine Color Urine Appearance Urine pH Ur Specific [place] Urine Protein Urine Glucose (UA) Urine Ketones Urine Occult Blood Urine Nitrate Urine Bilirubin Urine Urobilinogen Ur Leukocyte Esterase Urine RBC Urine WBC Ur Squamous Epith Cells Urine Bacteria Ur Culture Indicated? Vol Urine Centrifuged Digoxin Blood Type Antibody Screen Crossmatch [facility] Medical History Neuropathy COPD (chronic obstructive pulmonary disease) Myelofibrosis CHF (congestive heart failure) Edema Acid reflux HTN (hypertension) Osteoarthritis Arthritis HLD (hyperlipidemia) Cardiomyopathy Afib Surgical History Hx of tonsillectomy History of arthroplasty of left shoulder History of bilateral hip arthroplasty History of arthroplasty of right shoulder Hx of shoulder surgery Hx of laminectomy History of lumbar surgery (03/25/15) Social History household members: spouse Smoking Status: Former smoker alcohol intake: current Assessment & Plan Assessment & Plan narrative: 1. Mechanical fall with back pain, present on admission and active. Some, but minimal improvement. 2. Acute on chronic anemia, present on admission and active. Was given 1 unit of blood on May 13. 3. Hypokalemia, present on admission and active. 4. Acute on chronic systolic heart failure, present on admission and stable. 5. Myelofibrosis, present on admission and stable. 6. Hypertension, present on admission and stable. 7. Hyperlipidemia, present on admission and stable. 8. Atrial fibrillation on chronic Xarelto, he has been holding Xarelto. Present on admission and active. 9. COPD, present on admission and stable. 10. Left foot 3rd toe area of redness and possible infection. He was told by PCP that he may have osteomyelitis. Dr. 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 PLAN: -replace potassium again. -monitor renal function -pain medication for back pain, and physical therapy assessment for discharge planning. -follow hemoglobin, follow for clinical evidence of GI bleeding. He has had for transfusions, likely related to myelodysplasia. He would like to monitor until May 15. No blood today. -monitor blood pressure, resume cardiac and blood pressure medications as able. -hold Xarelto tonight pending clinical course and hemoglobin. -we will discuss his total findings with Orthopedics while he is in the hospital. Dr. Ireland, please call TuesdayMay 15. She knows this patient. -no obvious indication for antibiotics. He is full code, confirmed tonight. His proxy decision maker is his . This patient will require a 2nd midnight of medically necessary hospital level surfaces. This supports inpatient level of care. Estimated date of discharge is 1-2 days from now pending improvement of back pain and assessment of toe. Quality VTE Deep Vein Thrombosis/Pulmonary Embolism Present on Admission: No
--- NOTE | 2023-05-15 11:00 | CM.DANOTE ---
Addendum entered by Lavonne Adams R.N. 05/15/23 12:50: Patient now qualifies for inpatient status, worked with Mitesh, was macho valdez. Updated conference planner who will have this patient tomorrow. Original Note: DCP: Case received, EMR reviewed and met with patient. Introduced self and role. Was able to obtain information regarding patient's baseline activity level prior to hospitalization. DCP assessment completed with information currently available. Patient is an 83 year old male who admitted yesterday afternoon to the care of the hospitalist team. PCP: Dr. Alberts Payer: confirmed: Medicare/[employer]. Patient came to the hospital via ambulance secondary to a ground level fall that occurred at home. Patient has an indwelling catheter, was in the bathroom emptying it and tripped. He had 'increased pain and weakness, and was not able to get up. Patient has history of CHF (had the murdock for diuresis), as well as my myelofibrosis, and has also had history of toe amputation. He has seen Dr. Ireland regarding this before. He has had parial amputation of left foot. Patient received a blood tranfusion about 2 weeks ago. Patient was admitted for back pain secondary to fall, does also have acute on chronic anemia. Met with patient in his room. He is pleasant, alert and oriented, sitting up in bed. Did grimace, having some back pain with movement. Conformed that he resides on [address] with spouse, of almost 60 years, will be having their 60th anniversary. He has a one level home with a basement, rarely goes downstairs. He has a cane and walker for home use, drives occasionally. Has a son and grandchildren in the area. He also has very supportive neighbors, one of his neighbors is an ENT. He is currently under [facility] services for wounds on his toes. P: DCP to continue to follow, patient will work with [facility]. Will update [facility] upon discharge. Patient is under observation for now, explained ZUNIGA form to patient. Will follow closely for needs, most likely should go home. Lavonne Adams RN/Clinical Dietician Discharge Planning/Care Management CM Discharge Assessment Start: 05/15/23 10:57 Freq: Status: Active Protocol: Document 05/15/23 10:58 (Rec: 05/15/23 11:00 [email or web address]) Discharge Planning Assessment Assigned Manager Of Health Lavonne Adams RN/Clinical Dietician Advance Directives? Yes Advance Directives on File No History Provided By Patient,Medical Record Has Patient been admitted in last 30 No days? Prior Living Arrangements House Household Members spouse Type of transporation used prior to Drives own vehicle admit Comment Drives occasionally, spouse does most of the driving. Independent with ADL's Yes Needs Assistance With Meal Prep,Home Chores / Shopping Caregiver for Another No DME Already Rented / Owned FWW / Walker,Cane Patient/Family Preference Home with Home Health Comment Patient is currently opened with [facility] Barriers to Discharge No Discharge Plan Home with Home Health Transportation Arrangement Referrals Initiated None needed Additional Comment None needed at time of this assessmen, will just have to update [facility] upon discharge. If patient plan is home with home health No : Has signed face to face form been completed? If patient plan is SNF: Has PASSR been No completed? Whiteboard Updated in Patient Room with Yes name and ext. # of Manager Of Health Review Status In Process Next Review Type Continued Stay Review
--- NOTE | 2023-05-15 11:54 | PT.IIE ---
Surgical History (Last Reviewed 05/14/23 @ 17:15 by John Underwood MD) History of arthroplasty of left shoulder History of arthroplasty of right shoulder History of bilateral hip arthroplasty History of lumbar surgery (03/25/15) Hx of laminectomy Hx of shoulder surgery Hx of tonsillectomy Medical History (Last Reviewed 05/14/23 @ 17:15 by John Underwood MD) Acid reflux Afib Arthritis Cardiomyopathy CHF (congestive heart failure) COPD (chronic obstructive pulmonary disease) Edema HLD (hyperlipidemia) HTN (hypertension) Myelofibrosis Neuropathy Osteoarthritis Physical Therapy Inpatient Evaluation/Re-Eval M1 PT/OT-IP Prior Functional Status Start: 05/15/23 09:18 Freq: NEEDED Status: Active Protocol: Document 05/15/23 10:49 MB (Rec: 05/15/23 11:53 MB [id number]) Medical Review Prior Functional Status Medical History Reviewed Yes Diet/Fluid Consistency Regular Communication WNLs Mobility and Gait Pt reports mod I with short mobility in the house using rolling walker Activities of Daily Living and IADL's Mod I, recently got a catheter d/t frequent urination at night per his report Social History Household Members spouse Living Arrangements House Number of Floors (Floors) One Floor Number of Stairs To Enter/Railing? 2 long platform-type steps without rail to enter, pt states that he can fit his walker between them Home Environment High Toilet,Walk in Shower Home Equipment Four Wheel Walker,Straight Cane,Tub Transfer Bench,Hand Held Shower,Grab Bars In Shower Employment Status Retired M2 PT-IP Current Condition Start: 05/15/23 09:18 Freq: NEEDED Status: Active Protocol: Document 05/15/23 10:49 MB (Rec: 05/15/23 11:53 MB [id number]) Physical Therapy Current Condition Current Condition Evaluation Date 05/15/23 Treatment Diagnosis Fall, high back pain, draining left 3rd toe M3 PT-IP Subjective Start: 05/15/23 09:18 Freq: NEEDED Status: Active Protocol: Document 05/15/23 10:49 MB (Rec: 05/15/23 11:53 MB [id number]) Subjective Physical Therapy Visit Type Type Initial Evaluation Visit Start Time 10:49 Visit Stop Time 11:39 Number of SENIOR BIOSTATISTICIAN/GROUP LEADER Visits 0 Physical Therapy Visit Comments Patient Comments Pt states that his back pain is very high and that he does not think that he can move. He requires a lot of encouragement to mobilize in the bed. Therapy Pain Assessment Pain When Pain Assessed At Rest Pain Present Pain Present Pain Reported Location left lower back Intensity 8 Scale Used Numeric (0 - 10) Pain Behaviors Calling Out,Facial Grimacing, Guarding Pain Management Techniques Distraction,Modification of Treatment,Re-positioning, Timing of Activity with Medications M4 PT-IP Mobility and Gait Start: 05/15/23 09:18 Freq: NEEDED Status: Active Protocol: Document 05/15/23 10:49 MB (Rec: 05/15/23 11:53 MB [id number]) PT-Bed Mobility Assessment Rolling Type of Rolling Roll to Right Level of Assist Minimal Assistance,1 Person Assistance Supine to Sit Supine to Sit Maximum Assistance,1 Person Assistance,Head of Bed Elevated,Bedrails Sit to Supine Sit to Supine Maximum Assistance,1 Person Assistance,Head of Bed Elevated,Bedrails Scooting Scooting to Edge of Bed Maximum Assistance PT-Transfer Assessment Sit to and From Stand Sit to and from Stand Moderate Assistance,1 Person Assistance,2 Person Assistance ,Use of Upper Extremities Equipment Transfer Assistive Device Gait Belt,Front Wheeled Walker Orthotic/Prosthetic Devices or Brace: No Transfers Transfer Destination Chair Transfer Technique Stepping Transfer Ability Level of Assist Maximum Assistance,1 Person Assistance,Use of Upper Extremities Comments Mobility Comments +2 assistance nearby given pt' s c/o pain and his delayed/ slow mobility. PT uses bed controls to lower and raise HOB and pt uses bed rail to help with scooting out to EOB. It takes 25' for pt to move from supine to standing. Pt with positive orthostatics with BP and HR in LUE: 127/59, 95; sitting 99/47, 89; standing once stepping to chair: 110/56, 84. Pt with B LE edema, worse on the left, history of partial left great toe amputation and there is an ulcer-type draining wound on tip of third toe distal phalanx left foot Pt tends to keep eyes closed for mobility and requires cues to open his eyes Gait Assessment Gait Gait Assistance Required: Moderate Assistance,1 Person Assist Distance (Feet) 1 Able to Maintain Weight Bearing Status Yes During Gait Assistive Devices Assistive Device Gait Belt,Front Wheeled Walker Orthotic/Prosthetic Devices or Brace: No Gait Deviations General Gait Pattern Antalgic,Decreased Stride Length,Decreased Feet Clearance,Flexed Trunk,Wide Based Gait Factors Limiting Gait Function Factors Limiting Gait Function Decreased Activity Tolerance, Decreased Strength,Difficulty Following Directions, Incoordination,Limited Range of Motion,Pain,Poor Balance, Poor Safety Awareness Comments Gait Comments Pt with forward, flexed posture, scooting feet and little step-length and foot clearance PT-Balance Assessment Sitting Balance and Reactions Static Sitting Balance Ability Fair Dynamic Sitting Balance Ability Poor Standing Balance and Reactions Static Standing Balance Ability Fair Dynamic Standing Balance Ability Poor Device Used RW M5 PT-IP Objective Assessments Start: 05/15/23 09:18 Freq: NEEDED Status: Active Protocol: Document 05/15/23 10:49 MB (Rec: 05/15/23 11:53 MB [id number]) Orientation Orientation/Cognition Level of Alertness Alert Orientation Name,Age,Birthday,Month,Year, Place,Situation Language Function Ability No Deficits Noted Safety Awareness Decreased Safety Awareness Memory Description No Deficits Noted Gross Range of Motion Upper Extremity ROM Impairments Defer to OT, reduced shoulder motion with reaching for rails today Lower Extremity ROM Assessment Bilaterally Impaired Strength Upper Extremity Strength Assessment Bilaterally Impaired Lower Extremity Strength Assessment Bilaterally Impaired Comments Strength Comments B knees no greater than 2+ to 3-/5 extension in sitting and B ankles no greater than 2+/5 M6 PT-IP Treatment Start: 05/15/23 09:18 Freq: NEEDED Status: Active Protocol: Document 05/15/23 10:49 MB (Rec: 05/15/23 11:53 MB [id number]) Physical Therapy Treatment Exercises Exercises Ankle Pumps Knee ROM Measurement LAQ sitting in chair Education Education Provided Safety Other Treatments Other Treatment Performed Ed pt on log rolling technique to protect his lumbar spine M7 PT-IP Assessment and Plan Start: 05/15/23 09:18 Freq: NEEDED Status: Active Protocol: Document 05/15/23 10:49 MB (Rec: 05/15/23 11:53 MB [id number]) PT Summary Assessment and Plan Potential Rehabilitation Potential Fair Status of Condition at Evaluation Evolving Summary Impairments Pain,ROM,Strength,Balance, Coordination,Cognition,Bed Mobility,Transfers,Gait, Activity Tolerance Progress Towards Goals Slow Progress due to Pain,Slow Progress due to Medical Issues,Slow Progress due to Activity Tolerance Assessment Summary Pt is an 83 y/o gentleman reporting 3 falls in 2023 and with recent fall in BR at home . He reports severe (8/10) back pain and mobilizes very slowly: 25' to get up to EOB and walker and requiring max A and two people nearby if needed today. He has B LE edema and his left third toe is draining and has an ulcer- type sore on the tip of the distal phalanx. Per chart, pt may need to have amputated. Pt is unable to mobilize without assitance at this time and is most appropriate for SNF. Pt will benefit from ongoing acute and post-acute PT to improve mobility, pain and I. Pt lives at home alone with his elderly . Goals Bed Mobility Goal Independent Transfer Goal Independent,Front Wheeled Walker Gait Goal Independent,Front Wheel Walker Gait Distance 75 Other Goals Pt will ascend and descend 2 steps with LRAD and no more than CGA to allow safe home entrance. Days to Meet Goals 10 Frequency of Treatment Frequency Of Treatment Once a Day Treatment Plan Physical Therapy Treatment Plan Bed Mobility Training,Transfer Training,Gait Training, Therapeutic Exercise,Balance Retraining,Discharge Planning, Hot or Cold Pack,Neuromuscular Re-ed,Coordination Retraining Weight Bearing Status Weight Bearing Status Weight Bear as Tolerated Recommendations To Nursing Amount of Assist Needed Mechanical Lift Discharge Recommendations PT Discharge Recommendations SNF Rehab Transportation Needs at Discharge Wheelchair/Cabulance
--- NOTE | 2023-05-15 13:44 | DI.RAD.S_ITS ---
PROCEDURE: XR FOOT LT 2V INDICATIONS: toe infection TECHNIQUE: 2 views of the foot were acquired. COMPARISON: None. FINDINGS: Bones: Generalized decreased osseous mineralization noted. Amputation of the 1st toe at the interphalangeal joint. Old fracture deformity noted at the 2nd metatarsal head. Small plantar calcaneal spur Soft tissues: No tibiotalar joint effusion. Achilles tendon appears normal. Atherosclerotic vascular calcification IMPRESSION: Osteopenia without lytic lesion. Old healed 2nd metatarsal fracture Approved by: Dennis Mcneill M.D. on 05/15/2023 at 14:06
[2023-05-15] MEDS: SODIUM CHLORIDE 0.9% 250 ML 21 ML IV (15:00)
[2023-05-15] MEDS: PIPERACILLIN/TAZO 4.5 GM in SODIUM CHLORIDE 0.9% 100 ML IV (15:02)
[2023-05-15] MEDS: PIPERACILLIN/TAZO 3.375 GM in SODIUM CHLORIDE 0.9% 100 ML IV (18:46)
[2023-05-15] MEDS: DIGOXIN 0.125 MG TABLET 0.25 MG PO (21:31)
[2023-05-15] MEDS: DULOXETINE 30 MG CAPSULE 60 MG PO (21:31)
[2023-05-15] MEDS: SODIUM CHLORIDE 0.9% FLUSH 10 ML IV (21:32)
[2023-05-15] MEDS: SENNOSIDES 8.6 MG TABLET 17.2 MG PO (21:32)
--- NOTE | 2023-05-15 23:18 | PC.NURSE ---
Patient is alert and oriented. [place] w/bilateral hearing aids so is able to hear well when they are in. Breath sounds with coarse crackles at bases w/RA sat of 93%. HR irregular w/telemetry reading of afib CVR; history of afib. Denied nausea. BT present and abdomen is firm, large/round. Indwelling catheter present on admission and reports it was placed 1 week ago to monitor I&O; urine is yellow with some sediment noted in tubing. Is uanble to reposition himself so will have staff reposition q2h. Has edema in bilateral LE. Noted skin ulcer on tip of left 3rd toe as well as scabbed abrasion on left heel; floating heels. Wearing bilateral calf SCD's. Has chronic neuropathy in bilateral feet; unchanged. Complains of intermittent lower back pain but declines use of Vicodin and only wanting to take scheduled Tylenol even though he rates pain severity as 7/10; back increases with any movement and unable to lie flat in bed related to the pain. Fall risk score is high and bed alarm is activated.
[2023-05-16] VITALS (8 sets, daily range): BP systolic 102–131; BP diastolic 51–66; PULSE 71–87; RESP 16–24; TEMP 36–36.4; O2SAT 91–99
[2023-05-16] MEDS: PIPERACILLIN/TAZO 3.375 GM in SODIUM CHLORIDE 0.9% 100 ML IV ×2 (02:02→13:11)
[2023-05-16] MEDS: HYDROCODONE/ACET 10/325 TABLET 2 TAB PO (02:08)
[2023-05-16] MEDS: SODIUM CHLORIDE 0.9% FLUSH 10 ML IV ×3 (02:11→20:09)
[2023-05-16 05:43] LABS: BUN Creatinine Ratio 27.8 (6-22); Blood Urea Nitrogen 27 mg/dL (9-20); Calcium 8.1 mg/dL (8.4-10.2); Carbon Dioxide 35 mmol/L (22-32); Chloride 95 mmol/L (98-107); Estimated Glomerular Filt Rate > 60 mL/min (>60); Glucose 111 mg/dL (80-110); HEMOLYSIS < 15 (0-50); Potassium 3.6 mmol/L (3.4-5.1); Sodium 131 mmol/L (137-145)
[2023-05-16 05:44] LABS: Add Manual Diff / Slide Review NO; Basophils Absolute Auto 200 /uL (0-100); Basophils Percent Auto 1.6 % (0-2); Eosinophils Absolute Auto 200 /uL (0-450); Eosinophils Percent Auto 1.6 % (2-4); Hematocrit 23.2 % (41-53); Hemoglobin 7.8 g/dL (13.5-17.5); Lymphocytes Absolute Auto 900 /uL (1100-4500); Lymphocytes Percent Auto 6.5 % (25-40); Mean Corpuscular HGB Conc 33.6 % (30-36); Mean Corpuscular Volume 107.2 fL (80-100); Monocytes Absolute Auto 1500 /uL (0-900); Monocytes Percent Auto 11.4 % (3-14); Neutrophils Absolute Auto 10700 /uL (1500-7000); Neutrophils Percent Auto 78.9 % (50-75); Platelet Count 328 X10^3/uL (150-400); Red Blood Cell Count 2.16 X10^6/uL (4.5-5.9); Red Cell Distribution Width 22.7 % (11.6-14.8); White Blood Cell Count 13.6 X10^3/uL (4.5-11.0)
[2023-05-16 06:07] LABS: Anisocytosis 2+; Macrocytosis 1+; Ovalocytes 2+; Platelet Estimate Adequate on smear
--- NOTE | 2023-05-16 08:20 | P.PN_ITS ---
Subjective Subjective Interval history: Patient notes increased back pain and won't take hydrocodone. Willing to try oxycodone. Awaiting MRI for his left 3rd toe. Exam Vital Signs (past 8 hours): - 05/16/23 00:33 05/16/23 04:00 05/16/23 04:00 Temperature 97.6 F 96.8 F L Pulse Rate 71 81 Respiratory Rate 24 16 Blood Pressure 102/51 L 117/64 Pulse Oximetry 91 91 Oxygen Flow Rate 0 0 Oxygen Delivery Method Room Air Oxygen Flow Rate 0 Narrative Exam Narrative: NAD, alert and oriented. Fluent speech. Lungs are clear, normal rate and effort. Heart is regular, no murmur gallop or rub. Abdomen is soft, non distended. Extremities are free of edema. His left foot 3rd toe has an area of redness but is not cold. There was no obvious fluctuance or discharge. Objective Labs 05/16/23 04:57 05/16/23 04:57 Labs: Laboratory Results - last 24 hr 05/16/23 04:57 WBC 13.6 H RBC 2.16 L Hgb 7.8 L Hct 23.2 L MCV 107.2 H MCH 36.0 H MCHC 33.6 RDW 22.7 H Plt Count 328 Neut % (Auto) 78.9 H Lymph % (Auto) 6.5 L Fountain % (Auto) 11.4 Eos % (Auto) 1.6 L Baso % (Auto) 1.6 Neut # (Auto) 50169 H Lymph # (Auto) 900 L Fountain # (Auto) 1500 H Eos # (Auto) 200 Baso # (Auto) 200 H Platelet Estimate Adequate on smear RBC Morphology See below Anisocytosis 2+ H Macrocytosis 1+ H Ovalocytes 2+ H Sodium 131 L Potassium 3.6 Chloride 95 L Carbon Dioxide 35 H BUN 27 H Creatinine 0.97 Estimated GFR > 60 BUN/Creatinine Ratio 27.8 H Glucose 111 H Calcium 8.1 L PFSH Medical History Neuropathy COPD (chronic obstructive pulmonary disease) Myelofibrosis CHF (congestive heart failure) Edema Acid reflux HTN (hypertension) Osteoarthritis Arthritis HLD (hyperlipidemia) Cardiomyopathy Afib Surgical History Hx of tonsillectomy History of arthroplasty of left shoulder History of bilateral hip arthroplasty History of arthroplasty of right shoulder Hx of shoulder surgery Hx of laminectomy History of lumbar surgery (03/25/15) Social History household members: spouse Smoking Status: Former smoker alcohol intake: current Assessment & Plan Assessment & Plan narrative: 1. Mechanical fall with back pain, present on admission and active. Some, but minimal improvement. 2. Acute on chronic anemia, present on admission and active. Was given 1 unit of blood on May 13. 3. Hypokalemia, present on admission and active. 4. Acute on chronic systolic heart failure, present on admission and stable. 5. Myelofibrosis, present on admission and stable. 6. Hypertension, present on admission and stable. 7. Hyperlipidemia, present on admission and stable. 8. Atrial fibrillation on chronic Xarelto, he has been holding Xarelto. Present on admission and active. 9. COPD, present on admission and stable. 10. Left foot 3rd toe with cellulitis and possible osteomyelitis PLAN: -MRI shows possible 3rd L toe osteomyelitis, Dr. Sanchez ortho consulted and not impressed with MRI and does not think true osteo -change IV abx to po doxy and treat for 2 weeks per ortho recs -pain medication for back pain, and physical therapy assessment for discharge planning. -follow hemoglobin, currently stable in 7's s/p 1u PRBC -monitor blood pressure, resume cardiac and blood pressure medications as able. -resume xarelto given no ortho surgery He is full code, confirmed tonight. His proxy decision maker is his . This patient will require a 2nd midnight of medically necessary hospital level surfaces. This supports inpatient level of care. Dispo: SNF in 1-2 days Quality VTE Deep Vein Thrombosis/Pulmonary Embolism Present on Admission: No
[2023-05-16] MEDS: CHOLECALCIFEROL (VITAMIN D3) 1,000 UNIT TABLET 2000 UNIT PO (08:59)
[2023-05-16] MEDS: carvediloL 3.125 MG TABLET 6.25 MG PO ×2 (08:59→20:05)
[2023-05-16] MEDS: ACETAMINOPHEN 325 MG TABLET 650 MG PO ×2 (08:59→15:39)
[2023-05-16] MEDS: GABAPENTIN 300 MG CAPSULE PO (08:59)
[2023-05-16] MEDS: TORSEMIDE 10 MG TABLET 20 MG PO ×2 (08:59→20:08)
[2023-05-16] MEDS: VANCOMYCIN 2,000 MG/400 ML PIGGYBACK 200 MG IV (10:17)
--- NOTE | 2023-05-16 11:17 | PT.IPTN ---
Current Diagnoses Acute on chronic systolic (congestive) heart failure (05/15/23) Physical Therapy Treatment Note M2 PT-IP Current Condition Start: 05/15/23 09:18 Freq: NEEDED Status: Active Protocol: Document 05/15/23 10:49 MB (Rec: 05/15/23 11:53 MB [id number]) Physical Therapy Current Condition Current Condition Evaluation Date 05/15/23 Treatment Diagnosis Fall, high back pain, draining left 3rd toe M3 PT-IP Subjective Start: 05/15/23 09:18 Freq: NEEDED Status: Active Protocol: Document 05/16/23 10:37 MB (Rec: 05/16/23 11:17 MB [id number]) Subjective Physical Therapy Visit Type Type Treatment Note Visit Start Time 10:37 Visit Stop Time 11:02 Number of CNC MACHINIST 2ND SHIFT Visits 0 Physical Therapy Visit Comments Patient Comments Pt con't with high back pain rated as 8/10. Therapy Pain Assessment Pain When Pain Assessed At Rest Pain Present Pain Present Pain Reported Location Back Intensity 8 M4 PT-IP Mobility and Gait Start: 05/15/23 09:18 Freq: NEEDED Status: Active Protocol: Document 05/16/23 10:37 MB (Rec: 05/16/23 11:17 MB [id number]) PT-Bed Mobility Assessment Supine to Sit Supine to Sit Maximum Assistance,1 Person Assistance,Head of Bed Elevated,Bedrails Scooting Scooting to Edge of Bed Maximum Assistance PT-Transfer Assessment Sit to and From Stand Sit to and from Stand Minimal Assistance,Moderate Assistance,1 Person Assistance ,2 Person Assistance,Use of Upper Extremities Equipment Transfer Assistive Device Gait Belt,Front Wheeled Walker Orthotic/Prosthetic Devices or Brace: No Transfers Transfer Destination Chair Transfer Technique Stepping Transfer Ability Level of Assist Minimal Assistance,Moderate Assistance,1 Person Assistance ,2 Person Assistance,Use of Upper Extremities Comments Mobility Comments +2 assistance nearby given pt' s ongoing high c/o pain, reluctance to mobilize and size. Gait Assessment Gait Gait Assistance Required: Minimum Assistance,Moderate Assistance,1 Person Assist Distance (Feet) 2 Able to Maintain Weight Bearing Status Yes During Gait Assistive Devices Assistive Device Gait Belt,Front Wheeled Walker Orthotic/Prosthetic Devices or Brace: No Gait Deviations General Gait Pattern Antalgic,Decreased Stride Length,Decreased Feet Clearance,Flexed Trunk,Wide Based Gait Factors Limiting Gait Function Factors Limiting Gait Function Decreased Activity Tolerance, Decreased Strength,Difficulty Following Directions, Incoordination,Limited Range of Motion,Pain,Poor Balance, Poor Safety Awareness Comments Gait Comments Pt takes a few more steps today and his posture is flexed at back, hips, knees and ankles PT-Balance Assessment Sitting Balance and Reactions Static Sitting Balance Ability Fair Dynamic Sitting Balance Ability Poor Standing Balance and Reactions Static Standing Balance Ability Fair Dynamic Standing Balance Ability Poor Device Used RW M5 PT-IP Objective Assessments Start: 05/15/23 09:18 Freq: NEEDED Status: Active Protocol: Document 05/15/23 10:49 MB (Rec: 05/15/23 11:53 MB [id number]) Orientation Orientation/Cognition Level of Alertness Alert Orientation Name,Age,Birthday,Month,Year, Place,Situation Language Function Ability No Deficits Noted Safety Awareness Decreased Safety Awareness Memory Description No Deficits Noted Gross Range of Motion Upper Extremity ROM Impairments Defer to OT, reduced shoulder motion with reaching for rails today Lower Extremity ROM Assessment Bilaterally Impaired Strength Upper Extremity Strength Assessment Bilaterally Impaired Lower Extremity Strength Assessment Bilaterally Impaired Comments Strength Comments B knees no greater than 2+ to 3-/5 extension in sitting and B ankles no greater than 2+/5 M6 PT-IP Treatment Start: 05/15/23 09:18 Freq: NEEDED Status: Active Protocol: Document 05/16/23 10:37 MB (Rec: 05/16/23 11:17 MB [id number]) Physical Therapy Treatment Education Education Provided Safety Other Treatments Other Treatment Performed Ed pt on log rolling technique to protect his lumbar spine M7 PT-IP Assessment and Plan Start: 05/15/23 09:18 Freq: NEEDED Status: Active Protocol: Document 05/16/23 10:37 MB (Rec: 05/16/23 11:17 MB [id number]) PT Summary Assessment and Plan Potential Rehabilitation Potential Fair Status of Condition at Evaluation Evolving Summary Impairments Pain,ROM,Strength,Balance, Coordination,Cognition,Bed Mobility,Transfers,Gait, Activity Tolerance Progress Towards Goals Slow Progress due to Pain,Slow Progress due to Medical Issues,Slow Progress due to Activity Tolerance Assessment Summary Pt con't with similar high level of back pain today that limits mobility and he requires heavy assistance for bed mobility, transfer and stepping. Pt tells therapists that he does not like opiods d /t hallucinations in the past and that is why he refused anything but Tylenol this a.m. Nsg and PT speak with MD about pt pain and possible other pain medication options if appropriate. He con't to be SNF level as far as mobility. Goals Bed Mobility Goal Independent Transfer Goal Independent,Front Wheeled Walker Gait Goal Independent,Front Wheel Walker Gait Distance 75 Other Goals Pt will ascend and descend 2 steps with LRAD and no more than CGA to allow safe home entrance. Days to Meet Goals 10 Frequency of Treatment Frequency Of Treatment Once a Day Treatment Plan Physical Therapy Treatment Plan Bed Mobility Training,Transfer Training,Gait Training, Therapeutic Exercise,Balance Retraining,Discharge Planning, Hot or Cold Pack,Neuromuscular Re-ed,Coordination Retraining Weight Bearing Status Weight Bearing Status Weight Bear as Tolerated Recommendations To Nursing Amount of Assist Needed 2 Person Assist,Mechanical Lift Discharge Recommendations PT Discharge Recommendations SNF Rehab Transportation Needs at Discharge Wheelchair/Cabulance
--- NOTE | 2023-05-16 11:20 | OT.IP.EVAL ---
Current Diagnoses Acute on chronic systolic (congestive) heart failure (05/15/23) Past Medical History (Last Reviewed 05/14/23 @ 17:15 by John Underwood MD) Acid reflux Afib Arthritis Cardiomyopathy CHF (congestive heart failure) COPD (chronic obstructive pulmonary disease) Edema HLD (hyperlipidemia) HTN (hypertension) Myelofibrosis Neuropathy Osteoarthritis Surgical History (Last Reviewed 05/14/23 @ 17:15 by John Underwood MD) History of arthroplasty of left shoulder History of arthroplasty of right shoulder History of bilateral hip arthroplasty History of lumbar surgery (03/25/15) Hx of laminectomy Hx of shoulder surgery Hx of tonsillectomy Occupational Therapy Inpatient Evaluation/Re-Eval M1 PT/OT-IP Prior Functional Status Start: 05/15/23 09:18 Freq: NEEDED Status: Active Protocol: Document 05/16/23 12:23 CGR (Rec: 05/16/23 12:42 CGR [id number]) Medical Review Prior Functional Status Medical History Reviewed Yes Diet/Fluid Consistency Regular Communication Pt is an effective verbal communicator who is [facility] with B hearing aids Mobility and Gait Pt reports mod I with short mobility in the house using rolling walker Activities of Daily Living and IADL's Mod I, recently got a catheter d/t frequent urination at night per his report. Pt states that his helps with socks and does the cooking. Prior Functional Level (Other details) Pt states that his does most of the driving. Social History Household Members spouse Living Arrangements House Number of Floors (Floors) Two Floors Number of Stairs To Enter/Railing? 2 long platform-type steps without rail to enter, pt states that he can fit his walker between them. 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 Home Environment High Toilet,Walk in Shower Home Equipment Four Wheel Walker,Straight Cane,Raised Toilet Seat w/ Armrests,Shower Seat without Backrest,Hand Held Shower,Lift Recliner,Grab Bars In Shower Employment Status Retired Additional Social History Comment Pt states that he typically doesn't have back pain. M2 OT-IP Current Condition Start: 05/16/23 12:23 Freq: Status: Active Protocol: Document 05/16/23 12:23 CGR (Rec: 05/16/23 12:42 CGR [id number]) Occupational Therapy Current Condition Current Condition Evaluation Date 05/16/23 Treatment Diagnosis GLF with back pain xray neg, L foot 3rd toe infection Diagnosis Onset Date 05/14/23 M3 OT- IP Subjective and Pain Start: 05/16/23 12:23 Freq: Status: Active Protocol: Document 05/16/23 12:23 CGR (Rec: 05/16/23 12:42 CGR [id number]) OT- Subjective Occupational Therapy Visit Type Type Initial Evaluation Visit Start Time 10:35 Visit Stop Time 11:20 Notes Partial co-treat with P.T. OT Pain Assessment Pain When Pain Assessed At Rest Pain Present Pain Present Pain Reported Location Back Intensity 7 Scale Used Numeric (0 - 10) Management Techniques Apply Heat,Distraction, Modification of Treatment,Re- positioning,Timing of Activity with Medications M4 OT- IP ADL's Start: 05/16/23 12:23 Freq: Status: Active Protocol: Document 05/16/23 12:23 CGR (Rec: 05/16/23 12:42 CGR [id number]) OT URB-Yxri-Urztrsb General Evaluation Self-Feeding Ability Independent Areas Needing Assistance Drinking From Cup/Glass Comments OT Self-Feeding Comments not meal time but pt is able to drink water with straw OT ADL-Grooming Comments OT Grooming Comments Pt states that he performed earlier in day OT ADL-Oral Care Comments Oral Care Comments Pt states that he performed earlier in day OT ADL-Dressing General Eval Lower Body Dressing Ability Total Assistance Areas Needing Assistance Socks Comments OT Dressing Comments supine in bed OT ADL-Toileting General Evaluation Toileting Ability Total Assistance Comments OT Toileting Comments murdock, pt states he has had a murdock for ~2 weeks at home. OT ADL-Bathing Comments OT Bathing Comments not performed M5 OT- IP IADL's Start: 05/16/23 12:23 Freq: Status: Active Protocol: Document 05/16/23 12:23 CGR (Rec: 05/16/23 12:42 CGR [id number]) OT-Instrumental Activities of Daily Living Deficits IADL Deficits Identified No Deficits Home Safety Awareness Awareness of Need for Assistance at Home Good Awareness Ability to Problem Solve Emergency Able to Problem Solve Situations Medication Management Medication Management Caregiver Administers Money Management Money Management Caregiver Provides Assistance Meal Preparation Meal Preparation Caregiver Provides Assist Welding Process Specialist Welding Process Specialist Caregiver Provides Assist Driving Driving Comments Pt states that his typically does the driving but that he can drive. M6 OT- IP Functional Cognition Start: 05/16/23 12:23 Freq: Status: Active Protocol: Document 05/16/23 12:23 CGR (Rec: 05/16/23 12:42 CGR [id number]) Cognitive Factors Limiting Selfcare Function Cognitive Ability Level of Alertness Alert Patient Orientation Name,Age,Birthday,Month,Year, Day of Week,Place,Situation Attention Span Ability Capable of Focused Attention, Capable of Sustained Attention Cognitive Comments Cognitive Assessment Comments Pt is able to answer questions but appears to be slightly confused at times. Pt may benefit from formal cog assessment. OT- Vision and Hearing OT- Hearing Assessment OT- Hearing Assessment Hearing Impaired,Use of Hearing Aids OT- Vision Assessment Visual Acuity Glasses For Reading Visual Attentiveness WFL Occular Pursuits WFL Visual Convergence Impaired M7 OT- IP Mobility and Balance Start: 05/16/23 12:23 Freq: Status: Active Protocol: Document 05/16/23 12:23 CGR (Rec: 05/16/23 12:42 CGR [id number]) OT- Bed Mobility Assessment Rolling Type of Rolling Log Rolling,Roll to Right Level of Assistance Maximum Assistance,1 Person Assistance Supine to Sit Supine to Sit Assist Maximum Assistance,Head of Bed Elevated,Bedrails Scooting Scooting to Edge of Bed Standby Assistance OT-Transfer Assessment Sit to and From Stand Sit to and from Stand Moderate Assistance Transfers Transfer Ability Minimal Assistance Technique Transfer Destination Bed,Chair Transfer Technique Stand Step Pivot Devices Transfer Assistive Devices Gait Belt,Front Wheeled Walker Comments Mobility Comments Pt stood from bed and ambulated to chair. Pt states pain is better in chair and decreased from an 8 in bed to a 7 sitting in the chair. Pt maintains a slumped position in standing, without full extenion of the knees and flexed forward at the hips. OT- Gait Assessment Comments Gait Ability Comments not performed OT- Balance Assessment Sitting Balance and Reactions Static Sitting Balance Ability Good Dynamic Sitting Balance Ability Good M8 OT- IP Objective Assessments Start: 05/16/23 12:23 Freq: Status: Active Protocol: Document 05/16/23 12:23 CGR (Rec: 05/16/23 12:42 CGR [id number]) OT Gross Range of Motion Upper Extremity Range of Motion Assessment Bilaterally Impaired ROM Impairments shlds 0-85 OT Strength Upper Extremity Strength Assessment Within Functional Limits Comments Strength Comments shlds not tested d/t back pain arms and hands 4/5 which is weak for a pt of this height and weight. OT- Coordination Assessment Upper Extremity Finger to Nose Test Within Functional Limits Finger Tapping Test Within Functional Limits OT-Muscle Tone Assessment Muscle Tone WNL Yes OT Sensation Assessment Edema Edema Absent M9 OT- IP Assessment and Plan Start: 05/16/23 12:23 Freq: Status: Active Protocol: Document 05/16/23 12:23 CGR (Rec: 05/16/23 12:42 CGR [id number]) OT Summary Assessment and Plan Potential Rehabilitation Potential Good Analytic Complexity at Evaluation High Summary OT Impairments Pain,Range of Motion,Strength, Balance,Functional Mobility, Grooming,Dressing,Toileting, Bathing,Toilet Transfers, Shower Transfers,Activity Tolerance Progress Towards Goals Slow Progress due to Pain Assessment Summary Pt presents as a high complexity evaluation s/p admit for fall with back pain. Pt also found to have an infected L 3rd toe, awaiting ortho. Pt states that bed mobility was maybe a little easier today then yesterday. Pt transferred from bed to chair but declined all other activity with OT. Warming pad obtained and set up for pt's back pain to help with pain. Will continue to follow for therapy services. Pt currently is requiring max a for bed mobility and min to mod a to transfer to the chair. Pt will need SNF upon discharge unless pt's mobility and ADLs improve. Goals Self-Feeding Goal Independent Grooming Goal Independent Dressing Goal Independent,Closing Manager,Sock Aid Toileting Goal Independent Bathing Goal Independent Toilet Transfer Goal Independent Shower Transfer Goal Independent Days to Meet Goals 15 Frequency of Treatment Frequency Of Treatment Once a Day Treatment Plan OT Treatment Plan ADL Training,Functional Cognition Training,Functional Mobility,Patient/Family Education,Discharge Planning Other Treatment Recommendations and Next LB dressing, manual muscle Treatment Focus manipulation to the lower back for pain improvement? Discharge Recommendations OT Discharge Recommendations SNF Rehab Transportation Needs at Discharge Wheelchair/Cabulance
[2023-05-16] MEDS: methocarbamoL 500 MG TABLET PO ×2 (11:40→19:37)
--- NOTE | 2023-05-16 14:46 | CM.DPNOTE ---
DCP Cont Met w/patient this morning to review DCP; PT recommending SNF. Patient denies need for SNF and reports his also does not want him at a SNF. Patient would like resumption of [facility] services. Resumption order placed. ZAIRA Sellers, kindly agreed to send to [facility]. Plan: Discharge home w/spouse and resumption of [facility] services is anticipated. If care needs change dramatically, reassessment of discharge needs is warranted. CM team will plan to follow clinical course closely. MILTON
--- NOTE | 2023-05-16 15:10 | DI.MRI.S_ITS ---
PROCEDURE: MRFOOT LT WO CON INDICATIONS: possible osteo of L 3rd toe TECHNIQUE: Multiphasic, multisequence MRI of the forefoot was performed, without intravenous contrast administration. The patient terminated the exam before intravenous contrast material could be administered. COMPARISON: [facility], CR, XR FOOT LT 2V, 05/15/2023, 13:44. FINDINGS: Image quality: Diagnostic. Images are mildly degraded by patient motion. Exam initially ordered as within without contrast. However, the patient terminated the exam before intravenous contrast material could be administered. Bones and joints: Postsurgical changes are seen from prior amputation of the great toe at the level of the interphalangeal joint. There is mild edema and loss of cortical definition at the distal tip of the 3rd distal phalanx. There is an ununited fracture at the 2nd metatarsal neck with mild surrounding osseous edema. Osseous structures otherwise normal in signal intensity. Multiple hammertoe deformities are noted. Scattered degenerative changes are seen in the forefoot. Soft tissues: Mild subcutaneous edema is seen throughout the 3rd toe with skin ulceration at the distal tip. No drainable fluid collection. Subcutaneous edema is also seen at the dorsum of the foot. Diffuse grade 3-4 fatty infiltration of the intrinsic foot musculature is most likely related to chronic denervation changes. Visualized flexor and extensor tendons are grossly intact. Lisfranc ligament is intact. IMPRESSION: 1. Mild edema and loss of cortical definition at the tuft of the 3rd distal phalanx suspicious for osteomyelitis. 2. Ununited fracture at the 3rd metatarsal neck with surrounding osseous edema, which is of uncertain chronicity. 3. Postsurgical changes from amputation of the great toe at the first interphalangeal joint. 4. Diffuse fatty infiltration of the intrinsic foot musculature is suspicious for chronic denervation changes. Approved by: Fabian Coombs M.D. on 05/16/2023 at 16:18
[2023-05-16] MEDS: OXYCODONE IR 5 MG TABLET PO (15:38)
--- NOTE | 2023-05-16 16:48 | PM.CN ---
History of Present Illness Consult details Date Patient Seen: 05/16/23 Time Patient Seen: 16:48 Chief complaint: GLF Reason for consult: Left 3rd toe Requesting provider: Long Ferreira Narrative: An 83-year-old man that was admitted to the hospital after a ground level fall. He is on chronic anticoagulation with Xarelto. 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 Ireland. In the midst of his workup for his back pain he was found to have drainage from his 3rd toe. On report from the patient he states that his toenail fell off 3-4 days ago after turning dark at the toenail. Apparently it was believed to drain pus yesterday. Hospitalist Service obtained an MRI and I have consulted me today for question of osteomyelitis. Patient was provisionally placed on IV antibiotics. Meds Home Medications and Allergies Home Medications Medication Instructions Recorded Confirmed Type digoxin 250 mcg (0.25 mg) tablet 250 mcg PO BEDTIME 04/09/19 05/14/23 History rivaroxaban 20 mg tablet (Xarelto) 20 mg PO QPM 04/09/19 05/14/23 History cholecalciferol (vitamin D3) 100 2,000 unit PO DAILY 04/12/19 05/14/23 History mcg (4,000 unit) capsule (Vitamin D3) duloxetine 30 mg capsule,delayed 60 mg PO BEDTIME 09/17/20 05/14/23 History release gabapentin 300 mg capsule 300 mg PO BID 09/17/20 05/14/23 History vitamin B12 0.5 mg-folic acid 1 mg 1 tab PO DAILY 09/17/20 05/14/23 History tablet carvedilol 6.25 mg tablet 6.25 mg PO BID 05/14/23 05/14/23 History cephalexin 500 mg capsule 500 mg PO 4XD 05/14/23 05/14/23 History metolazone 2.5 mg tablet 2.5 mg PO PRN PRN Edema 05/14/23 05/14/23 History torsemide 20 mg tablet 20 mg PO BID 05/14/23 05/14/23 History Allergies Allergy/AdvReac Type Severity Reaction Status Date / Time No Known Drug Allergies Allergy Verified 01/26/23 19:37 Review of Systems Review of Systems Narrative: Complains of back pain states back pain is the reason he is in the hospital ROS: Yes All systems reviewed with the patient and are negative except as otherwise documented Exam Vital Signs (past 8 hours): - 05/16/23 08:59 05/16/23 12:00 05/16/23 16:00 Temperature 96.8 F L Pulse Rate 87 78 Respiratory Rate 18 16 Blood Pressure 128/61 113/58 L 131/60 Pulse Oximetry 96 Oxygen Flow Rate 0 Oxygen Delivery Method Room Air Oxygen Flow Rate 0 Narrative Exam Narrative: Alert oriented male in no acute distress lying in bed. Complains of back pain Normocephalic atraumatic Bilateral extremities moderate lower extremity foot swelling. No erythema. Demonstrates dorsiflexion plantar flexion bilateral feet. No wounds on the right foot. On the left foot there is a well-healed partial amputation at the IP joint of the great toe. Third toe has lost the toenail and there is some scabbing dorsally at the distal pulp and where the toe was. There was no exposed bone. There was no expressible purulence. There is no area of erythema or significant swelling. There is no ascending cellulitis. Calves are soft. Dorsalis pedis pulses palpable. Objective Imaging MRI forefoot left: My impression: MRI forefoot questionable edema distal phalanx 3rd toe. No focal abscess or collection. Possible osteo may be reactive. There has been a amputation of the distal phalanx left great toe Labs 05/16/23 04:57 05/16/23 04:57 Labs: Laboratory Results - last 24 hr 05/16/23 04:57 WBC 13.6 H RBC 2.16 L Hgb 7.8 L Hct 23.2 L MCV 107.2 H MCH 36.0 H MCHC 33.6 RDW 22.7 H Plt Count 328 Neut % (Auto) 78.9 H Lymph % (Auto) 6.5 L [place] % (Auto) 11.4 Eos % (Auto) 1.6 L Baso % (Auto) 1.6 Neut # (Auto) 28953 H Lymph # (Auto) 900 L [place] # (Auto) 1500 H Eos # (Auto) 200 Baso # (Auto) 200 H Platelet Estimate Adequate on smear RBC Morphology See below Anisocytosis 2+ H Macrocytosis 1+ H Ovalocytes 2+ H Sodium 131 L Potassium 3.6 Chloride 95 L Carbon Dioxide 35 H BUN 27 H Creatinine 0.97 Estimated GFR > 60 BUN/Creatinine Ratio 27.8 H Glucose 111 H Calcium 8.1 L [facility] Medical History Neuropathy COPD (chronic obstructive pulmonary disease) Myelofibrosis CHF (congestive heart failure) Edema Acid reflux HTN (hypertension) Osteoarthritis Arthritis HLD (hyperlipidemia) Cardiomyopathy Afib Surgical History Hx of tonsillectomy History of arthroplasty of left shoulder History of bilateral hip arthroplasty History of arthroplasty of right shoulder Hx of shoulder surgery Hx of laminectomy History of lumbar surgery (03/25/15) Social History household members: spouse Tobacco & Substance Use Smoking Status: Former smoker alcohol intake: current Assessment & Plan Assessment and plan (1) Wound, open, toe: Qualifiers: Encounter type: initial encounter Qualified Code(s): S91.109A - Unspecified open wound of unspecified toe(s) without damage to nail, initial encounter Status: Acute Assessment & Plan narrative: Patient has a wound of his left 3rd toe. This coincides with his toenail lost 3-4 days ago. There is a question there may be some minimal distal phalanx osteomyelitis. He does not appear toxic and there is no ascending cellulitis. Toe joints are flexible. No rigid deformity. He is no swelling of the toe. And there were no expressible collections or purulence on my exam. I have recommended oral antibiotics. May weightbear as tolerated. We discussed that the wound or infection may get worse and he may need partial amputation in the future but it has not indicated acutely. Recommend routine wound care and 2 week course of oral antibiotics follow up outpatient for assessment. If during that time he suddenly gets worse with increased drainage purulence worsening erythema then he would need to return to the emergency department. This plan was communicated with the inpatient hospitalist team. Time Spent With Patient Time with patient: less than 30 minutes
[2023-05-16] MEDS: OXYCODONE IR 10 MG TABLET PO (19:36)
[2023-05-16] MEDS: GABAPENTIN 300 MG CAPSULE 600 MG PO (20:05)
[2023-05-16] MEDS: DULOXETINE 30 MG CAPSULE 60 MG PO (20:07)
[2023-05-16] MEDS: DIGOXIN 0.125 MG TABLET 0.25 MG PO (20:08)
[2023-05-16] MEDS: SENNOSIDES 8.6 MG TABLET 17.2 MG PO (20:08)
[2023-05-16] MEDS: DOXYCYCLINE HYCLATE 100 MG TABLET PO (20:08)
[2023-05-17] VITALS (9 sets, daily range): BP systolic 109–152; BP diastolic 54–77; PULSE 76–93; RESP 16–18; TEMP 36.3–36.8; O2SAT 91–95
--- NOTE | 2023-05-17 01:24 | PC.NURSE ---
Addendum entered by Edilma Sam R.N. 05/17/23 06:59: Dr. Pedraza responded with I think that would be a question for a day doc. Information provided to oncoming RN, Pat. Addendum entered by Edilma Sam R.N. 05/17/23 06:49: Noted to have urine leaking from around catheter this morning. Dr Pedraza notified via WebEx and are awaiting further instructions/orders. Addendum entered by Edilma Sam R.N. 05/17/23 06:20: [place] patient talking in room this morning and went in to see who he was conversing with but no one in room. When asked who he was talking with he stated the men in charge of our subdivision. When told there is no one in the room he looked around and stated they must have left so told him that staff have been at desk and did not see anyone in the room he acknowledged that he must be hallucinating. He was appropriate to orientation questions. He did have both Robaxin + oxycodone at 0314 and reports he has hallucinated from narcotics in the past. Original Note: Patient is alert and oriented. C[place] but wears bilateral hearing aids and able to hear well. HR remains irregular and has history of afib. Denied nausea. BT hypoactive and states he is not passing flatus; no BM since 05/13. Has outpouched area midline abdomen which is possible hernia; denied pain on palpation. Is assisted to reposition q2h. On initial turn he hollered out when HOB lowered and with turning side to side. When turned at 0100 he did not holler at all and was able to assist with repositioning. Indwelling catheter is patent. Noted to have swelling of scrotum and some urine leakage around urinary meatus. Swelling bilateral LE to hip. Chronic foot neuropathy unchanged. Is wearing bilateral calf SCD's. Medicated with Robaxin + oxycodone earlier this shift and has been mostly sleeping; when repositioned he stated pain was tolerable at 5/10 and declined additional pain medications. Fall risk score is high and bed alarm is activated.
[2023-05-17] MEDS: ACETAMINOPHEN 325 MG TABLET 650 MG PO ×4 (03:14→20:55)
[2023-05-17] MEDS: methocarbamoL 500 MG TABLET PO ×2 (03:18→09:05)
[2023-05-17 05:23] LABS: Add Manual Diff / Slide Review NO; Basophils Absolute Auto 200 /uL (0-100); Basophils Percent Auto 1.1 % (0-2); Eosinophils Absolute Auto 300 /uL (0-450); Eosinophils Percent Auto 1.6 % (2-4); Hematocrit 24.2 % (41-53); Hemoglobin 7.9 g/dL (13.5-17.5); Lymphocytes Absolute Auto 900 /uL (1100-4500); Lymphocytes Percent Auto 5.3 % (25-40); Mean Corpuscular HGB Conc 32.6 % (30-36); Mean Corpuscular Hemoglobin 34.3 PG (26-34); Mean Corpuscular Volume 105.3 fL (80-100); Monocytes Absolute Auto 2000 /uL (0-900); Monocytes Percent Auto 11.7 % (3-14); Neutrophils Absolute Auto 14000 /uL (1500-7000); Neutrophils Percent Auto 80.3 % (50-75); Platelet Count 303 X10^3/uL (150-400); Red Cell Distribution Width 22.7 % (11.6-14.8); White Blood Cell Count 17.5 X10^3/uL (4.5-11.0)
[2023-05-17 05:28] LABS: BUN Creatinine Ratio 24.8 (6-22); Blood Urea Nitrogen 25 mg/dL (9-20); Calcium 8.2 mg/dL (8.4-10.2); Carbon Dioxide 31 mmol/L (22-32); Chloride 94 mmol/L (98-107); Estimated Glomerular Filt Rate > 60 mL/min (>60); Glucose 105 mg/dL (80-110); HEMOLYSIS < 15 (0-50); Potassium 3.7 mmol/L (3.4-5.1); Sodium 131 mmol/L (137-145)
[2023-05-17 06:15] LABS: Anisocytosis 2+; Macrocytosis 1+; Ovalocytes 2+; Platelet Estimate Adequate on smear
[2023-05-17] MEDS: DOXYCYCLINE HYCLATE 100 MG TABLET PO ×2 (09:04→20:58)
[2023-05-17] MEDS: CIPROFLOXACIN 250 MG TABLET 500 MG PO ×2 (09:04→21:02)
[2023-05-17] MEDS: TORSEMIDE 10 MG TABLET 20 MG PO ×2 (09:04→20:58)
[2023-05-17] MEDS: carvediloL 3.125 MG TABLET 6.25 MG PO ×2 (09:05→20:58)
[2023-05-17] MEDS: CHOLECALCIFEROL (VITAMIN D3) 1,000 UNIT TABLET 2000 UNIT PO (09:05)
[2023-05-17] MEDS: GABAPENTIN 300 MG CAPSULE 600 MG PO ×2 (09:05→20:57)
[2023-05-17] MEDS: SODIUM CHLORIDE 0.9% FLUSH 10 ML IV ×2 (09:06→20:58)
--- NOTE | 2023-05-17 10:50 | PT.IPTN ---
Current Diagnoses Acute on chronic systolic (congestive) heart failure (05/15/23) Unspecified open wound of unspecified toe(s) without damage to nail, initial encounter (05/15/23) Physical Therapy Treatment Note M2 PT-IP Current Condition Start: 05/15/23 09:18 Freq: NEEDED Status: Active Protocol: Document 05/15/23 10:49 MB (Rec: 05/15/23 11:53 MB [id number]) Physical Therapy Current Condition Current Condition Evaluation Date 05/15/23 Treatment Diagnosis Fall, high back pain, draining left 3rd toe M3 PT-IP Subjective Start: 05/15/23 09:18 Freq: NEEDED Status: Active Protocol: Document 05/17/23 12:27 TS (Rec: 05/17/23 12:38 TS [id number]) Subjective Physical Therapy Visit Type Type Treatment Note Visit Start Time 10:50 Visit Stop Time 11:30 Number of METER READER Visits 1 Physical Therapy Visit Comments Patient Comments Pt found resting in bed, has word finding difficulties, is agreeable to PT. Therapy Pain Assessment Pain When Pain Assessed At Rest Pain Present Pain Present Pain Reported M4 PT-IP Mobility and Gait Start: 05/15/23 09:18 Freq: NEEDED Status: Active Protocol: Document 05/17/23 12:27 TS (Rec: 05/17/23 12:38 TS [id number]) PT-Bed Mobility Assessment Supine to Sit Supine to Sit Maximum Assistance,1 Person Assistance,Head of Bed Elevated,Bedrails Scooting Scooting to Edge of Bed Minimal Assistance PT-Transfer Assessment Sit to and From Stand Sit to and from Stand Moderate Assistance,1 Person Assistance,Use of Upper Extremities Equipment Transfer Assistive Device Gait Belt,Front Wheeled Walker Orthotic/Prosthetic Devices or Brace: No Comments Mobility Comments Supine to sit MaxA to upright trunk with COLLISION REPAIRER. Pt sat EOB for ~5mins until ready to stand. STS from bed ModA with yvonne of FWW. In standing pt has very flexed posture and knees buckling L>R. Pt completed about 1' of gait before knees began to buckle and required chair placed underneath him. Pt was left in chair, all needs met. Gait Assessment Gait Gait Assistance Required: Maximum Assistance,1 Person Assist Distance (Feet) 1 Able to Maintain Weight Bearing Status Yes During Gait Assistive Devices Assistive Device Gait Belt,Front Wheeled Walker Orthotic/Prosthetic Devices or Brace: No Gait Deviations General Gait Pattern Antalgic,Decreased Stride Length,Decreased Feet Clearance,Flexed Trunk,Wide Based Gait Factors Limiting Gait Function Factors Limiting Gait Function Decreased Activity Tolerance, Decreased Strength,Difficulty Following Directions, Incoordination,Limited Range of Motion,Pain,Poor Balance, Poor Safety Awareness Comments Gait Comments See mobility comments PT-Balance Assessment Sitting Balance and Reactions Static Sitting Balance Ability Fair Dynamic Sitting Balance Ability Fair Standing Balance and Reactions Static Standing Balance Ability Poor Dynamic Standing Balance Ability Poor Device Used RW M5 PT-IP Objective Assessments Start: 05/15/23 09:18 Freq: NEEDED Status: Active Protocol: Document 05/15/23 10:49 MB (Rec: 05/15/23 11:53 MB [id number]) Orientation Orientation/Cognition Level of Alertness Alert Orientation Name,Age,Birthday,Month,Year, Place,Situation Language Function Ability No Deficits Noted Safety Awareness Decreased Safety Awareness Memory Description No Deficits Noted Gross Range of Motion Upper Extremity ROM Impairments Defer to OT, reduced shoulder motion with reaching for rails today Lower Extremity ROM Assessment Bilaterally Impaired Strength Upper Extremity Strength Assessment Bilaterally Impaired Lower Extremity Strength Assessment Bilaterally Impaired Comments Strength Comments B knees no greater than 2+ to 3-/5 extension in sitting and B ankles no greater than 2+/5 M6 PT-IP Treatment Start: 05/15/23 09:18 Freq: NEEDED Status: Active Protocol: Document 05/17/23 12:27 TS (Rec: 05/17/23 12:38 [id number]) Physical Therapy Treatment Education Education Provided Safety M7 PT-IP Assessment and Plan Start: 05/15/23 09:18 Freq: NEEDED Status: Active Protocol: Document 05/17/23 12:27 TS (Rec: 05/17/23 12:38 [id number]) PT Summary Assessment and Plan Potential Rehabilitation Potential Fair Summary Impairments Pain,ROM,Strength,Balance, Coordination,Cognition,Bed Mobility,Transfers,Gait, Activity Tolerance Progress Towards Goals Slow Progress due to Pain,Slow Progress due to Medical Issues,Slow Progress due to Activity Tolerance Assessment Summary Octavio is having difficulty progressing his mobility. He is MaxA for bed mobility for uprighting trunk and BLE assist. He required ModA to stand with FWW and MaxA to maintain standing balance. He has bilateral buckling or knees, L>R, could not complete transfer to chair. He demonstrates word finding difficulties when attempting to answer questions and very long pauses. PT continues to recommend SNF rehab. Goals Bed Mobility Goal Independent Transfer Goal Independent,Front Wheeled Walker Gait Goal Independent,Front Wheel Walker Gait Distance 75 Other Goals Pt will ascend and descend 2 steps with LRAD and no more than CGA to allow safe home entrance. Days to Meet Goals 10 Frequency of Treatment Frequency Of Treatment Once a Day Treatment Plan Physical Therapy Treatment Plan Bed Mobility Training,Transfer Training,Gait Training, Therapeutic Exercise,Balance Retraining,Discharge Planning, Hot or Cold Pack,Neuromuscular Re-ed,Coordination Retraining Weight Bearing Status Weight Bearing Status Weight Bear as Tolerated Recommendations To Nursing Amount of Assist Needed 2 Person Assist,Mechanical Lift Discharge Recommendations PT Discharge Recommendations SNF Rehab Transportation Needs at Discharge Wheelchair/Cabulance
--- NOTE | 2023-05-17 14:44 | CM.DPC ---
DCP Cont. Reviewed EMR and team rounds for status updates. Dr. Sanchez from Ortho consulted and assessed that pt does not have osteomyelitis, and thus the primary site of infection is still unknown, despite high white blood cell count. Blood cultures are still pending. Per Dr. Ferreira, pt will need another 1-2 days in order to review cultures and decide on d/c needs in terms of continued antibiotics. PT recommends SNF rehab at d/c, however pt is declining this. He is already established with [facility]. Will continue to monitor for final recommendations and assist as needed.
--- NOTE | 2023-05-17 15:20 | CM.DPC ---
DCP Cont. Reviewed EMR and team rounds for status updates. Blood cultures are pending, pt has been changed over to oral ABO's. PT is recommending SNF, pt/ are refusing SNF and wanting him to d/c home with Home Health. DOCUMENT REVIEW SPECIALIST gave pt's information for renting a wheelchair from [facility] for d/c home. If the cultures are positive, he will need to remain inpt, however, they have a 60th anniversary scheduled for this weekend, and it's important for both of them to be home for this. Will monitor for final plan tomorrow am.
--- NOTE | 2023-05-17 15:38 | PM.PN.1 ---
Subjective Subjective Interval history: WBC up to 17 today. Blood cultures drawn. Continues on doxy and cipro. Exam Vital Signs (past 8 hours): - 05/17/23 08:40 05/17/23 09:05 05/17/23 12:11 Temperature 98.2 F 98.3 F Pulse Rate 93 H 86 Respiratory Rate 18 18 Blood Pressure 138/72 138/72 109/55 L Pulse Oximetry 91 91 Oxygen Flow Rate 0 0 Oxygen Delivery Method Room Air Oxygen Flow Rate 0 Narrative Exam Narrative: NAD, alert and oriented. Fluent speech. Lungs are clear, normal rate and effort. Heart is regular, no murmur gallop or rub. Abdomen is soft, non distended. Extremities are free of edema. His left foot 3rd toe has an area of redness but is not cold. There was no obvious fluctuance or discharge. Objective Labs 05/17/23 05:03 05/17/23 05:03 Labs: Laboratory Results - last 24 hr 05/17/23 05:03 WBC 17.5 H RBC 2.30 L Hgb 7.9 L Hct 24.2 L MCV 105.3 H MCH 34.3 H MCHC 32.6 RDW 22.7 H Plt Count 303 Neut % (Auto) 80.3 H Lymph % (Auto) 5.3 L [place] % (Auto) 11.7 Eos % (Auto) 1.6 L Baso % (Auto) 1.1 Neut # (Auto) 40149 H Lymph # (Auto) 900 L [place] # (Auto) 2000 H Eos # (Auto) 300 Baso # (Auto) 200 H Platelet Estimate Adequate on smear RBC Morphology See below Anisocytosis 2+ H Macrocytosis 1+ H Ovalocytes 2+ H Sodium 131 L Potassium 3.7 Chloride 94 L Carbon Dioxide 31 BUN 25 H Creatinine 1.01 Estimated GFR > 60 BUN/Creatinine Ratio 24.8 H Glucose 105 Calcium 8.2 L PFSH Medical History Neuropathy COPD (chronic obstructive pulmonary disease) Myelofibrosis CHF (congestive heart failure) Edema Acid reflux HTN (hypertension) Osteoarthritis Arthritis HLD (hyperlipidemia) Cardiomyopathy Afib Surgical History Hx of tonsillectomy History of arthroplasty of left shoulder History of bilateral hip arthroplasty History of arthroplasty of right shoulder Hx of shoulder surgery Hx of laminectomy History of lumbar surgery (03/25/15) Social History household members: spouse Smoking Status: Former smoker alcohol intake: current Assessment & Plan Assessment & Plan narrative: 1. Mechanical fall with back pain, present on admission and active. Some, but minimal improvement. 2. Acute on chronic anemia, present on admission and active. Was given 1 unit of blood on May 13. 3. Hypokalemia, present on admission and active. 4. Acute on chronic systolic heart failure, present on admission and stable. 5. Myelofibrosis, present on admission and stable. 6. Hypertension, present on admission and stable. 7. Hyperlipidemia, present on admission and stable. 8. Atrial fibrillation on chronic Xarelto, he has been holding Xarelto. Present on admission and active. 9. COPD, present on admission and stable. 10. Left foot 3rd toe with cellulitis and possible osteomyelitis PLAN: -MRI shows possible 3rd L toe osteomyelitis, Dr. Sanchez ortho consulted and not impressed with MRI and does not think true osteo. Rec 2 weeks of po abx. -change IV abx to po doxy and treat for 2 weeks per ortho recs -pain medication for back pain, and physical therapy assessment for discharge planning. -follow hemoglobin, currently stable in 7's s/p 1u PRBC -monitor blood pressure, resume cardiac and blood pressure medications as able. -resume xarelto given no ortho surgery -leukocytosis of 17, unclear cause. Blood cultures pending. He is full code, confirmed. His proxy decision maker is his . Dispo: Home with in 1-2 days. Quality VTE Deep Vein Thrombosis/Pulmonary Embolism Present on Admission: No
[2023-05-17] MEDS: RIVAROXABAN 10 MG TABLET 20 MG PO (16:14)
[2023-05-17] MEDS: LIDOCAINE 5% PATCH 1 EACH TOP (16:15)
[2023-05-17] MEDS: OXYCODONE IR 5 MG TABLET PO (16:17)
--- NOTE | 2023-05-17 16:50 | OT.IP.TRT ---
Current Diagnoses Acute on chronic systolic (congestive) heart failure (05/15/23) Unspecified open wound of unspecified toe(s) without damage to nail, initial encounter (05/15/23) Occupational Therapy Treatment Note M2 OT-IP Current Condition Start: 05/16/23 12:23 Freq: Status: Active Protocol: Document 05/16/23 12:23 CGR (Rec: 05/16/23 12:42 CGR [id number]) Occupational Therapy Current Condition Current Condition Evaluation Date 05/16/23 Treatment Diagnosis GLF with back pain xray neg, L foot 3rd toe infection Diagnosis Onset Date 05/14/23 M3 OT- IP Subjective and Pain Start: 05/16/23 12:23 Freq: Status: Active Protocol: Document 05/17/23 17:00 [facility] (Rec: 05/17/23 17:06 [facility] [id number]) OT- Subjective Occupational Therapy Visit Type Type Treatment Note Visit Start Time 16:30 Visit Stop Time 16:50 Occupational Therapy Visit Comments Patient Comments Pt agreed to get back into bed . Patient/Caregiver Goals TO go home. OT Pain Assessment Pain When Pain Assessed During Mobility Pain Present Pain Present Pain Reported Location Back Pain Behaviors Facial Grimacing M6 OT- IP Functional Cognition Start: 05/16/23 12:23 Freq: Status: Active Protocol: Document 05/17/23 17:00 [facility] (Rec: 05/17/23 17:06 [facility] [id number]) Cognitive Factors Limiting Selfcare Function Cognitive Ability Level of Alertness Confusional State Patient Orientation Name,Place Attention Span Ability Capable of Focused Attention, Capable of Sustained Attention Cognitive Comments Cognitive Assessment Comments Pt needing increased time to follow command and step by step instructions for safety for FWW use. To do SLUMS on pt tomorrow. M7 OT- IP Mobility and Balance Start: 05/16/23 12:23 Freq: Status: Active Protocol: Document 05/17/23 17:00 [facility] (Rec: 05/17/23 17:06 [facility] [id number]) OT-Transfer Assessment Sit to and From Stand Sit to and from Stand Total Assistance,2 Person Assistance Transfers Transfer Ability Total Assistance,1 Person Assistance,2 Person Assistance Technique Transfer Destination Bed,Chair Transfer Technique Mechanical Lift Comments Mobility Comments Pt needing assist of green pad to scoot him forwards in the recliner. Total assist x2 to stand but not able to stand all the way up to the FWW. Pt not able to straighten his leg out, pt will benefit from a taller recliner and use or bariatric FWW to assist to stand. At this time pt needing use of deuce lift to help get him back to bed. Pt having difficulty to follow commands and initiate his movement today. OT- Balance Assessment Sitting Balance and Reactions Static Sitting Balance Ability Fair Standing Balance and Reactions Static Standing Balance Ability Poor M8 OT- IP Objective Assessments Start: 05/16/23 12:23 Freq: Status: Active Protocol: Document 05/16/23 12:23 CGR (Rec: 05/16/23 12:42 CGR [id number]) OT Gross Range of Motion Upper Extremity Range of Motion Assessment Bilaterally Impaired ROM Impairments shlds 0-85 OT Strength Upper Extremity Strength Assessment Within Functional Limits Comments Strength Comments shlds not tested d/t back pain arms and hands 4/5 which is weak for a pt of this height and weight. OT- Coordination Assessment Upper Extremity Finger to Nose Test Within Functional Limits Finger Tapping Test Within Functional Limits OT-Muscle Tone Assessment Muscle Tone WNL Yes OT Sensation Assessment Edema Edema Absent M9 OT- IP Assessment and Plan Start: 05/16/23 12:23 Freq: Status: Active Protocol: Document 05/17/23 17:00 [facility] (Rec: 05/17/23 17:06 [facility] [id number]) OT Summary Assessment and Plan Potential Rehabilitation Potential Good Analytic Complexity at Evaluation High Summary OT Impairments Pain,Range of Motion,Strength, Balance,Functional Mobility, Grooming,Dressing,Toileting, Bathing,Toilet Transfers, Shower Transfers,Activity Tolerance Progress Towards Goals Slow Progress due to Pain,Slow Progress due to Activity Tolerance,Slow Progress due to Cognition Assessment Summary Pt today needing use fo the deuce lift to transfer back to the bed. Pt needing step by step commands to follow and also needing increased time to initiate his movements. Pt will benefit from skilled rehab. Goals Self-Feeding Goal Independent Grooming Goal Independent Dressing Goal Independent,Outside Maintenance Worker,Sock Aid Toileting Goal Independent Bathing Goal Independent Toilet Transfer Goal Independent Shower Transfer Goal Independent Days to Meet Goals 25 Frequency of Treatment Frequency Of Treatment Once a Day Treatment Plan OT Treatment Plan ADL Training,Functional Cognition Training,Functional Mobility,Patient/Family Education,Discharge Planning Discharge Recommendations OT Discharge Recommendations SNF Rehab Transportation Needs at Discharge Wheelchair/Cabulance
[2023-05-17] MEDS: DIGOXIN 0.125 MG TABLET 0.25 MG PO (20:57)
[2023-05-17] MEDS: DULOXETINE 30 MG CAPSULE 60 MG PO (20:57)
[2023-05-17] MEDS: SENNOSIDES 8.6 MG TABLET 17.2 MG PO (20:58)
[2023-05-18 00:01] VITALS: BP 114/59; PULSE 78; RESP 19; TEMP 36.2; O2SAT 93
[2023-05-18 04:43] VITALS: BP 117/60; PULSE 75; RESP 19; TEMP 36.1; O2SAT 93
[2023-05-18 05:37] LABS: Add Manual Diff / Slide Review NO; Basophils Absolute Auto 200 /uL (0-100); Basophils Percent Auto 1.2 % (0-2); Eosinophils Absolute Auto 200 /uL (0-450); Eosinophils Percent Auto 1.4 % (2-4); Hematocrit 22.6 % (41-53); Hemoglobin 7.4 g/dL (13.5-17.5); Lymphocytes Absolute Auto 800 /uL (1100-4500); Mean Corpuscular HGB Conc 32.9 % (30-36); Mean Corpuscular Hemoglobin 34.7 PG (26-34); Mean Corpuscular Volume 105.2 fL (80-100); Monocytes Absolute Auto 1900 /uL (0-900); Monocytes Percent Auto 13.9 % (3-14); Neutrophils Absolute Auto 10800 /uL (1500-7000); Neutrophils Percent Auto 77.5 % (50-75); Platelet Count 283 X10^3/uL (150-400); Red Blood Cell Count 2.15 X10^6/uL (4.5-5.9); Red Cell Distribution Width 22.6 % (11.6-14.8)
[2023-05-18 05:48] LABS: BUN Creatinine Ratio 26.5 (6-22); Blood Urea Nitrogen 26 mg/dL (9-20); Calcium 8.1 mg/dL (8.4-10.2); Carbon Dioxide 32 mmol/L (22-32); Chloride 95 mmol/L (98-107); Estimated Glomerular Filt Rate > 60 mL/min (>60); Glucose 112 mg/dL (80-110); HEMOLYSIS < 15 (0-50); Potassium 3.3 mmol/L (3.4-5.1); Sodium 131 mmol/L (137-145)
[2023-05-18 06:10] LABS: Anisocytosis 2+; Macrocytosis 1+; Ovalocytes 2+; Platelet Estimate Adequate on smear
[2023-05-18] MEDS: CIPROFLOXACIN 250 MG TABLET 500 MG PO (06:38)
[2023-05-18 08:00] VITALS: BP 127/70; PULSE 78; RESP 16; TEMP 36.5; O2SAT 93
[2023-05-18] MEDS: TORSEMIDE 10 MG TABLET 20 MG PO (08:42)
[2023-05-18 08:43] VITALS: BP 127/70; PULSE 78
[2023-05-18] MEDS: GABAPENTIN 300 MG CAPSULE 600 MG PO (08:43)
[2023-05-18] MEDS: CHOLECALCIFEROL (VITAMIN D3) 1,000 UNIT TABLET 2000 UNIT PO (08:43)
[2023-05-18] MEDS: DOXYCYCLINE HYCLATE 100 MG TABLET PO (08:43)
[2023-05-18] MEDS: carvediloL 3.125 MG TABLET 6.25 MG PO (08:43)
[2023-05-18] MEDS: SODIUM CHLORIDE 0.9% FLUSH 10 ML IV (08:45)
[2023-05-18] MEDS: ACETAMINOPHEN 325 MG TABLET 650 MG PO ×2 (08:46→14:00)
[2023-05-18] MEDS: LIDOCAINE 5% PATCH 1 EACH TOP (08:49)
[2023-05-18] MEDS: POTASSIUM CHLORIDE 20 MEQ TAB 40 MEQ PO (10:37)
--- NOTE | 2023-05-18 11:38 | P.DS_ITS ---
History of Present Illness History of Present Illness Chief complaint: GLF Narrative: The patient is an 83-year-old male with history of atrial fibrillation on Xarelto, CHF, hypertension, hyperlipidemia, myelofibrosis, and peripheral neuropathy who presented with a ground level fall. The patient was found to be anemic and is chronically anemic. The patient was unable to ambulate due to back pain which was refractory to pain medication. The patient also has a chronic indwelling Montoya. The patient notes he has a toe what he wants amputated, arrangements have not been made for this in the outpatient basis. The patient has last blood transfusion 2 weeks ago. He fell while in the bathroom trying to empty his Montoya catheter bag. He has had a Montoya in for diuresis of his heart failure for about 1 week. He notes he received a blood transfusion 2 weeks ago and that his doctor is mostly providing supportive care for myelofibrosis. The patient has noticed his left foot 3rd toe is red and there is a question of infection and possibly osteomyelitis that was raised at would be general recently. 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 Ireland in the past. He is hoping to address this while in the hospital. In terms of heart failure, he is breathing relatively well. He has 1+ edema both legs which is relatively good for him. He denies any chest pain or palpitations. His lower back pain improved with a pain pill however when he was transferred to the 2nd floor he had increased pain with movement. He is having some muscle spasms. His pain is lumbar without radiation to the legs or buttock. Imaging is included here and was unremarkable. Discharge Providers Provider Date of admission: 05/15/23 12:39 Discharge Date: 05/18/23 Primary care physician: Wilma Alberts DO Consults: 05/14/23 17:13 Consult to Discharge Planning Routine Comment: Consult to Occupational Therapy Evaluate & Treat Comment: Physician Instructions: Evaluate and treat Consult to Physical Therapy Evaluate & Treat Comment: Physician Instructions: Evaluate and Treat 05/16/23 11:43 Consult to Home Health Routine Comment: Reason For Exam: Resume home health services 05/16/23 16:31 Consult to Orthopedic Surgery Routine Comment: Consulting Provider: Keri Sanchez Reason for consultation: L 3rd toe osteomyelitis Discharge provider: Long Ferreira DO Summary Hospital Course Discharge Diagnosis: 1. Mechanical fall with back pain, present on admission and active. Some, but minimal improvement. 2. Acute on chronic anemia, present on admission and active. Was given 1 unit of blood on May 13. 3. Hypokalemia, present on admission and resolved. 4. Acute on chronic systolic heart failure, present on admission and stable. 5. Myelofibrosis, present on admission and stable. 6. Hypertension, present on admission and stable. 7. Hyperlipidemia, present on admission and stable. 8. Atrial fibrillation on chronic Xarelto, he has been holding Xarelto. Present on admission and active. Now resumed. 9. COPD, present on admission and stable. 10. Left foot 3rd toe with cellulitis and possible osteomyelitis Hospital Course: Admitted for fall at home due to ongoing back pain. Found to be anemic from his MF so transfused 1 unit PRBC. Had some drainage from 3rd L toe so put on abx and xray done which was normal. MRI done to look for osteomyelitis which showed possible cortical erosion and osteo of distal phalanx. Ortho consulted who did not recommend surgery but oral antibiotics alone and did not think he has true osteo. Placed on 2 weeks of po cipro and doxy given prior cultures of pseudomonas. He was discharged home with HH to complete 2 weeks and given instructions to return to the ED if he develops worsening infection or fevers. Exam Vital Signs (past 8 hours): - 05/18/23 04:43 05/18/23 08:00 05/18/23 08:43 Temperature 97 F L 97.7 F Pulse Rate 75 78 78 Respiratory Rate 19 16 Blood Pressure 117/60 127/70 127/70 Pulse Oximetry 93 93 Oxygen Flow Rate 0 Oxygen Delivery Method Room Air Oxygen Flow Rate 0 Narrative Exam Narrative: NAD, alert and oriented. Fluent speech. Lungs are clear, normal rate and effort. Heart is regular, no murmur gallop or rub. Abdomen is soft, non distended. Extremities are free of edema. His left foot 3rd toe has an area of redness but is not cold. There was no obvious fluctuance or discharge. Objective Labs 05/18/23 05:06 05/18/23 05:06 Labs: Laboratory Results - last 24 hr 05/18/23 05:06 WBC 14.0 H RBC 2.15 L Hgb 7.4 L Hct 22.6 L MCV 105.2 H MCH 34.7 H MCHC 32.9 RDW 22.6 H Plt Count 283 Neut % (Auto) 77.5 H Lymph % (Auto) 6.0 L [place] % (Auto) 13.9 Eos % (Auto) 1.4 L Baso % (Auto) 1.2 Neut # (Auto) 00531 H Lymph # (Auto) 800 L [place] # (Auto) 1900 H Eos # (Auto) 200 Baso # (Auto) 200 H Platelet Estimate Adequate on smear RBC Morphology See below Anisocytosis 2+ H Macrocytosis 1+ H Ovalocytes 2+ H Sodium 131 L Potassium 3.3 L Chloride 95 L Carbon Dioxide 32 BUN 26 H Creatinine 0.98 Estimated GFR > 60 BUN/Creatinine Ratio 26.5 H Glucose 112 H Calcium 8.1 L PFSH Medical History Neuropathy COPD (chronic obstructive pulmonary disease) Myelofibrosis CHF (congestive heart failure) Edema Acid reflux HTN (hypertension) Osteoarthritis Arthritis HLD (hyperlipidemia) Cardiomyopathy Afib Surgical History Hx of tonsillectomy History of arthroplasty of left shoulder History of bilateral hip arthroplasty History of arthroplasty of right shoulder Hx of shoulder surgery Hx of laminectomy History of lumbar surgery (03/25/15) Social History household members: spouse Smoking Status: Former smoker alcohol intake: current Discharge Plan Discharge Plan Provider Discharge Comment: Please finish 2 weeks of oral antibiotics for your toe infection. If it gets worse, go to the ED. Discharge orders & Medications Discharge Orders: Discharge (Order); Ordered 05/18/23 Ordered By: Long Ferreira Prescriptions: New ciprofloxacin HCl 500 mg tablet 500 mg PO 0700,2100 13 Days Qty: 26 0RF Rx Instructions: start evening of 05/17 doxycycline hyclate 100 mg Tablet 100 mg PO BID 13 Days Qty: 26 0RF Rx Instructions: start evening of 05/17 Continued metolazone 2.5 mg tablet 2.5 mg PO PRN PRN (Reason: Edema) carvedilol 6.25 mg tablet 6.25 mg PO BID torsemide 20 mg tablet 20 mg PO BID digoxin 250 mcg (0.25 mg) Tablet 250 mcg PO BEDTIME Xarelto 20 mg Tablet 20 mg PO QPM Vitamin D3 4,000 unit Capsule 2,000 unit PO DAILY gabapentin 300 mg capsule 300 mg PO BID duloxetine 30 mg capsule,delayed release(DR/EC) 60 mg PO BEDTIME vitamin H63-rwntf acid 0.5-1 mg Tablet 1 tab PO DAILY Discontinued cephalexin 500 mg capsule 500 mg PO 4XD Follow up/Referrals: Wilma Alberts DO [Primary Care Provider] - 2 Weeks Visit Report/Discharge Packet Stand Alone Forms: Patient Portal/API, Stroke Signs & Symptoms Discharge Data Primary Care Provider: Wilma Alberts Quality VTE Deep Vein Thrombosis/Pulmonary Embolism Present on Admission: No
--- NOTE | 2023-05-18 11:53 | CM.DPC ---
DCP Cont. Reviewed EMR and team rounds for status updates. Pt has been medically cleared for d/c. BLS has been setup for a 1:00pm transport to home. He has been changed to oral antibiotics, and he will resume with [facility]. No further DCP needs indicated at this time.
--- NOTE | 2023-05-18 13:21 | PT.IPTN ---
Current Diagnoses Acute on chronic systolic (congestive) heart failure (05/15/23) Unspecified open wound of unspecified toe(s) without damage to nail, initial encounter (05/15/23) Physical Therapy Treatment Note M2 PT-IP Current Condition Start: 05/15/23 09:18 Freq: NEEDED Status: Active Protocol: Document 05/15/23 10:49 MB (Rec: 05/15/23 11:53 MB [id number]) Physical Therapy Current Condition Current Condition Evaluation Date 05/15/23 Treatment Diagnosis Fall, high back pain, draining left 3rd toe M3 PT-IP Subjective Start: 05/15/23 09:18 Freq: NEEDED Status: Active Protocol: Document 05/18/23 14:09 TS (Rec: 05/18/23 14:20 TS [id number]) Subjective Physical Therapy Visit Type Type Treatment Note Visit Start Time 13:21 Visit Stop Time 13:46 Number of GENERAL MATCHER Visits 2 Physical Therapy Visit Comments Patient Comments Pt found resting in bed, spouse in room, pt is agreeable to PT. Therapy Pain Assessment Pain When Pain Assessed During Mobility Pain Present Pain Present Pain Reported M4 PT-IP Mobility and Gait Start: 05/15/23 09:18 Freq: NEEDED Status: Active Protocol: Document 05/18/23 14:09 TS (Rec: 05/18/23 14:20 TS [id number]) PT-Bed Mobility Assessment Supine to Sit Supine to Sit Maximum Assistance,1 Person Assistance,Head of Bed Elevated,Bedrails Sit to Supine Sit to Supine Moderate Assistance,1 Person Assistance,Head of Bed Elevated,Bedrails Scooting Scooting to Edge of Bed Maximum Assistance PT-Transfer Assessment Sit to and From Stand Sit to and from Stand Moderate Assistance,1 Person Assistance Equipment Transfer Assistive Device Gait Belt,Front Wheeled Walker Orthotic/Prosthetic Devices or Brace: No Transfers Transfer Destination Bed,Chair Transfer Technique Stand Step Pivot Transfer Ability Level of Assist Moderate Assistance,1 Person Assistance Comments Mobility Comments Supine to sit MaxA x1 with therpaist, spouse attempted to get pt up for could not fully come into upright position. He scooted to EOB MaxA with use of transfer pad. STS from bed ModA with use of FWW, Pt has very poor posture and buckling knees. He performed stand step pivot to chair and back to bed ModA with max cues for sequencing. STS form bed for donning of pants and brief ModA x1. pt sidestepped higher into bed with FWW. Sit to supine into bed ModA for LE 's. Pt was left in bed with all needs met. Gait Assessment Gait Gait Assistance Required: Moderate Assistance,1 Person Assist Distance (Feet) 2 Able to Maintain Weight Bearing Status Yes During Gait Assistive Devices Assistive Device Gait Belt,Front Wheeled Walker Orthotic/Prosthetic Devices or Brace: No Gait Deviations General Gait Pattern Antalgic,Decreased Stride Length,Decreased Feet Clearance,Flexed Trunk,Wide Based Gait Factors Limiting Gait Function Factors Limiting Gait Function Decreased Activity Tolerance, Decreased Strength,Difficulty Following Directions, Incoordination,Limited Range of Motion,Pain,Poor Balance, Poor Safety Awareness Comments Gait Comments See mobility comments PT-Balance Assessment Sitting Balance and Reactions Static Sitting Balance Ability Fair Dynamic Sitting Balance Ability Fair Standing Balance and Reactions Static Standing Balance Ability Poor Dynamic Standing Balance Ability Poor Device Used RW M5 PT-IP Objective Assessments Start: 05/15/23 09:18 Freq: NEEDED Status: Active Protocol: Document 05/15/23 10:49 MB (Rec: 05/15/23 11:53 MB [id number]) Orientation Orientation/Cognition Level of Alertness Alert Orientation Name,Age,Birthday,Month,Year, Place,Situation Language Function Ability No Deficits Noted Safety Awareness Decreased Safety Awareness Memory Description No Deficits Noted Gross Range of Motion Upper Extremity ROM Impairments Defer to OT, reduced shoulder motion with reaching for rails today Lower Extremity ROM Assessment Bilaterally Impaired Strength Upper Extremity Strength Assessment Bilaterally Impaired Lower Extremity Strength Assessment Bilaterally Impaired Comments Strength Comments B knees no greater than 2+ to 3-/5 extension in sitting and B ankles no greater than 2+/5 M6 PT-IP Treatment Start: 05/15/23 09:18 Freq: NEEDED Status: Active Protocol: Document 05/18/23 14:09 TS (Rec: 05/18/23 14:20 [id number]) Physical Therapy Treatment Education Education Provided Safety M7 PT-IP Assessment and Plan Start: 05/15/23 09:18 Freq: NEEDED Status: Active Protocol: Document 05/18/23 14:09 TS (Rec: 05/18/23 14:20 [id number]) PT Summary Assessment and Plan Potential Rehabilitation Potential Fair Summary Impairments Pain,ROM,Strength,Balance, Coordination,Cognition,Bed Mobility,Transfers,Gait, Activity Tolerance Progress Towards Goals Slow Progress due to Pain,Slow Progress due to Medical Issues,Slow Progress due to Activity Tolerance Assessment Summary Octavio continues to make slow progress with his mobility. He requires MaxA for supine to sit. He is ModA for STS with FWW and for stand pivot transfers to chair and bakc to bed. Spouse attempted to help pt sit up in bed but was unable to assist. Spouse reports having a lift chair and he will have to sleep in the recliner and will need to use w/c to get around the house. Therapist expressed to pt and spouse rehab would be the best and safest option to improve his strength and mobility, they declined. PT continues to recommend SNF. Goals Bed Mobility Goal Independent Transfer Goal Independent,Front Wheeled Walker Gait Goal Independent,Front Wheel Walker Gait Distance 75 Other Goals Pt will ascend and descend 2 steps with LRAD and no more than CGA to allow safe home entrance. Days to Meet Goals 10 Frequency of Treatment Frequency Of Treatment Once a Day Treatment Plan Physical Therapy Treatment Plan Bed Mobility Training,Transfer Training,Gait Training, Therapeutic Exercise,Balance Retraining,Discharge Planning, Hot or Cold Pack,Neuromuscular Re-ed,Coordination Retraining Weight Bearing Status Weight Bearing Status Weight Bear as Tolerated Recommendations To Nursing Amount of Assist Needed 2 Person Assist Discharge Recommendations PT Discharge Recommendations SNF Rehab Transportation Needs at Discharge Wheelchair/Cabulance
--- NOTE | 2023-05-18 14:34 | PC.NURSE ---
Patient is A&OX3, VSS, afebrile on RA. He reports pain in back when HOB lowered. He is able to turn with assist in bed. He has +2-3 edema from feet to bilateral hips, including scrotoum. Montoya in place draining adequate yellow urine. is notified for time of BLS transport today at 1330 and PT able to get patient up with x1-2 mod assist using FWW. PT recommending SNF but and patient are ademant about discharging home. He is dressed in clothing. verbalizes understanding of discharge plan, medications, worsening symptoms/ or worsening toe infection, as well as follow up with PCP in 2 weeks. EMS arrives at 1350 to transport patient home. He is escorted via stretcher with all of his belongings at 1403.
== END 2023-05-18 14:03 | disposition home health service (06) | DRG 602 ==
LOC: ED 16:12 → AC 16:27
PROVIDERS: Student in an Organized Health Care Education/Training Program; Admitting Provider Hospitalist; Emergency Provider Emergency Medicine; PCP Family Medicine; Referring Provider Emergency Medicine; Visit Provider Hospitalist
DX: L03.032 Cellulitis of left toe (principal); I50.23 Acute on chronic systolic (congestive) heart failure; M86.8X7 Other osteomyelitis, ankle and foot; D75.81 Myelofibrosis; I11.0 Hypertensive heart disease with heart failure; D64.89 Other specified anemias; I48.91 Unspecified atrial fibrillation; E87.6 Hypokalemia; M54.9 Dorsalgia, unspecified; Z79.01 Long term (current) use of anticoagulants; Z87.891 Personal history of nicotine dependence
CPT/HCPCS: 36415; 36430; 70450; 71045; 72100; 73620; 73718; 80048; 80053; 80162; 81001; 82550; 83690; 83880; 84484; 85007; 85025; 85610; 85730; 86850; 86900; 86901; 87040; 87077; 87086; 87186; 93005; 97162; 97167; 97530; 99284; 99285; G0378; P9016; J1170; J2543

== ENCOUNTER 2023-05-19 13:43 | Inpatient (IN) | payer MEDICARE, SELFPAY ==
[2023-05-14 16:50] VITALS: BMI 33.5
[2023-05-19] VITALS (15 sets, daily range): BP systolic 114–147; BP diastolic 60–67; PULSE 65–76; RESP 17–28; TEMP 36.4–37; O2SAT 88–100; BMI 33.4
--- NOTE | 2023-05-19 14:13 | DI.RAD.S_ITS ---
PROCEDURE: XR CHEST 1V INDICATIONS: Shortness of breath TECHNIQUE: One view of the chest was acquired. COMPARISON: [facility], CR, XR CHEST 1V, 05/14/2023, 11:00. [facility], CR, XR CHEST 1V, 01/21/2023, 11:03. FINDINGS: Surgical changes and devices: Partially visualized bilateral shoulder arthroplasties. Lungs and pleura: Prominent interstitial markings. Possible small right pleural effusion. Mediastinum: Mediastinal contours appear normal. Heart size is enlarged, stable. Bones and chest wall: No suspicious bony lesions. Overlying soft tissues appear unremarkable. IMPRESSION: Cardiomegaly with prominence of the interstitial markings, may represent pulmonary edema. Possible small right pleural effusion. Dictated by: Bartolo Bender M.D. on 05/19/2023 at 15:03 Approved by: Bartolo Bender M.D. on 05/19/2023 at 15:04
[2023-05-19 14:25] LABS: INR 1.7 (0.9-1.3); Prothrombin Time 19.1 SECONDS (9.4-12.5)
[2023-05-19 14:29] LABS: Hematocrit 25.3 % (41-53); Hemoglobin 8.1 g/dL (13.5-17.5); Mean Corpuscular HGB Conc 32.1 % (30-36); Mean Corpuscular Hemoglobin 34.5 PG (26-34); Mean Corpuscular Volume 107.5 fL (80-100); Platelet Count 299 X10^3/uL (150-400); Red Blood Cell Count 2.35 X10^6/uL (4.5-5.9); Red Cell Distribution Width 22.4 % (11.6-14.8); White Blood Cell Count 12.5 X10^3/uL (4.5-11.0)
[2023-05-19 14:31] LABS: Add Manual Diff / Slide Review YES
[2023-05-19 14:34] LABS: Bacteria Urine Few (2-10); RBC Urine None Seen (0-5/HPF); Squamous Epithelial Cell Urine 0-1 /HPF (0-5/HPF); Urine Volume 10mL (spun); WBC Urine None Seen (0-5/HPF)
[2023-05-19 14:35] LABS: Culture Indicated Urine Specimen Cultured
[2023-05-19 14:51] LABS: Alanine Aminotransferase 10 IU/L (<50); Albumin 3.2 g/dL (3.5-5.0); Alkaline Phosphatase 119 U/L (38-126); Aspartate Aminotransferase 33 IU/L (17-59); Bilirubin Total 0.9 mg/dL (0.2-1.3); Blood Urea Nitrogen 25 mg/dL (9-20); Calcium 8.4 mg/dL (8.4-10.2); Carbon Dioxide 34 mmol/L (22-32); Chloride 97 mmol/L (98-107); Estimated Glomerular Filt Rate > 60 mL/min (>60); Globulin 3.3 g/dL (1.7-4.1); Glucose 129 mg/dL (80-110); HEMOLYSIS < 15 (0-50); Lactate (Lactic Acid) 1.2 mmol/L (0.7-2.1); Potassium 3.4 mmol/L (3.4-5.1); Sodium 132 mmol/L (137-145); Total Protein 6.5 g/dL (6.3-8.2)
--- NOTE | 2023-05-19 15:04 | PC.NURSE ---
Pt discharged from inpatient hospital yesterday. Home care assessed pt to have o2 in the 80's room air. Pt on 2L NC in the ER satting 100%. Pt o2 titrated to 1L NC. Pt had spontaneous expectoration of large, brown, thick, mucous, the size of a walnut. Specimen cup labeled and sent to the lab. Provider placed order for culture. Pt denies lightheaded, dizziness, SOB, weakness. Reports his back pain and left thigh pain is pt's only complaint. He states he cannot get up because of his pain.
[2023-05-19 15:05] LABS: NT-proBNP (BNP-Adult 18+) 11200 pg/mL (<450); Troponin I < 0.012 ng/mL (0.01-0.034)
[2023-05-19 15:14] LABS: Anisocytosis 1+; Macrocytosis 1+; Neutrophils Absolute Manual 9500 /uL (3000-5900); Total Cells Counted 100
[2023-05-19 15:30] LABS: Adenovirus Not Detected (Not Detect); B. parapertussis Not Detected (Not Detecte); Bordetella pertussis Not Detected (Not Detect); Chlamydophila pneumoniae Not Detected (Not Detect); Coronavirus 229E Not Detected (Not Detect); Coronavirus HKU1 Not Detected (Not Detect); Coronavirus NL 63 Not Detected (Not Detect); Coronavirus OC43 Not Detected (Not Detect); Human Metapneumovirus Not Detected (Not Detect); Human Rhinovirus/Enterovirus Not Detected (Not Detect); Influenza A Not Detected (Not Detect); Influenza B Not Detected (Not Detect); Mycoplasma pneumoniae Not Detected (Not Detect); Parainfluenza Virus 1 Not Detected (Not Detect); Parainfluenza Virus 2 Not Detected (Not Detect); Parainfluenza Virus 3 Not Detected (Not Detect); Parainfluenza Virus 4 Not Detected (Not Detect); Respiratory Syncytial Virus Not Detected (Not Detect); SARS- CoV-2 Not Detected (Not Detecte)
--- NOTE | 2023-05-19 16:22 | ED.SOB ---
HPI - SOB/Dyspnea General Chief Complaint: Shortness of Breath/Dyspnea Stated Complaint: low sats 86-88, [place] Time Seen by Provider: 05/19/23 14:31 Source: EMS Mode of arrival: EMS Limitations: no limitations History of Present Illness HPI Narrative: This is 83-year-old history of atrial fibrillation on Xarelto, congestive heart failure, hypertension, dyslipidemia, myelofibrosis, peripheral neuropathy who presents after 4 day hospitalization and discharged home yesterday for fall, acute on chronic CHF, received unit of blood on May 13 and left 3rd toe cellulitis with possible osteomyelitis. Patient returns with increased weakness, patient's home health nurse showed up and noted his oxygenation was low. states he has been very sleepy but was sleepy on and off throughout his stay and at home. She states he is very weak she states he started to slip out of his chair did not fall but they have not been able to stand and walk him or get him around. Per her report was recommended patient be transferred to rehab or a sniff but they elected to return home. Has not had any fevers in the last 24 hours, no increasing shortness of breath while she noticed his breathing has been a little more labored. Patient does not have any complaints himself. No complaints of chest pain, no nausea or vomiting, no diarrhea. Has not had a bowel movement for several days. No urinary symptoms but does have a Montoya catheter in place. Has had some increased swelling in extremities. Patient was discharged home on Cipro and doxycycline. Related Data Home Medications Medication Instructions Recorded Confirmed digoxin 250 mcg (0.25 mg) tablet 250 mcg PO BEDTIME 04/09/19 05/14/23 rivaroxaban 20 mg tablet (Xarelto) 20 mg PO QPM 04/09/19 05/14/23 cholecalciferol (vitamin D3) 100 2,000 unit PO DAILY 04/12/19 05/14/23 mcg (4,000 unit) capsule (Vitamin D3) duloxetine 30 mg capsule,delayed 60 mg PO BEDTIME 09/17/20 05/14/23 release gabapentin 300 mg capsule 300 mg PO BID 09/17/20 05/14/23 vitamin B12 0.5 mg-folic acid 1 mg 1 tab PO DAILY 09/17/20 05/14/23 tablet carvedilol 6.25 mg tablet 6.25 mg PO BID 05/14/23 05/14/23 metolazone 2.5 mg tablet 2.5 mg PO PRN PRN Edema 05/14/23 05/14/23 torsemide 20 mg tablet 20 mg PO BID 05/14/23 05/14/23 Previous Rx's Medication Instructions Recorded ciprofloxacin HCl 500 mg tablet 500 mg PO 0700,2100 13 days #26 05/18/23 tabs doxycycline hyclate 100 mg tablet 100 mg PO BID 13 days #26 tabs 05/18/23 Allergies Allergy/AdvReac Type Severity Reaction Status Date / Time No Known Drug Allergies Allergy Verified 01/26/23 19:37 Review of Systems Review of Systems ROS Unobtainable: All systems reviewed & are unremarkable except as noted in HPI and below Patient History Medical History Neuropathy COPD (chronic obstructive pulmonary disease) Myelofibrosis CHF (congestive heart failure) Edema Acid reflux HTN (hypertension) Osteoarthritis Arthritis HLD (hyperlipidemia) Cardiomyopathy Afib Surgical History Hx of tonsillectomy History of arthroplasty of left shoulder History of bilateral hip arthroplasty History of arthroplasty of right shoulder Hx of shoulder surgery Hx of laminectomy History of lumbar surgery (03/25/15) Social History household members: spouse Smoking Status: Former smoker alcohol intake: current Smoking Status: Former smoker alcohol intake frequency: a few times a week Substance Use Type: does not use Exam Narrative Exam Narrative: GEN: Elderly male, alert and oriented but sleepy, patient appears to be in mild distress. HEENT: Atraumatic, pupils are equal round reactive to light, extraocular movements are intact, nares are clear, TMs are clear with no fluid, there is no conjunctival pallor. Throat is clear without any exudates, erythema, tonsillar enlargement or uvular deviation HEART: Regular rate and rhythm without murmur, clicks, rubs. 2+ edema bilateral lower extremities. LUNGS:Lungs clear to auscultation, no wheezes, rales, crackles, chest moves symmetrically, no tachypnea accessory muscle use ABD:bowel sounds normal, soft, non-tender, no guarding, rebound, rigidity, no masses noted, no hepatosplenomegaly :No CVA tenderness MSCL: Non-tender, no muscle atrophy, muscles strength 5/5 upper and lower extremities, full range of motion, normal gait NEURO:CN 2-12 intact, sensation normal SKIN: No rash, erythema or other skin changes Initial Vital Signs Initial Vital Signs: Vital Signs Pulse Rate 66 05/19/23 13:47 Blood Pressure 126/60 05/19/23 13:47 Pulse Oximetry 92 05/19/23 13:47 Course Orders Ordered: ED Orders 05/19/23 13:55 Urine Culture Stat Urine Microscopic Stat 05/19/23 13:59 Complete Blood Count AUTO DIFF Stat Comprehensive Metabolic Panel Stat Lactate (Lactic Acid) Stat NT-proBNP (BNP-Adult 18+) Stat Prothrombin Time INR Stat Troponin I Stat 05/19/23 14:13 XR chest 1V Stat EKG-12 Lead Stat Measure peak expiratory flow ONCE RT Consult Eval and Treat NOW 05/19/23 14:21 Respiratory Panel (Film Array) Stat 05/19/23 14:50 Sputum Culture Stat 05/19/23 16:59 ABG [Arterial Blood Gas] Stat Discontinued Medications Furosemide (Furosemide 40 Mg/4 Ml Vial) 40 mg IV NOW ONE Stop: 05/19/23 16:29 Last Admin: 05/19/23 16:38 Dose: 40 mg Documented By: MINESH Vital Signs Vital signs: Vital Signs - 8 hr 05/19/23 13:47 05/19/23 13:47 05/19/23 13:51 Temperature 97.5 F L Pulse Rate 66 76 Respiratory Rate 24 Blood Pressure 126/60 126/60 Pulse Oximetry 92 88 L Oxygen Delivery Method Room Air Oxygen Flow Rate 05/19/23 14:00 05/19/23 14:01 05/19/23 14:01 Temperature Pulse Rate 72 67 Respiratory Rate 25 H 23 Blood Pressure 147/60 H Pulse Oximetry 100 100 Oxygen Delivery Method Oxygen Flow Rate 05/19/23 14:30 05/19/23 14:31 05/19/23 14:31 Temperature Pulse Rate 68 68 Respiratory Rate 28 H 25 H Blood Pressure 114/61 Pulse Oximetry 100 99 Oxygen Delivery Method Nasal Cannula Oxygen Flow Rate 2 05/19/23 15:00 05/19/23 15:01 05/19/23 15:01 Temperature Pulse Rate 67 67 Respiratory Rate 22 21 Blood Pressure 135/64 Pulse Oximetry 100 100 98 Oxygen Delivery Method Nasal Cannula Nasal Cannula Oxygen Flow Rate 2 1 05/19/23 15:30 05/19/23 15:31 05/19/23 15:31 Temperature Pulse Rate 70 71 Respiratory Rate 27 H 25 H Blood Pressure 127/60 Pulse Oximetry 98 98 Oxygen Delivery Method Nasal Cannula Oxygen Flow Rate 1 MDM - SOB/Dyspnea Lab Data 05/19/23 13:59 05/19/23 13:59 Labs: Lab Results 05/19/23 05/19/23 05/19/23 Range/Units 13:55 13:59 14:21 WBC 12.5 H (4.5-11.0) X10^3/uL RBC 2.35 L (4.5-5.9) X10^6/uL Hgb 8.1 L (13.5-17.5) g/dL Hct 25.3 L (41-53) % MCV 107.5 H (80-100) fL MCH 34.5 H (26-34) PG MCHC 32.1 (30-36) % RDW 22.4 H (11.6-14.8) % Plt Count 299 (150-400) X10^3/uL Neut % (Auto) Not Reportable Lymph % (Auto) Not Reportable [place] % (Auto) Not Reportable Eos % (Auto) Not Reportable Baso % (Auto) Not Reportable Lymph # (Auto) Not Reportable [place] # (Auto) Not Reportable Baso # (Auto) Not Reportable Total Counted 100 Seg Neutrophils % 76.0 H (38-70) % Lymphocytes % (Manual) 11.0 L (25-45) % Monocytes % (Manual) 8.0 (2-11) % Eosinophils % (Manual) 2.0 (2-4) % Metamyelocytes % 2.0 H (-0) % Myelocytes % 1.0 H (-0) % Neutrophils # (Manual) 9500 H (4546-6250) /uL RBC Morphology See below Anisocytosis 1+ H Macrocytosis 1+ H PT 19.1 H (9.4-12.5) SECONDS INR 1.7 H (0.9-1.3) ABG Sample Site ABG pH (7.35-7.45) ABG pCO2 (35-45) mmHg ABG pO2 (80-100) mmHg ABG HCO3 (23-27) mmol/L ABG Total CO2 (23-27) mmol/L ABG O2 Saturation (95-100) % ABG Base Excess (-2-3) mmol/L FiO2 Sodium 132 L (137-145) mmol/L Potassium 3.4 (3.4-5.1) mmol/L Chloride 97 L (98-107) mmol/L Carbon Dioxide 34 H (22-32) mmol/L BUN 25 H (9-20) mg/dL Creatinine 0.96 (0.66-1.25) mg/dL Estimated GFR > 60 (>60) mL/min BUN/Creatinine Ratio 26.0 H (6-22) Glucose 129 H (80-110) mg/dL Lactate 1.2 (0.7-2.1) mmol/L Calcium 8.4 (8.4-10.2) mg/dL Total Bilirubin 0.9 (0.2-1.3) mg/dL AST 33 (17-59) IU/L ALT 10 (<50) IU/L Alkaline Phosphatase 119 (38-126) U/L Troponin I < 0.012 (0.01-0.034) ng/mL NT-Pro-B Natriuret Pep 64648 H (<450) pg/mL Total Protein 6.5 (6.3-8.2) g/dL Albumin 3.2 L (3.5-5.0) g/dL Globulin 3.3 (1.7-4.1) g/dL Albumin/Globulin Ratio 1.0 (1.0-2.8) Urine RBC None seen (0-5/HPF) Urine WBC None seen (0-5/HPF) Ur Squamous Epith Cells 0-1 /hpf (0-5/HPF) Urine Bacteria Few (2-10) H (None) Ur Culture Indicated? Specimen cultured Vol Urine Centrifuged 10ml (spun) Chlamy pneumoniae PCR Not detected (Not Detect) Adenovirus (PCR) Not detected (Not Detect) B.parapertussis DNA PCR Not detected (Not Detecte) Coronavirus OC43 (PCR) Not detected (Not Detect) Coronavirus HKU1 (PCR) Not detected (Not Detect) Coronavirus 229E (PCR) Not detected (Not Detect) SARS-CoV-2 (PCR) Not detected (Not Detecte) Coronavirus NL63 (PCR) Not detected (Not Detect) Human Metapneumovir PCR Not detected (Not Detect) Influenza Type A (PCR) Not detected (Not Detect) Influenza Type B (PCR) Not detected (Not Detect) M. pneumoniae (PCR) Not detected (Not Detect) Parainfluenza 1 (PCR) Not detected (Not Detect) Parainfluenza 2 (PCR) Not detected (Not Detect) Parainfluenza 3 (PCR) Not detected (Not Detect) Parainfluenza 4 (PCR) Not detected (Not Detect) RSV (PCR) Not detected (Not Detect) Entero/Rhino (PCR) Not detected (Not Detect) 05/19/23 Range/Units 16:59 WBC (4.5-11.0) X10^3/uL RBC (4.5-5.9) X10^6/uL Hgb (13.5-17.5) g/dL Hct (41-53) % MCV (80-100) fL MCH (26-34) PG MCHC (30-36) % RDW (11.6-14.8) % Plt Count (150-400) X10^3/uL Neut % (Auto) Lymph % (Auto) [place] % (Auto) Eos % (Auto) Baso % (Auto) Lymph # (Auto) [place] # (Auto) Baso # (Auto) Total Counted Seg Neutrophils % (38-70) % Lymphocytes % (Manual) (25-45) % Monocytes % (Manual) (2-11) % Eosinophils % (Manual) (2-4) % Metamyelocytes % (-0) % Myelocytes % (-0) % Neutrophils # (Manual) (8057-2127) /uL RBC Morphology Anisocytosis Macrocytosis PT (9.4-12.5) SECONDS INR (0.9-1.3) ABG Sample Site Left radial ABG pH 7.43 (7.35-7.45) ABG pCO2 48.0 H (35-45) mmHg ABG pO2 98 (80-100) mmHg ABG HCO3 32 H (23-27) mmol/L ABG Total CO2 33 H (23-27) mmol/L ABG O2 Saturation 98 (95-100) % ABG Base Excess 8.0 H (-2-3) mmol/L FiO2 28 Sodium (137-145) mmol/L Potassium (3.4-5.1) mmol/L Chloride (98-107) mmol/L Carbon Dioxide (22-32) mmol/L BUN (9-20) mg/dL Creatinine (0.66-1.25) mg/dL Estimated GFR (>60) mL/min BUN/Creatinine Ratio (6-22) Glucose (80-110) mg/dL Lactate (0.7-2.1) mmol/L Calcium (8.4-10.2) mg/dL Total Bilirubin (0.2-1.3) mg/dL AST (17-59) IU/L ALT (<50) IU/L Alkaline Phosphatase (38-126) U/L Troponin I (0.01-0.034) ng/mL NT-Pro-B Natriuret Pep (<450) pg/mL Total Protein (6.3-8.2) g/dL Albumin (3.5-5.0) g/dL Globulin (1.7-4.1) g/dL Albumin/Globulin Ratio (1.0-2.8) Urine RBC (0-5/HPF) Urine WBC (0-5/HPF) Ur Squamous Epith Cells (0-5/HPF) Urine Bacteria (None) Ur Culture Indicated? Vol Urine Centrifuged Chlamy pneumoniae PCR (Not Detect) Adenovirus (PCR) (Not Detect) B.parapertussis DNA PCR (Not Detecte) Coronavirus OC43 (PCR) (Not Detect) Coronavirus HKU1 (PCR) (Not Detect) Coronavirus 229E (PCR) (Not Detect) SARS-CoV-2 (PCR) (Not Detecte) Coronavirus NL63 (PCR) (Not Detect) Human Metapneumovir PCR (Not Detect) Influenza Type A (PCR) (Not Detect) Influenza Type B (PCR) (Not Detect) M. pneumoniae (PCR) (Not Detect) Parainfluenza 1 (PCR) (Not Detect) Parainfluenza 2 (PCR) (Not Detect) Parainfluenza 3 (PCR) (Not Detect) Parainfluenza 4 (PCR) (Not Detect) RSV (PCR) (Not Detect) Entero/Rhino (PCR) (Not Detect) Urine Dip Bedside Urine Glucose Negative Bedside Urine Bilirubin - Negative Bedside Urine Ketone - Negative Urine Specific [place] 1.010 Bedside Urine Occult Blood - Negative Bedside Urine pH 6.5 Bedside Urine Protein - Negative Bedside Urine Urobilinogen - Negative Bedside Urine Nitrite - Negative Bedside Urine Leukocytes +/- 15 Esterase Imaging Data Chest x-ray: Radiologist's Impression: [address] [address] XRay Report Signed Patient: Octavio Hess MR#: [id number] : 1940 Acct:[id number] Age/Sex: 83 / M Date of Service: 05/19/23 Loc: ED Accession Number: [id number] Procedure: XR chest 1V Ordering Provider: Ivelisse Zaman D.O. PROCEDURE: XR CHEST 1V INDICATIONS: Shortness of breath TECHNIQUE: One view of the chest was acquired. COMPARISON: [facility], CR, XR CHEST 1V, 05/14/2023, 11:00. [facility], CR, XR CHEST 1V, 01/21/2023, 11:03. FINDINGS: Surgical changes and devices: Partially visualized bilateral shoulder arthroplasties. Lungs and pleura: Prominent interstitial markings. Possible small right pleural effusion. Mediastinum: Mediastinal contours appear normal. Heart size is enlarged, stable. Bones and chest wall: No suspicious bony lesions. Overlying soft tissues appear unremarkable. IMPRESSION: Cardiomegaly with prominence of the interstitial markings, may represent pulmonary edema. Possible small right pleural effusion. Dictated by: Bartolo Bender M.D. on 05/19/2023 at 15:03 Approved by: Bartolo Bender M.D. on 05/19/2023 at 15:04 ECG Data Attestation: I personally reviewed and interpreted this ECG as follows: Prior ECG tracings: available for review Interpretation: AFib, rate of 65 QRS of 114 QTC 397[address] No acute ST changes. Patient has from 05/14/2023 shows AFib, no acute ST changes appreciated. [facility] Narrative Medical decision making narrative: 83-year-old male with recent were, congestive heart failure and recent cellulitis/osteomyelitis. Patient discharged home on oral antibiotics. Patient has been hypoxic here in the department down into the mid 80s 1 point 70s was placed on 2 L and has been maintaining 98%. Workup appears consistent with CHF, patient's ABG shows a pH of 7.43 pCO2 of 48 PO2 of 98 on 2 L with a bicarb of 32. Patient was somewhat sleepy he states he is just tired, he does arouse to stimuli. Does not have any specific complaints for me. Labs show white count of 12.5 hemoglobin of 8.1, improved from patient's 6.8 on 05/14/2023 and 1 unit transfusion has been trending in the sevens, he has a macrocytic anemia with platelets of 299. INR is 1.7, creatinine 0.96, glucose 129 sodium 132 potassium 3 4 chloride 97 CO2 of 34 and a BUN 25, normal LFTs, [place] [address] patient has prior BNP on 05/14/2023 was 7670. Chest x-ray shows cardiomegaly, right small pleural effusion and prominence interstitial markings could represent pulmonary edema. EKG shows rate hold in the 60s with no acute ST changes appreciated. Patient had respiratory panel which does not show any acute changes. Discussed with Dr. Ferreira for admission for congestive heart failure, requiring oxygen. Patient given lasix for diuresis. Patient does not appear septic so was not started on IV antibiotics but did send culture patient had a large a large peice of sputum that was green/brown in color. No additional since. Discharge Plan Departure Patient Disposition: Admitted As Inpatient Clinical Impression: Acute on chronic congestive heart failure Admit Date/Time: 05/19/23 17:58 Admit Provider: Long Ferreira
[2023-05-19] MEDS: FUROSEMIDE 40 MG/4 ML VIAL IV ×2 (16:38→23:05)
--- NOTE | 2023-05-19 17:02 | PC.NURSE ---
Pt appears less awake than on presentation to the ER. Pt is hard to rouse, with sternum rub but does react to the pain. Pt does not wake up enough to answer questions. MD at bedside and advised that this is a different presentation than a few hours ago.
[2023-05-19 17:09] LABS: Allen Test for ABG Passed? Yes, Passed; Blood Gas Collection Site Left Radial; Fractionated Inspired Oxygen 28; HCO3 ABG 32 mmol/L (23-27); Oxygen Saturation ABG 98 % (95-100); PO2 ABG 98 mmHg (80-100); TCO2 ABG 33 mmol/L (23-27); pH ABG 7.43 (7.35-7.45)
[2023-05-19] MEDS: SENNOSIDES 8.6 MG TABLET 17.2 MG PO (23:05)
[2023-05-19] MEDS: ENOXAPARIN 40 MG/0.4 ML SYRINGE SUBCUT (23:06)
--- NOTE | 2023-05-19 23:24 | PM.HP.1 ---
History of Present Illness History of Present Illness Date Patient Seen: 05/19/23 Time Patient Seen: 23:25 Chief complaint: low sats 86-88, [place] Narrative: The pt is a 83 yo who was recently discharged from our hospital yesterday after being treated for CHF and possible osteomyelitis of the toe. He was strongly encouraged to go to a SNF for rehab which he refused to. The pt reports that since going home just 24 hours earlier, he has been sitting in a power chair and he slid off of it twice and was unable to get off the ground this morning and EMS was called to bring him back to the ER. He has a hx of chronic back pain that has been imaged several times in the past 5 years which he states is his only problem or pain at this time. He has a chronic indwelling murdock catheter which caused him to fall and the main reason for hospitalization last time. He denies any change to his meds, he did take all of his meds when he got home. There has been no fevers, chills, abd pain , N/V/Diarrhea, neck pain or BERTRAND. [facility] Medical History Neuropathy COPD (chronic obstructive pulmonary disease) Myelofibrosis CHF (congestive heart failure) Edema Acid reflux HTN (hypertension) Osteoarthritis Arthritis HLD (hyperlipidemia) Cardiomyopathy Afib Surgical History Hx of tonsillectomy History of arthroplasty of left shoulder History of bilateral hip arthroplasty History of arthroplasty of right shoulder Hx of shoulder surgery Hx of laminectomy History of lumbar surgery (03/25/15) Social History household members: spouse Smoking Status: Former smoker alcohol intake: current Meds Home Medications and Allergies Home Medications Medication Instructions Recorded Confirmed Type digoxin 250 mcg (0.25 mg) tablet 250 mcg PO BEDTIME 04/09/19 05/19/23 History rivaroxaban 20 mg tablet (Xarelto) 20 mg PO QPM 04/09/19 05/19/23 History cholecalciferol (vitamin D3) 100 2,000 unit PO DAILY 04/12/19 05/19/23 History mcg (4,000 unit) capsule (Vitamin D3) duloxetine 30 mg capsule,delayed 60 mg PO BEDTIME 09/17/20 05/19/23 History release gabapentin 300 mg capsule 300 mg PO BID 09/17/20 05/19/23 History vitamin B12 0.5 mg-folic acid 1 mg 1 tab PO DAILY 09/17/20 05/19/23 History tablet carvedilol 6.25 mg tablet 6.25 mg PO BID 05/14/23 05/19/23 History metolazone 2.5 mg tablet 2.5 mg PO PRN PRN Edema 05/14/23 05/19/23 History torsemide 20 mg tablet 20 mg PO BID 05/14/23 05/19/23 History ciprofloxacin HCl 500 mg tablet 500 mg PO 0700,2100 13 days #26 05/18/23 05/19/23 Rx tabs doxycycline hyclate 100 mg tablet 100 mg PO BID 13 days #26 tabs 05/18/23 05/19/23 Rx Allergies Allergy/AdvReac Type Severity Reaction Status Date / Time No Known Drug Allergies Allergy Verified 01/26/23 19:37 Exam Vital Signs (past 8 hours): - 05/19/23 15:30 05/19/23 15:31 05/19/23 15:31 Temperature Pulse Rate 70 71 Respiratory Rate 27 H 25 H Blood Pressure 127/60 Pulse Oximetry 98 98 Oxygen Delivery Method Nasal Cannula Oxygen Flow Rate 1 05/19/23 18:33 05/19/23 19:06 05/19/23 21:23 Temperature 98.6 F 98.4 F Pulse Rate 69 67 70 Respiratory Rate 20 18 17 Blood Pressure 136/64 136/67 132/61 Pulse Oximetry 92 94 98 Oxygen Delivery Method Nasal Cannula Oxygen Flow Rate 1 2 2 05/19/23 22:33 05/19/23 22:43 Temperature Pulse Rate Respiratory Rate Blood Pressure Pulse Oximetry 98 Oxygen Delivery Method Nasal Cannula Nasal Cannula Oxygen Flow Rate 2 Oxygen Delivery Method Nasal Cannula Oxygen Flow Rate 2 Const General: cooperative and comfortable Resp Auscultation: clear to auscultation bilaterally Cardio Rate: regular rate Rhythm: regular rhythm GI Auscultation: normal bowel sounds Neuro General: patient alert, patient awake and patient oriented x3 Objective Labs 05/19/23 13:59 05/19/23 13:59 Labs: Laboratory Results - last 24 hr 05/19/23 05/19/23 05/19/23 13:55 13:59 14:21 WBC 12.5 H RBC 2.35 L Hgb 8.1 L Hct 25.3 L MCV 107.5 H MCH 34.5 H MCHC 32.1 RDW 22.4 H Plt Count 299 Neut % (Auto) Not Reportable Lymph % (Auto) Not Reportable [place] % (Auto) Not Reportable Eos % (Auto) Not Reportable Baso % (Auto) Not Reportable Lymph # (Auto) Not Reportable [place] # (Auto) Not Reportable Baso # (Auto) Not Reportable Total Counted 100 Seg Neutrophils % 76.0 H Lymphocytes % (Manual) 11.0 L Monocytes % (Manual) 8.0 Eosinophils % (Manual) 2.0 Metamyelocytes % 2.0 H Myelocytes % 1.0 H Neutrophils # (Manual) 9500 H RBC Morphology See below Anisocytosis 1+ H Macrocytosis 1+ H PT 19.1 H INR 1.7 H ABG Sample Site ABG pH ABG pCO2 ABG pO2 ABG HCO3 ABG Total CO2 ABG O2 Saturation ABG Base Excess FiO2 Sodium 132 L Potassium 3.4 Chloride 97 L Carbon Dioxide 34 H BUN 25 H Creatinine 0.96 Estimated GFR > 60 BUN/Creatinine Ratio 26.0 H Glucose 129 H Lactate 1.2 Calcium 8.4 Total Bilirubin 0.9 AST 33 ALT 10 Alkaline Phosphatase 119 Troponin I < 0.012 NT-Pro-B Natriuret Pep 64487 H Total Protein 6.5 Albumin 3.2 L Globulin 3.3 Albumin/Globulin Ratio 1.0 Urine RBC None seen Urine WBC None seen Ur Squamous Epith Cells 0-1 /hpf Urine Bacteria Few (2-10) H Ur Culture Indicated? Specimen cultured Vol Urine Centrifuged 10ml (spun) Chlamy pneumoniae PCR Not detected Adenovirus (PCR) Not detected B.parapertussis DNA PCR Not detected Coronavirus OC43 (PCR) Not detected Coronavirus HKU1 (PCR) Not detected Coronavirus 229E (PCR) Not detected SARS-CoV-2 (PCR) Not detected Coronavirus NL63 (PCR) Not detected Human Metapneumovir PCR Not detected Influenza Type A (PCR) Not detected Influenza Type B (PCR) Not detected M. pneumoniae (PCR) Not detected Parainfluenza 1 (PCR) Not detected Parainfluenza 2 (PCR) Not detected Parainfluenza 3 (PCR) Not detected Parainfluenza 4 (PCR) Not detected RSV (PCR) Not detected Entero/Rhino (PCR) Not detected 05/19/23 16:59 WBC RBC Hgb Hct MCV MCH MCHC RDW Plt Count Neut % (Auto) Lymph % (Auto) [place] % (Auto) Eos % (Auto) Baso % (Auto) Lymph # (Auto) [place] # (Auto) Baso # (Auto) Total Counted Seg Neutrophils % Lymphocytes % (Manual) Monocytes % (Manual) Eosinophils % (Manual) Metamyelocytes % Myelocytes % Neutrophils # (Manual) RBC Morphology Anisocytosis Macrocytosis PT INR ABG Sample Site Left radial ABG pH 7.43 ABG pCO2 48.0 H ABG pO2 98 ABG HCO3 32 H ABG Total CO2 33 H ABG O2 Saturation 98 ABG Base Excess 8.0 H FiO2 28 Sodium Potassium Chloride Carbon Dioxide BUN Creatinine Estimated GFR BUN/Creatinine Ratio Glucose Lactate Calcium Total Bilirubin AST ALT Alkaline Phosphatase Troponin I NT-Pro-B Natriuret Pep Total Protein Albumin Globulin Albumin/Globulin Ratio Urine RBC Urine WBC Ur Squamous Epith Cells Urine Bacteria Ur Culture Indicated? Vol Urine Centrifuged Chlamy pneumoniae PCR Adenovirus (PCR) B.parapertussis DNA PCR Coronavirus OC43 (PCR) Coronavirus HKU1 (PCR) Coronavirus 229E (PCR) SARS-CoV-2 (PCR) Coronavirus NL63 (PCR) Human Metapneumovir PCR Influenza Type A (PCR) Influenza Type B (PCR) M. pneumoniae (PCR) Parainfluenza 1 (PCR) Parainfluenza 2 (PCR) Parainfluenza 3 (PCR) Parainfluenza 4 (PCR) RSV (PCR) Entero/Rhino (PCR) Assessment & Plan Assessment and plan (1) Acute on chronic congestive heart failure: Status: Acute (2) Back muscle spasm: Status: Acute (3) COPD (chronic obstructive pulmonary disease): Problem details: stable Status: Acute (4) Anemia: Status: Acute Plan I discussed the pt's presenting symptoms with the ER provider, the pt's labs were reviewed with his hgb low but unchanged from previous admission, pro-BNP is 11,2oo and will start the pt on lasix 40 mg IV q8hr, monitor accurate I/O's, daily weights, reviewed home meds with the pt, restarting them now. In light of the pt's hx of myelofibrosis could counsider bone scan to see if this is contributing to his weakness. PT/OT consulted, the pt is agreeable to go to a SNF now. Repeating labs in am. Quality VTE Deep Vein Thrombosis/Pulmonary Embolism Present on Admission: No
[2023-05-20] VITALS (14 sets, daily range): BP systolic 121–132; BP diastolic 49–60; PULSE 69–80; RESP 16–18; TEMP 36.7–38.1; O2SAT 91–100
[2023-05-20 01:03] LABS: BUN Creatinine Ratio 25.6 (6-22); Blood Urea Nitrogen 23 mg/dL (9-20); Calcium 8.4 mg/dL (8.4-10.2); Carbon Dioxide 35 mmol/L (22-32); Chloride 98 mmol/L (98-107); Estimated Glomerular Filt Rate > 60 mL/min (>60); Glucose 100 mg/dL (80-110); HEMOLYSIS < 15 (0-50); Potassium 3.1 mmol/L (3.4-5.1); Sodium 135 mmol/L (137-145)
[2023-05-20 01:07] LABS: Add Manual Diff / Slide Review YES; Hematocrit 24.9 % (41-53); Hemoglobin 8.1 g/dL (13.5-17.5); Mean Corpuscular HGB Conc 32.4 % (30-36); Mean Corpuscular Hemoglobin 34.5 PG (26-34); Mean Corpuscular Volume 106.4 fL (80-100); Platelet Count 302 X10^3/uL (150-400); Red Blood Cell Count 2.34 X10^6/uL (4.5-5.9); Red Cell Distribution Width 22.7 % (11.6-14.8); White Blood Cell Count 12.4 X10^3/uL (4.5-11.0)
[2023-05-20 01:12] LABS: NT-proBNP (BNP-Adult 18+) 10900 pg/mL (<450)
[2023-05-20 01:32] LABS: Neutrophils Absolute Manual 9796 /uL (3000-5900); Total Cells Counted 100
[2023-05-20 01:33] LABS: Anisocytosis 2+; Macrocytosis 1+
[2023-05-20] MEDS: POTASSIUM CHLORIDE 20 MEQ TAB 40 MEQ PO ×2 (02:28→12:38)
[2023-05-20] MEDS: ACETAMINOPHEN 325 MG TABLET 650 MG PO (05:07)
[2023-05-20] MEDS: FUROSEMIDE 40 MG/4 ML VIAL IV ×3 (06:12→22:54)
[2023-05-20] MEDS: PANTOPRAZOLE DR 20 MG TABLET PO (06:12)
[2023-05-20 06:21] LABS: Hematocrit 25.3 % (41-53); Hemoglobin 8.2 g/dL (13.5-17.5); Mean Corpuscular HGB Conc 32.3 % (30-36); Mean Corpuscular Hemoglobin 34.3 PG (26-34); Mean Corpuscular Volume 106.1 fL (80-100); Platelet Count 288 X10^3/uL (150-400); Red Blood Cell Count 2.38 X10^6/uL (4.5-5.9); Red Cell Distribution Width 22.6 % (11.6-14.8); White Blood Cell Count 12.2 X10^3/uL (4.5-11.0)
[2023-05-20 06:32] LABS: Add Manual Diff / Slide Review YES
[2023-05-20 07:14] LABS: Neutrophils Absolute Manual 9272 /uL (3000-5900); Total Cells Counted 100
[2023-05-20 07:15] LABS: Anisocytosis 2+; Macrocytosis 1+
[2023-05-20] MEDS: SPIRONOLACTONE 25 MG TABLET PO (08:58)
[2023-05-20] MEDS: GABAPENTIN 300 MG CAPSULE PO ×2 (08:58→20:28)
[2023-05-20] MEDS: carvediloL 3.125 MG TABLET 6.25 MG PO ×2 (08:58→20:29)
[2023-05-20] MEDS: OXYCODONE IR 5 MG TABLET PO ×3 (11:44→19:38)
[2023-05-20] MEDS: DOCUSATE 100 MG CAPSULE PO ×2 (11:44→20:28)
--- NOTE | 2023-05-20 12:58 | DIET.CONS2 ---
Dietary Inpatient Consultation Note Admission Date: 05/19/2023 17:58 83 y M presenting with increased weakness, PMH of CHF. Nutrition screened for low MNA. Met with pt at bedside. Reports a appetite is up and down, but usually has 2-3 meals/day (meat/protein, carb, sometimes veg) and snack (fruit). UBW is 100 kg. No significant weight changes noted in chart nor via pt report. He has knowledge of heart healthy nutrition components, reviewed these with him. Encouraged continued adequate intake, including lean protein sources at each meal. Will continue to monitor PO intakes. Diet: 05/20/23 Breakfast Heart Healthy Diet Diet Modifications: Sodium Level: 2 gm Sodium Electronically Signed by: Dara Clay 05/20/23 12:58 Clinical Dietitian [address] [address]
--- NOTE | 2023-05-20 13:43 | PT-IP ANOTE ---
checked on pt and pt refused PT. educated pt on PT benefits/risks and pt stated that he cannot move and refuse pt. agreed for PT to check again later this afternoon.
--- NOTE | 2023-05-20 15:07 | PM.PN.1 ---
Subjective Subjective Interval history: 83 M re-admitted with possible acute on chronic heart failure exacerbation. Feels a bit better today, agreeable to SNF. Exam Vital Signs (past 8 hours): - 05/20/23 08:57 05/20/23 10:28 05/20/23 14:09 Temperature 100.5 F H Pulse Rate 76 Respiratory Rate 18 Blood Pressure 131/52 L Pulse Oximetry 91 95 93 Oxygen Delivery Method Nasal Cannula Nasal Cannula Oxygen Flow Rate 0 2 2 05/20/23 14:15 Temperature 98.0 F Pulse Rate 74 Respiratory Rate 16 Blood Pressure 121/58 L Pulse Oximetry 94 Oxygen Delivery Method Oxygen Flow Rate 0.5 Fraction of Inspired Oxygen 28 SaO2/FiO2 Ratio 335 Oxygen Delivery Method Nasal Cannula Oxygen Flow Rate 0.5 Narrative Exam Narrative: NAD, alert and oriented. Fluent speech. Lungs are clear, normal rate and effort. Heart is regular, no murmur gallop or rub. Abdomen is soft, non distended. Extremities have 1+ pitting edema His left foot 3rd toe has an area of redness but is not cold. There was no obvious fluctuance or discharge. Objective Labs 05/20/23 06:07 05/20/23 00:42 Labs: Laboratory Results - last 24 hr 05/19/23 05/19/23 05/19/23 13:59 14:21 16:59 WBC RBC Hgb Hct MCV MCH MCHC RDW Plt Count Neut % (Auto) Lymph % (Auto) [place] % (Auto) Eos % (Auto) Baso % (Auto) Lymph # (Auto) [place] # (Auto) Baso # (Auto) Total Counted 100 Seg Neutrophils % 76.0 H Band Neutrophils % Lymphocytes % (Manual) 11.0 L Monocytes % (Manual) 8.0 Eosinophils % (Manual) 2.0 Basophils % (Manual) Metamyelocytes % 2.0 H Myelocytes % 1.0 H Neutrophils # (Manual) 9500 H RBC Morphology See below Anisocytosis 1+ H Macrocytosis 1+ H ABG Sample Site Left radial ABG pH 7.43 ABG pCO2 48.0 H ABG pO2 98 ABG HCO3 32 H ABG Total CO2 33 H ABG O2 Saturation 98 ABG Base Excess 8.0 H FiO2 28 Sodium 132 L Potassium 3.4 Chloride 97 L Carbon Dioxide 34 H BUN 25 H Creatinine 0.96 Estimated GFR > 60 BUN/Creatinine Ratio 26.0 H Glucose 129 H Calcium 8.4 Total Bilirubin 0.9 AST 33 ALT 10 Alkaline Phosphatase 119 Troponin I < 0.012 NT-Pro-B Natriuret Pep 33757 H Total Protein 6.5 Albumin 3.2 L Globulin 3.3 Albumin/Globulin Ratio 1.0 Chlamy pneumoniae PCR Not detected Adenovirus (PCR) Not detected B.parapertussis DNA PCR Not detected Coronavirus OC43 (PCR) Not detected Coronavirus HKU1 (PCR) Not detected Coronavirus 229E (PCR) Not detected SARS-CoV-2 (PCR) Not detected Coronavirus NL63 (PCR) Not detected Human Metapneumovir PCR Not detected Influenza Type A (PCR) Not detected Influenza Type B (PCR) Not detected M. pneumoniae (PCR) Not detected Parainfluenza 1 (PCR) Not detected Parainfluenza 2 (PCR) Not detected Parainfluenza 3 (PCR) Not detected Parainfluenza 4 (PCR) Not detected RSV (PCR) Not detected Entero/Rhino (PCR) Not detected 05/20/23 05/20/23 00:42 06:07 WBC 12.4 H 12.2 H RBC 2.34 L 2.38 L Hgb 8.1 L 8.2 L Hct 24.9 L 25.3 L MCV 106.4 H 106.1 H MCH 34.5 H 34.3 H MCHC 32.4 32.3 RDW 22.7 H 22.6 H Plt Count 302 288 Neut % (Auto) Not Reportable Not Reportable Lymph % (Auto) Not Reportable Not Reportable [place] % (Auto) Not Reportable Not Reportable Eos % (Auto) Not Reportable Not Reportable Baso % (Auto) Not Reportable Not Reportable Lymph # (Auto) Not Reportable Not Reportable [place] # (Auto) Not Reportable Not Reportable Baso # (Auto) Not Reportable Not Reportable Total Counted 100 100 Seg Neutrophils % 74.0 H 67.0 Band Neutrophils % 5.0 9.0 H Lymphocytes % (Manual) 3.0 L 9.0 L Monocytes % (Manual) 14.0 H 14.0 H Eosinophils % (Manual) 1.0 L 1.0 L Basophils % (Manual) 2.0 H Metamyelocytes % 1.0 H Myelocytes % Neutrophils # (Manual) 9796 H 9272 H RBC Morphology See below See below Anisocytosis 2+ H 2+ H Macrocytosis 1+ H 1+ H ABG Sample Site ABG pH ABG pCO2 ABG pO2 ABG HCO3 ABG Total CO2 ABG O2 Saturation ABG Base Excess FiO2 Sodium 135 L Potassium 3.1 L Chloride 98 Carbon Dioxide 35 H BUN 23 H Creatinine 0.90 Estimated GFR > 60 BUN/Creatinine Ratio 25.6 H Glucose 100 Calcium 8.4 Total Bilirubin AST ALT Alkaline Phosphatase Troponin I NT-Pro-B Natriuret Pep 39406 H Total Protein Albumin Globulin Albumin/Globulin Ratio Chlamy pneumoniae PCR Adenovirus (PCR) B.parapertussis DNA PCR Coronavirus OC43 (PCR) Coronavirus HKU1 (PCR) Coronavirus 229E (PCR) SARS-CoV-2 (PCR) Coronavirus NL63 (PCR) Human Metapneumovir PCR Influenza Type A (PCR) Influenza Type B (PCR) M. pneumoniae (PCR) Parainfluenza 1 (PCR) Parainfluenza 2 (PCR) Parainfluenza 3 (PCR) Parainfluenza 4 (PCR) RSV (PCR) Entero/Rhino (PCR) PFSH Medical History Neuropathy COPD (chronic obstructive pulmonary disease) Myelofibrosis CHF (congestive heart failure) Edema Acid reflux HTN (hypertension) Osteoarthritis Arthritis HLD (hyperlipidemia) Cardiomyopathy Afib Surgical History Hx of tonsillectomy History of arthroplasty of left shoulder History of bilateral hip arthroplasty History of arthroplasty of right shoulder Hx of shoulder surgery Hx of laminectomy History of lumbar surgery (03/25/15) Social History household members: spouse Smoking Status: Former smoker alcohol intake: current Assessment & Plan Assessment & Plan narrative: 1. Acute on chronic systolic heart failure with acute respiratory failure with hypoxia 2. chronic anemia, present on admission and active. Was given 1 unit of blood on May 13. # Myelofibrosis, present on admission and stable. # Hypertension, present on admission and stable. #Hyperlipidemia, present on admission and stable. # Atrial fibrillation on chronic Xarelto, he has been holding Xarelto. Present on admission and active. # COPD, present on admission and stable. # Left foot 3rd toe with cellulitis and possible osteomyelitis PLAN: - continue outpatient oral antibiotics after ortho recommendations from last admission. No indication for repeat TTE at this time. - continue diuresis with IV furosemide BID - previous has been discharged home on O2, but states O2 always normal at home without it - PT/OT to evaluate, anticipate SNF, patient agreeable - Goal O2 88-96% on supplemental therapy. Code: Full, His proxy decision maker is his . Dispo: Probable SNF, timing unclear, likely 1-2 days. Hopeful for tomorrow. Will continue diuresis until discharge, unless develops VALENTINO or signs of hypovolemia. Quality VTE Deep Vein Thrombosis/Pulmonary Embolism Present on Admission: No
--- NOTE | 2023-05-20 15:16 | CM.DANOTE ---
Initial DCP Assessment Note Pt is an 83 yo male, resident of [place], readmitted after discharging 4.10.24 PCP: Wilma Alberts Payer: Hansel BASSETT Reviewed chart, pt discussed in multidisciplinary rounds this morning. Provider recommending SNF. Met w/patient to introduce self and role. Patient immediately says it didn't work at home (see recent notes) and requests referral to [facility] Patient requests additional coordination go through his . Referral discussed with Haydee at [facility] who accepts for admission Tuesday as long as patient has had a BM. PASRR needed. CM team following closely for coordination of discharge plan. LEW Weir Discharge Planning/Care Management CM Discharge Assessment Start: 05/20/23 15:14 Freq: Status: Active Protocol: Document 05/20/23 15:14 MILTON (Rec: 05/20/23 15:16 MILTON [id number]) Discharge Planning Assessment Assigned Bargeman LEW Rodas DPOA/Assigned Designee Name Mónica Hess, spouse Contact Information [phone] Advance Directives? Yes Advance Directives on File No History Provided By Patient,Medical Record Prior Living Arrangements House Household Members spouse Type of transporation used prior to Relies on Others admit Independent with ADL's No Is patient alert and oriented? Yes Patient/Family Preference Penitentiary Facility Comment Accepted at [facility] Discharge Plan Penitentiary Facility Transportation Arrangement W/c Van Referrals Initiated Penitentiary Additional Comment [facility] Medicare Choice List Provided Yes SNF/HH Preference [facility]
--- NOTE | 2023-05-20 16:20 | PT.IIE ---
Current Diagnoses Anemia, unspecified (05/19/23) Heart failure, unspecified (05/19/23) Chronic obstructive pulmonary disease, unspecified (05/19/23) Muscle spasm of back (05/19/23) Surgical History (Last Reviewed 05/19/23 @ 17:03 by Ivelisse Zaman DO) History of arthroplasty of left shoulder History of arthroplasty of right shoulder History of bilateral hip arthroplasty History of lumbar surgery (03/25/15) Hx of laminectomy Hx of shoulder surgery Hx of tonsillectomy Medical History (Last Reviewed 05/19/23 @ 17:03 by Ivelisse Zaman DO) Acid reflux Afib Arthritis Cardiomyopathy CHF (congestive heart failure) COPD (chronic obstructive pulmonary disease) Edema HLD (hyperlipidemia) HTN (hypertension) Myelofibrosis Neuropathy Osteoarthritis Physical Therapy Inpatient Evaluation/Re-Eval M1 PT/OT-IP Prior Functional Status Start: 05/20/23 17:07 Freq: NEEDED Status: Active Protocol: Document 05/20/23 16:20 AB (Rec: 05/20/23 17:19 AB [id number]) Medical Review Prior Functional Status Medical History Reviewed Yes Communication able to make needs known Mobility and Gait pt was just admitted here in the hospital: 05/15/23 to 11/30 s/p. per EMR pt refused to go to SNF. pt went home via EMS and spouse stated that they got him inside the house with a gurney, assisted him on his lift chair. spouse stated that pt has been sliding off his lift chair and has not able to stand. pt admitted back to the hospital 05/19/23. prior to 05/15/23 hospitalization: pt stated that he was modified indpeendent with ambulation using a 4WW Social History Household Members spouse Living Arrangements House Number of Floors (Floors) Two Floors Number of Stairs To Enter/Railing? pt stays on main level of the house has 2 platform steps without rails Home Environment Walk in Shower Home Equipment Four Wheel Walker,Raised Toilet Seat w/Armrests,Shower Seat without Backrest,Hand Held Shower,Lift Recliner,Grab Bars Near Toilet,Grab Bars In Shower Additional Social History Comment pt has an adjustable bed M2 PT-IP Current Condition Start: 05/20/23 17:07 Freq: NEEDED Status: Active Protocol: Document 05/20/23 16:20 AB (Rec: 05/20/23 17:19 AB [id number]) Physical Therapy Current Condition Current Condition Evaluation Date 05/20/23 Treatment Diagnosis CHF; s/p fall; difficulty in walking Onset Date 05/19/23 M3 PT-IP Subjective Start: 05/20/23 17:07 Freq: NEEDED Status: Active Protocol: Document 05/20/23 16:20 AB (Rec: 05/20/23 17:19 AB [id number]) Subjective Physical Therapy Visit Type Type Initial Evaluation Visit Start Time 16:20 Visit Stop Time 17:00 Number of TRACTOR TRAILER DRIVER Visits 0 Physical Therapy Visit Comments Patient Comments agreeable to do PT Therapy Pain Assessment Pain When Pain Assessed During Mobility Location Left Upper Thigh Intensity 10 Scale Used Numeric (0 - 10) Description Spasm Pain Management Techniques Distraction,Modification of Treatment,Re-positioning, Timing of Activity with Medications M4 PT-IP Mobility and Gait Start: 05/20/23 17:07 Freq: NEEDED Status: Active Protocol: Document 05/20/23 16:20 AB (Rec: 05/20/23 17:19 AB [id number]) PT-Bed Mobility Assessment Supine to Sit Supine to Sit Maximum Assistance,2 Person Assistance,Head of Bed Elevated,Bedrails Scooting Scooting to Edge of Bed Maximum Assistance,Dependent PT-Transfer Assessment Sit to and From Stand Sit to and from Stand Maximum Assistance,2 Person Assistance,Use of Upper Extremities Equipment Transfer Assistive Device Gait Belt,Front Wheeled Walker Orthotic/Prosthetic Devices or Brace: No Transfers Transfer Destination Chair Transfer Technique Stand Step Pivot Transfer Ability Level of Assist Maximum Assistance,2 Person Assistance,Use of Upper Extremities Comments Mobility Comments pt supine in bed and agreeable to do PT. spouse in room. obtained PLOF and home set up. pt completed supine to sit max A x 2 and max cues. HOB elevated and pt used bed rail to assist. max A x 2 to total A for scooting to EOB. CGA for sitting balanc nicole EOB. completed sit to stand from EOB max A x 2 and max cues. able to stand with max A x 2 for standing balance using fWW for support. pt started doing BM and has to sit back down on EOB. pt needed to be cleaned up. NAC came in to assist. BP sitting on EOB: 122/47. pt completed sit to stand from EOB max A x 2 and max cues and step transfer to chair using FWW max A x 2 and max cues. increase B knee flexion and with stooped posture in standing. pt required stabilization on BLE for safety. positioned pt on the chair. Left pt with OT. Gait Assessment Comments Gait Comments uanble at this time PT-Balance Assessment Sitting Balance and Reactions Static Sitting Balance Ability Fair Dynamic Sitting Balance Ability Fair Standing Balance and Reactions Static Standing Balance Ability Poor Dynamic Standing Balance Ability Poor Device Used FWW M5 PT-IP Objective Assessments Start: 05/20/23 17:07 Freq: NEEDED Status: Active Protocol: Document 05/20/23 16:20 AB (Rec: 05/20/23 17:19 AB [id number]) Orientation Orientation/Cognition Level of Alertness Alert Orientation Name Language Function Ability Hard of Hearing Safety Awareness Decreased Safety Awareness Gross Range of Motion Lower Extremity ROM Assessment Within Functional Limits Strength Lower Extremity Strength Assessment Bilaterally Impaired Hip 3-/5 Knee 3-/5 Muscle Tone Muscle Tone WNL Yes M6 PT-IP Treatment Start: 05/20/23 17:07 Freq: NEEDED Status: Active Protocol: Document 05/20/23 16:20 AB (Rec: 05/20/23 17:19 AB [id number]) Physical Therapy Treatment Education Education Provided Safety M7 PT-IP Assessment and Plan Start: 05/20/23 17:07 Freq: NEEDED Status: Active Protocol: Document 05/20/23 16:20 AB (Rec: 05/20/23 17:19 AB [id number]) PT Summary Assessment and Plan Potential Rehabilitation Potential Fair Status of Condition at Evaluation Evolving Summary Impairments Pain,ROM,Strength,Balance, Coordination,Sensation,Tone, Cognition,Bed Mobility, Transfers,Gait,Activity Tolerance Assessment Summary pt is an 83 y/o M who presented to the ED s/p fall. pt was just admitted from the hospital: 05/15/23 to and SNF was recommended at that time but pt refused and pt d/c'd home. Pt now admitted back and agreeable to go to SNF. pt requiring max A x 2 to total A x 2 with mobility using FWW for support and unable to ambulate at this time. pt will require SNF rehab. will continue to assess progress. Goals Bed Mobility Goal Minimal Assistance Transfer Goal Minimal Assistance,Front Wheeled Walker Gait Goal Minimal Assistance,Front Wheel Walker Gait Distance 50 Other Goals improve bed mobility, transfers, ambulation using fWW ~ 100 ft SBA up/down 2 platform steps using FWW CGA Days to Meet Goals 10 Frequency of Treatment Frequency Of Treatment Once a Day Treatment Plan Physical Therapy Treatment Plan Bed Mobility Training,Transfer Training,Gait Training, Therapeutic Exercise,Balance Retraining,Post Op Education, Discharge Planning,Hot or Cold Pack,Neuromuscular Re-ed, Coordination Retraining,Manual Therapy Precautions Other Precautions falls Recommendations To Nursing Amount of Assist Needed Mechanical Lift Discharge Recommendations PT Discharge Recommendations SNF Rehab Transportation Needs at Discharge Wheelchair/Cabulance
[2023-05-20] MEDS: RIVAROXABAN 10 MG TABLET 20 MG PO (16:47)
--- NOTE | 2023-05-20 17:49 | OT.IP.EVAL ---
Current Diagnoses Anemia, unspecified (05/19/23) Heart failure, unspecified (05/19/23) Chronic obstructive pulmonary disease, unspecified (05/19/23) Muscle spasm of back (05/19/23) Past Medical History (Last Reviewed 05/19/23 @ 17:03 by Ivelisse Zaman DO) Acid reflux Afib Arthritis Cardiomyopathy CHF (congestive heart failure) COPD (chronic obstructive pulmonary disease) Edema HLD (hyperlipidemia) HTN (hypertension) Myelofibrosis Neuropathy Osteoarthritis Surgical History (Last Reviewed 05/19/23 @ 17:03 by Ivelisse Zaman DO) History of arthroplasty of left shoulder History of arthroplasty of right shoulder History of bilateral hip arthroplasty History of lumbar surgery (03/25/15) Hx of laminectomy Hx of shoulder surgery Hx of tonsillectomy Occupational Therapy Inpatient Evaluation/Re-Eval M1 PT/OT-IP Prior Functional Status Start: 05/20/23 17:07 Freq: NEEDED Status: Active Protocol: Document 05/20/23 16:20 AB (Rec: 05/20/23 17:19 AB [id number]) Medical Review Prior Functional Status Medical History Reviewed Yes Communication able to make needs known Mobility and Gait pt was just admitted here in the hospital: 05/15/23 to 11/30 s/p. per EMR pt refused to go to SNF. pt went home via EMS and spouse stated that they got him inside the house with a gurney, assisted him on his lift chair. spouse stated that pt has been sliding off his lift chair and has not able to stand. pt admitted back to the hospital 05/19/23. prior to 05/15/23 hospitalization: pt stated that he was modified independent with ambulation using a 4WW Social History Household Members spouse Living Arrangements House Number of Floors (Floors) Two Floors Number of Stairs To Enter/Railing? pt stays on main level of the house has 2 platform steps without rails Home Environment Walk in Shower Home Equipment Four Wheel Walker,Raised Toilet Seat w/Armrests,Shower Seat without Backrest,Hand Held Shower,Lift Recliner,Grab Bars Near Toilet,Grab Bars In Shower Additional Social History Comment pt has an adjustable bed M1 PT/OT-IP Prior Functional Status Start: 05/20/23 17:26 Freq: NEEDED Status: Active Protocol: Document 05/20/23 16:20 ADIS (Rec: 05/20/23 17:49 ADIS [id number]) Medical Review Prior Functional Status Medical History Reviewed Yes Communication able to make needs known, pt is EYAK and uses B hearing aids Mobility and Gait pt was just admitted here in the hospital: 05/15/23 to 11/30 s/p. per EMR pt refused to go to SNF. pt went home via EMS and spouse stated that they got him inside the house with a gurney, assisted him on his lift chair. spouse stated that pt has been sliding off his lift chair and has not able to stand. pt admitted back to the hospital 05/19/23. prior to 05/15/23 hospitalization: pt stated that he was modified independent with ambulation using a 4WW Activities of Daily Living and IADL's mod I, pt's has been assisting with LB dressing and toileting. pt's empties his catheter and performs cooking and house work. Prior Functional Level (Other details) pt's performs most of the driving Social History Household Members spouse Living Arrangements House Number of Floors (Floors) Two Floors Number of Stairs To Enter/Railing? pt stays on main level of the house has 2 platform steps without rails Home Environment Walk in Shower Home Equipment Four Wheel Walker,Raised Toilet Seat w/Armrests,Shower Seat without Backrest,Hand Held Shower,Lift Recliner,Grab Bars Near Toilet,Grab Bars In Shower Employment Status Retired Additional Social History Comment pt has an adjustable bed M2 OT-IP Current Condition Start: 05/20/23 17:26 Freq: Status: Active Protocol: Document 05/20/23 16:20 ADIS (Rec: 05/20/23 17:49 ADIS [id number]) Occupational Therapy Current Condition Current Condition Evaluation Date 05/20/23 Treatment Diagnosis CHF, s/p fall Diagnosis Onset Date 05/19/23 M3 OT- IP Subjective and Pain Start: 05/20/23 17:26 Freq: Status: Active Protocol: Document 05/20/23 16:20 ADIS (Rec: 05/20/23 17:49 ADIS [id number]) OT- Subjective Occupational Therapy Visit Type Type Initial Evaluation Visit Start Time 16:20 Visit Stop Time 17:05 Notes pt reclined in bed with spouse and visitors present. pt agreeable to performing PT/OT co-eval Occupational Therapy Visit Comments Patient Comments pt states he wants to get stronger. pt's says she cannot take him home when he's this weak. OT Pain Assessment Pain When Pain Assessed At Rest Pain Present Pain Present Pain Reported Location Left Upper Thigh Intensity 10 Scale Used Numeric (0 - 10) Description Spasm Management Techniques Distraction,Re-positioning, Timing of Activity with Medications M4 OT- IP ADL's Start: 05/20/23 17:26 Freq: Status: Active Protocol: Document 05/20/23 16:20 ADIS (Rec: 05/20/23 17:49 MICAHMASLIM [id number]) OT [id number] Comments OT Self-Feeding Comments not observed at time of eval OT ADL-Grooming General Evaluation Grooming Ability Standby Assistance Areas Needing Assistance Retrieving/Set-up of Grooming Items Comments OT Grooming Comments pt combed his hair on setup while up in chair. OT ADL-Oral Care Comments Oral Care Comments not observed during eval OT ADL-Dressing General Eval Upper Body Dressing Ability Total Assistance Lower Body Dressing Ability Maximum Assistance,Total Assistance Comments OT Dressing Comments pt required total A to don hospital gown. pt refused to attempt to start pull-up brief on B LEs. pt states his does this at home. OT started on B LEs and pulled them up to mid peres, pt able to pull them up toward his upper thighs and OT pulled them up the remainder upon standing. OT ADL-Toileting General Evaluation Toileting Ability Total Assistance Areas Needing Assistance Empty Catheter or Colostomy, Manage Clothing,Perform Perineal Hygiene Comments OT Toileting Comments pt had a catheter in place that his or nsg manages. during sit>stand pt had a large BM that he was unaware of having. Pt required total A to manage hygiene following BM. OT ADL-Bathing Comments OT Bathing Comments declined at time of eval M5 OT- IP IADL's Start: 05/20/23 17:26 Freq: Status: Active Protocol: Document 05/20/23 16:20 ADIS (Rec: 05/20/23 17:49 MICAHMASLIM [id number]) OT-Instrumental Activities of Daily Living Deficits IADL Deficits Identified Deficits Home Safety Awareness Awareness of Need for Assistance at Home Decreased Awareness Ability to Problem Solve Emergency Unable to Problem Solve Situations Medication Management Medication Management Caregiver Administers Money Management Money Management Caregiver Provides Assistance Meal Preparation Meal Preparation Caregiver Provides Assist Religious Assistant Religious Assistant Caregiver Provides Assist Driving Driving Caregiver Provides Assist M6 OT- IP Functional Cognition Start: 05/20/23 17:26 Freq: Status: Active Protocol: Document 05/20/23 16:20 ADIS (Rec: 05/20/23 17:49 [facility] [id number]) Cognitive Factors Limiting Selfcare Function Cognitive Ability Level of Alertness Alert Patient Orientation Name,Age,Birthday,Month,Date, Year,Day of Week,Place, Situation Attention Span Ability Capable of Focused Attention, Capable of Sustained Attention Ability to Follow Commands Able to Follow One Step Commands,Able to Follow Multi- Step Commands Memory Description No Deficits Noted OT- Vision and Hearing OT- Hearing Assessment OT- Hearing Assessment Hearing Impaired,Use of Hearing Aids OT- Vision Assessment Visual Acuity WFL,Glasses For Reading M7 OT- IP Mobility and Balance Start: 05/20/23 17:26 Freq: Status: Active Protocol: Document 05/20/23 16:20 ADIS (Rec: 05/20/23 17:49 [facility] [id number]) OT- Bed Mobility Assessment Supine to Sit Supine to Sit Assist Maximum Assistance,2 Person Assistance,Head of Bed Elevated,Bedrails Scooting Scooting to Edge of Bed Maximum Assistance,Total Assistance,2 Person Assistance OT-Transfer Assessment Sit to and From Stand Sit to and from Stand Maximum Assistance,2 Person Assistance,Use of Upper Extremities Transfers Transfer Ability Maximum Assistance,2 Person Assistance,Use of Upper Extremities Technique Transfer Destination Chair Transfer Technique Stand Step Pivot Devices Transfer Assistive Devices Gait Belt,Front Wheeled Walker Comments Mobility Comments BP sitting EOB 122/47. pt with B knee flexion and stooped posture during standing. pt requires stabilization on B LE for safety. pt required rbs between each sit to stand. sit to stand performed for initial t/f, cleaning from BM, and when t/fing to chair. OT- Gait Assessment Comments Gait Ability Comments unable at this time OT- Balance Assessment Sitting Balance and Reactions Static Sitting Balance Ability Fair Dynamic Sitting Balance Ability Fair Standing Balance and Reactions Static Standing Balance Ability Poor Dynamic Standing Balance Ability Poor M8 OT- IP Objective Assessments Start: 05/20/23 17:26 Freq: Status: Active Protocol: Document 05/20/23 16:20 ADIS (Rec: 05/20/23 17:49 [facility] [id number]) OT Gross Range of Motion Upper Extremity Range of Motion Assessment Within Functional Limits OT Strength Comments Strength Comments B UE strength 3+/5 to 4/5 grossly OT- Coordination Assessment Upper Extremity Finger Tapping Test Within Functional Limits OT-Muscle Tone Assessment Muscle Tone WNL No M9 OT- IP Assessment and Plan Start: 05/20/23 17:26 Freq: Status: Active Protocol: Document 05/20/23 16:20 ADIS (Rec: 05/20/23 17:49 [facility] [id number]) OT Summary Assessment and Plan Potential Rehabilitation Potential Fair Analytic Complexity at Evaluation High Summary OT Impairments Pain,Range of Motion,Strength, Balance,Coordination, Functional Mobility,Self- Feeding,Grooming,Dressing, Toileting,Bathing,Toilet Transfers,Shower Transfers, Activity Tolerance Progress Towards Goals Slow Progress due to Medical Issues,Slow Progress due to Activity Tolerance Assessment Summary Pt is 83 yo M who presented to ED s/p fall. pt was admitted from hospital 05/15/23- and SNF was recommended at the time but pt and spouse refused and pt d/c home. Pt admitted back and is currently agreeable to d/c to SNF. Pt requires encouragement to attempt to participate in each component of the eval. Pt requires increased rbs and demonstrates significantly impaired activity tolerance. Pt demonstrates impaired strength, balance, BADLs, and functional t/fs. Skilled OT services are appropriate to address these deficits and promote return toward PLOF. Pt left up in chair with all needs met and in reach. Pts spouse, friends, and nsg present. OT encouraged pt and family to sit up in chair for as long as he could reasonably tolerate and educated on how atrophy occurs more rapidly when lying down. Goals Self-Feeding Goal Independent Grooming Goal Independent Dressing Goal Minimal Assistance Toileting Goal Minimal Assistance Bathing Goal Minimal Assistance Toilet Transfer Goal Minimal Assistance Shower Transfer Goal Minimal Assistance Days to Meet Goals 14 Frequency of Treatment Frequency Of Treatment Twice a Day Treatment Plan OT Treatment Plan ADL Training,Functional Mobility,Therapeutic Exercises ,Patient/Family Education, Discharge Planning Discharge Recommendations OT Discharge Recommendations SNF Rehab Transportation Needs at Discharge Wheelchair/Cabulance
[2023-05-20] MEDS: DULOXETINE 30 MG CAPSULE 60 MG PO (20:28)
[2023-05-20] MEDS: SENNOSIDES 8.6 MG TABLET 17.2 MG PO (20:28)
[2023-05-20] MEDS: SODIUM CHLORIDE 0.9% FLUSH 10 ML IV ×2 (20:33→22:55)
[2023-05-20] MEDS: DIGOXIN 0.125 MG TABLET 0.25 MG PO (20:54)
[2023-05-21] VITALS (11 sets, daily range): BP systolic 104–130; BP diastolic 52–74; PULSE 74–85; RESP 16–19; TEMP 36.6–37; O2SAT 88–99
--- NOTE | 2023-05-21 00:55 | PC.NURSE ---
Patient is alert and oriented except off on day by 1 day. Is NEWHALEN wearing bilateral hearing aids. Breath sounds CTA and denies SOB. At shift change was on oxygen at 2L/min per NC with sat of 100% so O2 removed but dropping down into upper 80's when sleeping so is now on 0.5L/min with sat of 94%. HR irregular w/telemetry reading of afib CVR. BT present and reportedly had incontinent BM on previous shift. Indwelling catheter is patent and urine is clear, letty; catheter was placed prior to hospitalization to record accurate output. Is unable to turn himself so is being repositioned q2h. Is getting up to chair with walker and PT assistance; nursing is using [facility] for transfers. Has intact dressing to left AC; reports removed a dressing and tore his skin; moderate amount old drainage noted. Scattered bruises on all extremities. Scabbed abrasions on right LE and left 3rd toe. Has 1+ edema bilateral LE. Wearing bilateral calf SCD's. Complained of pain and was medicated with oxycodone at start of shift and is currently asleep. Fall risk score is high and bed alarm is activated.
[2023-05-21] MEDS: OXYCODONE IR 5 MG TABLET PO ×4 (04:47→23:26)
[2023-05-21] MEDS: ACETAMINOPHEN 325 MG TABLET 650 MG PO (04:47)
[2023-05-21 05:31] LABS: Hematocrit 24.6 % (41-53); Mean Corpuscular HGB Conc 32.6 % (30-36); Mean Corpuscular Hemoglobin 34.6 PG (26-34); Mean Corpuscular Volume 106.1 fL (80-100); Platelet Count 266 X10^3/uL (150-400); Red Blood Cell Count 2.32 X10^6/uL (4.5-5.9); Red Cell Distribution Width 22.4 % (11.6-14.8); White Blood Cell Count 9.2 X10^3/uL (4.5-11.0)
[2023-05-21 05:32] LABS: Add Manual Diff / Slide Review YES
[2023-05-21 05:36] LABS: BUN Creatinine Ratio 23.1 (6-22); Blood Urea Nitrogen 21 mg/dL (9-20); Calcium 8.2 mg/dL (8.4-10.2); Carbon Dioxide 37 mmol/L (22-32); Chloride 95 mmol/L (98-107); Estimated Glomerular Filt Rate > 60 mL/min (>60); Glucose 104 mg/dL (80-110); HEMOLYSIS < 15 (0-50); Potassium 3.6 mmol/L (3.4-5.1); Sodium 134 mmol/L (137-145)
[2023-05-21] MEDS: PANTOPRAZOLE DR 20 MG TABLET PO (05:56)
[2023-05-21 06:24] LABS: Neutrophils Absolute Manual 6808 /uL (3000-5900); Total Cells Counted 100
[2023-05-21 06:29] LABS: Anisocytosis 2+; Macrocytosis 1+
[2023-05-21] MEDS: FUROSEMIDE 40 MG/4 ML VIAL IV ×2 (06:40→13:56)
[2023-05-21] MEDS: SODIUM CHLORIDE 0.9% FLUSH 10 ML IV ×3 (06:41→21:35)
[2023-05-21] MEDS: DOCUSATE 100 MG CAPSULE PO ×2 (09:10→21:34)
[2023-05-21] MEDS: SPIRONOLACTONE 25 MG TABLET PO (09:10)
[2023-05-21] MEDS: GABAPENTIN 300 MG CAPSULE PO ×2 (09:11→21:36)
[2023-05-21] MEDS: carvediloL 3.125 MG TABLET 6.25 MG PO ×2 (09:11→21:35)
--- NOTE | 2023-05-21 10:58 | PT.IPTN ---
Current Diagnoses Anemia, unspecified (05/19/23) Heart failure, unspecified (05/19/23) Chronic obstructive pulmonary disease, unspecified (05/19/23) Muscle spasm of back (05/19/23) Physical Therapy Treatment Note M2 PT-IP Current Condition Start: 05/20/23 17:07 Freq: NEEDED Status: Active Protocol: Document 05/20/23 16:20 AB (Rec: 05/20/23 17:19 AB [id number]) Physical Therapy Current Condition Current Condition Evaluation Date 05/20/23 Treatment Diagnosis CHF; s/p fall; difficulty in walking Onset Date 05/19/23 M3 PT-IP Subjective Start: 05/20/23 17:07 Freq: NEEDED Status: Active Protocol: Document 05/21/23 11:46 TS (Rec: 05/21/23 11:58 TS [id number]) Subjective Physical Therapy Visit Type Type Treatment Note Visit Start Time 10:58 Visit Stop Time 11:21 Number of POT PUNCHER Visits 1 Physical Therapy Visit Comments Patient Comments pt found resting in bed, is agreeable to PT. M4 PT-IP Mobility and Gait Start: 05/20/23 17:07 Freq: NEEDED Status: Active Protocol: Document 05/21/23 11:46 TS (Rec: 05/21/23 11:58 TS [id number]) PT-Bed Mobility Assessment Supine to Sit Supine to Sit Maximum Assistance,1 Person Assistance,Head of Bed Elevated,Bedrails Scooting Scooting to Edge of Bed Contact Guard Assistance PT-Transfer Assessment Sit to and From Stand Sit to and from Stand Maximum Assistance,1 Person Assistance Equipment Transfer Assistive Device Gait Belt,Front Wheeled Walker Orthotic/Prosthetic Devices or Brace: No Transfers Transfer Destination Chair Transfer Technique Stand Step Pivot Transfer Ability Level of Assist Maximum Assistance,1 Person Assistance,Use of Upper Extremities Comments Mobility Comments Supine to sit with HOB elevated MaxA x1 with BRIAR [employer]OD SORTER for uprighting trunk. He scooted to EOB CGA and maintain sitting balance SBA. STS from bed with FWW MaxA with cues for pushing from bed. In standing pt has poor balance and poor posture and some buckling in LE's. He performed stand step pivot to chair MaxA with poor quad control and some buckling. While sitting up in chair pt performed knee flex/ext x10 Ea LE. Pt was left in chair, all needs met. Gait Assessment Gait Gait Assistance Required: Maximum Assistance,1 Person Assist Distance (Feet) 1 Assistive Devices Assistive Device Gait Belt,Front Wheeled Walker Gait Deviations General Gait Pattern Decreased Stride Length, Decreased Feet Clearance, Flexed Trunk,Step-to Gait,Wide Based Gait Factors Limiting Gait Function Factors Limiting Gait Function Decreased Activity Tolerance, Decreased Strength,Limited Range of Motion,Pain,Poor Balance,Poor Safety Awareness Comments Gait Comments See mobility comments PT-Balance Assessment Sitting Balance and Reactions Static Sitting Balance Ability Fair Dynamic Sitting Balance Ability Fair Standing Balance and Reactions Static Standing Balance Ability Poor Dynamic Standing Balance Ability Poor Device Used FWW M5 PT-IP Objective Assessments Start: 05/20/23 17:07 Freq: NEEDED Status: Active Protocol: Document 05/20/23 16:20 AB (Rec: 05/20/23 17:19 AB [id number]) Orientation Orientation/Cognition Level of Alertness Alert Orientation Name Language Function Ability Hard of Hearing Safety Awareness Decreased Safety Awareness Gross Range of Motion Lower Extremity ROM Assessment Within Functional Limits Strength Lower Extremity Strength Assessment Bilaterally Impaired Hip 3-/5 Knee 3-/5 Muscle Tone Muscle Tone WNL Yes M6 PT-IP Treatment Start: 05/20/23 17:07 Freq: NEEDED Status: Active Protocol: Document 05/21/23 11:46 TS (Rec: 05/21/23 11:58 TS [id number]) Physical Therapy Treatment Education Education Provided Safety M7 PT-IP Assessment and Plan Start: 05/20/23 17:07 Freq: NEEDED Status: Active Protocol: Document 05/21/23 11:46 TS (Rec: 05/21/23 11:58 TS [id number]) PT Summary Assessment and Plan Potential Rehabilitation Potential Fair Summary Impairments Pain,ROM,Strength,Balance, Coordination,Sensation,Tone, Cognition,Bed Mobility, Transfers,Gait,Activity Tolerance Progress Towards Goals Slow Progress due to Pain,Slow Progress due to Medical Issues,Slow Progress due to Activity Tolerance Assessment Summary Octavio continues to have difficulty progressing his mobility. He requires MaxA for supine to sit and scooted to EOB CGA. He performed Stand step pivot to chair with poor balance and has some buckling in BLE. He has decreased safety awareness and requires cues for most mobility. PT is recommending SNF rehab at this time. Goals Bed Mobility Goal Minimal Assistance Transfer Goal Minimal Assistance,Front Wheeled Walker Gait Goal Minimal Assistance,Front Wheel Walker Gait Distance 50 Other Goals improve bed mobility, transfers, ambulation using fWW ~ 100 ft SBA up/down 2 platform steps using FWW CGA Days to Meet Goals 10 Frequency of Treatment Frequency Of Treatment Once a Day Treatment Plan Physical Therapy Treatment Plan Bed Mobility Training,Transfer Training,Gait Training, Therapeutic Exercise,Balance Retraining,Post Op Education, Discharge Planning,Hot or Cold Pack,Neuromuscular Re-ed, Coordination Retraining,Manual Therapy Precautions Other Precautions falls Recommendations To Nursing Amount of Assist Needed Mechanical Lift Discharge Recommendations PT Discharge Recommendations SNF Rehab Transportation Needs at Discharge Wheelchair/Cabulance
--- NOTE | 2023-05-21 11:56 | CM.DPC ---
DCP Cont: Met with patient and spouse, Pat. Went over some facilities. Confirmed with Kimberly at [facility], that they can't go by the last hospital stay for Medicare coverage, since it is a different diagnosis. He would be eligible by Medicare standards by tomorrow, Tuesday. [facility] does have original referral. Spouse would like to go over and tour the facility today. She has her brother and his spouse with her. The barrier may be that he is due for his Procrit injection, which is normally done on an outpatient basis. Kimberly is not sure that they can do this, but will look into it. P: DCP to continue to follow. Plan most likely will be [facility] versus going home with resumption of [facility]. He would be eligible by tomorrow for longterm. Lavonne Adams RN/Chair Springer
--- NOTE | 2023-05-21 14:56 | P.PN_ITS ---
Subjective Subjective Interval history: 83 M re-admitted with possible acute on chronic heart failure exacerbation. Feels a bit better today, agreeable to SNF. Discussed with Orthopedics today as well, his foot looks well. Exam Vital Signs (past 8 hours): - 05/21/23 08:00 05/21/23 08:07 05/21/23 10:41 Temperature 98.2 F Pulse Rate 77 Respiratory Rate 18 Blood Pressure 125/60 Pulse Oximetry 88 L 94 Oxygen Delivery Method Nasal Cannula Nasal Cannula Oxygen Flow Rate 0.5 0.5 05/21/23 13:00 Temperature 98.2 F Pulse Rate 80 Respiratory Rate 18 Blood Pressure 104/54 L Pulse Oximetry 91 Oxygen Delivery Method Oxygen Flow Rate 0 Fraction of Inspired Oxygen 28 SaO2/FiO2 Ratio 335 Oxygen Delivery Method Nasal Cannula Oxygen Flow Rate 0 Narrative Exam Narrative: NAD, alert and oriented. Fluent speech. Lungs are clear, normal rate and effort. Heart is regular, no murmur gallop or rub. Abdomen is soft, non distended. Extremities have trace pitting edema His left foot 3rd toe has an area of redness but is not cold. There was no obvious fluctuance or discharge. Objective Labs 05/21/23 05:10 05/21/23 05:10 Labs: Laboratory Results - last 24 hr 05/21/23 05:10 WBC 9.2 RBC 2.32 L Hgb 8.0 L Hct 24.6 L MCV 106.1 H MCH 34.6 H MCHC 32.6 RDW 22.4 H Plt Count 266 Neut % (Auto) Not Reportable Lymph % (Auto) Not Reportable [place] % (Auto) Not Reportable Eos % (Auto) Not Reportable Baso % (Auto) Not Reportable Lymph # (Auto) Not Reportable [place] # (Auto) Not Reportable Baso # (Auto) Not Reportable Total Counted 100 Seg Neutrophils % 72.0 H Band Neutrophils % 2.0 L Lymphocytes % (Manual) 8.0 L Monocytes % (Manual) 11.0 Eosinophils % (Manual) 2.0 Basophils % (Manual) 3.0 H Myelocytes % 2.0 H Neutrophils # (Manual) 6808 H RBC Morphology See below Anisocytosis 2+ H Macrocytosis 1+ H Sodium 134 L Potassium 3.6 Chloride 95 L Carbon Dioxide 37 H BUN 21 H Creatinine 0.91 Estimated GFR > 60 BUN/Creatinine Ratio 23.1 H Glucose 104 Calcium 8.2 L PFSH Medical History Neuropathy COPD (chronic obstructive pulmonary disease) Myelofibrosis CHF (congestive heart failure) Edema Acid reflux HTN (hypertension) Osteoarthritis Arthritis HLD (hyperlipidemia) Cardiomyopathy Afib Surgical History Hx of tonsillectomy History of arthroplasty of left shoulder History of bilateral hip arthroplasty History of arthroplasty of right shoulder Hx of shoulder surgery Hx of laminectomy History of lumbar surgery (03/25/15) Social History household members: spouse Smoking Status: Former smoker alcohol intake: current Assessment & Plan Assessment & Plan narrative: 1. Acute on chronic systolic heart failure with acute respiratory failure with hypoxia 2. chronic anemia, present on admission and active. # Myelofibrosis, present on admission and stable. # Hypertension, present on admission and stable. #Hyperlipidemia, present on admission and stable. # Atrial fibrillation on chronic Xarelto, he has been holding Xarelto. Present on admission and active. # COPD, present on admission and stable. # Left foot 3rd toe with cellulitis and possible osteomyelitis PLAN: - continue outpatient oral antibiotics after ortho recommendations from last admission. No indication for repeat TTE at this time. - continue diuresis with IV furosemide TID. Will stop today. Resume home torsemide 20 mg BID starting tomorrow AM. - previous has been discharged home on O2, but states O2 always normal at home without it. Currently off supplemental oxygen. - PT/OT to evaluate, anticipate SNF, patient agreeable - Goal O2 88-96% on supplemental therapy. Code: Full, His proxy decision maker is his . Dispo: SNF when bed available. Continue diuresis until discharge. Quality VTE Deep Vein Thrombosis/Pulmonary Embolism Present on Admission: No
[2023-05-21] MEDS: RIVAROXABAN 10 MG TABLET 20 MG PO (16:13)
[2023-05-21] MEDS: DULOXETINE 30 MG CAPSULE 60 MG PO (21:34)
[2023-05-21] MEDS: DIGOXIN 0.125 MG TABLET 0.25 MG PO (21:34)
[2023-05-21] MEDS: SENNOSIDES 8.6 MG TABLET 17.2 MG PO (21:34)
[2023-05-22] VITALS: BP 116/61; PULSE 76; RESP 19; TEMP 37; O2SAT 92
[2023-05-22 00:02] VITALS: O2SAT 99
[2023-05-22 05:31] LABS: Hematocrit 24.7 % (41-53); Hemoglobin 8.1 g/dL (13.5-17.5); Mean Corpuscular HGB Conc 32.9 % (30-36); Mean Corpuscular Hemoglobin 34.8 PG (26-34); Mean Corpuscular Volume 105.8 fL (80-100); Platelet Count 237 X10^3/uL (150-400); Red Blood Cell Count 2.34 X10^6/uL (4.5-5.9); Red Cell Distribution Width 22.1 % (11.6-14.8); White Blood Cell Count 7.7 X10^3/uL (4.5-11.0)
[2023-05-22 05:32] LABS: Add Manual Diff / Slide Review YES
[2023-05-22] MEDS: PANTOPRAZOLE DR 20 MG TABLET PO (06:08)
[2023-05-22 06:16] VITALS: O2SAT 91
[2023-05-22 06:17] LABS: Anisocytosis 2+; Macrocytosis 1+; Neutrophils Absolute Manual 4543 /uL (3000-5900); RBC Morphology Normal Morphology; Total Cells Counted 100
[2023-05-22 06:19] LABS: Stomatocytes 1+
[2023-05-22 08:00] VITALS: BP 118/52; PULSE 80; RESP 16; TEMP 36.9; O2SAT 91
[2023-05-22 08:58] VITALS: BP 118/52; PULSE 80
[2023-05-22] MEDS: carvediloL 3.125 MG TABLET 6.25 MG PO (08:58)
[2023-05-22] MEDS: SODIUM CHLORIDE 0.9% FLUSH 10 ML IV (08:58)
[2023-05-22] MEDS: GABAPENTIN 300 MG CAPSULE PO (08:58)
[2023-05-22] MEDS: DOCUSATE 100 MG CAPSULE PO (08:59)
[2023-05-22] MEDS: TORSEMIDE 10 MG TABLET 20 MG PO (08:59)
[2023-05-22] MEDS: SPIRONOLACTONE 25 MG TABLET PO (08:59)
[2023-05-22] MEDS: OXYCODONE IR 5 MG TABLET PO (08:59)
[2023-05-22 10:00] VITALS: O2SAT 91
--- NOTE | 2023-05-22 10:16 | P.DS_ITS ---
History of Present Illness History of Present Illness Date Patient Seen: 05/22/23 Time Patient Seen: 10:16 Chief complaint: low sats 86-88, [place] Narrative: Per admitting provider, The pt is a 83 yo who was recently discharged from our hospital yesterday after being treated for CHF and possible osteomyelitis of the toe. He was strongly encouraged to go to a SNF for rehab which he refused to. The pt reports that since going home just 24 hours earlier, he has been sitting in a power chair and he slid off of it twice and was unable to get off the ground this morning and EMS was called to bring him back to the ER. He has a hx of chronic back pain that has been imaged several times in the past 5 years which he states is his only problem or pain at this time. He has a chronic indwelling murdock catheter which caused him to fall and the main reason for hospitalization last time. He denies any change to his meds, he did take all of his meds when he got home. There has been no fevers, chills, abd pain , N/V/Diarrhea, neck pain or BERTRAND. Discharge Providers Provider Date of admission: 05/19/23 17:58 Discharge Date: 05/22/23 Primary care physician: Wilma Alberts DO Consults: 05/19/23 22:37 Consult to Occupational Therapy Evaluate & Treat Comment: Physician Instructions: Evaluate and treat Consult to Physical Therapy Evaluate & Treat Comment: Physician Instructions: Evaluate and Treat Discharge provider: Marshall Hauser DO Summary Hospital Course Discharge Diagnosis: 1. Acute on chronic systolic heart failure with acute respiratory failure with hypoxia 2. chronic anemia, present on admission and active. # Myelofibrosis, present on admission and stable. # Hypertension, present on admission and stable. #Hyperlipidemia, present on admission and stable. # Atrial fibrillation on chronic Xarelto, he has been holding Xarelto. Present on admission and active. # COPD, present on admission and stable. # Left foot 3rd toe with cellulitis and possible osteomyelitis Hospital Course: This is an 83 year old male with recent admission for possible osteomyelitis who was recommended for SNF but discharged home. He returned weak and short of breath, with hypoxic respiratory failure due to CHF exacerbation. He was quickly diuresed and weaned from supplemental oxygen. He was resumed on home torsemide prior to discharge. Patient was agreeable to SNF after failed discharge home, where he was transferred on 05/22/23. Patient has 9 additional days of doxycycline and ciprofloxacin for his left 3rd toe infection. Aldactone was added to his home medications, but otherwise no additional changes were recommended. Time Spent with Patient Time spent: Greater than 30 minutes Exam Vital Signs (past 8 hours): - 05/22/23 06:16 05/22/23 08:00 05/22/23 08:58 Temperature 98.5 F Pulse Rate 80 80 Respiratory Rate 16 Blood Pressure 118/52 L 118/52 L Pulse Oximetry 91 91 Oxygen Delivery Method Room Air Oxygen Flow Rate 0 0 Fraction of Inspired Oxygen 28 SaO2/FiO2 Ratio 335 Oxygen Delivery Method Room Air Oxygen Flow Rate 0 Narrative Exam Narrative: NAD, alert and oriented. Fluent speech. Lungs are clear, normal rate and effort. Heart is regular, no murmur gallop or rub. Abdomen is soft, non distended. Extremities have trace pitting edema His left foot 3rd toe has an area of redness but is not cold. There was no obvious fluctuance or discharge. Objective Labs 05/22/23 04:50 05/21/23 05:10 Labs: Laboratory Results - last 24 hr 05/22/23 04:50 WBC 7.7 RBC 2.34 L Hgb 8.1 L Hct 24.7 L MCV 105.8 H MCH 34.8 H MCHC 32.9 RDW 22.1 H Plt Count 237 Neut % (Auto) Not Reportable Lymph % (Auto) Not Reportable [place] % (Auto) Not Reportable Eos % (Auto) Not Reportable Baso % (Auto) Not Reportable Lymph # (Auto) Not Reportable [place] # (Auto) Not Reportable Baso # (Auto) Not Reportable Total Counted 100 Seg Neutrophils % 57.0 Band Neutrophils % 2.0 L Lymphocytes % (Manual) 11.0 L Monocytes % (Manual) 21.0 H Eosinophils % (Manual) 4.0 Basophils % (Manual) 4.0 H Metamyelocytes % 1.0 H Neutrophils # (Manual) 4543 RBC Morphology Normal morphology Anisocytosis 2+ H Macrocytosis 1+ H Stomatocytes 1+ H PFSH Medical History Neuropathy COPD (chronic obstructive pulmonary disease) Myelofibrosis CHF (congestive heart failure) Edema Acid reflux HTN (hypertension) Osteoarthritis Arthritis HLD (hyperlipidemia) Cardiomyopathy Afib Surgical History Hx of tonsillectomy History of arthroplasty of left shoulder History of bilateral hip arthroplasty History of arthroplasty of right shoulder Hx of shoulder surgery Hx of laminectomy History of lumbar surgery (03/25/15) Social History household members: spouse Smoking Status: Former smoker alcohol intake: current Discharge Plan Discharge Plan Patient Disposition: SNF Transfer to: [facility] Provider Discharge Comment: 83 M who was recently admitted for possible osteomyelitis, discharged with PO antibiotics give lack of evidence for such per orthopedic surgery. He was admitted for mild CHF exacerbation. He was previously recommended for SNF for continued therapies, but wanted to discharge home. Now agreeable to SNF. Off supplemental oxygen. Diuretic medications were changed slightly, otherwise no changes. Hold procrit injection while at [facility]. Discharge orders & Medications Prescriptions: New acetaminophen 325 mg Tablet 650 mg PO Q6H PRN (Reason: Fever/Mild Pain (1-3)) Qty: 60 0RF spironolactone 25 mg Tablet 25 mg PO DAILY Qty: 30 0RF Continued metolazone 2.5 mg tablet 2.5 mg PO PRN PRN (Reason: Edema) carvedilol 6.25 mg tablet 6.25 mg PO BID torsemide 20 mg tablet 20 mg PO BID digoxin 250 mcg (0.25 mg) Tablet 250 mcg PO BEDTIME Xarelto 20 mg Tablet 20 mg PO QPM Vitamin D3 4,000 unit Capsule 2,000 unit PO DAILY gabapentin 300 mg capsule 300 mg PO BID duloxetine 30 mg capsule,delayed release(DR/EC) 60 mg PO BEDTIME vitamin G22-ehsse acid 0.5-1 mg Tablet 1 tab PO DAILY ciprofloxacin HCl 500 mg tablet 500 mg PO 0700,2100 9 Days Qty: 18 0RF Rx Instructions: start evening of 05/17 doxycycline hyclate 100 mg Tablet 100 mg PO BID 9 Days Qty: 18 0RF Rx Instructions: start evening of 10 Follow up/Referrals: Wilma Alberts DO [Primary Care Provider] - Discharge Health Status Multidrug resistant organism: No MDRO Precautions: [place] Diet/Activity/Treatments Diet: Diet as Tolerated and Low-sodium Liquid consistency: Normal/Thin Food texture: Regular Activity: As tolerated, no restrictions Special Rehabilitation Services Reason for rehabilitation: Recovery r/t decondition Rehab type: Physical therapy and Occupational therapy Visit Report/Discharge Packet Stand Alone Forms: Patient Portal/API Discharge Data Primary Care Provider: Wilma Alberts VTE Deep Vein Thrombosis/Pulmonary Embolism Present on Admission: No
--- NOTE | 2023-05-22 13:14 | CM.DPNOTE ---
DCP note CHILDREN'S CHOIR DIRECTOR reviewed EMR. Per hospitalist, pt cleared to dc to [facility] today. Per hospitalist, pt able to hold injection in short term while at [facility] until dc home vs alternative plan with pt's oncologist. Hospitalist will include this in the dc sum, per [facility] request. CHILDREN'S CHOIR DIRECTOR spoke with pt in room. Agreeable to [facility] today. Gave copy of IMM. Pt waived right for short notice. CHILDREN'S CHOIR DIRECTOR spoke with spouse Rosmery (p [phone]). Agreeable on dcp for today to [facility]. Report will call pt's oncologist in morning to determine if there is an alternative to the injection/come up with a plan B. CHILDREN'S CHOIR DIRECTOR answered questions about [facility] to best of ability. CHILDREN'S CHOIR DIRECTOR directed spouse's questions on specifics of [facility] to their intake team. Pat plans to come to [facility] for the intake paperwork. CHILDREN'S CHOIR DIRECTOR spoke with Kimberly at [facility]. able to accept today. transport arranged for 12:30pm. CHILDREN'S CHOIR DIRECTOR faxed PAS[facility] and signed med list. CHILDREN'S CHOIR DIRECTOR updated RN/BOOSTER STATION OPERATOR on dc time. CHILDREN'S CHOIR DIRECTOR provided RN with report number. CHILDREN'S CHOIR DIRECTOR planed [facility] and signed med list in discharge packet. Plan: Pt to dc to [facility] today at 12:30. CM team will follow as needed. LEW Virgen
--- NOTE | 2023-05-22 13:19 | PC.NURSE ---
IV removed. Patient in w/c with deuce lift. Belongings packed in bag. Patient wheeled out with [employer] transport. Report given to intake nurse Angeline @[phone]. No further questions.
== END 2023-05-22 13:25 | DRG 291 ==
LOC: ED 17:53 → AC 17:58
PROVIDERS: Internal Medicine; Admitting Provider Student in an Organized Health Care Education/Training Program; Emergency Provider Emergency Medicine; PCP Family Medicine; Referring Provider Emergency Medicine; Visit Provider Student in an Organized Health Care Education/Training Program
DX: I11.0 Hypertensive heart disease with heart failure (principal); I50.23 Acute on chronic systolic (congestive) heart failure; J96.01 Acute respiratory failure with hypoxia; D75.81 Myelofibrosis; M86.9 Osteomyelitis, unspecified; D64.9 Anemia, unspecified; E78.5 Hyperlipidemia, unspecified; I48.91 Unspecified atrial fibrillation; Z79.01 Long term (current) use of anticoagulants; J44.9 Chronic obstructive pulmonary disease, unspecified; L03.032 Cellulitis of left toe; Z87.891 Personal history of nicotine dependence; G62.9 Polyneuropathy, unspecified
CPT/HCPCS: 36415; 36600; 71045; 80048; 80053; 81003; 81015; 82805; 83605; 83880; 84484; 85007; 85025; 85610; 87070; 87077; 87086; 87147; 87186; 87205; 87633; 93005; 93010; 94760; 96374; 97163; 97166; 97530; 99285; J1650; J1940

== ENCOUNTER → 2023-05-26 10:17 | Outpatient (CLI) | payer MEDICARE, SELFPAY ==
[2023-05-19 20:57] VITALS: BMI 33.4
[2023-05-26 10:53] VITALS: BP 108/50; PULSE 61; RESP 14; O2SAT 93
[2023-05-26 11:05] LABS: Add Manual Diff / Slide Review NO; Basophils Absolute Auto 200 /uL (0-100); Basophils Percent Auto 1.8 % (0-2); Eosinophils Absolute Auto 200 /uL (0-450); Eosinophils Percent Auto 2.1 % (2-4); Hematocrit 21.7 % (41-53); Hemoglobin 7.4 g/dL (13.5-17.5); Lymphocytes Absolute Auto 800 /uL (1100-4500); Lymphocytes Percent Auto 8.8 % (25-40); Mean Corpuscular HGB Conc 34.1 % (30-36); Mean Corpuscular Hemoglobin 37.1 PG (26-34); Mean Corpuscular Volume 108.9 fL (80-100); Monocytes Absolute Auto 1200 /uL (0-900); Monocytes Percent Auto 13.1 % (3-14); Neutrophils Absolute Auto 7100 /uL (1500-7000); Neutrophils Percent Auto 74.2 % (50-75); Platelet Count 284 X10^3/uL (150-400); Red Blood Cell Count 1.99 X10^6/uL (4.5-5.9); White Blood Cell Count 9.5 X10^3/uL (4.5-11.0)
[2023-05-26 11:14] LABS: Anisocytosis 1+; Macrocytosis 2+
--- NOTE | 2023-05-26 13:22 | PC.NURSE ---
H/H: 7.4/21.7; this nurse called Dr. Kemp's office (prescriber of retacrit) and informed the triage nurse there. Lab results also sent with patient back to [facility].
[2023-05-26] MEDS: EPOETIN ALFA EPBX 50000 UNIT SUBCUT (14:25)
== END ==
PROVIDERS: PCP Family Medicine; Referring Provider Internal Medicine; Visit Provider Internal Medicine
DX: D47.1 Chronic myeloproliferative disease (principal); N39.0 Urinary tract infection, site not specified
CPT/HCPCS: 81001; 85025; 96372; Q5106

== ENCOUNTER → 2023-05-26 15:11 | Outpatient (ROUT) | payer MEDICARE, SELFPAY ==
[2023-05-19 20:57] VITALS: BMI 33.4
[2023-05-26 15:36] LABS: Appearance Urine UA CLEAR; Bilirubin Urine UA NEGATIVE (NEGATIVE); Color Urine UA YELLOW; Glucose Urine UA NEGATIVE (Negative); Ketones Urine UA NEGATIVE (NEGATIVE); Leukocyte Esterase Urine UA NEGATIVE (NEGATIVE); Nitrite Urine UA NEGATIVE (Negative); Occult Blood Urine UA NEGATIVE (Negative); Protein Urine UA NEGATIVE (Negative); Urobilinogen Urine UA 0.2 E.U./dL (0.2); pH Urine UA 7.5 (4.5-8.0)
[2023-05-26 15:40] LABS: Bacteria Urine Occasional (0-1); Culture Indicated Urine Cult Not Indicated; RBC Urine None Seen (0-5/HPF); Squamous Epithelial Cell Urine 0-1 /HPF (0-5/HPF); Urine Volume 10mL (spun); WBC Urine 0-1/HPF (0-5/HPF)
== END ==
PROVIDERS: PCP Family Medicine; Visit Provider Nurse Practitioner
DX: N39.0 Urinary tract infection, site not specified (principal)
CPT/HCPCS: 81001

== ENCOUNTER → 2023-06-01 12:41 | Outpatient (ROUT) | payer MEDICARE, SELFPAY ==
[2023-05-19 20:57] VITALS: BMI 33.4
[2023-06-01 13:37] LABS: Appearance Urine UA CLEAR; Bilirubin Urine UA NEGATIVE (NEGATIVE); Color Urine UA YELLOW; Glucose Urine UA NEGATIVE (Negative); Ketones Urine UA NEGATIVE (NEGATIVE); Leukocyte Esterase Urine UA TRACE (NEGATIVE); Nitrite Urine UA NEGATIVE (Negative); Occult Blood Urine UA TRACE-INTACT (Negative); Protein Urine UA TRACE (Negative); Urobilinogen Urine UA 0.2 E.U./dL (0.2)
[2023-06-01 13:50] LABS: Bacteria Urine None Seen; Culture Indicated Urine Specimen Cultured; RBC Urine 0-1/HPF (0-5/HPF); Squamous Epithelial Cell Urine None Seen (0-5/HPF); Urine Volume 10mL (spun); WBC Urine 0-1/HPF (0-5/HPF)
== END ==
PROVIDERS: PCP Family Medicine; Visit Provider Internal Medicine
DX: R39.9 Unspecified symptoms and signs involving the genitourinary system (principal)
CPT/HCPCS: 81001; 87086

== ENCOUNTER → 2023-06-09 09:51 | Outpatient (CLI) | payer MEDICARE, SELFPAY ==
[2023-05-19 20:57] VITALS: BMI 33.4
[2023-06-09 10:37] VITALS: BP 128/58; PULSE 70; RESP 16; TEMP 36.6; O2SAT 96
[2023-06-09] MEDS: EPOETIN ALFA EPBX 50000 UNIT SUBCUT (11:03)
== END ==
PROVIDERS: PCP Family Medicine; Referring Provider Internal Medicine; Visit Provider Internal Medicine
DX: D47.1 Chronic myeloproliferative disease (principal)
CPT/HCPCS: 96372; Q5106

== ENCOUNTER → 2023-06-23 09:57 | Outpatient (CLI) | payer MEDICARE, SELFPAY ==
[2023-05-19 20:57] VITALS: BMI 33.4
[2023-06-23 10:33] VITALS: BP 110/43; PULSE 80; RESP 16; TEMP 37.1; O2SAT 96
[2023-06-23 10:33] LABS: Add Manual Diff / Slide Review NO; Basophils Absolute Auto 100 /uL (0-100); Basophils Percent Auto 1.4 % (0-2); Eosinophils Absolute Auto 200 /uL (0-450); Hematocrit 22.8 % (41-53); Hemoglobin 7.5 g/dL (13.5-17.5); Lymphocytes Absolute Auto 800 /uL (1100-4500); Lymphocytes Percent Auto 8.7 % (25-40); Mean Corpuscular HGB Conc 32.7 % (30-36); Mean Corpuscular Hemoglobin 34.3 PG (26-34); Mean Corpuscular Volume 104.7 fL (80-100); Monocytes Absolute Auto 800 /uL (0-900); Neutrophils Absolute Auto 7000 /uL (1500-7000); Neutrophils Percent Auto 78.9 % (50-75); Platelet Count 337 X10^3/uL (150-400); Red Blood Cell Count 2.18 X10^6/uL (4.5-5.9); Red Cell Distribution Width 20.4 % (11.6-14.8); White Blood Cell Count 8.9 X10^3/uL (4.5-11.0)
[2023-06-23 10:43] LABS: Anisocytosis 2+; Macrocytosis 1+
[2023-06-23] MEDS: EPOETIN ALFA EPBX 50000 UNIT SUBCUT (10:59)
== END ==
PROVIDERS: PCP Family Medicine; Referring Provider Internal Medicine; Visit Provider Internal Medicine
DX: D47.1 Chronic myeloproliferative disease (principal)
CPT/HCPCS: 85025; 96372; Q5106

== ENCOUNTER 2023-07-04 10:45 | Emergency (ER) | payer MEDICARE, SELFPAY ==
[2023-05-19 20:57] VITALS: BMI 33.4
[2023-07-04] VITALS (27 sets, daily range): BP systolic 102–120; BP diastolic 52–60; PULSE 59–77; RESP 16–23; TEMP 36.6–36.8; O2SAT 92–99; BMI 34.3
--- NOTE | 2023-07-04 10:53 | ED_ITS ---
HPI - Recheck/Abnormal Lab/Rx General Chief Complaint: Recheck/Abnormal Lab/Rx Stated Complaint: low blood levels Time Seen by Provider: 07/04/23 10:53 Source: patient and EMS Mode of arrival: EMS History of Present Illness HPI narrative: 83-year-old male referred for low hemoglobin level from his half-way facility, for possible transfusion. History of myelofibrosis diagnosis approximately 2 years ago, prior related transfusions 3 or 4 episodes per at bedside who is a primary historian, no black or red stools, no emesis of blood, no nosebleeds, no blood losses or trauma known. Patient is cared for under palliative care service, Angeline contact at [phone], helps coordinate their care. He had been followed by hematology as well, receives Procrit injections every 2 weeks. He denies any chest pain, generalized weakness, shortness of breath. Here for possible transfusion. Related Data Home Medications Medication Instructions Recorded Confirmed digoxin 250 mcg (0.25 mg) tablet 250 mcg PO BEDTIME 04/09/19 05/19/23 rivaroxaban 20 mg tablet (Xarelto) 20 mg PO QPM 04/09/19 05/19/23 cholecalciferol (vitamin D3) 100 2,000 unit PO DAILY 04/12/19 05/19/23 mcg (4,000 unit) capsule (Vitamin D3) duloxetine 30 mg capsule,delayed 60 mg PO BEDTIME 09/17/20 05/19/23 release gabapentin 300 mg capsule 300 mg PO BID 09/17/20 05/19/23 vitamin B12 0.5 mg-folic acid 1 mg 1 tab PO DAILY 09/17/20 05/19/23 tablet carvedilol 6.25 mg tablet 6.25 mg PO BID 05/14/23 05/19/23 metolazone 2.5 mg tablet 2.5 mg PO PRN PRN Edema 05/14/23 05/19/23 torsemide 20 mg tablet 20 mg PO BID 05/14/23 05/19/23 Previous Rx's Medication Instructions Recorded acetaminophen 325 mg tablet 650 mg (2 x 325 mg) PO Q6H PRN 05/22/23 Fever/Mild Pain (1-3) #60 tabs spironolactone 25 mg tablet 25 mg PO DAILY #30 tabs 05/22/23 Allergies Allergy/AdvReac Type Severity Reaction Status Date / Time No Known Drug Allergies Allergy Verified 01/26/23 19:37 Review of Systems Review of Systems Narrative: as per HPI Patient History Medical History Neuropathy COPD (chronic obstructive pulmonary disease) Myelofibrosis CHF (congestive heart failure) Edema Acid reflux HTN (hypertension) Osteoarthritis Arthritis HLD (hyperlipidemia) Cardiomyopathy Afib Surgical History Hx of tonsillectomy History of arthroplasty of left shoulder History of bilateral hip arthroplasty History of arthroplasty of right shoulder Hx of shoulder surgery Hx of laminectomy History of lumbar surgery (03/25/15) Social History household members: spouse Smoking Status: Former smoker alcohol intake: current Smoking Status: Former smoker alcohol intake frequency: a few times a week Substance Use Type: does not use Exam Narrative Exam Narrative: GENERAL: Well-developed patient, in mild distress. HEAD: Atraumatic. Normocephalic. EYES: Pupils equal round and reactive. Extraocular motions intact. No scleral icterus. No injection or drainage. ENT: Nose without bleeding, purulent drainage. Throat without erythema, tonsillar hypertrophy or exudate. Airway patent. NECK: Trachea midline. Non tender CARDIOVASCULAR: Regular rate and rhythm without murmurs, gallops, or rubs. RESPIRATORY: Clear to auscultation. Breath sounds equal bilaterally. No wheezes, rales, or rhonchi. GASTROINTESTINAL: Abdomen soft, non-tender, nondistended. EXTREMITIES: No edema or joint tenderness. BACK: Nontender without deformity or crepitance. No flank tenderness. NEURO: AOx3. SKIN: No rash or erythema of visible areas Initial Vital Signs Initial Vital Signs: Vital Signs Temperature 97.9 F 07/04/23 10:46 Pulse Rate 71 07/04/23 10:46 Respiratory Rate 18 07/04/23 10:46 Blood Pressure 105/52 L 07/04/23 10:46 Pulse Oximetry 95 07/04/23 10:46 Oxygen Delivery Method Room Air 07/04/23 10:46 Course Orders Ordered: ED Orders 07/04/23 11:00 Complete Blood Count AUTO DIFF Stat Comprehensive Metabolic Panel Stat Prothrombin Time INR Stat Type and Screen Stat transfuse [Packed Cells] Stat 07/04/23 15:13 Hemoglobin and Hematocrit Stat 07/04/23 19:20 CBC Auto Diff [Complete Blood Count AUTO DIFF] Stat Vital Signs Vital signs: Vital Signs - 8 hr 07/04/23 12:25 07/04/23 12:30 07/04/23 12:30 Temperature 97.8 F 97.9 F Pulse Rate 59 L 61 Respiratory Rate 16 18 Blood Pressure 108/55 L 113/56 L Pulse Oximetry 97 Oxygen Delivery Method Room Air Oxygen Flow Rate 07/04/23 12:35 07/04/23 12:35 07/04/23 12:40 Temperature Pulse Rate 66 Respiratory Rate Blood Pressure 112/56 L 113/56 L Pulse Oximetry 98 Oxygen Delivery Method Oxygen Flow Rate 07/04/23 12:40 07/04/23 12:44 07/04/23 12:45 Temperature 97.9 F Pulse Rate 69 70 Respiratory Rate 18 Blood Pressure 120/60 120/60 Pulse Oximetry 97 Oxygen Delivery Method Oxygen Flow Rate 07/04/23 12:45 07/04/23 13:00 07/04/23 13:00 Temperature Pulse Rate 69 69 Respiratory Rate 23 Blood Pressure 116/58 L Pulse Oximetry 98 98 Oxygen Delivery Method Oxygen Flow Rate 07/04/23 13:00 07/04/23 13:30 07/04/23 13:30 Temperature 97.8 F Pulse Rate 72 Respiratory Rate Blood Pressure 112/56 L Pulse Oximetry 99 Oxygen Delivery Method Oxygen Flow Rate 07/04/23 14:00 07/04/23 14:00 07/04/23 14:30 Temperature Pulse Rate 65 Respiratory Rate Blood Pressure 106/52 L 112/57 L Pulse Oximetry 96 Oxygen Delivery Method Oxygen Flow Rate 07/04/23 14:30 07/04/23 15:00 07/04/23 15:00 Temperature 98.3 F Pulse Rate 67 70 Respiratory Rate Blood Pressure Pulse Oximetry 94 93 Oxygen Delivery Method Oxygen Flow Rate 07/04/23 15:00 07/04/23 15:03 07/04/23 15:30 Temperature 98.3 F Pulse Rate 71 Respiratory Rate Blood Pressure 112/53 L Pulse Oximetry 93 Oxygen Delivery Method Room Air Oxygen Flow Rate 07/04/23 15:30 07/04/23 16:00 07/04/23 16:00 Temperature Pulse Rate 74 Respiratory Rate Blood Pressure 104/55 L 102/55 L Pulse Oximetry 92 Oxygen Delivery Method Room Air Oxygen Flow Rate 07/04/23 16:30 07/04/23 16:30 07/04/23 16:32 Temperature 98.0 F Pulse Rate 70 64 Respiratory Rate 16 Blood Pressure 104/52 L 104/52 L Pulse Oximetry 93 Oxygen Delivery Method Room Air Oxygen Flow Rate 07/04/23 16:52 07/04/23 16:52 07/04/23 16:52 Temperature 98.2 F Pulse Rate 64 68 Respiratory Rate 16 Blood Pressure 107/53 L 107/53 L Pulse Oximetry 93 Oxygen Delivery Method Oxygen Flow Rate 07/04/23 17:00 07/04/23 17:00 07/04/23 17:30 Temperature Pulse Rate 72 Respiratory Rate Blood Pressure 103/53 L 116/55 L Pulse Oximetry 94 Oxygen Delivery Method Oxygen Flow Rate 07/04/23 17:30 07/04/23 18:00 07/04/23 18:00 Temperature Pulse Rate 75 72 Respiratory Rate Blood Pressure 111/56 L Pulse Oximetry 94 93 Oxygen Delivery Method Room Air Oxygen Flow Rate 20 07/04/23 18:30 07/04/23 18:30 07/04/23 19:00 Temperature 98.2 F Pulse Rate 75 76 Respiratory Rate 20 20 Blood Pressure 109/52 L 111/56 L Pulse Oximetry 92 Oxygen Delivery Method Room Air Oxygen Flow Rate 07/04/23 19:00 07/04/23 19:00 07/04/23 19:30 Temperature Pulse Rate 77 Respiratory Rate 22 Blood Pressure 111/56 L 105/56 L Pulse Oximetry 93 Oxygen Delivery Method Room Air Oxygen Flow Rate 07/04/23 19:30 Temperature Pulse Rate 74 Respiratory Rate 21 Blood Pressure Pulse Oximetry 93 Oxygen Delivery Method Room Air Oxygen Flow Rate MDM - Recheck/Abnormal Lab/Rx Lab Data Attestation: I reviewed the patient's lab results. 07/04/23 19:20 07/04/23 11:00 Labs: Lab Results 07/04/23 07/04/23 07/04/23 Range/Units 11:00 15:13 19:20 WBC 9.9 9.8 (4.5-11.0) X10^3/uL RBC 1.94 L 2.47 L (4.5-5.9) X10^6/uL Hgb 6.7 L* 6.8 L* 8.0 L (13.5-17.5) g/dL Hct 20.4 L* 20.1 L* 23.8 L (41-53) % MCV 104.8 H 96.5 D (80-100) fL MCH 34.6 H 32.4 (26-34) PG MCHC 33.0 33.5 (30-36) % RDW 20.3 H 19.4 H (11.6-14.8) % Plt Count 414 H 369 (150-400) X10^3/uL Neut % (Auto) Not Reportable 67.4 Lymph % (Auto) Not Reportable 10.0 L [place] % (Auto) Not Reportable 19.5 H Eos % (Auto) Not Reportable 2.5 Baso % (Auto) Not Reportable 0.6 Neut # (Auto) 6600 (4220-1421) /uL Lymph # (Auto) Not Reportable 1000 L [place] # (Auto) Not Reportable 1900 H Eos # (Auto) 200 (0-450) /uL Baso # (Auto) Not Reportable 100 Total Counted 100 Seg Neutrophils % 75.0 H (38-70) % Band Neutrophils % 2.0 L (3-7) % Lymphocytes % (Manual) 8.0 L (25-45) % Monocytes % (Manual) 7.0 (2-11) % Eosinophils % (Manual) 1.0 L (2-4) % Basophils % (Manual) 1.0 (0-1) % Metamyelocytes % 6.0 H (-0) % Neutrophils # (Manual) 7623 H (6044-5974) /uL RBC Morphology See below Anisocytosis 2+ H PT 20.4 H (9.4-12.5) SECONDS INR 1.8 H (0.9-1.3) Sodium 129 L (137-145) mmol/L Potassium 4.7 (3.4-5.1) mmol/L Chloride 94 L (98-107) mmol/L Carbon Dioxide 27 (22-32) mmol/L BUN 51 H (9-20) mg/dL Creatinine 1.30 H (0.66-1.25) mg/dL Estimated GFR 54 L (>60) mL/min BUN/Creatinine Ratio 39.2 H (6-22) Glucose 153 H (80-110) mg/dL Calcium 8.2 L (8.4-10.2) mg/dL Total Bilirubin 0.8 (0.2-1.3) mg/dL AST 19 (17-59) IU/L ALT 11 (<50) IU/L Alkaline Phosphatase 127 H (38-126) U/L Total Protein 7.4 (6.3-8.2) g/dL Albumin 3.8 (3.5-5.0) g/dL Globulin 3.6 (1.7-4.1) g/dL Albumin/Globulin Ratio 1.1 (1.0-2.8) Blood Type O Positive Antibody Screen Negative Crossmatch See Detail MDM Narrative Medical decision making narrative: 83-year-old male with myelofibrosis, recurrent anemia, hemoglobin 6.7 on draw today here, no active ongoing losses, has been transfused for this disorder in the past, hemodynamically stable, afebrile. One unit packed red cells ordered for now. Infusing, thus far tolerated well. Anticipate follow up as an outpatient. We will contact Angeline from palliative care nurse, phone number listed above. Post transfusion 1 unit packed cells hemoglobin 6.8 little change, no obvious external bleeding. We will transfusion additional 1 unit packed cells, ordered. Repeat hemoglobin after 2nd unit packed cell transfusion 8.0, improved, transfusion tolerated well. PLANNING AND ANALYSIS MANAGER attempted contacting palliative care number above, relayed that palliative care number not on duty today, no one will call back, encouraged family to call Natacha at palliative Care tomorrow during regular open hours. Patient is symptomatically improved, tolerated transfusions well, discharged home with family, encouraged to contact their palliative care providers tomorrow during regular open hours. Discharge Plan Departure Patient Disposition: Home Clinical Impression: Anemia, History of myelofibrosis Activity Restrictions/Additional Instructions: History of myelofibrosis, previous transfusions, lab sent from your living facility showed hemoglobin low at 6.7, better to have hemoglobin levels greater than 7, no active bleeding suspected by history and by exam. First transfusion hemoglobin little change at 6.8, 2nd transfusion hemoglobin 8.0 increased, tolerated well. We attempted to call your palliative care providers service but they are not available on this holiday weekend and Tuesday. Contact them tomorrow to coordinate further care. Return to this/nearest emergency department for any change worsening symptoms or any concerns prior Prescriptions: No Action metolazone 2.5 mg tablet 2.5 mg PO PRN PRN (Reason: Edema) carvedilol 6.25 mg tablet 6.25 mg PO BID torsemide 20 mg tablet 20 mg PO BID digoxin 250 mcg (0.25 mg) Tablet 250 mcg PO BEDTIME Xarelto 20 mg Tablet 20 mg PO QPM Vitamin D3 4,000 unit Capsule 2,000 unit PO DAILY gabapentin 300 mg capsule 300 mg PO BID duloxetine 30 mg capsule,delayed release(DR/EC) 60 mg PO BEDTIME vitamin N85-dfxzj acid 0.5-1 mg Tablet 1 tab PO DAILY acetaminophen 325 mg Tablet 650 mg PO Q6H PRN (Reason: Fever/Mild Pain (1-3)) Qty: 60 0RF spironolactone 25 mg Tablet 25 mg PO DAILY Qty: 30 0RF Referrals: Wilma Alberts DO [Primary Care Provider] - Stand Alone Forms: Patient Portal/API
[2023-07-04 11:13] LABS: Mean Corpuscular Hemoglobin 34.6 PG (26-34); Mean Corpuscular Volume 104.8 fL (80-100); Platelet Count 414 X10^3/uL (150-400); Red Blood Cell Count 1.94 X10^6/uL (4.5-5.9); Red Cell Distribution Width 20.3 % (11.6-14.8); White Blood Cell Count 9.9 X10^3/uL (4.5-11.0)
[2023-07-04 11:18] LABS: INR 1.8 (0.9-1.3); Prothrombin Time 20.4 SECONDS (9.4-12.5)
[2023-07-04 11:20] LABS: Add Manual Diff / Slide Review YES; Hematocrit 20.4 % (41-53); Hemoglobin 6.7 g/dL (13.5-17.5)
[2023-07-04 11:21] LABS: Alanine Aminotransferase 11 IU/L (<50); Albumin 3.8 g/dL (3.5-5.0); Albumin Globulin Ratio 1.1 (1.0-2.8); Alkaline Phosphatase 127 U/L (38-126); Aspartate Aminotransferase 19 IU/L (17-59); BUN Creatinine Ratio 39.2 (6-22); Bilirubin Total 0.8 mg/dL (0.2-1.3); Blood Urea Nitrogen 51 mg/dL (9-20); Calcium 8.2 mg/dL (8.4-10.2); Carbon Dioxide 27 mmol/L (22-32); Chloride 94 mmol/L (98-107); Estimated Glomerular Filt Rate 54 mL/min (>60); Globulin 3.6 g/dL (1.7-4.1); Glucose 153 mg/dL (80-110); HEMOLYSIS < 15 (0-50); Potassium 4.7 mmol/L (3.4-5.1); Sodium 129 mmol/L (137-145); Total Protein 7.4 g/dL (6.3-8.2)
[2023-07-04 11:43] LABS: Anisocytosis 2+; Neutrophils Absolute Manual 7623 /uL (3000-5900); Total Cells Counted 100
[2023-07-04 15:23] LABS: Hematocrit 20.1 % (41-53); Hemoglobin 6.8 g/dL (13.5-17.5)
[2023-07-04 19:28] LABS: Add Manual Diff / Slide Review NO; Basophils Absolute Auto 100 /uL (0-100); Basophils Percent Auto 0.6 % (0-2); Eosinophils Absolute Auto 200 /uL (0-450); Eosinophils Percent Auto 2.5 % (2-4); Hematocrit 23.8 % (41-53); Lymphocytes Absolute Auto 1000 /uL (1100-4500); Mean Corpuscular HGB Conc 33.5 % (30-36); Mean Corpuscular Hemoglobin 32.4 PG (26-34); Mean Corpuscular Volume 96.5 fL (80-100); Monocytes Absolute Auto 1900 /uL (0-900); Monocytes Percent Auto 19.5 % (3-14); Neutrophils Absolute Auto 6600 /uL (1500-7000); Neutrophils Percent Auto 67.4 % (50-75); Platelet Count 369 X10^3/uL (150-400); Red Blood Cell Count 2.47 X10^6/uL (4.5-5.9); Red Cell Distribution Width 19.4 % (11.6-14.8); White Blood Cell Count 9.8 X10^3/uL (4.5-11.0)
== END 2023-07-04 20:15 | disposition home or self-care (01) ==
PROVIDERS: Emergency Provider Emergency Medicine; PCP Family Medicine
DX: D64.9 Anemia, unspecified (principal); Z86.2 Personal history of diseases of the blood and blood-forming organs and certain disorders involving the immune mechanism
CPT/HCPCS: 36430; 80053; 85007; 85014; 85018; 85025; 85610; 86850; 86900; 86901; 99284; P9016

== ENCOUNTER → 2023-07-07 09:54 | Outpatient (CLI) | payer MEDICARE, SELFPAY ==
[2023-05-19 20:57] VITALS: BMI 33.4
[2023-07-07 10:17] VITALS: BP 114/50; PULSE 73; RESP 16; TEMP 36.7; O2SAT 94
[2023-07-07 10:38] LABS: Add Manual Diff / Slide Review NO; Basophils Absolute Auto 200 /uL (0-100); Basophils Percent Auto 1.9 % (0-2); Eosinophils Absolute Auto 100 /uL (0-450); Eosinophils Percent Auto 1.5 % (2-4); Lymphocytes Absolute Auto 700 /uL (1100-4500); Lymphocytes Percent Auto 7.1 % (25-40); Mean Corpuscular HGB Conc 33.2 % (30-36); Mean Corpuscular Hemoglobin 32.9 PG (26-34); Monocytes Absolute Auto 1200 /uL (0-900); Monocytes Percent Auto 12.7 % (3-14); Neutrophils Absolute Auto 7300 /uL (1500-7000); Neutrophils Percent Auto 76.8 % (50-75); Platelet Count 343 X10^3/uL (150-400); Red Blood Cell Count 2.42 X10^6/uL (4.5-5.9); White Blood Cell Count 9.5 X10^3/uL (4.5-11.0)
[2023-07-07] MEDS: EPOETIN ALFA EPBX 50000 UNIT SUBCUT (11:03)
== END ==
LOC: ONC 09:55
PROVIDERS: PCP Family Medicine; Referring Provider Internal Medicine; Visit Provider Internal Medicine
DX: D47.1 Chronic myeloproliferative disease (principal)
CPT/HCPCS: 36415; 85025; 96372; Q5106

== ENCOUNTER 2023-07-12 13:45 | Inpatient (IN) | payer MEDICARE, SELFPAY ==
[2023-05-19 20:57] VITALS: BMI 33.4
[2023-07-12] VITALS (15 sets, daily range): BP systolic 106–122; BP diastolic 41–58; PULSE 65–80; RESP 16–27; TEMP 36.4–37.5; O2SAT 88–100; BMI 30.5
--- NOTE | 2023-07-12 14:14 | DI.RAD.S_ITS ---
PROCEDURE: XR KNEE RT 3V INDICATIONS: swollen knee, injury TECHNIQUE: 3 views of the knee were acquired. COMPARISON: None. FINDINGS: Bones: No fractures or dislocations. No suspicious bony lesions. Tricompartmental joint space narrowing with associated osteophytosis. Soft tissues: Large joint effusion. No suspicious soft tissue calcifications. IMPRESSION: No acute bony abnormality. Moderate joint effusion. Internal derangement not excluded. Lwnj-[id number] tricompartmental osteoarthritis. Kellgren-Olu Grade 2. Dictated by: Isidoro Oliva M.D. on 07/12/2023 at 14:48 Approved by: Isidoro Oliva M.D. on 07/12/2023 at 14:48
--- NOTE | 2023-07-12 14:20 | DI.RAD.S_ITS ---
PROCEDURE: XR CHEST 1V INDICATIONS: Low oxygen 88. TECHNIQUE: One view of the chest was acquired. COMPARISON: [facility], CR, XR CHEST 1V, 05/19/2023, 14:21. [facility], CR, XR CHEST 1V, 05/14/2023, 11:00. FINDINGS: Surgical changes and devices: Bilateral shoulder arthroplasty. Lungs and pleura: Consolidation of the right upper lung zone. Mediastinum: Mediastinal contours appear normal. Heart size is large. Bones and chest wall: No suspicious bony lesions. Overlying soft tissues appear unremarkable. IMPRESSION: Consolidation of the right upper lung zone, concerning for pneumonia. Consider 12 month follow-up if at high risk for developing lung cancer, per Fleischner Society guidelines. Dictated by: Isidoro Oliva M.D. on 07/12/2023 at 14:48 Approved by: Isidoro Oliva M.D. on 07/12/2023 at 14:49
--- NOTE | 2023-07-12 15:48 | PC.NURSE ---
Addendum entered by Angeline Hayden R.N. 07/12/23 16:28: Visualized wound on left heel, significant eschar, unstageble wound. Applied allevyn and put heel floating boot back on patient. Addendum entered by Angeline Hayden R.N. 07/12/23 16:27: Changed catheter tubing and holding bag d/t sediment and condition of bag and tubing. Addendum entered by Angeline Hayden R.N. 07/12/23 16:11: Patient desatted down to 88% when asleep, 2L O2 restarted. Original Note: Patient oxygen saturation goes between 90-95% depending on if patient is speaking to .
[2023-07-12 16:20] LABS: Hematocrit 21.1 % (41-53); Mean Corpuscular HGB Conc 32.7 % (30-36); Mean Corpuscular Hemoglobin 32.7 PG (26-34); Mean Corpuscular Volume 99.9 fL (80-100); Platelet Count 362 X10^3/uL (150-400); Red Blood Cell Count 2.11 X10^6/uL (4.5-5.9); Red Cell Distribution Width 20.2 % (11.6-14.8); White Blood Cell Count 9.2 X10^3/uL (4.5-11.0)
[2023-07-12 16:23] LABS: Add Manual Diff / Slide Review YES; Hemoglobin 6.9 g/dL (13.5-17.5)
--- NOTE | 2023-07-12 16:25 | PC.NURSE ---
MD Gonzales informed of pt hgb 6.9
[2023-07-12 16:33] LABS: Alanine Aminotransferase 8 IU/L (<50); Albumin 3.6 g/dL (3.5-5.0); Albumin Globulin Ratio 1.2 (1.0-2.8); Alkaline Phosphatase 145 U/L (38-126); Aspartate Aminotransferase 21 IU/L (17-59); BUN Creatinine Ratio 38.7 (6-22); Bilirubin Total 0.7 mg/dL (0.2-1.3); Blood Urea Nitrogen 48 mg/dL (9-20); Calcium 7.9 mg/dL (8.4-10.2); Carbon Dioxide 28 mmol/L (22-32); Chloride 99 mmol/L (98-107); Creatine Kinase 25 U/L (55-170); Estimated Glomerular Filt Rate 57 mL/min (>60); Globulin 3.1 g/dL (1.7-4.1); Glucose 93 mg/dL (80-110); HEMOLYSIS < 15 (0-50); Lipase 42 U/L (23-300); Magnesium 2.8 mg/dL (1.6-2.3); Sodium 130 mmol/L (137-145); Total Protein 6.7 g/dL (6.3-8.2)
[2023-07-12 16:34] LABS: Anisocytosis 2+; Neutrophils Absolute Manual 5244 /uL (3000-5900); Total Cells Counted 100
[2023-07-12 16:38] LABS: INR 1.8 (0.9-1.3); Prothrombin Time 20.3 SECONDS (9.4-12.5)
[2023-07-12 16:39] LABS: Potassium 5.4 mmol/L (3.4-5.1)
[2023-07-12 16:40] LABS: PTT Partial Thromboplastin Tim 53 SECONDS (25.1-36.5)
[2023-07-12 16:44] LABS: Troponin I < 0.012 ng/mL (0.01-0.034)
--- NOTE | 2023-07-12 17:14 | ED.LOWEXIN ---
HPI - Extremity Injury (Lower) General Chief Complaint: Extremity Injury, Lower Stated Complaint: R knee pain, GLF x1 Time Seen by Provider: 07/12/23 17:14 Source: patient Mode of arrival: Family Vehicle History of Present Illness HPI Narrative: 83-year-old male had ground level fall at home, with right-sided knee pain. He also has had generalized weakness and frequent falls at home, history of myelofibrosis, most recent transfusion blood products on weekend. He admits to occasional cough. He has not felt feverish. is concerned that she is having hard time taking care of him at home. No recent nausea or vomiting. No diarrhea. No black or red stools. No fevers or chills. Sore on his left heel has been managed by home health wound care, without redness or weeping to his left heel. He does not seem to have any other injuries from his fall. She did not have any loss of consciousness. He has no pain in his neck, upper back, lower back, upper extremities, left lower extremity, left thigh, left hip, left foreleg, left ankle or foot. Related Data Home Medications Medication Instructions Recorded Confirmed digoxin 250 mcg (0.25 mg) tablet 250 mcg PO BEDTIME 04/09/19 07/12/23 rivaroxaban 20 mg tablet (Xarelto) 20 mg PO QPM 04/09/19 07/12/23 cholecalciferol (vitamin D3) 100 2,000 unit PO DAILY 04/12/19 07/12/23 mcg (4,000 unit) capsule (Vitamin D3) duloxetine 30 mg capsule,delayed 60 mg PO BEDTIME 09/17/20 07/12/23 release gabapentin 300 mg capsule 300 mg PO TID 09/17/20 07/12/23 vitamin B12 0.5 mg-folic acid 1 mg 1 tab PO DAILY 09/17/20 07/12/23 tablet carvedilol 6.25 mg tablet 6.25 mg PO BID 05/14/23 07/12/23 metolazone 2.5 mg tablet 2.5 mg PO PRN PRN Edema 05/14/23 07/12/23 folic acid 1 mg tablet 1 mg PO DAILY 07/12/23 07/12/23 torsemide 10 mg tablet 10 mg PO DAILY 07/12/23 07/12/23 Previous Rx's Medication Instructions Recorded acetaminophen 325 mg tablet 650 mg (2 x 325 mg) PO Q6H PRN 05/22/23 Fever/Mild Pain (1-3) #60 tabs spironolactone 25 mg tablet 25 mg PO DAILY #30 tabs 05/22/23 Allergies Allergy/AdvReac Type Severity Reaction Status Date / Time No Known Drug Allergies Allergy Verified 01/26/23 19:37 Review of Systems Review of Systems Narrative: As per HPI Patient History Medical History Neuropathy COPD (chronic obstructive pulmonary disease) Myelofibrosis CHF (congestive heart failure) Edema Acid reflux HTN (hypertension) Osteoarthritis Arthritis HLD (hyperlipidemia) Cardiomyopathy Afib Surgical History Hx of tonsillectomy History of arthroplasty of left shoulder History of bilateral hip arthroplasty History of arthroplasty of right shoulder Hx of shoulder surgery Hx of laminectomy History of lumbar surgery (03/25/15) Social History household members: spouse Smoking Status: Former smoker alcohol intake: current Smoking Status: Former smoker alcohol intake frequency: a few times a week Substance Use Type: does not use Exam Narrative Exam Narrative: GENERAL: Well-developed patient, in mild distress. HEAD: Atraumatic. Normocephalic. EYES: Pupils equal round and reactive. Extraocular motions intact. No scleral icterus. No injection or drainage. ENT: Nose without bleeding, purulent drainage. Throat without erythema, tonsillar hypertrophy or exudate. Airway patent. Wearing nasal cannula oxygen, not usually on oxygen. NECK: Trachea midline. Non tender CARDIOVASCULAR: Regular rate and rhythm without murmurs, gallops, or rubs. RESPIRATORY: Clear to auscultation. Breath sounds equal bilaterally. No wheezes, rales, or rhonchi. GASTROINTESTINAL: Abdomen soft, non-tender, nondistended. EXTREMITIES: No edema or joint tenderness. Right knee with some effusion, no significant tenderness right medial joint line, left medial joint line, patella not ballotable. Sedrick's with good end point. Pressure-like heel ulcer with eschar, proximally 4 cm diameter left heel, no surrounding erythema, no expressible fluid, no edema to the foot. BACK: Nontender without deformity or crepitance. No flank tenderness. NEURO: AOx3. Right lower extremity motor function limited by knee pain from acute injury, but able to wiggle his ankle and toes. SKIN: No rash or erythema of visible areas Initial Vital Signs Initial Vital Signs: Vital Signs Temperature 99.2 F 07/12/23 14:05 Pulse Rate 68 07/12/23 14:05 Respiratory Rate 17 07/12/23 14:05 Blood Pressure 120/57 L 07/12/23 14:05 Pulse Oximetry 99 07/12/23 14:05 Oxygen Delivery Method Room Air 07/12/23 14:05 Course Orders Ordered: ED Orders 07/12/23 14:14 XR knee RT 3V Stat 07/12/23 14:19 Consult to [employer] - General Maintenance Technician Stat 07/12/23 14:20 XR chest 1V Stat 07/12/23 15:44 EKG-12 Lead Stat 07/12/23 16:00 Complete Blood Count AUTO DIFF Stat Comprehensive Metabolic Panel Stat Lipase Stat Magnesium Stat PTT Partial Thromboplastin Ang Stat Prothrombin Time INR Stat Troponin & CK Cardiac Panel Stat 07/12/23 16:38 Type and Screen Stat transfuse [Packed Cells] Stat 07/12/23 18:21 Blood Culture Stat Acetaminophen (Acetaminophen 325 Mg Tablet) 650 mg PO Q6H PRN PRN Reason: Fever/Mild Pain (1-3) Last Admin: 07/12/23 20:10 Dose: 650 mg Documented By: BR Benzonatate (Benzonatate 100 Mg Capsule) 100 mg PO TID PRN PRN Reason: Cough Carvedilol (Carvedilol 3.125 Mg Tablet) 6.25 mg PO BID AMANDA Digoxin (Digoxin 0.125 Mg Tablet) 0.25 mg PO BEDTIME AMANDA Doxycycline Hyclate (Doxycycline Hyclate 100 Mg Tablet) 100 mg PO BID AMANDA Stop: 07/16/23 20:59 Duloxetine HCl (Duloxetine 30 Mg Capsule) 60 mg PO BEDTIME AMANDA Gabapentin (Gabapentin 300 Mg Capsule) 300 mg PO BID AMANDA Ceftriaxone Sodium 1,000 mg/ (Sodium Chloride) 100 mls @ 200 mls/hr IV Q24H AMANDA Stop: 07/16/23 09:01 Melatonin (Melatonin 3 Mg Tablet) 6 mg PO BEDTIME PRN PRN Reason: Insomnia Naloxone HCl (Naloxone 0.4 Mg/Ml Vial) 0.2 mg IV Q2MIN PRN PRN Reason: Opiate Reversal Ondansetron HCl (Ondansetron 4 Mg/2 Ml Inj) 4 mg IV Q4HR PRN PRN Reason: Nausea And Vomiting Oxycodone HCl (Oxycodone Ir 5 Mg Tablet) 5 mg PO Q4HR PRN PRN Reason: Pain, Moderate (4-6) Rivaroxaban (Rivaroxaban 10 Mg Tablet) 20 mg PO QPM AMANDA Spironolactone (Spironolactone 25 Mg Tablet) 25 mg PO DAILY AMANDA Discontinued Medications Aspirin (Aspirin 81 Mg Chew Tab) 324 mg PO NOW ONE Stop: 07/12/23 15:45 Guaifenesin (Guaifenesin Er 600 Mg Tab) 600 mg PO BID AMANDA Ceftriaxone Sodium 1,000 mg/ (Sodium Chloride) 100 mls @ 200 mls/hr IV NOW ONE Stop: 07/12/23 17:35 Last Infusion: 07/12/23 18:47 Dose: 200 mls/hr Documented By: Admin: 07/12/23 18:24 Dose: 200 mls/hr Documented By: THALIA(2) Azithromycin 500 mg/ Dextrose 250 mls @ 250 mls/hr IV NOW ONE Stop: 07/12/23 17:36 Vital Signs Vital signs: Vital Signs - 8 hr 07/12/23 14:05 07/12/23 14:18 07/12/23 14:18 Temperature 99.2 F Pulse Rate 68 Respiratory Rate 17 Blood Pressure 120/57 L Pulse Oximetry 99 88 L 95 Oxygen Delivery Method Room Air Room Air Nasal Cannula Oxygen Flow Rate 2 07/12/23 15:35 07/12/23 17:02 07/12/23 17:30 Temperature Pulse Rate 67 65 Respiratory Rate 20 18 Blood Pressure 122/58 L 114/57 L 119/58 L Pulse Oximetry 95 100 Oxygen Delivery Method Room Air Nasal Cannula Oxygen Flow Rate 2 07/12/23 17:34 07/12/23 17:34 07/12/23 17:34 Temperature Pulse Rate 67 Respiratory Rate Blood Pressure 117/55 L 117/55 L Pulse Oximetry 99 Oxygen Delivery Method Oxygen Flow Rate 07/12/23 17:47 07/12/23 17:47 Temperature Pulse Rate 76 Respiratory Rate Blood Pressure 118/58 L Pulse Oximetry 96 Oxygen Delivery Method Nasal Cannula Oxygen Flow Rate 2 MDM - Extremity Injury (Lower) Lab Data Attestation: I reviewed the patient's lab results. 07/12/23 16:00 07/12/23 16:00 Labs: Lab Results 07/12/23 07/12/23 Range/Units 16:00 16:38 WBC 9.2 (4.5-11.0) X10^3/uL RBC 2.11 L (4.5-5.9) X10^6/uL Hgb 6.9 L* (13.5-17.5) g/dL Hct 21.1 L (41-53) % MCV 99.9 (80-100) fL MCH 32.7 (26-34) PG MCHC 32.7 (30-36) % RDW 20.2 H (11.6-14.8) % Plt Count 362 (150-400) X10^3/uL Neut % (Auto) Not Reportable Lymph % (Auto) Not Reportable [place] % (Auto) Not Reportable Eos % (Auto) Not Reportable Baso % (Auto) Not Reportable Lymph # (Auto) Not Reportable [place] # (Auto) Not Reportable Baso # (Auto) Not Reportable Total Counted 100 Seg Neutrophils % 57.0 (38-70) % Lymphocytes % (Manual) 17.0 L (25-45) % Monocytes % (Manual) 18.0 H (2-11) % Eosinophils % (Manual) 6.0 H (2-4) % Metamyelocytes % 2.0 H (-0) % Neutrophils # (Manual) 5244 (3600-4826) /uL RBC Morphology See below Anisocytosis 2+ H PT 20.3 H (9.4-12.5) SECONDS INR 1.8 H (0.9-1.3) APTT 53 H (25.1-36.5) SECONDS Sodium 130 L (137-145) mmol/L Potassium 5.4 H (3.4-5.1) mmol/L Chloride 99 (98-107) mmol/L Carbon Dioxide 28 (22-32) mmol/L BUN 48 H (9-20) mg/dL Creatinine 1.24 (0.66-1.25) mg/dL Estimated GFR 57 L (>60) mL/min BUN/Creatinine Ratio 38.7 H (6-22) Glucose 93 (80-110) mg/dL Calcium 7.9 L (8.4-10.2) mg/dL Magnesium 2.8 H (1.6-2.3) mg/dL Total Bilirubin 0.7 (0.2-1.3) mg/dL AST 21 (17-59) IU/L ALT 8 (<50) IU/L Alkaline Phosphatase 145 H (38-126) U/L Total Creatine Kinase 25 L (55-170) U/L Troponin I < 0.012 (0.01-0.034) ng/mL Total Protein 6.7 (6.3-8.2) g/dL Albumin 3.6 (3.5-5.0) g/dL Globulin 3.1 (1.7-4.1) g/dL Albumin/Globulin Ratio 1.2 (1.0-2.8) Lipase 42 (23-300) U/L Blood Type O Positive Antibody Screen Negative Crossmatch See Detail Imaging Data Extremity x-ray #1: Radiologist's Impression: [address] [address] XRay Report Signed Patient: Octavio Hess MR#: [id number] : 1940 Acct:[id number] Age/Sex: 83 / M Date of Service: 07/12/23 Loc: ED Accession Number: [id number] Procedure: XR knee RT 3V Ordering Provider: Twan Raza MD PROCEDURE: XR KNEE RT 3V INDICATIONS: swollen knee, injury TECHNIQUE: 3 views of the knee were acquired. COMPARISON: None. FINDINGS: Bones: No fractures or dislocations. No suspicious bony lesions. Tricompartmental joint space narrowing with associated osteophytosis. Soft tissues: Large joint effusion. No suspicious soft tissue calcifications. IMPRESSION: No acute bony abnormality. Moderate joint effusion. Internal derangement not excluded. [id number] tricompartmental osteoarthritis. Kellgren-Olu Grade 2. Dictated by: Isidoro Oliva M.D. on 07/12/2023 at 14:48 Approved by: Isidoro Oliva M.D. on 07/12/2023 at 14:48 ECG Data Attestation: I personally reviewed and interpreted this ECG as follows: Interpretation: Atrial fibrillation with ventricular response rate 64, no obvious ST segment elevation or depression changes. QRS 106, QTC 371. MDM Narrative Medical decision making narrative: 83-year-old male with history of recurrent anemia, myelofibrosis disorder, most recent transfusion mobile weekend, not usually on oxygen, occasional cough, falls at home, has difficulty managing him in the home, chest x-ray suspicious for right upper lobe pneumonia, IV ceftriaxone and IV azithromycin ordered after blood cultures. Right knee strain with infusion, x-ray negative for fracture. Chronic appearing left heel wound with eschar but no redness and no expressible fluid. We will contact hospitalist regarding admission. 1744, case discussed with Dr. Ferreira hospitalist, accepts patient for admission Critical Care Time Critical Care Time Critical Care Time: Yes Total Critical Care Time: 35 Attestation: The high probability of a clinically significant, sudden or life threatening deterioration of the [cardiopulmonary, musculoskeletal] system(s) required my full and direct attention, intervention and personal management. The aggregate critical care time was [35] minutes. This time is in addition to time spent performing reported procedures but includes the following: [x] Data Review and interpretation [x] Patient assessment and monitoring of vital signs [x] Documentation [x] Medication orders and management Discharge Plan Departure Patient Disposition: Admitted as Observation Clinical Impression: Pneumonia, Anemia, History of myelofibrosis, Ulcer of left heel, Strain of right knee Admit Date/Time: 07/12/23 17:56 Admit Provider: Long Ferreira
--- NOTE | 2023-07-12 18:04 | PM.HP.1 ---
History of Present Illness History of Present Illness Chief complaint: R knee pain, GLF x1 Narrative: Octavio Hess is an 83yo M with PMH of myelofibrosis, COPD, HTN, GERD, A-fib on xarelto, chronic wounds of feet and neuropathy who presents with fall at home resulting in right knee swelling and found to have pneumonia. Patient was just at [facility] from mid-May until 2 days ago then was discharged home. He was using the toilet, then when he went to stand up his legs tangled and he fell to his knees. He was too weak to get up from knees to a standing position, so he sat on his knees for 20min until home health arrived. Was brought to the ED for swelling of R knee. XR showed large joint effusion but no fractures. CXR showed RUL infiltrate and patient requiring 2L NC. He denies CP, SOB, NV, diarrhea or abd pain. [facility] Medical History Neuropathy COPD (chronic obstructive pulmonary disease) Myelofibrosis CHF (congestive heart failure) Edema Acid reflux HTN (hypertension) Osteoarthritis Arthritis HLD (hyperlipidemia) Cardiomyopathy Afib Surgical History Hx of tonsillectomy History of arthroplasty of left shoulder History of bilateral hip arthroplasty History of arthroplasty of right shoulder Hx of shoulder surgery Hx of laminectomy History of lumbar surgery (03/25/15) Social History household members: spouse Smoking Status: Former smoker alcohol intake: current Meds Home Medications and Allergies Home Medications Medication Instructions Recorded Confirmed Type digoxin 250 mcg (0.25 mg) tablet 250 mcg PO BEDTIME 04/09/19 07/12/23 History rivaroxaban 20 mg tablet (Xarelto) 20 mg PO QPM 04/09/19 07/12/23 History cholecalciferol (vitamin D3) 100 2,000 unit PO DAILY 04/12/19 07/12/23 History mcg (4,000 unit) capsule (Vitamin D3) duloxetine 30 mg capsule,delayed 60 mg PO BEDTIME 09/17/20 07/12/23 History release gabapentin 300 mg capsule 300 mg PO TID 09/17/20 07/12/23 History vitamin B12 0.5 mg-folic acid 1 mg 1 tab PO DAILY 09/17/20 07/12/23 History tablet carvedilol 6.25 mg tablet 6.25 mg PO BID 05/14/23 07/12/23 History metolazone 2.5 mg tablet 2.5 mg PO PRN PRN Edema 05/14/23 07/12/23 History acetaminophen 325 mg tablet 650 mg (2 x 325 mg) PO Q6H PRN 05/22/23 07/12/23 Rx Fever/Mild Pain (1-3) #60 tabs spironolactone 25 mg tablet 25 mg PO DAILY #30 tabs 05/22/23 07/12/23 Rx folic acid 1 mg tablet 1 mg PO DAILY 07/12/23 07/12/23 History torsemide 10 mg tablet 10 mg PO DAILY 07/12/23 07/12/23 History amoxicillin 875 mg-potassium 1 tab PO BID 3 days #6 tabs 07/13/23 Rx clavulanate 125 mg tablet doxycycline hyclate 100 mg tablet 100 mg PO BID 3 days #6 tabs 07/13/23 Rx duloxetine 60 mg capsule,delayed 60 mg PO DAILY 07/13/23 07/13/23 History release torsemide 20 mg tablet 20 mg PO BID 07/13/23 History Allergies Allergy/AdvReac Type Severity Reaction Status Date / Time No Known Drug Allergies Allergy Verified 01/26/23 19:37 Review of Systems Review of Systems Narrative: All other systems reviewed with the patient and are negative unless otherwise stated. Exam Vital Signs (past 8 hours): - 07/12/23 14:05 07/12/23 14:18 07/12/23 14:18 Temperature 99.2 F Pulse Rate 68 Respiratory Rate 17 Blood Pressure 120/57 L Pulse Oximetry 99 88 L 95 Oxygen Delivery Method Room Air Room Air Nasal Cannula Oxygen Flow Rate 2 07/12/23 15:35 07/12/23 17:02 07/12/23 17:30 Temperature Pulse Rate 67 65 Respiratory Rate 20 18 Blood Pressure 122/58 L 114/57 L 119/58 L Pulse Oximetry 95 100 Oxygen Delivery Method Room Air Nasal Cannula Oxygen Flow Rate 2 07/12/23 17:34 07/12/23 17:34 07/12/23 17:34 Temperature Pulse Rate 67 Respiratory Rate Blood Pressure 117/55 L 117/55 L Pulse Oximetry 99 Oxygen Delivery Method Oxygen Flow Rate 07/12/23 17:47 07/12/23 17:47 Temperature Pulse Rate 76 Respiratory Rate Blood Pressure 118/58 L Pulse Oximetry 96 Oxygen Delivery Method Nasal Cannula Oxygen Flow Rate 2 Oxygen Delivery Method Nasal Cannula Oxygen Flow Rate 2 Narrative Exam Narrative: GEN: no acute distress HEENT: moist mucous membranes, PERRL NECK: trachea midline, no JVD CV: regular rate and rhythm, no murmurs PULM: clear bilaterally ABD: soft, nontender, nondistended, no organomegaly EXT: warm and well perfused with no edema, R knee swollen and bruised NEURO: awake, alert, oriented, no focal deficits Objective Labs 07/13/23 05:07 07/13/23 05:07 Labs: Laboratory Results - last 24 hr 07/12/23 07/12/23 16:00 16:38 WBC 9.2 RBC 2.11 L Hgb 6.9 L* Hct 21.1 L MCV 99.9 MCH 32.7 MCHC 32.7 RDW 20.2 H Plt Count 362 Neut % (Auto) Not Reportable Lymph % (Auto) Not Reportable [place] % (Auto) Not Reportable Eos % (Auto) Not Reportable Baso % (Auto) Not Reportable Lymph # (Auto) Not Reportable [place] # (Auto) Not Reportable Baso # (Auto) Not Reportable Total Counted 100 Seg Neutrophils % 57.0 Lymphocytes % (Manual) 17.0 L Monocytes % (Manual) 18.0 H Eosinophils % (Manual) 6.0 H Metamyelocytes % 2.0 H Neutrophils # (Manual) 5244 RBC Morphology See below Anisocytosis 2+ H PT 20.3 H INR 1.8 H APTT 53 H Sodium 130 L Potassium 5.4 H Chloride 99 Carbon Dioxide 28 BUN 48 H Creatinine 1.24 Estimated GFR 57 L BUN/Creatinine Ratio 38.7 H Glucose 93 Calcium 7.9 L Magnesium 2.8 H Total Bilirubin 0.7 AST 21 ALT 8 Alkaline Phosphatase 145 H Total Creatine Kinase 25 L Troponin I < 0.012 Total Protein 6.7 Albumin 3.6 Globulin 3.1 Albumin/Globulin Ratio 1.2 Lipase 42 Blood Type O Positive Antibody Screen Negative Crossmatch See Detail Assessment & Plan Assessment & Plan narrative: # CAP # acute respiratory failure with hypoxia # right knee joint effusion from fall # chronic systolic heart failure # acute on chronic anemia, present on admission and active. # myelofibrosis, present on admission and stable. # hypertension, present on admission and stable. # hyperlipidemia, present on admission and stable. # ctrial fibrillation on chronic Xarelto # COPD, present on admission and stable. # left foot 3rd toe with cellulitis -continue rocephin and doxy -wean O2 as able -1 unit PRBC ordered -PT/OT evals Code status is full code. DVT prophylaxis with Xarelto. Proxy is . I have reviewed home meds and used all available resources to reconcile the home meds. Case discussed with ED physician/APC and patient will be admitted to the hospitalist service for further workup and management. This patient will be admitted as inpatient and will require greater than 2 midnights of hospital time to treat pneumonia and hypoxic respiratory failure.
--- NOTE | 2023-07-12 18:05 | CM.IDA ---
Initial DCP Assessment Patient is 83 y/o male who presents to ED via EMS due to recent GLF, leg swelling and low o2 sats. It is reported that patient was having start of care appt with [facility] and she recommended patient go to ED. Patient's PCP is Dr. Wilma Alberts, patient has Medicare, AARP. Patient had recent IH admission in May 2023 twice and d/c'd to [facility] on 05/22/23. Patient was at [facility] rehab until 07/08/23, patient just started new referral with [facility] for PT, OT, RN and HH aide. Patient has hx of COPD, Myelofibrosis, CHF, Neuropathy, HTN, HLD, Afib, and Cardiomyopathy. SENIOR ENERGY ANALYST enters room to meet with patient, present in room is patient's spouse Mónica. Patient's o2 levels are fluctuating and patient is requiring 2 liters of oxygen. It is reported that patient wanted to return to home after [facility] stay, but has not been able to ambulate at home or manage toileting at home. Patient has cath, patient has been using a wheelchair at home and fell yesterday when [facility] and required lift assist. Patient and spouse endorse preference for SNF at [facility]. Patient and spouse endorse that patient's goal of care is to be at home, spouse states she cannot afford private pay caregivers or [facility]/SNF. It is reported that the family has supportive neighbors that help when patient falls and needs assistance with transfers. Patient's daughter is coming to visit later this month and patient's son resides in [place]. It is reported that patient sees an oncologist at [facility] for Procrit medication every two weeks to treat patient's Myelofibrosis. SENIOR ENERGY ANALYST encourages spouse to speak with family about plan of care when patient returns home and provides list of local private pay caregivers in [facility]. Patient is requiring a blood transfusion due to low hgb, patient presents with hypoxia and and new dx of pneumonia, ED provider reviews patient with hospitalist and patient is accepted for observation. SENIOR ENERGY ANALYST informs [facility] about patient's presentation to ED and admission. SENIOR ENERGY ANALYST calls [facility] rehab and Haydee states that she will likely have a male bed for patient tomorrow or the next day. Plan: patient admitted to acute care for further treatment, PT toñito recommended, Plan A: [facility]. Annette Yeung [facility] Discharge Planning/Care Management CM Discharge Assessment Start: 07/12/23 17:41 Freq: Status: Active Protocol: Document 07/12/23 17:41 LN (Rec: 07/12/23 17:50 LN [id number]) Discharge Planning Assessment DPOA/Assigned Designee Name Mónica (spouse) Contact Information [phone] Advance Directives? Yes: Full code/full tx Advance Directives on File Yes History Provided By Patient,Significant Other, Medical Record Has Patient been admitted in last 30 No days? Comment Patient was admitted twice in May 2023 due to low O2 levels and GLFs Prior Living Arrangements House Household Members spouse Type of transporation used prior to Relies on Others admit Comment Patient has been unable to get in/out of vehicles since May 2023 Independent with ADL's No Is patient alert and oriented? Yes Needs Assistance With Bathing,Grooming,Meal Prep, Toileting,Managing Medications ,Home Chores / Shopping Caregiver for Another No DME Already Rented / Owned Wheelchair,FWW / Walker Patient/Family Preference Alf Facility If patient plan is home with home health No : Has signed face to face form been completed? If patient plan is SNF: Has PASSR been No completed? Medicare choice list reviewed on patient,family electronic tablet with SNF/HH Preference Preference is [facility] SNF rehab Please Provide Date Initial DC 07/12/23 Assessment Was Performed
[2023-07-12] MEDS: cefTRIAXone 1,000 MG in SODIUM CHLORIDE 0.9% 100 ML 200 MG IV (18:24)
[2023-07-12] MEDS: ACETAMINOPHEN 325 MG TABLET 650 MG PO (20:10)
[2023-07-12] MEDS: DULOXETINE 30 MG CAPSULE 60 MG PO (21:29)
[2023-07-12] MEDS: carvediloL 3.125 MG TABLET 6.25 MG PO (21:29)
[2023-07-12] MEDS: GABAPENTIN 300 MG CAPSULE PO (21:29)
[2023-07-12] MEDS: DOXYCYCLINE HYCLATE 100 MG TABLET PO (21:29)
[2023-07-12] MEDS: DIGOXIN 0.125 MG TABLET 0.25 MG PO (21:29)
[2023-07-12] MEDS: AZITHROMYCIN 500 MG in DEXTROSE 5% IN WATER 250 ML 250 MG IV (23:41)
[2023-07-13 00:20] VITALS: BP 129/42; PULSE 63; RESP 16; TEMP 36.7; O2SAT 95
[2023-07-13] MEDS: ACETAMINOPHEN 325 MG TABLET 650 MG PO (02:04)
[2023-07-13 04:34] VITALS: BP 119/45; PULSE 65; RESP 16; TEMP 36.6; O2SAT 97
[2023-07-13 05:27] LABS: Add Manual Diff / Slide Review NO; Basophils Absolute Auto 100 /uL (0-100); Basophils Percent Auto 1.3 % (0-2); Eosinophils Absolute Auto 100 /uL (0-450); Eosinophils Percent Auto 1.6 % (2-4); Hematocrit 22.4 % (41-53); Hemoglobin 7.5 g/dL (13.5-17.5); Lymphocytes Absolute Auto 600 /uL (1100-4500); Lymphocytes Percent Auto 6.6 % (25-40); Mean Corpuscular HGB Conc 33.3 % (30-36); Mean Corpuscular Hemoglobin 32.2 PG (26-34); Mean Corpuscular Volume 96.7 fL (80-100); Monocytes Absolute Auto 1400 /uL (0-900); Monocytes Percent Auto 15.3 % (3-14); Neutrophils Absolute Auto 7000 /uL (1500-7000); Neutrophils Percent Auto 75.2 % (50-75); Platelet Count 328 X10^3/uL (150-400); Red Blood Cell Count 2.32 X10^6/uL (4.5-5.9); Red Cell Distribution Width 22.3 % (11.6-14.8); White Blood Cell Count 9.4 X10^3/uL (4.5-11.0)
[2023-07-13 05:38] LABS: BUN Creatinine Ratio 40.9 (6-22); Blood Urea Nitrogen 45 mg/dL (9-20); Calcium 7.8 mg/dL (8.4-10.2); Carbon Dioxide 28 mmol/L (22-32); Chloride 100 mmol/L (98-107); Estimated Glomerular Filt Rate > 60 mL/min (>60); Glucose 98 mg/dL (80-110); HEMOLYSIS < 15 (0-50); Potassium 4.9 mmol/L (3.4-5.1); Sodium 131 mmol/L (137-145)
[2023-07-13 06:18] LABS: Anisocytosis 2+; Macrocytosis 1+; Microcytosis 1+; Platelet Estimate Adequate on smear
[2023-07-13 08:00] VITALS: BP 130/58; PULSE 72; RESP 16; TEMP 36.4; O2SAT 93
[2023-07-13] MEDS: cefTRIAXone 1,000 MG in SODIUM CHLORIDE 0.9% 100 ML 200 MG IV (08:48)
[2023-07-13 08:49] VITALS: BP 130/58
[2023-07-13] MEDS: carvediloL 3.125 MG TABLET 6.25 MG PO (08:49)
[2023-07-13] MEDS: SPIRONOLACTONE 25 MG TABLET PO (08:49)
[2023-07-13] MEDS: GABAPENTIN 300 MG CAPSULE PO (08:49)
[2023-07-13] MEDS: DOXYCYCLINE HYCLATE 100 MG TABLET PO (09:01)
[2023-07-13 09:35] VITALS: O2SAT 93
--- NOTE | 2023-07-13 10:33 | CM.DPC ---
DCP Cont. Reviewed EMR and team rounds for status updates. Pt is now off of O2, is back to baseline. [facility] can accept him back today, they will transport him at 1:00pm. Met with pt and explained the plan to him, he expressed understanding. Called his and updated her as well. D/c clinicals and the PASSAR have been faxed. No further DCP needs identified at this time.
[2023-07-13 11:24] VITALS: BP 129/53; PULSE 73; RESP 16; TEMP 36.1; O2SAT 92
--- NOTE | 2023-07-13 12:21 | PC.NURSE ---
Pt resting in bed eating lunch. IV's have been removed. Called report to Angeline MARTINEZ at [facility] who is very familiar with Pt-(Pt just discharged home from there 2 days ago). Answered all questions and Pt is ready to discharge out to [facility] when they arrive to transport.
--- NOTE | 2023-07-13 12:51 | PT-IP ANOTE ---
per rounds: pt just d/c'd from [facility] and plans to just go back to [facility] this afternoon. No PT eval needs per rn case manager.
--- NOTE | 2023-07-13 13:00 | PM.DS.1 ---
History of Present Illness History of Present Illness Chief complaint: R knee pain, GLF x1 Narrative: Octavio Hess is an 83yo M with PMH of myelofibrosis, COPD, HTN, GERD, A-fib on xarelto, chronic wounds of feet and neuropathy who presents with fall at home resulting in right knee swelling and found to have pneumonia. Patient was just at [facility] from mid-May until 2 days ago then was discharged home. He was using the toilet, then when he went to stand up his legs tangled and he fell to his knees. He was too weak to get up from knees to a standing position, so he sat on his knees for 20min until home health arrived. Was brought to the ED for swelling of R knee. XR showed large joint effusion but no fractures. CXR showed RUL infiltrate and patient requiring 2L NC. He denies CP, SOB, NV, diarrhea or abd pain. Discharge Providers Provider Date of admission: 07/12/23 17:56 Discharge Date: 07/13/23 Primary care physician: Wilma Alberts DO Consults: 07/12/23 14:19 Consult to [facility] - Director Of Digital Platforms Stat Comment: 07/12/23 18:25 Consult to Occupational Therapy Evaluate & Treat Comment: Physician Instructions: Evaluate and treat Consult to Physical Therapy Evaluate & Treat Comment: Physician Instructions: Evaluate and Treat 07/12/23 18:26 Consult to [facility] - Director Of Digital Platform[employer] Routine Comment: keeps refusing SNF, has trouble caring Discharge provider: Long Ferreira DO Summary Hospital Course Discharge Diagnosis: # CAP # acute respiratory failure with hypoxia # right knee joint effusion from fall # chronic systolic heart failure # acute on chronic anemia, present on admission and active. # myelofibrosis, present on admission and stable. # hypertension, present on admission and stable. # hyperlipidemia, present on admission and stable. # ctrial fibrillation on chronic Xarelto # COPD, present on admission and stable. # left foot wounds, follows with outpatient wound care Hospital Course: Admitted after fall at home resulted in right knee pain and swelling. XR's negative for fracture but showed large joint effusion. Was requiring 2L O2 in ED and CXR showed RUL pneumonia. Patient recieved IV abx and his O2 was weaned off. He was discharged back to SNF to complete a 5 day course of oral abx for PNA. Exam Vital Signs (past 8 hours): - 07/13/23 08:00 07/13/23 08:49 07/13/23 09:35 Temperature 97.6 F Pulse Rate 72 Respiratory Rate 16 Blood Pressure 130/58 L 130/58 L Pulse Oximetry 93 93 Oxygen Delivery Method Nasal Cannula Oxygen Flow Rate 1 07/13/23 11:24 Temperature 97.0 F L Pulse Rate 73 Respiratory Rate 16 Blood Pressure 129/53 L Pulse Oximetry 92 Oxygen Delivery Method Oxygen Flow Rate Oxygen Delivery Method Nasal Cannula Oxygen Flow Rate 1 Narrative Exam Narrative: GEN: no acute distress HEENT: moist mucous membranes, PERRL NECK: trachea midline, no JVD CV: regular rate and rhythm, no murmurs PULM: clear bilaterally ABD: soft, nontender, nondistended, no organomegaly EXT: warm and well perfused with no edema, R knee swollen and bruised NEURO: awake, alert, oriented, no focal deficits Objective Labs 07/13/23 05:07 07/13/23 05:07 Labs: Laboratory Results - last 24 hr 07/12/23 07/12/23 07/13/23 16:00 16:38 05:07 WBC 9.2 9.4 RBC 2.11 L 2.32 L Hgb 6.9 L* 7.5 L Hct 21.1 L 22.4 L MCV 99.9 96.7 D MCH 32.7 32.2 MCHC 32.7 33.3 RDW 20.2 H 22.3 H Plt Count 362 328 Neut % (Auto) Not Reportable 75.2 H Lymph % (Auto) Not Reportable 6.6 L [place] % (Auto) Not Reportable 15.3 H Eos % (Auto) Not Reportable 1.6 L Baso % (Auto) Not Reportable 1.3 Neut # (Auto) 7000 Lymph # (Auto) Not Reportable 600 L [place] # (Auto) Not Reportable 1400 H Eos # (Auto) 100 Baso # (Auto) Not Reportable 100 Total Counted 100 Seg Neutrophils % 57.0 Lymphocytes % (Manual) 17.0 L Monocytes % (Manual) 18.0 H Eosinophils % (Manual) 6.0 H Metamyelocytes % 2.0 H Neutrophils # (Manual) 5244 Platelet Estimate Adequate on smear RBC Morphology See below See below Anisocytosis 2+ H 2+ H Microcytosis 1+ H Macrocytosis 1+ H PT 20.3 H INR 1.8 H APTT 53 H Sodium 130 L 131 L Potassium 5.4 H 4.9 Chloride 99 100 Carbon Dioxide 28 28 BUN 48 H 45 H Creatinine 1.24 1.10 Estimated GFR 57 L > 60 BUN/Creatinine Ratio 38.7 H 40.9 H Glucose 93 98 Calcium 7.9 L 7.8 L Magnesium 2.8 H Total Bilirubin 0.7 AST 21 ALT 8 Alkaline Phosphatase 145 H Total Creatine Kinase 25 L Troponin I < 0.012 Total Protein 6.7 Albumin 3.6 Globulin 3.1 Albumin/Globulin Ratio 1.2 Lipase 42 Blood Type O Positive Antibody Screen Negative Crossmatch See Detail [facility] Medical History Neuropathy COPD (chronic obstructive pulmonary disease) Myelofibrosis CHF (congestive heart failure) Edema Acid reflux HTN (hypertension) Osteoarthritis Arthritis HLD (hyperlipidemia) Cardiomyopathy Afib Surgical History Hx of tonsillectomy History of arthroplasty of left shoulder History of bilateral hip arthroplasty History of arthroplasty of right shoulder Hx of shoulder surgery Hx of laminectomy History of lumbar surgery (03/25/15) Social History household members: spouse Smoking Status: Former smoker alcohol intake: current Discharge Plan Discharge Plan Patient Disposition: SNF Discharge orders & Medications Prescriptions: New doxycycline hyclate 100 mg Tablet 100 mg PO BID 3 Days Qty: 6 0RF Rx Instructions: start evening of 07/12 amoxicillin-pot clavulanate 875-125 mg tablet 1 tab PO BID 3 Days Qty: 6 0RF Rx Instructions: start on 07/13 Continued metolazone 2.5 mg tablet 2.5 mg PO PRN PRN (Reason: Edema) carvedilol 6.25 mg tablet 6.25 mg PO BID torsemide 10 mg tablet 10 mg PO DAILY folic acid 1 mg tablet 1 mg PO DAILY torsemide 20 mg tablet 20 mg PO BID duloxetine 60 mg capsule,delayed release(DR/EC) 60 mg PO DAILY digoxin 250 mcg (0.25 mg) Tablet 250 mcg PO BEDTIME Xarelto 20 mg Tablet 20 mg PO QPM Vitamin D3 4,000 unit Capsule 2,000 unit PO DAILY gabapentin 300 mg capsule 300 mg PO TID duloxetine 30 mg capsule,delayed release(DR/EC) 60 mg PO BEDTIME vitamin B85-mowze acid 0.5-1 mg Tablet 1 tab PO DAILY acetaminophen 325 mg Tablet 650 mg PO Q6H PRN (Reason: Fever/Mild Pain (1-3)) Qty: 60 0RF spironolactone 25 mg Tablet 25 mg PO DAILY Qty: 30 0RF Follow up/Referrals: Wilma Alberts DO [Primary Care Provider] - 2 Weeks Visit Report/Discharge Packet Stand Alone Forms: Patient Portal/API Discharge Data Primary Care Provider: Wilma Alberts Quality VTE Deep Vein Thrombosis/Pulmonary Embolism Present on Admission: No
== END 2023-07-13 13:19 | DRG 189 ==
LOC: ED 17:49 → AC 07-13 07:45
PROVIDERS: Admitting Provider Student in an Organized Health Care Education/Training Program; Emergency Provider Emergency Medicine; PCP Family Medicine; Referring Provider Emergency Medicine; Visit Provider Student in an Organized Health Care Education/Training Program
DX: J96.01 Acute respiratory failure with hypoxia (principal); J18.9 Pneumonia, unspecified organism; I50.22 Chronic systolic (congestive) heart failure; D75.81 Myelofibrosis; J44.0 Chronic obstructive pulmonary disease with (acute) lower respiratory infection; M25.461 Effusion, right knee; D64.89 Other specified anemias; E78.5 Hyperlipidemia, unspecified; I48.91 Unspecified atrial fibrillation; I11.0 Hypertensive heart disease with heart failure; L03.032 Cellulitis of left toe; Z79.01 Long term (current) use of anticoagulants; Z87.891 Personal history of nicotine dependence
CPT/HCPCS: 36415; 36430; 71045; 73562; 80048; 80053; 82550; 83690; 83735; 84484; 85007; 85025; 85610; 85730; 86850; 86900; 86901; 87040; 93005; 96365; 99284; 99291; P9016; J0696

== ENCOUNTER 2023-07-16 11:39 | Emergency (ER) | payer MEDICARE, SELFPAY ==
[2023-07-12 18:16] VITALS: BMI 30.5
--- NOTE | 2023-07-16 | DI.RAD.S_ITS ---
PROCEDURE: XR CHEST 1V INDICATIONS: right chest pain TECHNIQUE: One view of the chest was acquired. COMPARISON: [facility], , XR CHEST 1V, 05/19/2023, 14:21. [facility], CR, XR CHEST 1V, 07/12/2023, 14:22. FINDINGS: Surgical changes and devices: Bilateral shoulder arthroplasty hardware is seen. Lungs and pleura: An incomplete inspiratory result is noted, causing a crowded appearance to the lung markings. No focal infiltrates are seen. No pneumothorax or significant pleural effusions are seen. Generalized interstitial prominence can be seen. Mediastinum: Mediastinal contours appear normal. Heart size is moderately enlarged. Atherosclerotic calcification of the aortic arch is noted. Bones and chest wall: No suspicious bony lesions. Age-appropriate bony degenerative changes are seen. Overlying soft tissues appear unremarkable. IMPRESSION: Cardiomegaly with interstitial prominence, with mild improvement since the prior examination. Postoperative and degenerative changes are seen. Dictated by: Logan Preston M.D. on 07/16/2023 at 11:28 Approved by: Logan Preston M.D. on 07/16/2023 at 11:29
--- NOTE | 2023-07-16 14:24 | DI.CT.S_ITS ---
PROCEDURE: CT ANGIO CHEST PE PROTOCOL INDICATIONS: right sided chest pain TECHNIQUE: After the administration of intravenous contrast, 2 mm thick sections acquired from the pulmonary apices to the posterior costophrenic angles. 3-dimensional maximum intensity projection (MIP) coronal and sagittal reformats were then acquired through the thorax. For radiation dose reduction, the following was used: automated exposure control, adjustment of mA and/or kV according to patient size. COMPARISON: [facility], CR, XR CHEST 1V, 07/16/2023, 12:04. FINDINGS: Image quality: Diagnostic. Pulmonary arteries: Pulmonary arteries are normal in size, and demonstrate no intraluminal filling defects to suggest central pulmonary embolism. Lower Neck: No enlarged lymph nodes. Thyroid: No thyroid nodules which require sonographic follow up, per consensus guidelines. Axillae: No enlarged lymph nodes. Chest Wall: Unremarkable. Bones: No acute vertebral body compression fractures. Multilevel spondylitic changes throughout the imaged spine. No suspicious osseous lesions. Status post bilateral shoulder arthroplasties. Lungs and Pleura: Small bilateral pleural effusions. Mild dependent atelectasis. Diffuse patchy ground-glass opacities of the bilateral hemithoraces. There is smooth septal thickening more pronounced in the bilateral lower lobes. No septal nodularity. Mild background pulmonary emphysematous changes. Mild bilateral perihilar airway thickening. No pneumothorax. Heart: Cardiomegaly. Multivessel atherosclerotic calcifications of the coronary arteries. Thoracic Vessels: No aortic aneurysm. Enlargement of the main pulmonary artery likely sequela of chronic pulmonary arterial hypertension. No evidence for acute right-sided heart strain. Mediastinum and [place]: No enlarged lymph nodes. Esophagus: No wall thickening. No hiatal hernia. Upper Abdomen: Visualized upper abdomen solid organs and bowel loops appear normal. IMPRESSION: No pulmonary embolus. Cardiomegaly with findings consistent with pulmonary edema/CHF. A concurrent infectious or inflammatory process not excluded if clinically appropriate. No focal consolidation seen. Recommend follow-up CT chest in 3 months after resolution of symptoms to document resolution of these findings. Moderate atherosclerotic vascular calcifications. Mild upper lobe predominant pulmonary emphysematous changes. Dictated by: Con Ng M.D. on 07/16/2023 at 14:37 Approved by: Con Ng M.D. on 07/16/2023 at 14:44
--- NOTE | 2023-07-16 17:56 | PC.NURSE ---
[facility] downtime 07/15/23 ~1999 = please see paper downtime charting documentation
[2023-07-16 18:28] LABS: Hemoglobin 7.6 g/dL (13.5-17.5); Mean Corpuscular HGB Conc 33.1 % (30-36); Mean Corpuscular Hemoglobin 32.3 PG (26-34); Mean Corpuscular Volume 97.5 fL (80-100); Platelet Count 312 X10^3/uL (150-400); Red Blood Cell Count 2.36 X10^6/uL (4.5-5.9); Red Cell Distribution Width 21.6 % (11.6-14.8); White Blood Cell Count 8.7 X10^3/uL (4.5-11.0)
[2023-07-16 18:30] LABS: Troponin I < 0.012 ng/mL (0.01-0.034)
[2023-07-16 19:39] LABS: PTT Partial Thromboplastin Tim 59 SECONDS (25.1-36.5); Prothrombin Time 23.5 SECONDS (9.4-12.5)
[2023-07-16 19:40] LABS: Alanine Aminotransferase 8 IU/L (<50); Albumin 3.4 g/dL (3.5-5.0); Albumin Globulin Ratio 1.1 (1.0-2.8); Alkaline Phosphatase 130 U/L (38-126); Aspartate Aminotransferase 19 IU/L (17-59); BUN Creatinine Ratio 27.5 (6-22); Bilirubin Total 0.7 mg/dL (0.2-1.3); Blood Urea Nitrogen 33 mg/dL (9-20); Calcium 8.1 mg/dL (8.4-10.2); Carbon Dioxide 28 mmol/L (22-32); Chloride 101 mmol/L (98-107); Creatine Kinase 22 U/L (55-170); Estimated Glomerular Filt Rate 59 mL/min (>60); Globulin 3.2 g/dL (1.7-4.1); Glucose 122 mg/dL (80-110); HEMOLYSIS < 15 (0-50); Potassium 4.8 mmol/L (3.4-5.1); Sodium 134 mmol/L (137-145); Total Protein 6.6 g/dL (6.3-8.2); Troponin I < 0.012 ng/mL (0.01-0.034)
[2023-07-16 20:01] LABS: Add Manual Diff / Slide Review YES
[2023-07-16 20:04] LABS: Anisocytosis 2+; Macrocytosis 1+
[2023-07-16 21:13] LABS: Neutrophils Absolute Manual 6177 /uL (3000-5900); Total Cells Counted 100
== END 2023-07-16 16:20 | disposition home or self-care (01) ==
PROVIDERS: Emergency Provider Emergency Medicine; PCP Family Medicine
DX: R06.00 Dyspnea, unspecified (principal); R07.89 Other chest pain
CPT/HCPCS: 71045; 71275; 80053; 82550; 84484; 85007; 85025; 85610; 85730; 93005; 93010; 99284; Q9967

== ENCOUNTER → 2023-08-03 09:47 | Outpatient (CLI) | payer MEDICARE, SELFPAY ==
[2023-07-12 18:16] VITALS: BMI 30.5
[2023-08-03 10:17] LABS: Add Manual Diff / Slide Review NO; Basophils Absolute Auto 200 /uL (0-100); Basophils Percent Auto 3.2 % (0-2); Eosinophils Absolute Auto 200 /uL (0-450); Eosinophils Percent Auto 2.9 % (2-4); Lymphocytes Absolute Auto 600 /uL (1100-4500); Lymphocytes Percent Auto 9.2 % (25-40); Mean Corpuscular HGB Conc 32.3 % (30-36); Mean Corpuscular Hemoglobin 32.4 PG (26-34); Mean Corpuscular Volume 100.2 fL (80-100); Monocytes Absolute Auto 1000 /uL (0-900); Monocytes Percent Auto 14.8 % (3-14); Neutrophils Absolute Auto 4800 /uL (1500-7000); Neutrophils Percent Auto 69.9 % (50-75); Platelet Count 301 X10^3/uL (150-400); Red Blood Cell Count 1.97 X10^6/uL (4.5-5.9); Red Cell Distribution Width 25.6 % (11.6-14.8); White Blood Cell Count 6.8 X10^3/uL (4.5-11.0)
[2023-08-03 10:23] LABS: Hemoglobin 6.4 g/dL (13.5-17.5)
[2023-08-03 10:24] LABS: Hematocrit 19.8 % (41-53)
[2023-08-03 10:38] VITALS: BP 86/35; PULSE 56; RESP 16; TEMP 36.6; O2SAT 97
[2023-08-03 11:17] LABS: Anisocytosis 3+
[2023-08-03] MEDS: EPOETIN ALFA EPBX 50000 UNIT SUBCUT (13:25)
== END ==
PROVIDERS: PCP Family Medicine; Referring Provider Internal Medicine; Visit Provider Internal Medicine
DX: D47.1 Chronic myeloproliferative disease (principal)
CPT/HCPCS: 36430; 85025; 86850; 86900; 86901; 96372; P9016; Q5106

== ENCOUNTER → 2023-08-04 13:37 | Outpatient (CLI) | payer MEDICARE, SELFPAY ==
[2023-07-12 18:16] VITALS: BMI 30.5
== END ==
PROVIDERS: PCP Family Medicine; Referring Provider Student in an Organized Health Care Education/Training Program; Visit Provider Surgery
DX: L89.623 Pressure ulcer of left heel, stage 3 (principal); R60.0 Localized edema; G62.9 Polyneuropathy, unspecified; I50.9 Heart failure, unspecified; I48.91 Unspecified atrial fibrillation; Z79.01 Long term (current) use of anticoagulants; D64.9 Anemia, unspecified
CPT/HCPCS: 87070; 87075; 87077; 87147; 87186; 87205; 97597; 99203; 99214

== ENCOUNTER → 2023-08-09 10:13 | Outpatient (CLI) | payer MEDICARE, SELFPAY ==
[2023-07-12 18:16] VITALS: BMI 30.5
== END ==
LOC: WC 10:14
PROVIDERS: PCP Family Medicine; Referring Provider Student in an Organized Health Care Education/Training Program; Visit Provider Surgery
DX: L89.623 Pressure ulcer of left heel, stage 3 (principal); L89.153 Pressure ulcer of sacral region, stage 3; R23.4 Changes in skin texture; R60.0 Localized edema; G62.9 Polyneuropathy, unspecified; I48.91 Unspecified atrial fibrillation; Z79.01 Long term (current) use of anticoagulants; L98.8 Other specified disorders of the skin and subcutaneous tissue
CPT/HCPCS: 11042; 97597; 99213

== ENCOUNTER → 2023-08-17 09:48 | Outpatient (CLI) | payer MEDICARE, SELFPAY ==
[2023-07-12 18:16] VITALS: BMI 30.5
[2023-08-17 09:59] VITALS: BP 100/46; PULSE 75; RESP 16; TEMP 36.1; O2SAT 95
[2023-08-17 10:29] LABS: Hematocrit 22.3 % (41-53); Hemoglobin 7.3 g/dL (13.5-17.5); Mean Corpuscular Hemoglobin 33.2 PG (26-34); Mean Corpuscular Volume 100.7 fL (80-100); Platelet Count 355 X10^3/uL (150-400); Red Blood Cell Count 2.21 X10^6/uL (4.5-5.9); Red Cell Distribution Width 24.4 % (11.6-14.8); White Blood Cell Count 14.9 X10^3/uL (4.5-11.0)
[2023-08-17 10:36] LABS: Add Manual Diff / Slide Review YES
[2023-08-17 10:49] LABS: Neutrophils Absolute Manual 11175 /uL (3000-5900); Total Cells Counted 100
[2023-08-17 10:50] LABS: Anisocytosis 2+
[2023-08-17] MEDS: EPOETIN ALFA EPBX 50000 UNIT SUBCUT (11:41)
== END ==
PROVIDERS: PCP Family Medicine; Referring Provider Internal Medicine; Visit Provider Internal Medicine
DX: D47.1 Chronic myeloproliferative disease; D63.0 Anemia in neoplastic disease
CPT/HCPCS: 85007; 85025; 96372; Q5106

== ENCOUNTER → 2023-08-19 09:36 | Outpatient (CLI) | payer MEDICARE, SELFPAY ==
[2023-07-12 18:16] VITALS: BMI 30.5
== END ==
PROVIDERS: PCP Family Medicine; Referring Provider Student in an Organized Health Care Education/Training Program; Visit Provider Physician Assistant
DX: L89.623 Pressure ulcer of left heel, stage 3 (principal); L89.153 Pressure ulcer of sacral region, stage 3; R60.0 Localized edema; I50.9 Heart failure, unspecified; I48.91 Unspecified atrial fibrillation; Z79.01 Long term (current) use of anticoagulants
CPT/HCPCS: 11042; 97597; 99213

== ENCOUNTER 2023-08-29 14:56 | Inpatient (IN) | payer MEDICARE, SELFPAY ==
[2023-07-12 18:16] VITALS: BMI 30.5
[2023-08-29] VITALS (46 sets, daily range): BP systolic 78–119; BP diastolic 41–65; PULSE 50–165; RESP 10–28; TEMP 35.6–36.3; O2SAT 95–100; BMI 31.4
--- NOTE | 2023-08-29 15:09 | DI.RAD.S_ITS ---
PROCEDURE: XR CHEST 1V INDICATIONS: suspected sepsis TECHNIQUE: One view of the chest was acquired. COMPARISON: [facility], CR, XR CHEST 1V, 07/16/2023, 12:04. FINDINGS: Surgical changes and devices: Bilateral shoulder arthroplasties. Lungs and pleura: Mild interstitial prominence, unchanged compared to prior exam. Mediastinum: Mediastinal contours appear normal. Heart size is large. Bones and chest wall: No suspicious bony lesions. Overlying soft tissues appear unremarkable. IMPRESSION: Interstitial prominence possibly related to edema, unchanged. Underlying areas of developing pneumonia cannot be excluded. Dictated by: Eleni Francis M.D. on 08/29/2023 at 16:19 Approved by: Eleni Francis M.D. on 08/29/2023 at 16:19
[2023-08-29] MEDS: SODIUM CHLORIDE 0.9% 1,000 ML 1000 ML IV (16:01)
[2023-08-29 16:02] LABS: INR 2.9 (0.9-1.3); Prothrombin Time 34.2 SECONDS (9.4-12.5)
--- NOTE | 2023-08-29 16:02 | ED_ITS ---
HPI - Altered Mental Status General Chief Complaint: Altered Mental Status Stated Complaint: AMS/Anemia/Recent colon CA, Time Seen by Provider: 08/29/23 15:12 Source: EMS Mode of arrival: EMS History of Present Illness HPI narrative: Patient is a 83-year-old male history of myelodysplastic syndrome frequent blood transfusions atrial fibrillation on Eliquis digoxin presenting today with weakness and altered mental status. He was admitted July 11 through July 12 ultimately went to [facility] rehab. states that he stayed there but he did not actually walker participate in rehab he was ultimately discharged earlier this month. He does have a caregiver who is almost 30/08. Today he had significant change in mental status minimally responsive. He has a chronic indwelling Montoya catheter he frequently gets blood transfusions. He is found to be hypotensive 91/53 hypothermic and requiring oxygen. and EMS are primary historians patient is unable to participate in exam or history Related Data Home Medications Medication Instructions Recorded Confirmed digoxin 250 mcg (0.25 mg) tablet 250 mcg PO BEDTIME 04/09/19 07/12/23 rivaroxaban 20 mg tablet (Xarelto) 20 mg PO QPM 04/09/19 07/12/23 cholecalciferol (vitamin D3) 100 2,000 unit PO DAILY 04/12/19 07/12/23 mcg (4,000 unit) capsule (Vitamin D3) duloxetine 30 mg capsule,delayed 60 mg PO BEDTIME 09/17/20 07/12/23 release gabapentin 300 mg capsule 300 mg PO TID 09/17/20 07/12/23 vitamin B12 0.5 mg-folic acid 1 mg 1 tab PO DAILY 09/17/20 07/12/23 tablet carvedilol 6.25 mg tablet 6.25 mg PO BID 05/14/23 07/12/23 metolazone 2.5 mg tablet 2.5 mg PO PRN PRN Edema 05/14/23 07/12/23 folic acid 1 mg tablet 1 mg PO DAILY 07/12/23 07/12/23 torsemide 10 mg tablet 10 mg PO DAILY 07/12/23 07/12/23 duloxetine 60 mg capsule,delayed 60 mg PO DAILY 07/13/23 07/13/23 release torsemide 20 mg tablet 20 mg PO BID 07/13/23 Previous Rx's Medication Instructions Recorded acetaminophen 325 mg tablet 650 mg (2 x 325 mg) PO Q6H PRN 05/22/23 Fever/Mild Pain (1-3) #60 tabs spironolactone 25 mg tablet 25 mg PO DAILY #30 tabs 05/22/23 Allergies Allergy/AdvReac Type Severity Reaction Status Date / Time No Known Drug Allergies Allergy Verified 01/26/23 19:37 Patient History Medical History Neuropathy COPD (chronic obstructive pulmonary disease) Myelofibrosis CHF (congestive heart failure) Edema Acid reflux HTN (hypertension) Osteoarthritis Arthritis HLD (hyperlipidemia) Cardiomyopathy Afib Surgical History Hx of tonsillectomy History of arthroplasty of left shoulder History of bilateral hip arthroplasty History of arthroplasty of right shoulder Hx of shoulder surgery Hx of laminectomy History of lumbar surgery (03/25/15) Social History household members: spouse Smoking Status: Former smoker alcohol intake: current Smoking Status: Former smoker alcohol intake frequency: a few times a week Substance Use Type: does not use Exam Initial Vital Signs Initial Vital Signs: Vital Signs Blood Pressure 91/53 L 08/29/23 15:07 GENERAL: Chronically ill pale 83-year-old male HEENT: Head atraumatic,EOMI, pupils reactive, face symmetric, moist mucous membranes CARDIOVASCULAR: Regular rate and rhythm without murmurs, rubs or gallops. RESPIRATORY: Breath sounds equal bilaterally, no wheezes rales or rhonchi. ABDOMEN: Soft, nontender. Normoactive bowel sounds all 4 quadrants. No guarding or rebound. : Montoya catheter in EXTREMITIES: Normal range of motion, no clubbing. 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 SKIN: Chronic left heel wound pale lots of bruising, diffusely edematous Course Orders Ordered: ED Orders 08/29/23 15:09 XR chest 1V Stat EKG-12 Lead Stat RT Consult Eval and Treat NOW 08/29/23 15:30 Blood Culture Stat PRBC [Packed Cells] Stat Type and Screen Stat 08/29/23 15:45 Complete Blood Count AUTO DIFF Stat Comprehensive Metabolic Panel Stat Lipase Stat PTT Partial Thromboplastin Ang Stat Procalcitonin Stat Prothrombin Time INR Stat 08/29/23 15:58 Lactate (Lactic Acid) Stat 08/29/23 16:04 CT head/brain wo con Stat 08/29/23 16:06 Urinalysis and Microscopic Stat Urine Culture Stat 08/29/23 16:42 Respiratory Panel (Film Array) Stat Dextrose/Sodium Chloride (Dextrose 5%-0.9% Ns) 1,000 mls @ 100 mls/hr IV CONT AMANDA Lorazepam (Lorazepam 2 Mg/Ml Inj) 1 mg IV Q4HR PRN PRN Reason: Anxiety Morphine Sulfate (Morphine 4 Mg/Ml Inj) 2 mg IV Q2HR PRN PRN Reason: pain or agitation Naloxone HCl (Naloxone 0.4 Mg/Ml Vial) 0.2 mg IV Q2MIN PRN PRN Reason: Opiate Reversal Ondansetron HCl (Ondansetron 4 Mg/2 Ml Inj) 4 mg IV Q8HR PRN PRN Reason: Nausea And Vomiting Ondansetron HCl (Ondansetron 4 Mg Odt) 4 mg PO Q8HR PRN PRN Reason: Nausea And Vomiting Discontinued Medications Sodium Chloride (Normal Saline 0.9%) 1,000 mls @ 1,000 mls/hr IV BOLUS ONE Stop: 08/29/23 16:45 Last Infusion: 08/29/23 17:17 Dose: Infused Documented By: Admin: 08/29/23 16:01 Dose: 1,000 mls/hr Documented By: KAITLYN Vancomycin HCl/Dextrose (Vancomycin) 2,000 mg in 400 mls @ 200 mls/hr IV NOW ONE Stop: 08/29/23 18:36 Last Infusion: 08/29/23 19:01 Dose: 0 mls/hr Documented By: Admin: 08/29/23 17:28 Dose: 200 mls/hr Documented By: KAITLYN Cefepime HCl 2 gm/ Sodium (Chloride) 100 mls @ 200 mls/hr IV NOW ONE Stop: 08/29/23 16:37 Last Infusion: 08/29/23 17:17 Dose: Infused Documented By: Admin: 08/29/23 16:50 Dose: 200 mls/hr Documented By: KAITLYN Vital Signs Vital signs: Vital Signs - 8 hr 08/29/23 15:07 08/29/23 15:08 08/29/23 15:10 Temperature 96.1 F L Pulse Rate 54 L 67 Respiratory Rate 10 L Blood Pressure 91/53 L 89/53 L Pulse Oximetry 100 95 Oxygen Delivery Method Nasal Cannula Oxygen Flow Rate 2 08/29/23 15:10 08/29/23 15:10 08/29/23 15:20 Temperature Pulse Rate 55 L 56 L Respiratory Rate 19 Blood Pressure 86/51 L Pulse Oximetry 100 100 Oxygen Delivery Method Oxygen Flow Rate 08/29/23 15:20 08/29/23 15:30 08/29/23 15:30 Temperature Pulse Rate 58 L Respiratory Rate 18 Blood Pressure 91/54 L 83/48 L Pulse Oximetry 100 Oxygen Delivery Method Oxygen Flow Rate 08/29/23 15:40 08/29/23 15:40 08/29/23 15:45 Temperature Pulse Rate 55 L Respiratory Rate 19 Blood Pressure 80/46 L 83/47 L Pulse Oximetry 100 Oxygen Delivery Method Oxygen Flow Rate 08/29/23 15:45 08/29/23 15:50 08/29/23 15:50 Temperature Pulse Rate 61 58 L Respiratory Rate 20 19 Blood Pressure 92/51 L Pulse Oximetry 100 100 Oxygen Delivery Method Oxygen Flow Rate 08/29/23 15:55 08/29/23 15:55 08/29/23 16:00 Temperature Pulse Rate 58 L 57 L Respiratory Rate 20 19 Blood Pressure 105/56 L Pulse Oximetry 100 Oxygen Delivery Method Oxygen Flow Rate 08/29/23 16:00 08/29/23 16:05 08/29/23 16:05 Temperature Pulse Rate 56 L Respiratory Rate 17 Blood Pressure 101/51 L 101/54 L Pulse Oximetry 100 Oxygen Delivery Method Oxygen Flow Rate 08/29/23 16:10 08/29/23 16:10 08/29/23 16:15 Temperature Pulse Rate 54 L 56 L Respiratory Rate 18 17 Blood Pressure 97/54 L Pulse Oximetry 100 100 Oxygen Delivery Method Oxygen Flow Rate 08/29/23 16:15 08/29/23 16:21 08/29/23 16:21 Temperature Pulse Rate 56 L Respiratory Rate Blood Pressure 96/49 L 78/41 L Pulse Oximetry 100 Oxygen Delivery Method Oxygen Flow Rate 08/29/23 16:23 08/29/23 16:23 08/29/23 16:25 Temperature Pulse Rate 59 L 62 Respiratory Rate 24 28 H Blood Pressure 103/57 L Pulse Oximetry 100 95 Oxygen Delivery Method Oxygen Flow Rate 08/29/23 16:25 08/29/23 16:30 08/29/23 16:30 Temperature Pulse Rate 165 H Respiratory Rate Blood Pressure 119/55 L 100/55 L Pulse Oximetry Oxygen Delivery Method Oxygen Flow Rate 08/29/23 16:35 08/29/23 16:35 08/29/23 16:40 Temperature Pulse Rate 61 56 L Respiratory Rate 20 Blood Pressure 104/52 L Pulse Oximetry Oxygen Delivery Method Oxygen Flow Rate 08/29/23 16:40 08/29/23 16:45 08/29/23 16:45 Temperature Pulse Rate 55 L Respiratory Rate Blood Pressure 105/52 L 102/55 L Pulse Oximetry Oxygen Delivery Method Oxygen Flow Rate 08/29/23 16:50 08/29/23 16:50 08/29/23 16:55 Temperature Pulse Rate 54 L 89 Respiratory Rate 20 Blood Pressure 104/54 L Pulse Oximetry 100 100 Oxygen Delivery Method Oxygen Flow Rate 08/29/23 16:55 08/29/23 17:00 08/29/23 17:00 Temperature Pulse Rate 59 L Respiratory Rate 21 Blood Pressure 102/53 L 100/55 L Pulse Oximetry 100 Oxygen Delivery Method Oxygen Flow Rate 08/29/23 17:05 08/29/23 17:05 08/29/23 17:10 Temperature Pulse Rate 56 L 58 L Respiratory Rate 23 Blood Pressure 107/55 L Pulse Oximetry 100 100 Oxygen Delivery Method Oxygen Flow Rate 08/29/23 17:10 08/29/23 17:15 08/29/23 17:15 Temperature Pulse Rate 62 Respiratory Rate Blood Pressure 103/52 L 95/53 L Pulse Oximetry 99 Oxygen Delivery Method Oxygen Flow Rate 08/29/23 17:20 08/29/23 17:20 08/29/23 17:25 Temperature Pulse Rate 50 L 57 L Respiratory Rate Blood Pressure 92/53 L Pulse Oximetry 100 100 Oxygen Delivery Method Oxygen Flow Rate 08/29/23 17:25 08/29/23 17:30 08/29/23 17:30 Temperature Pulse Rate 53 L Respiratory Rate Blood Pressure 89/50 L 89/49 L Pulse Oximetry 100 Oxygen Delivery Method Oxygen Flow Rate 08/29/23 17:35 08/29/23 17:35 08/29/23 17:40 Temperature Pulse Rate 55 L 52 L Respiratory Rate Blood Pressure 86/49 L Pulse Oximetry 100 100 Oxygen Delivery Method Oxygen Flow Rate 08/29/23 17:40 08/29/23 17:45 08/29/23 17:45 Temperature Pulse Rate 57 L Respiratory Rate Blood Pressure 87/49 L 92/49 L Pulse Oximetry 100 Oxygen Delivery Method Oxygen Flow Rate 08/29/23 17:50 08/29/23 17:50 08/29/23 17:55 Temperature Pulse Rate 51 L Respiratory Rate Blood Pressure 85/46 L 87/50 L Pulse Oximetry 100 Oxygen Delivery Method Oxygen Flow Rate 08/29/23 17:55 08/29/23 18:00 08/29/23 18:00 Temperature Pulse Rate 55 L 55 L Respiratory Rate Blood Pressure 86/48 L Pulse Oximetry 100 100 Oxygen Delivery Method Oxygen Flow Rate 08/29/23 18:05 08/29/23 18:05 Temperature Pulse Rate 53 L Respiratory Rate Blood Pressure 88/52 L Pulse Oximetry 100 Oxygen Delivery Method Oxygen Flow Rate MDM - Altered Mental Status Lab Data 08/29/23 15:45 08/29/23 15:45 Labs: Lab Results 08/29/23 08/29/23 08/29/23 Range/Units 15:30 15:45 15:58 WBC 11.3 H (4.5-11.0) X10^3/uL RBC 2.21 L (4.5-5.9) X10^6/uL Hgb 6.9 L* (13.5-17.5) g/dL Hct 21.9 L (41-53) % MCV 99.2 (80-100) fL MCH 31.1 (26-34) PG MCHC 31.3 (30-36) % RDW 25.9 H (11.6-14.8) % Plt Count 214 (150-400) X10^3/uL Neut % (Auto) Not Reportable Lymph % (Auto) Not Reportable Towns % (Auto) Not Reportable Eos % (Auto) Not Reportable Baso % (Auto) Not Reportable Lymph # (Auto) Not Reportable Towns # (Auto) Not Reportable Baso # (Auto) Not Reportable Total Counted 100 Seg Neutrophils % 60.0 (38-70) % Band Neutrophils % 9.0 H (3-7) % Lymphocytes % (Manual) 9.0 L (25-45) % Monocytes % (Manual) 17.0 H (2-11) % Eosinophils % (Manual) 3.0 (2-4) % Basophils % (Manual) 2.0 H (0-1) % Neutrophils # (Manual) 7797 H (1416-6937) /uL Smudge Cells 1+ H Toxic Granulation Present H Toxic Vacuolation Present H Plt Morphology Comment RBC Morphology See below Anisocytosis 2+ H PT 34.2 H (9.4-12.5) SECONDS INR 2.9 H (0.9-1.3) APTT 55 H (25.1-36.5) SECONDS Sodium 132 L (137-145) mmol/L Potassium 5.1 (3.4-5.1) mmol/L Chloride 102 (98-107) mmol/L Carbon Dioxide 25 (22-32) mmol/L BUN 69 H (9-20) mg/dL Creatinine 1.41 H (0.66-1.25) mg/dL Estimated GFR 49 L (>60) mL/min BUN/Creatinine Ratio 48.9 H (6-22) Glucose 121 H (80-110) mg/dL Lactate 1.2 (0.7-2.1) mmol/L Calcium 7.6 L (8.4-10.2) mg/dL Total Bilirubin 0.6 (0.2-1.3) mg/dL AST 18 (17-59) IU/L ALT 10 (<50) IU/L Alkaline Phosphatase 109 (38-126) U/L Total Protein 6.0 L (6.3-8.2) g/dL Albumin 3.0 L (3.5-5.0) g/dL Globulin 3.0 (1.7-4.1) g/dL Albumin/Globulin Ratio 1.0 (1.0-2.8) Lipase 41 (23-300) U/L Procalcitonin 0.249 (<0.5) ng/mL Urine Color Urine Appearance Urine pH (4.5-8.0) Ur Specific [place] (1.000-1.035) Urine Protein (Negative) Urine Glucose (UA) (Negative) g/dL Urine Ketones (NEGATIVE) Urine Occult Blood (Negative) Urine Nitrate (Negative) Urine Bilirubin (NEGATIVE) Urine Urobilinogen (0.2) E.U./dL Ur Leukocyte Esterase (NEGATIVE) Urine RBC (0-5/HPF) Urine WBC (0-5/HPF) Ur Squamous Epith Cells (0-5/HPF) Urine Bacteria (None) Ur Culture Indicated? Vol Urine Centrifuged Chlamy pneumoniae PCR (Not Detect) Adenovirus (PCR) (Not Detect) B.parapertussis DNA PCR (Not Detecte) Coronavirus OC43 (PCR) (Not Detect) Coronavirus HKU1 (PCR) (Not Detect) Coronavirus 229E (PCR) (Not Detect) SARS-CoV-2 (PCR) (Not Detecte) Coronavirus NL63 (PCR) (Not Detect) Human Metapneumovir PCR (Not Detect) Influenza Type A (PCR) (Not Detect) Influenza Type B (PCR) (Not Detect) M. pneumoniae (PCR) (Not Detect) Parainfluenza 1 (PCR) (Not Detect) Parainfluenza 2 (PCR) (Not Detect) Parainfluenza 3 (PCR) (Not Detect) Parainfluenza 4 (PCR) (Not Detect) RSV (PCR) (Not Detect) Entero/Rhino (PCR) (Not Detect) Blood Type O Positive Antibody Screen Negative Crossmatch See Detail 08/29/23 08/29/23 Range/Units 16:06 16:42 WBC (4.5-11.0) X10^3/uL RBC (4.5-5.9) X10^6/uL Hgb (13.5-17.5) g/dL Hct (41-53) % MCV (80-100) fL MCH (26-34) PG MCHC (30-36) % RDW (11.6-14.8) % Plt Count (150-400) X10^3/uL Neut % (Auto) Lymph % (Auto) Towns % (Auto) Eos % (Auto) Baso % (Auto) Lymph # (Auto) Towns # (Auto) Baso # (Auto) Total Counted Seg Neutrophils % (38-70) % Band Neutrophils % (3-7) % Lymphocytes % (Manual) (25-45) % Monocytes % (Manual) (2-11) % Eosinophils % (Manual) (2-4) % Basophils % (Manual) (0-1) % Neutrophils # (Manual) (5264-8319) /uL Smudge Cells Toxic Granulation Toxic Vacuolation Plt Morphology Comment RBC Morphology Anisocytosis PT (9.4-12.5) SECONDS INR (0.9-1.3) APTT (25.1-36.5) SECONDS Sodium (137-145) mmol/L Potassium (3.4-5.1) mmol/L Chloride (98-107) mmol/L Carbon Dioxide (22-32) mmol/L BUN (9-20) mg/dL Creatinine (0.66-1.25) mg/dL Estimated GFR (>60) mL/min BUN/Creatinine Ratio (6-22) Glucose (80-110) mg/dL Lactate (0.7-2.1) mmol/L Calcium (8.4-10.2) mg/dL Total Bilirubin (0.2-1.3) mg/dL AST (17-59) IU/L ALT (<50) IU/L Alkaline Phosphatase (38-126) U/L Total Protein (6.3-8.2) g/dL Albumin (3.5-5.0) g/dL Globulin (1.7-4.1) g/dL Albumin/Globulin Ratio (1.0-2.8) Lipase (23-300) U/L Procalcitonin (<0.5) ng/mL Urine Color Yellow Urine Appearance Cloudy Urine pH 6.0 (4.5-8.0) Ur Specific [place] 1.010 (1.000-1.035) Urine Protein 1+ H (Negative) Urine Glucose (UA) Negative (Negative) g/dL Urine Ketones Negative (NEGATIVE) Urine Occult Blood 2+ H (Negative) Urine Nitrate Positive H (Negative) Urine Bilirubin Negative (NEGATIVE) Urine Urobilinogen 0.2 (0.2) E.U./dL Ur Leukocyte Esterase 2+ H (NEGATIVE) Urine RBC 1-5/hpf (0-5/HPF) Urine WBC 5-10/hpf H (0-5/HPF) Ur Squamous Epith Cells 0-1 /hpf (0-5/HPF) Urine Bacteria Few (2-10) H (None) Ur Culture Indicated? Specimen cultured Vol Urine Centrifuged 8 Chlamy pneumoniae PCR Not detected (Not Detect) Adenovirus (PCR) Not detected (Not Detect) B.parapertussis DNA PCR Not detected (Not Detecte) Coronavirus OC43 (PCR) Not detected (Not Detect) Coronavirus HKU1 (PCR) Not detected (Not Detect) Coronavirus 229E (PCR) Not detected (Not Detect) SARS-CoV-2 (PCR) Not detected (Not Detecte) Coronavirus NL63 (PCR) Not detected (Not Detect) Human Metapneumovir PCR Not detected (Not Detect) Influenza Type A (PCR) Not detected (Not Detect) Influenza Type B (PCR) Not detected (Not Detect) M. pneumoniae (PCR) Not detected (Not Detect) Parainfluenza 1 (PCR) Not detected (Not Detect) Parainfluenza 2 (PCR) Not detected (Not Detect) Parainfluenza 3 (PCR) Not detected (Not Detect) Parainfluenza 4 (PCR) Not detected (Not Detect) RSV (PCR) Not detected (Not Detect) Entero/Rhino (PCR) Not detected (Not Detect) Blood Type Antibody Screen Crossmatch Imaging Data Chest x-ray: Radiologist's Impression: PROCEDURE: XR CHEST 1V INDICATIONS: suspected sepsis TECHNIQUE: One view of the chest was acquired. COMPARISON: [facility], CR, XR CHEST 1V, 07/16/2023, 12:04. FINDINGS: Surgical changes and devices: Bilateral shoulder arthroplasties. Lungs and pleura: Mild interstitial prominence, unchanged compared to prior exam. Mediastinum: Mediastinal contours appear normal. Heart size is large. Bones and chest wall: No suspicious bony lesions. Overlying soft tissues appear unremarkable. IMPRESSION: Interstitial prominence possibly related to edema, unchanged. Underlying areas of developing pneumonia cannot be excluded. Dictated by: Eleni Francis M.D. on 08/29/2023 at 16:19 Approved by: Eleni Francis M.D. on 08/29/2023 at 16:19 CT scan - head: Radiologist's Impression: PROCEDURE: CT HEAD/BRAIN WO CON INDICATIONS: AMS on eliquis TECHNIQUE: Noncontrast 4.5 mm thick angled axial sections acquired from the foramen magnum to the vertex, with coronal and sagittal reformats. For radiation dose reduction, the following was used: automated exposure control, adjustment of mA and/or kV according to patient size. COMPARISON: [facility], CT, CT HEAD/BRAIN WO CON, 05/14/2023, 10:52. FINDINGS: Image quality: Diagnostic. CSF spaces: Basal cisterns are patent. No extra-axial fluid collections. The ventricles are symmetric in size and shape. Brain: No intracranial bleeds or masses. There is cerebral volume loss for age, with resultant ventricular and sulcal prominence. There are periventricular and deep white matter chronic small vessel ischemic changes. There is intracranial internal carotid artery atherosclerosis. Skull and face: Calvarium and visualized facial bones appear intact, without suspicious lesions. Sinuses: Visualized sinuses and mastoids are clear. IMPRESSION: 1. No acute intracranial process. 2. Moderate atrophy and chronic microvascular ischemic changes. Dictated by: Eleni Francis M.D. on 08/29/2023 at 16:34 ECG Data Attestation: I personally reviewed and interpreted this ECG as follows: Prior ECG tracings: available for review Interpretation: Atrial fibrillation rate 55, no ischemia similar to previous EKGs MDM Narrative Medical decision making narrative: MDM CC: Altered mental status Complicating co-morbidities: Myelofibrosis, COPD, hypertension, atrial fibrillation on Eliquis chronic neuropathy nonambulatory Data collected from: Medical records reviewed: Recent admission July 11 through July 12 Differential considered: Intracranial hemorrhage anemia sepsis acute coronary syndrome Exam documented above, pertinent findings include: Diffusely weak, responsive only to pain 3rd spacing throughout, chronic wound left heel, hypotensive Lab Test results independently reviewed as above. Pertinent findings: WBC 11.3, hemoglobin 6.9, hematocrit 21.9, platelets 214, baseline hemoglobin 7.6/hematocrit 23 Independently reviewed EKG as above atrial fibrillation Imaging studies independently reviewed: Head CT no intracranial process, chest x-ray no acute cardiopulmonary process, persistent interstitial prominence remains unchanged Consultations: Dr. Underwood, updated on patient goals of care and accepts Treatments: Vancomycin based on previous urine culture and cefepime along with 1 L IV fluids Re-evaluations: Patient received 1 L of IV fluids blood pressure did temporarily improve however worried that he is continuing to 3rd space. Discussion: Patient chronically ill frequent blood transfusions presents today with altered mental status and hypotension. Long discussion with patient's about goals of care and quality of life. You initially is a full code however we ultimately decide no chest compressions or intubation. We discussed about possibly transfusion 1 L of blood however at this time she says it does not typically last and not worth it. Son is driving up from [employer], she would like him to be here. Requesting last rights by , he was supposed to see his hand presser on Tuesday. We have arranged for hand presser to come. She is agreeable to hospice and comfort measures only. Critical Care Time Critical Care Time Critical Care Time: Yes Total Critical Care Time: 39 Attestation: The high probability of a clinically significant, sudden or life threatening deterioration of the [cardiovascular] system(s) required my full and direct attention, intervention and personal management. The aggregate critical care time was 39 minutes. This time is in addition to time spent performing reported procedures but includes the following: [x] Data Review and interpretation [x] Patient assessment and monitoring of vital signs [x] Documentation [x] Medication orders and management Discharge Plan Departure Patient Disposition: Admitted As Inpatient Clinical Impression: Sepsis Admit Date/Time: 08/29/23 18:06 Admit Provider: John Underwood
--- NOTE | 2023-08-29 16:03 | EKG_ITS ---
[address] [address] [place] [address] Test Date: 2023-08-29 Pat Name: Octavio Hess Department: Room: Gender: Male Wood Barker: ANALILIA : 1940 Requested By: Order Number: [id number] Reading MD: John Underwood Measurements Intervals [place] Rate: 55 P: ME: QRS: 113 QRSD: 112 T: 30 QT: 384 QTc: 367 Interpretive Statements Atrial fibrillation with slow ventricular response Right axis deviation Incomplete right bundle branch block Possible Right ventricular hypertrophy Electronically Signed On 08-31-2023 16:45:54 PDT by John Underwood
[2023-08-29 16:05] LABS: PTT Partial Thromboplastin Tim 55 SECONDS (25.1-36.5)
[2023-08-29 16:06] LABS: Hematocrit 21.9 % (41-53); Mean Corpuscular HGB Conc 31.3 % (30-36); Mean Corpuscular Hemoglobin 31.1 PG (26-34); Mean Corpuscular Volume 99.2 fL (80-100); Platelet Count 214 X10^3/uL (150-400); Red Blood Cell Count 2.21 X10^6/uL (4.5-5.9); Red Cell Distribution Width 25.9 % (11.6-14.8); White Blood Cell Count 11.3 X10^3/uL (4.5-11.0)
[2023-08-29 16:09] LABS: Add Manual Diff / Slide Review YES; Alanine Aminotransferase 10 IU/L (<50); Alkaline Phosphatase 109 U/L (38-126); Aspartate Aminotransferase 18 IU/L (17-59); BUN Creatinine Ratio 48.9 (6-22); Bilirubin Total 0.6 mg/dL (0.2-1.3); Blood Urea Nitrogen 69 mg/dL (9-20); Calcium 7.6 mg/dL (8.4-10.2); Carbon Dioxide 25 mmol/L (22-32); Chloride 102 mmol/L (98-107); Estimated Glomerular Filt Rate 49 mL/min (>60); Glucose 121 mg/dL (80-110); HEMOLYSIS < 15 (0-50); Hemoglobin 6.9 g/dL (13.5-17.5); Lipase 41 U/L (23-300); Potassium 5.1 mmol/L (3.4-5.1); Sodium 132 mmol/L (137-145)
[2023-08-29 16:14] LABS: Lactate (Lactic Acid) 1.2 mmol/L (0.7-2.1)
[2023-08-29 16:16] LABS: Appearance Urine UA CLOUDY; Bilirubin Urine UA NEGATIVE (NEGATIVE); Color Urine UA YELLOW; Glucose Urine UA NEGATIVE (Negative); Ketones Urine UA NEGATIVE (NEGATIVE); Leukocyte Esterase Urine UA 2+ (NEGATIVE); Nitrite Urine UA POSITIVE (Negative); Occult Blood Urine UA 2+ (Negative); Protein Urine UA 1+ (Negative); Urobilinogen Urine UA 0.2 E.U./dL (0.2)
[2023-08-29 16:21] LABS: Neutrophils Absolute Manual 7797 /uL (3000-5900); Total Cells Counted 100
[2023-08-29 16:22] LABS: Anisocytosis 2+; Smudge Cells 1+; Toxic Granulation Present; Toxic Vacuolation Present
[2023-08-29 16:26] LABS: Procalcitonin 0.249 ng/mL (<0.5)
[2023-08-29 16:26] LABS: Urine Volume 8
[2023-08-29 16:27] LABS: Bacteria Urine Few (2-10); Culture Indicated Urine Specimen Cultured; RBC Urine 1-5/HPF (0-5/HPF); Squamous Epithelial Cell Urine 0-1 /HPF (0-5/HPF); WBC Urine 5-10/HPF (0-5/HPF)
[2023-08-29] MEDS: CEFEPIME 2 GM in SODIUM CHLORIDE 0.9% 100 ML IV (16:50)
[2023-08-29] MEDS: VANCOMYCIN 2,000 MG/400 ML PIGGYBACK 200 MG IV (17:28)
[2023-08-29 17:34] LABS: Adenovirus Not Detected (Not Detect); B. parapertussis Not Detected (Not Detecte); Bordetella pertussis Not Detected (Not Detect); Chlamydophila pneumoniae Not Detected (Not Detect); Coronavirus 229E Not Detected (Not Detect); Coronavirus HKU1 Not Detected (Not Detect); Coronavirus NL 63 Not Detected (Not Detect); Coronavirus OC43 Not Detected (Not Detect); Human Metapneumovirus Not Detected (Not Detect); Human Rhinovirus/Enterovirus Not Detected (Not Detect); Influenza A Not Detected (Not Detect); Influenza B Not Detected (Not Detect); Mycoplasma pneumoniae Not Detected (Not Detect); Parainfluenza Virus 1 Not Detected (Not Detect); Parainfluenza Virus 2 Not Detected (Not Detect); Parainfluenza Virus 3 Not Detected (Not Detect); Parainfluenza Virus 4 Not Detected (Not Detect); Respiratory Syncytial Virus Not Detected (Not Detect); SARS- CoV-2 Not Detected (Not Detecte)
--- NOTE | 2023-08-29 17:48 | PM.HP.1 ---
History of Present Illness History of Present Illness Date Patient Seen: 08/29/23 Chief complaint: AMS/Anemia/Recent colon CA, Narrative: From ED doctor: Patient is a 83-year-old male history of myelodysplastic syndrome frequent blood transfusions presenting today with weakness and altered mental status. He was admitted July 11 through July 12 ultimately went to [facility] rehab. states that he stayed there but he did not actually walker participate in rehab he was ultimately discharged earlier this month. He does have a caregiver who is almost 247. Today he had significant change in mental status minimally responsive. He was given antibiotics for sepsis but level of care was discussed at length with the . No further blood products. They are giving family time to gather. He will be heading towards comfort care. The level care for now we will be antibiotics and IV fluids. I spent a lot of time with his to reassure her and support her. His end of life is eminent. He he is obtunded and not able to speak. [facility] Medical History Neuropathy COPD (chronic obstructive pulmonary disease) Myelofibrosis CHF (congestive heart failure) Edema Acid reflux HTN (hypertension) Osteoarthritis Arthritis HLD (hyperlipidemia) Cardiomyopathy Afib Surgical History Hx of tonsillectomy History of arthroplasty of left shoulder History of bilateral hip arthroplasty History of arthroplasty of right shoulder Hx of shoulder surgery Hx of laminectomy History of lumbar surgery (03/25/15) Social History household members: spouse Smoking Status: Former smoker alcohol intake: current Meds Home Medications and Allergies Home Medications Medication Instructions Recorded Confirmed Type digoxin 250 mcg (0.25 mg) tablet 250 mcg PO BEDTIME 04/09/19 07/12/23 History rivaroxaban 20 mg tablet (Xarelto) 20 mg PO QPM 04/09/19 07/12/23 History cholecalciferol (vitamin D3) 100 2,000 unit PO DAILY 04/12/19 07/12/23 History mcg (4,000 unit) capsule (Vitamin D3) duloxetine 30 mg capsule,delayed 60 mg PO BEDTIME 09/17/20 07/12/23 History release gabapentin 300 mg capsule 300 mg PO TID 09/17/20 07/12/23 History vitamin B12 0.5 mg-folic acid 1 mg 1 tab PO DAILY 09/17/20 07/12/23 History tablet carvedilol 6.25 mg tablet 6.25 mg PO BID 05/14/23 07/12/23 History metolazone 2.5 mg tablet 2.5 mg PO PRN PRN Edema 05/14/23 07/12/23 History acetaminophen 325 mg tablet 650 mg (2 x 325 mg) PO Q6H PRN 05/22/23 07/12/23 Rx Fever/Mild Pain (1-3) #60 tabs spironolactone 25 mg tablet 25 mg PO DAILY #30 tabs 05/22/23 07/12/23 Rx folic acid 1 mg tablet 1 mg PO DAILY 07/12/23 07/12/23 History torsemide 10 mg tablet 10 mg PO DAILY 07/12/23 07/12/23 History duloxetine 60 mg capsule,delayed 60 mg PO DAILY 07/13/23 07/13/23 History release torsemide 20 mg tablet 20 mg PO BID 07/13/23 History Allergies Allergy/AdvReac Type Severity Reaction Status Date / Time No Known Drug Allergies Allergy Verified 01/26/23 19:37 Review of Systems Review of Systems Narrative: Not obtainable due to mental status. Exam Vital Signs (past 8 hours): - 08/29/23 15:07 08/29/23 15:08 08/29/23 15:10 Temperature 96.1 F L Pulse Rate 54 L 67 Respiratory Rate 10 L Blood Pressure 91/53 L 89/53 L Pulse Oximetry 100 95 Oxygen Delivery Method Nasal Cannula Oxygen Flow Rate 2 08/29/23 15:10 08/29/23 15:10 08/29/23 15:20 Temperature Pulse Rate 55 L 56 L Respiratory Rate 19 Blood Pressure 86/51 L Pulse Oximetry 100 100 Oxygen Delivery Method Oxygen Flow Rate 08/29/23 15:20 08/29/23 15:30 08/29/23 15:30 Temperature Pulse Rate 58 L Respiratory Rate 18 Blood Pressure 91/54 L 83/48 L Pulse Oximetry 100 Oxygen Delivery Method Oxygen Flow Rate 08/29/23 15:40 08/29/23 15:40 08/29/23 15:45 Temperature Pulse Rate 55 L Respiratory Rate 19 Blood Pressure 80/46 L 83/47 L Pulse Oximetry 100 Oxygen Delivery Method Oxygen Flow Rate 08/29/23 15:45 08/29/23 15:50 08/29/23 15:50 Temperature Pulse Rate 61 58 L Respiratory Rate 20 19 Blood Pressure 92/51 L Pulse Oximetry 100 100 Oxygen Delivery Method Oxygen Flow Rate 08/29/23 15:55 08/29/23 15:55 08/29/23 16:00 Temperature Pulse Rate 58 L 57 L Respiratory Rate 20 19 Blood Pressure 105/56 L Pulse Oximetry 100 Oxygen Delivery Method Oxygen Flow Rate 08/29/23 16:00 08/29/23 16:05 08/29/23 16:05 Temperature Pulse Rate 56 L Respiratory Rate 17 Blood Pressure 101/51 L 101/54 L Pulse Oximetry 100 Oxygen Delivery Method Oxygen Flow Rate 08/29/23 16:10 08/29/23 16:10 08/29/23 16:15 Temperature Pulse Rate 54 L 56 L Respiratory Rate 18 17 Blood Pressure 97/54 L Pulse Oximetry 100 100 Oxygen Delivery Method Oxygen Flow Rate 08/29/23 16:15 08/29/23 16:21 08/29/23 16:21 Temperature Pulse Rate 56 L Respiratory Rate Blood Pressure 96/49 L 78/41 L Pulse Oximetry 100 Oxygen Delivery Method Oxygen Flow Rate 08/29/23 16:23 08/29/23 16:23 08/29/23 16:25 Temperature Pulse Rate 59 L 62 Respiratory Rate 24 28 H Blood Pressure 103/57 L Pulse Oximetry 100 95 Oxygen Delivery Method Oxygen Flow Rate 08/29/23 16:25 08/29/23 16:30 08/29/23 16:30 Temperature Pulse Rate 165 H Respiratory Rate Blood Pressure 119/55 L 100/55 L Pulse Oximetry Oxygen Delivery Method Oxygen Flow Rate 08/29/23 16:35 08/29/23 16:35 08/29/23 16:40 Temperature Pulse Rate 61 56 L Respiratory Rate 20 Blood Pressure 104/52 L Pulse Oximetry Oxygen Delivery Method Oxygen Flow Rate 08/29/23 16:40 08/29/23 16:45 08/29/23 16:45 Temperature Pulse Rate 55 L Respiratory Rate Blood Pressure 105/52 L 102/55 L Pulse Oximetry Oxygen Delivery Method Oxygen Flow Rate 08/29/23 16:50 08/29/23 16:50 08/29/23 16:55 Temperature Pulse Rate 54 L 89 Respiratory Rate 20 Blood Pressure 104/54 L Pulse Oximetry 100 100 Oxygen Delivery Method Oxygen Flow Rate 08/29/23 16:55 08/29/23 17:00 08/29/23 17:00 Temperature Pulse Rate 59 L Respiratory Rate 21 Blood Pressure 102/53 L 100/55 L Pulse Oximetry 100 Oxygen Delivery Method Oxygen Flow Rate 08/29/23 17:05 08/29/23 17:05 08/29/23 17:10 Temperature Pulse Rate 56 L 58 L Respiratory Rate 23 Blood Pressure 107/55 L Pulse Oximetry 100 100 Oxygen Delivery Method Oxygen Flow Rate 08/29/23 17:10 08/29/23 17:15 08/29/23 17:15 Temperature Pulse Rate 62 Respiratory Rate Blood Pressure 103/52 L 95/53 L Pulse Oximetry 99 Oxygen Delivery Method Oxygen Flow Rate 08/29/23 17:20 08/29/23 17:20 08/29/23 17:25 Temperature Pulse Rate 50 L 57 L Respiratory Rate Blood Pressure 92/53 L Pulse Oximetry 100 100 Oxygen Delivery Method Oxygen Flow Rate 08/29/23 17:25 08/29/23 17:30 08/29/23 17:30 Temperature Pulse Rate 53 L Respiratory Rate Blood Pressure 89/50 L 89/49 L Pulse Oximetry 100 Oxygen Delivery Method Oxygen Flow Rate 08/29/23 17:35 08/29/23 17:35 Temperature Pulse Rate 55 L Respiratory Rate Blood Pressure 86/49 L Pulse Oximetry 100 Oxygen Delivery Method Oxygen Flow Rate Oxygen Delivery Method Nasal Cannula Oxygen Flow Rate 2 Narrative Exam Narrative: Obtunded. Breathing rapidly. Lungs are clear. Heart is bradycardic and irregular. Abdomen is soft, nondistended. He is gross edema of both legs. No skin rash. He has not really able to rouse or interact. Objective ECG Impression: Atrial fibrillation with slow ventricular response Right axis deviation Incomplete right bundle branch block Imaging CT scan - head: Radiologist's impression: 1. No acute intracranial process. 2. Moderate atrophy and chronic microvascular ischemic changes. Labs 08/29/23 15:45 08/29/23 15:45 Labs: Laboratory Results - last 24 hr 08/29/23 08/29/23 08/29/23 15:30 15:45 15:58 WBC 11.3 H RBC 2.21 L Hgb 6.9 L* Hct 21.9 L MCV 99.2 MCH 31.1 MCHC 31.3 RDW 25.9 H Plt Count 214 Neut % (Auto) Not Reportable Lymph % (Auto) Not Reportable [place] % (Auto) Not Reportable Eos % (Auto) Not Reportable Baso % (Auto) Not Reportable Lymph # (Auto) Not Reportable [place] # (Auto) Not Reportable Baso # (Auto) Not Reportable Total Counted 100 Seg Neutrophils % 60.0 Band Neutrophils % 9.0 H Lymphocytes % (Manual) 9.0 L Monocytes % (Manual) 17.0 H Eosinophils % (Manual) 3.0 Basophils % (Manual) 2.0 H Neutrophils # (Manual) 7797 H Smudge Cells 1+ H Toxic Granulation Present H Toxic Vacuolation Present H Plt Morphology Comment RBC Morphology See below Anisocytosis 2+ H PT 34.2 H INR 2.9 H APTT 55 H Sodium 132 L Potassium 5.1 Chloride 102 Carbon Dioxide 25 BUN 69 H Creatinine 1.41 H Estimated GFR 49 L BUN/Creatinine Ratio 48.9 H Glucose 121 H Lactate 1.2 Calcium 7.6 L Total Bilirubin 0.6 AST 18 ALT 10 Alkaline Phosphatase 109 Total Protein 6.0 L Albumin 3.0 L Globulin 3.0 Albumin/Globulin Ratio 1.0 Lipase 41 Procalcitonin 0.249 Urine Color Urine Appearance Urine pH Ur Specific [place] Urine Protein Urine Glucose (UA) Urine Ketones Urine Occult Blood Urine Nitrate Urine Bilirubin Urine Urobilinogen Ur Leukocyte Esterase Urine RBC Urine WBC Ur Squamous Epith Cells Urine Bacteria Ur Culture Indicated? Vol Urine Centrifuged Chlamy pneumoniae PCR Adenovirus (PCR) B.parapertussis DNA PCR Coronavirus OC43 (PCR) Coronavirus HKU1 (PCR) Coronavirus 229E (PCR) SARS-CoV-2 (PCR) Coronavirus NL63 (PCR) Human Metapneumovir PCR Influenza Type A (PCR) Influenza Type B (PCR) M. pneumoniae (PCR) Parainfluenza 1 (PCR) Parainfluenza 2 (PCR) Parainfluenza 3 (PCR) Parainfluenza 4 (PCR) RSV (PCR) Entero/Rhino (PCR) Blood Type O Positive Antibody Screen Negative Crossmatch See Detail 08/29/23 08/29/23 16:06 16:42 WBC RBC Hgb Hct MCV MCH MCHC RDW Plt Count Neut % (Auto) Lymph % (Auto) [place] % (Auto) Eos % (Auto) Baso % (Auto) Lymph # (Auto) [place] # (Auto) Baso # (Auto) Total Counted Seg Neutrophils % Band Neutrophils % Lymphocytes % (Manual) Monocytes % (Manual) Eosinophils % (Manual) Basophils % (Manual) Neutrophils # (Manual) Smudge Cells Toxic Granulation Toxic Vacuolation Plt Morphology Comment RBC Morphology Anisocytosis PT INR APTT Sodium Potassium Chloride Carbon Dioxide BUN Creatinine Estimated GFR BUN/Creatinine Ratio Glucose Lactate Calcium Total Bilirubin AST ALT Alkaline Phosphatase Total Protein Albumin Globulin Albumin/Globulin Ratio Lipase Procalcitonin Urine Color Yellow Urine Appearance Cloudy Urine pH 6.0 Ur Specific [place] 1.010 Urine Protein 1+ H Urine Glucose (UA) Negative Urine Ketones Negative Urine Occult Blood 2+ H Urine Nitrate Positive H Urine Bilirubin Negative Urine Urobilinogen 0.2 Ur Leukocyte Esterase 2+ H Urine RBC 1-5/hpf Urine WBC 5-10/hpf H Ur Squamous Epith Cells 0-1 /hpf Urine Bacteria Few (2-10) H Ur Culture Indicated? Specimen cultured Vol Urine Centrifuged 8 Chlamy pneumoniae PCR Not detected Adenovirus (PCR) Not detected B.parapertussis DNA PCR Not detected Coronavirus OC43 (PCR) Not detected Coronavirus HKU1 (PCR) Not detected Coronavirus 229E (PCR) Not detected SARS-CoV-2 (PCR) Not detected Coronavirus NL63 (PCR) Not detected Human Metapneumovir PCR Not detected Influenza Type A (PCR) Not detected Influenza Type B (PCR) Not detected M. pneumoniae (PCR) Not detected Parainfluenza 1 (PCR) Not detected Parainfluenza 2 (PCR) Not detected Parainfluenza 3 (PCR) Not detected Parainfluenza 4 (PCR) Not detected RSV (PCR) Not detected Entero/Rhino (PCR) Not detected Blood Type Antibody Screen Crossmatch Assessment & Plan Assessment & Plan narrative: 1. Septic shock, present on admission and active. 2. Pneumonia, present on admission and active. 3. Leukocytosis, present on admission and active. 4. Recurrent anemia with myelofibrosis, present on admission and active. 5. Coagulopathy with elevated INR, present on admission and active. 6. VALENTINO, present on admission and active. Creatinine is 1.41. 7. Hyponatremia, present on admission and active. 8. Atrial fibrillation, present on admission and active. 9. Cardiomyopathy, present on admission and active. PLAN: -transition from fluids and antibiotics to comfort based care over the next 12 hours. Anticipate probable comfort care in the hospital but we will see how he does and also consider hospice options. -son is coming in from [place] and should be here soon. Pain medication will be given on a as needed basis for tonight. DNR. is proxy decision maker. Time-Based Coding :: 30 min spent with patient and on the chart (including review of chart, obtaining history, exam, reviewing outside data, placing orders, documenting exam and treatment plan, and counseling patient) on 08/28. Quality MIPS - Admit I confirm the patient?s Advance Care Plan is present, Code status is documented, Surrogate decision maker is in patient?s record [If Yes, STOP here]: Yes MIPS - Meds 'Current medications' to include all prescriptions, [id number] products, herbals, cannabis/cannabidiol products, and vitamin/mineral/dietary (nutritional) supplements. I have utilized all available resources to obtain, update, or review the patient?s current medications. [If Yes, STOP here]: Yes
--- NOTE | 2023-08-29 18:36 | PC.NURSE ---
Pt states pt has had increasingly been tired/less responsive since Tuesday. Pt states he is being treated at home w/ home health who has advised to send pt to ER. Palliative care team called and stated Hospice has been mentioned in the past. Pt edematous in upper and lower extremities; crackles noted bilaterally anteriorly. Pt minimally converses w/ nursing staff. Montoya catheter in place w/ clear yellow urine noted.
--- NOTE | 2023-08-29 19:01 | PC.NURSE ---
New PULST form signed; Vancomycin stopped per MD order.
[2023-08-29] MEDS: DEXTROSE 5%-0.9% NS 1,000 ML 100 ML IV (21:22)
[2023-08-30 07:00] VITALS: BP 97/51; PULSE 56; RESP 19; TEMP 36.6; O2SAT 99
--- NOTE | 2023-08-30 07:34 | PM.PN.1 ---
Subjective Subjective Interval history: He was more awake today. He denies any pain, or dyspnea. Exam Vital Signs (past 8 hours): Oxygen Delivery Method Nasal Cannula Oxygen Flow Rate 2 Narrative Exam Narrative: NAD, alert and oriented. Fluent speech. Lungs are clear, normal rate and effort. Heart is regular, no murmur gallop or rub. Abdomen is soft, non distended. Extremities are free of edema. Objective Labs 08/29/23 15:45 08/29/23 15:45 Labs: Laboratory Results - last 24 hr 08/29/23 08/29/23 08/29/23 15:30 15:45 15:58 WBC 11.3 H RBC 2.21 L Hgb 6.9 L* Hct 21.9 L MCV 99.2 MCH 31.1 MCHC 31.3 RDW 25.9 H Plt Count 214 Neut % (Auto) Not Reportable Lymph % (Auto) Not Reportable [place] % (Auto) Not Reportable Eos % (Auto) Not Reportable Baso % (Auto) Not Reportable Lymph # (Auto) Not Reportable [place] # (Auto) Not Reportable Baso # (Auto) Not Reportable Total Counted 100 Seg Neutrophils % 60.0 Band Neutrophils % 9.0 H Lymphocytes % (Manual) 9.0 L Monocytes % (Manual) 17.0 H Eosinophils % (Manual) 3.0 Basophils % (Manual) 2.0 H Neutrophils # (Manual) 7797 H Smudge Cells 1+ H Toxic Granulation Present H Toxic Vacuolation Present H Plt Morphology Comment RBC Morphology See below Anisocytosis 2+ H PT 34.2 H INR 2.9 H APTT 55 H Sodium 132 L Potassium 5.1 Chloride 102 Carbon Dioxide 25 BUN 69 H Creatinine 1.41 H Estimated GFR 49 L BUN/Creatinine Ratio 48.9 H Glucose 121 H Lactate 1.2 Calcium 7.6 L Total Bilirubin 0.6 AST 18 ALT 10 Alkaline Phosphatase 109 Total Protein 6.0 L Albumin 3.0 L Globulin 3.0 Albumin/Globulin Ratio 1.0 Lipase 41 Procalcitonin 0.249 Urine Color Urine Appearance Urine pH Ur Specific [place] Urine Protein Urine Glucose (UA) Urine Ketones Urine Occult Blood Urine Nitrate Urine Bilirubin Urine Urobilinogen Ur Leukocyte Esterase Urine RBC Urine WBC Ur Squamous Epith Cells Urine Bacteria Ur Culture Indicated? Vol Urine Centrifuged Chlamy pneumoniae PCR Adenovirus (PCR) B.parapertussis DNA PCR Coronavirus OC43 (PCR) Coronavirus HKU1 (PCR) Coronavirus 229E (PCR) SARS-CoV-2 (PCR) Coronavirus NL63 (PCR) Human Metapneumovir PCR Influenza Type A (PCR) Influenza Type B (PCR) M. pneumoniae (PCR) Parainfluenza 1 (PCR) Parainfluenza 2 (PCR) Parainfluenza 3 (PCR) Parainfluenza 4 (PCR) RSV (PCR) Entero/Rhino (PCR) Blood Type O Positive Antibody Screen Negative Crossmatch See Detail 08/29/23 08/29/23 16:06 16:42 WBC RBC Hgb Hct MCV MCH MCHC RDW Plt Count Neut % (Auto) Lymph % (Auto) [place] % (Auto) Eos % (Auto) Baso % (Auto) Lymph # (Auto) [place] # (Auto) Baso # (Auto) Total Counted Seg Neutrophils % Band Neutrophils % Lymphocytes % (Manual) Monocytes % (Manual) Eosinophils % (Manual) Basophils % (Manual) Neutrophils # (Manual) Smudge Cells Toxic Granulation Toxic Vacuolation Plt Morphology Comment RBC Morphology Anisocytosis PT INR APTT Sodium Potassium Chloride Carbon Dioxide BUN Creatinine Estimated GFR BUN/Creatinine Ratio Glucose Lactate Calcium Total Bilirubin AST ALT Alkaline Phosphatase Total Protein Albumin Globulin Albumin/Globulin Ratio Lipase Procalcitonin Urine Color Yellow Urine Appearance Cloudy Urine pH 6.0 Ur Specific [place] 1.010 Urine Protein 1+ H Urine Glucose (UA) Negative Urine Ketones Negative Urine Occult Blood 2+ H Urine Nitrate Positive H Urine Bilirubin Negative Urine Urobilinogen 0.2 Ur Leukocyte Esterase 2+ H Urine RBC 1-5/hpf Urine WBC 5-10/hpf H Ur Squamous Epith Cells 0-1 /hpf Urine Bacteria Few (2-10) H Ur Culture Indicated? Specimen cultured Vol Urine Centrifuged 8 Chlamy pneumoniae PCR Not detected Adenovirus (PCR) Not detected B.parapertussis DNA PCR Not detected Coronavirus OC43 (PCR) Not detected Coronavirus HKU1 (PCR) Not detected Coronavirus 229E (PCR) Not detected SARS-CoV-2 (PCR) Not detected Coronavirus NL63 (PCR) Not detected Human Metapneumovir PCR Not detected Influenza Type A (PCR) Not detected Influenza Type B (PCR) Not detected M. pneumoniae (PCR) Not detected Parainfluenza 1 (PCR) Not detected Parainfluenza 2 (PCR) Not detected Parainfluenza 3 (PCR) Not detected Parainfluenza 4 (PCR) Not detected RSV (PCR) Not detected Entero/Rhino (PCR) Not detected Blood Type Antibody Screen Crossmatch [facility] Medical History Neuropathy COPD (chronic obstructive pulmonary disease) Myelofibrosis CHF (congestive heart failure) Edema Acid reflux HTN (hypertension) Osteoarthritis Arthritis HLD (hyperlipidemia) Cardiomyopathy Afib Surgical History Hx of tonsillectomy History of arthroplasty of left shoulder History of bilateral hip arthroplasty History of arthroplasty of right shoulder Hx of shoulder surgery Hx of laminectomy History of lumbar surgery (03/25/15) Social History household members: spouse Smoking Status: Former smoker alcohol intake: current Assessment & Plan Assessment & Plan narrative: . Septic shock, present on admission and active. 2. Pneumonia, present on admission and active. 3. Leukocytosis, present on admission and active. 4. Recurrent anemia with myelofibrosis, present on admission and active. 5. Coagulopathy with elevated INR, present on admission and active. 6. VALENTINO, present on admission and active. Creatinine is 1.41. 7. Hyponatremia, present on admission and active. 8. Atrial fibrillation, present on admission and active. 9. Cardiomyopathy, present on admission and active. PLAN: -no blood products. -discontinued antibiotics. -discussed level of care to further clarify this morning with family. The agreement at time of admission was comfort based care. He was much more awake today. DNR. is proxy decision maker. Time-Based Coding :: 20 min spent with patient and on the chart (including review of chart, obtaining history, exam, reviewing outside data, placing orders, documenting exam and treatment plan, and counseling patient) on 08/29. Quality VTE Deep Vein Thrombosis/Pulmonary Embolism Present on Admission: No
[2023-08-30] MEDS: DEXTROSE 5%-0.9% NS 1,000 ML 100 ML IV ×2 (11:11→22:53)
--- NOTE | 2023-08-30 11:25 | CM.DANOTE ---
Initial DCP Assessment Visit Note Reviewed EMR and team rounds for status updates. Met at bedside with pt's and son to introduce self and role. Pt is found to be non-responsive, appearing to be mildly agitated and picking at his catheter and bedding. Pt had been residing at home with his and assistance after being discharged from [facility] earlier this month. Pt is unresponsive and now on comfort measures, is now DNR, and is expected to pass away in the next 24-48 hours. and family express understanding and are supportive of this plan. Payor: Medicare PCP: Hallie Usdg Pt is a 83 year-old with end stage myelofibrosis, transfusion dependent, no longer benefitting from infusions. He presented to the ED via EMS with weakness and altered mental status. He was minimally responsive last night in the ED, has an indwelling catheter, was started on O2 in the ED. He had a recent admission here from 07/11-07/12, then discharged earlier this month back home. His states that he never was really able to ambulate with his walker in rehab, and never was able to make very much progress. He has been receiving OP Palliative Care through [facility], and was not open to hospice/comfort measures until he was brought to the ED last evening. DCP will continue to monitor and assist with anticipatory grief support and assistance as needed. Discharge Planning/Care Management CM Discharge Assessment Start: 08/30/23 11:15 Freq: Status: Active Protocol: Document 08/30/23 11:15 DPL (Rec: 08/30/23 11:24 DPL [id number]) Discharge Planning Assessment Assigned School Physical Therapist LEW Mac Advance Directives? Yes Advance Directives on File Yes History Provided By Significant Other,Medical Record Has Patient been admitted in last 30 No days? Prior Living Arrangements House Household Members spouse Type of transporation used prior to Relies on Others admit Independent with ADL's No: Pt has advanced dementia. Is patient alert and oriented? No Needs Assistance With Bathing,Grooming,Meal Prep, Toileting,Managing Medications ,Home Chores / Shopping Caregiver for Another No Community Services used prior to Physical Therapy,Occupational admission: Therapy Comment Was in [facility] rehab DME Already Rented / Owned Wheelchair Comment Pt is on comfort care, he is expected to pass away here in the hospital within the next 48-hours. Barriers to Discharge No Discharge Plan Pt expected to in Hospital Referrals Initiated [facility]it[facility] Whiteboard Updated in Patient Room with Yes name and ext. # of School Physical Therapist Review Status In Process Please Provide Date Initial DC 08/30/23 Assessment Was Performed
[2023-08-30 19:08] VITALS: PULSE 68; O2SAT 100
[2023-08-30 20:00] VITALS: BP 104/44; PULSE 62; RESP 13; TEMP 36.6; O2SAT 97
--- NOTE | 2023-08-30 23:25 | PC.NURSE ---
resumed care of patient at 1930. in bed awake. vital signs stable with a low blood pressure of 104/44. denies pain. A&O to name and place. speech is mumbled and very low. very lethargic. breathing unlabored and regular. O2 sat of 97% on 1L [place]. lung sounds diminished throughout. 3+ pitting edema in bilateral lower extremities. LBM yesterday. hypoactive bowel sounds x4. abdomen non-tender with mild distention. denies nausea. indwelling catheter placed with letty-colored urine. scattered bruising, abrasions, and skin tears on bilateral lower and upper extremities. chronic left heel wound. pt is non-ambulatory. bed alarm is on and call light is within reach.
[2023-08-31 07:00] VITALS: BP 78/46; PULSE 67; RESP 16; TEMP 36.9; O2SAT 97
--- NOTE | 2023-08-31 07:14 | PM.PN.1 ---
Subjective Subjective Interval history: He had a restless night. He was a little more awake this morning but confused. His does not believe she can take care of him at home with hospice. Exam Vital Signs (past 8 hours): Fraction of Inspired Oxygen 28 SaO2/FiO2 Ratio 357 Oxygen Delivery Method Nasal Cannula Oxygen Flow Rate 1.5 Narrative Exam Narrative: Somnolent but arousable, and calm with slurred speech. Lungs are clear, normal rate and effort. Heart is regular, no murmur gallop or rub. Abdomen is soft, non distended. Extremities: anasarca. Objective Labs 08/29/23 15:45 08/29/23 15:45 [facility] Medical History Neuropathy COPD (chronic obstructive pulmonary disease) Myelofibrosis CHF (congestive heart failure) Edema Acid reflux HTN (hypertension) Osteoarthritis Arthritis HLD (hyperlipidemia) Cardiomyopathy Afib Surgical History Hx of tonsillectomy History of arthroplasty of left shoulder History of bilateral hip arthroplasty History of arthroplasty of right shoulder Hx of shoulder surgery Hx of laminectomy History of lumbar surgery (03/25/15) Social History household members: spouse Smoking Status: Former smoker alcohol intake: current Assessment & Plan Assessment & Plan narrative: 1. Septic shock, present on admission and improved. 2. Pneumonia, present on admission and improved. 3. Leukocytosis, present on admission and active. 4. Recurrent anemia with myelofibrosis, present on admission and active. 5. Coagulopathy with elevated INR, present on admission and active. 6. VALENTINO, present on admission and active. Creatinine is 1.41. 7. Hyponatremia, present on admission and active. 8. Atrial fibrillation, present on admission and active. 9. Cardiomyopathy, present on admission and active. PLAN: -no blood products. -no labs -discontinued antibiotics. -discussed level of care to further clarify this morning with family. The agreement at time of admission was comfort based care. -we will cancel the idea of home with hospice and pursue in hospital comfort care measures. He was not stable enough to discharge from the hospital to home hospice. DNR. is proxy decision maker. Time-Based Coding :: [TOTAL MINUTES] spent with patient and on the chart (including review of chart, obtaining history, exam, reviewing outside data, placing orders, documenting exam and treatment plan, and counseling patient) on [DATE]. Quality VTE Deep Vein Thrombosis/Pulmonary Embolism Present on Admission: No
--- NOTE | 2023-08-31 10:35 | CM.DPC ---
DCP Cont. Reviewed EMR and team rounds for status updates. Pt's had initially thought that she wanted pt to return home on hospice, however she has changed her mind and does not feel that she can manage hospice at home. Family's preference is to keep pt in the hospital until he passes, likely in the next 48-hours. Will continue to monitor for family support needs.
[2023-08-31 13:10] VITALS: BP 98/40
[2023-08-31 20:55] VITALS: BP 106/53; PULSE 64; RESP 18; TEMP 36.7; O2SAT 95
[2023-09-01 07:00] VITALS: BP 100/45; PULSE 67; RESP 18; TEMP 36.4; O2SAT 100
--- NOTE | 2023-09-01 07:24 | P.PN_ITS ---
Subjective Subjective Interval history: Comfort based care. Patient is not able to handle having at home with hospice. Awake but minimally able to communicate. Exam Vital Signs (past 8 hours): Fraction of Inspired Oxygen 28 SaO2/FiO2 Ratio 357 Oxygen Delivery Method Nasal Cannula Oxygen Flow Rate 2.5 Narrative Exam Narrative: He appears comfortable. Breathing is comfortable and rate is normal. Lungs are clear. Heart is regular.Abdomen is nondistended and nontender. He has gross anasarca of both legs and hips Objective Labs 08/29/23 15:45 08/29/23 15:45 [facility] Medical History Neuropathy COPD (chronic obstructive pulmonary disease) Myelofibrosis CHF (congestive heart failure) Edema Acid reflux HTN (hypertension) Osteoarthritis Arthritis HLD (hyperlipidemia) Cardiomyopathy Afib Surgical History Hx of tonsillectomy History of arthroplasty of left shoulder History of bilateral hip arthroplasty History of arthroplasty of right shoulder Hx of shoulder surgery Hx of laminectomy History of lumbar surgery (03/25/15) Social History household members: spouse Smoking Status: Former smoker alcohol intake: current Assessment & Plan Assessment & Plan narrative: 1. Septic shock, present on admission and improved. 2. Pneumonia, present on admission and improved. 3. Leukocytosis, present on admission and active. 4. Recurrent anemia with myelofibrosis, present on admission and active. 5. Coagulopathy with elevated INR, present on admission and active. 6. VALENTINO, present on admission and active. Creatinine is 1.41. 7. Hyponatremia, present on admission and active. 8. Atrial fibrillation, present on admission and active. 9. Cardiomyopathy, present on admission and active. PLAN: -no blood products. -no labs -discontinued antibiotics. -discussed level of care to further clarify this morning with family. The agreement at time of admission was comfort based care. -we will cancel the idea of home with hospice and pursue in hospital comfort care measures. -comfort care in the hospital. I met with the and son who are both concerned about him being comfortable and somewhat frustrated by the parent slowness of the process. I reassured them and we will continue to make him comfortable. He was not stable enough to discharge from the hospital to home hospice. DNR. is proxy decision maker. Time-Based Coding :: 20 min spent with patient and on the chart (including review of chart, obtaining history, exam, reviewing outside data, placing orders, documenting exam and treatment plan, and counseling patient) on 08/31. Quality VTE Deep Vein Thrombosis/Pulmonary Embolism Present on Admission: No
[2023-09-01 07:41] VITALS: PULSE 65; O2SAT 100
--- NOTE | 2023-09-01 07:50 | CM.DPC ---
DCP Cont. Reviewed EMR and team rounds for status updates. Pt continues progressive, end of life decline. Family are vigiling at bedside, no identified needs from this HEALTH SOCIAL WORK PROFESSOR at this time. Will continue to monitor and offer ongoing anticipatory grief support.
[2023-09-01] MEDS: OXYCODONE IR 5 MG TABLET PO (10:59)
[2023-09-01 13:00] VITALS: BP 100/45; PULSE 67; RESP 18; TEMP 36.4; O2SAT 100
--- NOTE | 2023-09-02 07:21 | PM.PN.1 ---
Subjective Subjective Date Patient Seen: 09/02/23 Time Patient Seen: 09:20 Interval history: Yesterday: Comfort based care. Patient is not able to handle having at home with hospice. Awake but minimally able to communicate. Interval history: He is seen with his Rosmery at bedside. She feels he is comfortable. He opens his eyes to voice and answer simple questions. He is occasionally taking sips of water. Exam Vital Signs (past 8 hours): Fraction of Inspired Oxygen 28 SaO2/FiO2 Ratio 357 Oxygen Delivery Method Nasal Cannula Oxygen Flow Rate 1.5 Narrative Exam Narrative: He appears comfortable. He opens eyes to voice and answers simple questions. Breathing is comfortable and rate is normal. Lungs are clear. Heart is regular.Abdomen is nondistended and nontender. He has gross anasarca of both legs and hips Objective Labs 08/29/23 15:45 08/29/23 15:45 [facility] Medical History Neuropathy COPD (chronic obstructive pulmonary disease) Myelofibrosis CHF (congestive heart failure) Edema Acid reflux HTN (hypertension) Osteoarthritis Arthritis HLD (hyperlipidemia) Cardiomyopathy Afib Surgical History Hx of tonsillectomy History of arthroplasty of left shoulder History of bilateral hip arthroplasty History of arthroplasty of right shoulder Hx of shoulder surgery Hx of laminectomy History of lumbar surgery (03/25/15) Social History household members: spouse Smoking Status: Former smoker alcohol intake: current Assessment & Plan Assessment & Plan narrative: 1. Septic shock, present on admission and improved. 2. Pneumonia, present on admission and improved. 3. Leukocytosis, present on admission and active. 4. Recurrent anemia with myelofibrosis, present on admission and active. 5. Coagulopathy with elevated INR, present on admission and active. 6. VALENTINO, present on admission and active. Creatinine is 1.41. 7. Hyponatremia, present on admission and active. 8. Atrial fibrillation, present on admission and active. 9. Cardiomyopathy, present on admission and active. PLAN: -no blood products. -no labs -discontinued antibiotics. -discussed level of care to further clarify this morning with family. The agreement at time of admission was comfort based care. -comfort care in the hospital. I met with the today and reviewed this level of care. She is comfortable with the care he is receiving here. He is not stable enough to discharge from the hospital to home hospice. DNR. is proxy decision maker. Time-Based Coding :: [TOTAL MINUTES] spent with patient and on the chart (including review of chart, obtaining history, exam, reviewing outside data, placing orders, documenting exam and treatment plan, and counseling patient) on [DATE]. Quality VTE Deep Vein Thrombosis/Pulmonary Embolism Present on Admission: No PROFEE Charge codes Subsequent inpatient/observation care: 20672
[2023-09-02 09:32] VITALS: O2SAT 99
--- NOTE | 2023-09-02 10:52 | CM.DPC ---
DCP Continued Reviewed EMR and team rounds for pt?s medical status. Per rounds, pt continuing with end of life decline. No new needs from this SALESPERSON SHOES identified at this time. Plan: Pt expected to in hospital. CM Team will continue to follow for any possible dc coordination and offer ongoing anticipatory grief support. ALEJA Hudson
[2023-09-02 13:00] VITALS: BP 108/58; PULSE 68; RESP 16; TEMP 36.8; O2SAT 99
[2023-09-02] MEDS: OXYCODONE IR 5 MG TABLET PO (14:33)
--- NOTE | 2023-09-03 07:47 | P.PN_ITS ---
Subjective Subjective Date Patient Seen: 09/03/23 Time Patient Seen: 07:20 Interval history: The patient is up drinking and eating last night and morning. He asks about Exam Vital Signs (past 8 hours): Fraction of Inspired Oxygen 28 SaO2/FiO2 Ratio 357 Oxygen Delivery Method Nasal Cannula Oxygen Flow Rate 1.5 Narrative Exam Narrative: He appears comfortable. He is sitting up and answers simple questions. Breathing is comfortable and rate is normal. Lungs are clear. Heart is regular.Abdomen is nondistended and nontender. He has gross anasarca of both legs and hips Objective Labs 08/29/23 15:45 08/29/23 15:45 [facility] Medical History Neuropathy COPD (chronic obstructive pulmonary disease) Myelofibrosis CHF (congestive heart failure) Edema Acid reflux HTN (hypertension) Osteoarthritis Arthritis HLD (hyperlipidemia) Cardiomyopathy Afib Surgical History Hx of tonsillectomy History of arthroplasty of left shoulder History of bilateral hip arthroplasty History of arthroplasty of right shoulder Hx of shoulder surgery Hx of laminectomy History of lumbar surgery (03/25/15) Social History household members: spouse Smoking Status: Former smoker alcohol intake: current Assessment & Plan Assessment & Plan narrative: 1. Septic shock, present on admission and improved. He received a dose of Vancomycin and Cefepime on admission and has received IVF. Stop IVF today and monitor. 2. Pneumonia, present on admission and improved. 3. Leukocytosis, present on admission and active. 4. Recurrent anemia with myelofibrosis, present on admission and active. 5. Coagulopathy with elevated INR, present on admission and active. 6. VALENTINO, present on admission and active. Creatinine is 1.41. 7. Hyponatremia, present on admission and active. 8. Atrial fibrillation, present on admission and active. 9. Cardiomyopathy, present on admission and active. PLAN: -stop IVF -no blood products. -no labs -discontinued antibiotics. -discussed level of care to further clarify this morning with family. The agreement at time of admission was comfort based care. -comfort care in the hospital. DNR. is proxy decision maker. Time-Based Coding :: [TOTAL MINUTES] spent with patient and on the chart (including review of chart, obtaining history, exam, reviewing outside data, placing orders, documenting exam and treatment plan, and counseling patient) on [DATE]. Quality VTE Deep Vein Thrombosis/Pulmonary Embolism Present on Admission: No IH PROFEE Charge codes Subsequent inpatient/observation care: 02896
[2023-09-03 08:00] VITALS: BP 120/68; PULSE 81; RESP 23; TEMP 36.7; O2SAT 94
[2023-09-03 08:06] VITALS: O2SAT 99
[2023-09-03] MEDS: TRAMADOL 50 MG TABLET PO (11:16)
[2023-09-03] MEDS: MORPHINE 4 MG/ML INJ 2 MG IV ×3 (12:05→20:16)
--- NOTE | 2023-09-03 12:35 | CM.DPNOTE ---
Addendum entered by LEW Virgen 09/03/23 15:39: MANAGER CAFE attempted to talk to spouse in room x2, either out of room again or in long visit with industrial maintenance manager. Per hospitalist, had a long talk with spouse this morning. Spouse continues to report not being able to care for needs at home even with hospice support. Remains unsure if pt is imminent or not. SL Original Note: DCP note MANAGER CAFE reviewed EMR. Per hospitalist in morning multidisciplinary rounds, pt has perked up, is occasionally alert (not oriented) , had a milkshake yesterday. Per hospitalist, on room air and unsure if remains imminent at this time. Pt has potentially stabilized. Per RN, pt able to ask for industrial maintenance manager consult for last rights. [employer] will be in today. Per RN, pt appears to have stabilized and is now unsure if pt remains imminent or not. MANAGER CAFE attempted to meet with spouse in room to discuss now that it seems pt has perked up a bit if she would be interested in pursing a hospice plan at home. Spouse not in room, per RN, spouse would be back later today. Plan: Pt either to in hospital vs stabilize enough for home with hospice.. CM Team will continue to follow for any possible dc coordination and offer ongoing anticipatory grief support. LEW Virgen
[2023-09-03 19:00] VITALS: BP 130/76; PULSE 96; RESP 17; TEMP 37.2; O2SAT 95
[2023-09-04] MEDS: MORPHINE 4 MG/ML INJ 2 MG IV ×4 (05:45→16:54)
[2023-09-04 07:39] VITALS: BP 124/80; PULSE 77; RESP 16; TEMP 36.6; O2SAT 96
--- NOTE | 2023-09-04 13:35 | CM.DPC ---
DCP Cont. Reviewed EMR and team rounds for status updates. Long conversation with pt's at bedside, along with the [place]. Discussed his status as having improved and that he is no longer imminent, can be managed at a lower level of care. Discussed her concerns and made a plan for her to delegate some of the needs re: moving furniture at home to accomodate a hospital bed, paying for caregivers, etc, as he has offered to help with paying for these types of things, but she didn't want to burden him. Called [facility] and faxed referral. Will need to coordinate re: delivery of DME and readiness for d/c date. Will need BLS transport.
--- NOTE | 2023-09-04 13:58 | P.PN_ITS ---
Subjective Subjective Date Patient Seen: 09/04/23 Time Patient Seen: 08:05 Interval history: The patient appears comfortable. He has intermittent raspy respirations. He opens eyes occasionally to voice without verbal responses. Exam Vital Signs (past 8 hours): - 09/04/23 07:00 09/04/23 07:39 Temperature 97.9 F Pulse Rate 77 Respiratory Rate 16 Blood Pressure 124/80 Pulse Oximetry 96 Oxygen Delivery Method Room Air Oxygen Flow Rate 0 Fraction of Inspired Oxygen 26 SaO2/FiO2 Ratio 380 Oxygen Delivery Method Room Air Oxygen Flow Rate 0 Narrative Exam Narrative: He appears comfortable. He is sitting up and answers simple questions. Breathing is comfortable and rate is normal. Lungs are clear. Heart is regular.Abdomen is nondistended and nontender. He has gross anasarca of both legs and hips Objective Labs 08/29/23 15:45 08/29/23 15:45 [facility] Medical History Neuropathy COPD (chronic obstructive pulmonary disease) Myelofibrosis CHF (congestive heart failure) Edema Acid reflux HTN (hypertension) Osteoarthritis Arthritis HLD (hyperlipidemia) Cardiomyopathy Afib Surgical History Hx of tonsillectomy History of arthroplasty of left shoulder History of bilateral hip arthroplasty History of arthroplasty of right shoulder Hx of shoulder surgery Hx of laminectomy History of lumbar surgery (03/25/15) Social History household members: spouse Smoking Status: Former smoker alcohol intake: current Assessment & Plan Assessment & Plan narrative: 1. Septic shock, present on admission and improved. He received a dose of Vancomycin and Cefepime on admission and has received IVF. Stop IVF today and monitor. 2. Pneumonia, present on admission and improved. 3. Leukocytosis, present on admission and active. 4. Recurrent anemia with myelofibrosis, present on admission and active. 5. Coagulopathy with elevated INR, present on admission and active. 6. VALENTINO, present on admission and active. Creatinine is 1.41. 7. Hyponatremia, present on admission and active. 8. Atrial fibrillation, present on admission and active. 9. Cardiomyopathy, present on admission and active. PLAN: -home with hospice tomorrow -no blood products or antibiotics. -no labs -discussed level of care with his who will arrange home assistance in conjunction with hospice services -comfort care in the hospital. -anticipated discharge home tomorrow DNR. is proxy decision maker. Quality VTE Deep Vein Thrombosis/Pulmonary Embolism Present on Admission: No IH PROFEE Charge codes Subsequent inpatient/observation care: 31886
[2023-09-05 08:00] VITALS: BP 143/83; PULSE 89
[2023-09-05] MEDS: OXYCODONE IR 5 MG TABLET PO ×2 (08:13→14:39)
--- NOTE | 2023-09-05 09:18 | CM.DPNOTE ---
Addendum entered by LEW Virgen 09/05/23 15:02: FINGER LIFT OPERATOR had lengthy conversation with spouse in room. Agreeable to taking him home with hospice support. Has a caregiver that can start Mid September and doesn't want to hire another person until then. Would prefer to take him home sooner rather than later. Concerns about the potential bill. Acknowledges there may be a bill associated with BLS transport home and remains in agreement with BLS transport. FINGER LIFT OPERATOR answered billing questions to best of ability. FINGER LIFT OPERATOR spoke with Candace from [facility], can open with [facility] tomorrow Tuesday at 10am in the home. Will get equip delivered later this afternoon. CC Verito kindly agreed to call [facility] and arrange transport home. Scheduled for 9am. FINGER LIFT OPERATOR completed transport form, provider signed transport form, placed in chart. Comfort care POLST already in chart. FINGER LIFT OPERATOR updated provider. In agreement with plan. P: [facility] tomorrow [facility] with [facility] to transport at 9am to the home. [facility] to open at 10am in the home. CM team will continue to follow as needed SL Addendum entered by LEW Virgen 09/05/23 10:57: Per [facility], do not have availability for new few weeks for SOC. FINGER LIFT OPERATOR spoke with Riley from [facility]. Willing to review. Will hold spot for SOC for Tuesday between 2-3pm. FINGER LIFT OPERATOR faxed clinical information. For review. SL Original Note: DCP Note FINGER LIFT OPERATOR reviewed EMR. FINGER LIFT OPERATOR spoke with Melissa from [facility]. Report they have limited availability to accept new referrals at this time but plans to review. FINGER LIFT OPERATOR faxed ([phone]) updated clinical information for review. DCP ongoing. Likely home on Hospice with PP CGs. CM team will continue to coordinate with spouse/[facility] hospice for SOC/DME delivery. LEW Virgen
--- NOTE | 2023-09-05 09:59 | PM.PN.1 ---
Subjective Subjective Interval history: S: He denies any pain or dyspnea. She does have a raspy cough. His leg edema is slightly better. His oral intake has been poor. He was some leakage around the catheter and minimal urine output into the catheter. Exam Vital Signs (past 8 hours): - 09/05/23 08:00 Pulse Rate 89 Blood Pressure 143/83 H Fraction of Inspired Oxygen 26 SaO2/FiO2 Ratio 380 Oxygen Delivery Method Room Air Oxygen Flow Rate 0 Narrative Exam Narrative: Awake, no distress. Lungs are clear, normal effort. Heart is regular, no murmur. Abdomen is nontender. Gross scrotal edema. 2+ leg edema. Montoya in place. Objective Labs 08/29/23 15:45 08/29/23 15:45 [facility] Medical History Neuropathy COPD (chronic obstructive pulmonary disease) Myelofibrosis CHF (congestive heart failure) Edema Acid reflux HTN (hypertension) Osteoarthritis Arthritis HLD (hyperlipidemia) Cardiomyopathy Afib Surgical History Hx of tonsillectomy History of arthroplasty of left shoulder History of bilateral hip arthroplasty History of arthroplasty of right shoulder Hx of shoulder surgery Hx of laminectomy History of lumbar surgery (03/25/15) Social History household members: spouse Smoking Status: Former smoker alcohol intake: current Assessment & Plan Assessment & Plan narrative: 1. Septic shock, present on admission and improved. He received a dose of Vancomycin and Cefepime on admission and has received IVF. Stop IVF today and monitor. 2. Pneumonia, present on admission and improved. 3. Leukocytosis, present on admission and active. 4. Recurrent anemia with myelofibrosis, present on admission and active. 5. Coagulopathy with elevated INR, present on admission and active. 6. VALENTINO, present on admission and active. Creatinine is 1.41. 7. Hyponatremia, present on admission and active. 8. Atrial fibrillation, present on admission and active. 9. Cardiomyopathy, present on admission and active. PLAN: -home with hospice soon -no blood products or antibiotics. -no labs -discussed level of care with his who will arrange home assistance in conjunction with hospice services -anticipated discharge home soon. -confirm no urinary retention with a bladder ultrasound. Time-Based Coding :: 15 min spent with patient and on the chart (including review of chart, obtaining history, exam, reviewing outside data, placing orders, documenting exam and treatment plan, and counseling patient) on 09/04. Quality VTE Deep Vein Thrombosis/Pulmonary Embolism Present on Admission: No
--- NOTE | 2023-09-05 14:18 | CM.DPNOTE ---
Liliya asked that I call [facility] for 0900 transport on Tuesday, 09/05 to his residence in [place]. I spoke with Jed who confirmed bead picker to be 0900 for tomorrow. Verito Nelson CM Private Security Guard.
--- NOTE | 2023-09-06 07:23 | P.DS_ITS ---
History of Present Illness History of Present Illness Chief complaint: AMS/Anemia/Recent colon CA, Narrative: From ED doctor: Patient is a 83-year-old male history of myelodysplastic syndrome frequent blood transfusions presenting today with weakness and altered mental status. He was admitted July 11 through July 12 ultimately went to [facility] rehab. states that he stayed there but he did not actually walker participate in rehab he was ultimately discharged earlier this month. He does have a caregiver who is almost 247. Today he had significant change in mental status minimally responsive. He was given antibiotics for sepsis but level of care was discussed at length with the . No further blood products. They are giving family time to gather. He will be heading towards comfort care. The level care for now we will be antibiotics and IV fluids. I spent a lot of time with his to reassure her and support her. His end of life is eminent. He he is obtunded and not able to speak. Discharge Providers Provider Date of admission: 08/29/23 18:06 Discharge Date: 09/06/23 Primary care physician: Wilma Alberts DO Consults: 08/29/23 20:51 Consult to Pastoral Services Routine Comment: has had last rights; maybe follow up with family 08/31/23 11:21 Consult to Discharge Planning Routine Comment: Consult to Hospice Referral Urgent Comment: Discharge provider: John Underwood MD Summary Hospital Course Discharge Diagnosis: 1. Septic shock, present on admission and improved. He received a dose of Vancomycin and Cefepime on admission and has received IVF. 2. Pneumonia, present on admission and improved. 3. Leukocytosis, present on admission and active. 4. Recurrent anemia with myelofibrosis, present on admission and active. 5. Coagulopathy with elevated INR, present on admission and active. 6. VALENTINO, present on admission and active. Creatinine is 1.41. 7. Hyponatremia, present on admission and active. 8. Atrial fibrillation, present on admission and active. 9. Cardiomyopathy, present on admission and active. Hospital Course: The patient has a history of myelodysplasia with recurrent blood transfusions. He presented with hypotension and evidence of possible septic shock as well as hyponatremia and VALENTINO. At the time of his admission his family made it clear that they want to pursue comfort based measures. Antibiotics and other supportive care were stopped. IV fluids were also stopped. No more blood products it as well. The patient had a waxing and waning course over the next several days. He would have periods of lucidity. Mainly the patient's family decided to bring him home with hospice. The patient was comfortable in the day of discharge and will return home with hospice care. Status at Discharge Cognitive/behavioral status at discharge: confused Functional status at discharge: bed bound Overall status at discharge: patient is not back to baseline Time Spent with Patient Time spent: Greater than 30 minutes Exam Vital Signs (past 8 hours): Fraction of Inspired Oxygen 26 SaO2/FiO2 Ratio 380 Oxygen Delivery Method Room Air Oxygen Flow Rate 0 Narrative Exam Narrative: He was awake and comfortable. He was confused. He was breathing without distress at a comfortable rate. His abdomen is nondistended and nontender. He was anasarca with edema both legs. He also has scrotal edema. Objective Labs 08/29/23 15:45 08/29/23 15:45 [facility] Medical History Neuropathy COPD (chronic obstructive pulmonary disease) Myelofibrosis CHF (congestive heart failure) Edema Acid reflux HTN (hypertension) Osteoarthritis Arthritis HLD (hyperlipidemia) Cardiomyopathy Afib Surgical History Hx of tonsillectomy History of arthroplasty of left shoulder History of bilateral hip arthroplasty History of arthroplasty of right shoulder Hx of shoulder surgery Hx of laminectomy History of lumbar surgery (03/25/15) Social History household members: spouse Smoking Status: Former smoker alcohol intake: current Discharge Assessment & Plan Assessment and Plan Assessment: 1. Septic shock, present on admission and improved. He received a dose of Vancomycin and Cefepime on admission and has received IVF. 2. Pneumonia, present on admission and improved. 3. Leukocytosis, present on admission and active. 4. Recurrent anemia with myelofibrosis, present on admission and active. 5. Coagulopathy with elevated INR, present on admission and active. 6. VALENTINO, present on admission and active. Creatinine is 1.41. 7. Hyponatremia, present on admission and active. 8. Atrial fibrillation, present on admission and active. 9. Cardiomyopathy, present on admission and active. Plan of Treatment: Return home with hospice care. Discharge Plan Discharge Plan Patient Disposition: Hospice - Home Provider Discharge Comment: Stable for discharge home with hospice. Discharge orders & Medications Prescriptions: New morphine 10 mg/5 mL solution 5 mg PO Q4H PRN (Reason: pain or dyspnea) Qty: 100 0RF lorazepam [Ativan] 2 mg/mL solution 2 mg buccal Q6H PRN (Reason: anxiety) Qty: 25 0RF Discontinued metolazone 2.5 mg tablet 2.5 mg PO PRN PRN (Reason: Edema) carvedilol 6.25 mg tablet 6.25 mg PO BID folic acid 1 mg tablet 1 mg PO DAILY torsemide 20 mg tablet 20 mg PO BID mirtazapine 15 mg tablet 15 mg PO ONCE PM Eliquis 5 mg tablet 5 mg PO BID digoxin 250 mcg (0.25 mg) Tablet 250 mcg PO BEDTIME Xarelto 20 mg Tablet 20 mg PO QPM Vitamin D3 4,000 unit Capsule 2,000 unit PO DAILY gabapentin 300 mg capsule 300 mg PO TID duloxetine 30 mg capsule,delayed release(DR/EC) 60 mg PO BEDTIME vitamin W16-yktpo acid 0.5-1 mg Tablet 1 tab PO DAILY acetaminophen 325 mg Tablet 650 mg PO Q6H PRN (Reason: Fever/Mild Pain (1-3)) Qty: 60 0RF spironolactone 25 mg Tablet 25 mg PO DAILY Qty: 30 0RF Follow up/Referrals: Wilma Alberts DO [Primary Care Provider] - Discharge Health Status Multidrug resistant organism: No MDRO Diet/Activity/Treatments Diet: Diet as Tolerated Visit Report/Discharge Packet Stand Alone Forms: Patient Portal/API Discharge Data Primary Care Provider: Wilma Alberts Quality VTE Deep Vein Thrombosis/Pulmonary Embolism Present on Admission: No MIPS - DC The patient has a history of heart transplant or Left Ventricular Assist Device (LVAD). If yes, STOP here.: No The patient has current or prior documentation of left ventricular ejection fraction (LVEF) less than or equal to 40%, or moderate or severely depressed left ventricular systolic function.: No
[2023-09-06 08:00] VITALS: BP 122/81; PULSE 74; O2SAT 95
--- NOTE | 2023-09-06 08:59 | CM.DPC ---
DCP Cont. Reviewed EMR and team rounds for status updates. Pt has been medically cleared for home d/c. BLS will be transporting pt home at 9:00am, [facility] will open in the early afternoon later today. Spoke with re: [facility]. Placed a list in his d/c folder for her to review. No further d/c needs identified at this time.
[2023-09-06] MEDS: OXYCODONE IR 5 MG TABLET PO (09:16)
--- NOTE | 2023-09-06 09:35 | PC.NURSE ---
Patient alert to self, birthday, and place. Hard of hearing, with Bilateral hearing aides in. Brief changed this morning, murdock remains in place, intact, and draining urine. Dressing to left heel wound changed and patient's inflatable boot put in place per 's request. Patient had foam heel protectors on previously. Patient requested pain medication prior to transport home for bilateral generalized leg pains. Patient's called this morning to confirm discharge and transport time home, she also spoke to [facility] director of casework. IV was removed, and patient transported with all belongings and paperwork packet to ambulance for discharge to home with hospice care.
== END 2023-09-06 09:35 | disposition hospice, home (50) | DRG 871 ==
LOC: ED 17:42 → AC 18:06
PROVIDERS: Admitting Provider Hospitalist; Emergency Provider Emergency Medicine; PCP Family Medicine; Referring Provider Emergency Medicine; Visit Provider Hospitalist
DX: A41.9 Sepsis, unspecified organism (principal); J18.9 Pneumonia, unspecified organism; R65.21 Severe sepsis with septic shock; D75.81 Myelofibrosis; D68.9 Coagulation defect, unspecified; I42.9 Cardiomyopathy, unspecified; E87.1 Hypo-osmolality and hyponatremia; N17.9 Acute kidney failure, unspecified; I48.91 Unspecified atrial fibrillation; D64.9 Anemia, unspecified; I10 Essential (primary) hypertension; Z51.5 Encounter for palliative care; Z79.01 Long term (current) use of anticoagulants; Z87.891 Personal history of nicotine dependence
CPT/HCPCS: 36415; 70450; 71045; 80053; 81001; 83605; 83690; 84145; 85007; 85025; 85610; 85730; 86850; 86900; 86901; 87040; 87077; 87086; 87186; 87633; 93005; 96365; 96366; 96367; 99285; 99291; J0692; J2270